=== PATIENT | male | born 1945 | race Caucasian/White ===

== ENCOUNTER 2023-08-06 12:06 | Inpatient (IN) ==
--- NOTE | 2023-08-06 13:26 | Emergency Department Note ---
Impression & Plan Pulmonary edema, Cough, CKD (chronic kidney disease) ED Provider Note Provider: Reinaldo Brandt MD DATE OF SERVICE: 08/06/2023 CHIEF COMPLAINT: Cough, shortness of breath HISTORY OF PRESENT ILLNESS: Patient is a 78-year-old gentleman history of Present for the past 4 weeks. Has been following a primary care and trying multiple antibiotic courses and trilogy without real improvement. Nonproductive but deep cough. No fevers. No leg swelling. No trauma. Some chest tightness believe related to cough. Has not really used [id number] cough or cold medicine. Does not improving and referred from primary care office today due to ongoing symptoms. No recent travel or sick contact reported. PAST MEDICAL HISTORY: As noted above MEDICATIONS: Reviewed home medications SOCIAL HISTORY: Distant former smoker PHYSICAL EXAM: GENERAL: alert and oriented in no acute distress on stretcher Head: normocephalic and atraumatic EYES: No injection, discharge or icterus. NECK: Trachea midline. ENT: Mucous membranes pink and moist. LUNGS: Airway patent. No retractions. Breath sounds diffuse coarse crackles appreciated. HEART: Regular rate and rhythm. No chest wall tenderness ABDOMEN: Soft and non-tender, without guarding or rebound. SKIN: Acyanotic, warm, dry, without rashes EXTREMITIES: Without swelling, tenderness or deformity NEUROLOGICAL: No focal deficits. No aphasia. No facial droop or slurred speech. Ambulatory. EK bpm normal sinus rhythm with sinus arrhythmia. No PVC. No acute ST segment elevation or depression with a QTc of 408. CONTINUOUS CARDIAC MONITORING: was ordered and showed a heart rate of 80s to 90s bpm in normal sinus rhythm with sinus arrhythmia Patient's laboratory studies and imaging reviewed. Differential includes Reactive airway disease, pneumonia, pneumothorax, COPD, CHF, infections, cardiac ischemia, pulmonary embolism, musculoskeletal, gastrointestinal, as well as other pathologies. IMPRESSION/MEDICAL DECISION MAKING: Patient not hypoxic but does have some coughing spells with very transient episodes. Not productive according to him. No evidence of leg swelling. EKG and troponin completed but seems less likely be true ACS. Very distant former smoker. Has used some Trelegy as well azithromycin in the outpatient setting without improvement. Has tried some antihistamines by records as well. Blood work without anemia or leukocytosis. Seems less likely be truly infectious. No severe electrolyte abnormality with some mild creatinine elevation 1.4. COVID flu RSV testing completed and negative. No transaminitis or troponin elevation. Chest x-ray questions pulmonary vascular congestion. Seems likely that this fluid is causing his extra cough. Discussed with patient and son at bedside. No significant history of heart failure or valvular abnormality previously reported and as such will bring in for further evaluation of this. Will start with some diuresis with Lasix. Will need to be monitored in regards to his chronic kidney disease and the diuresis. Again does transiently have hypoxic episodes during coughing fits but rebounds back onto room air in the low 90s. DIAGNOSIS: Cough, shortness of breath, pulmonary edema DISPOSITION: Hospitalist will evaluate Patient was agreeable with this plan. Past Med/Surg History Medical History (Updated 08/06/23 @ 15:50 by Reinaldo Brandt M.D.) Depression Schizophrenia Surgical History (Updated 01/11/19 @ 09:24 by Agatha Adam RN) History of prostate surgery Social History Smoking Status: Former smoker Hx Alcohol Use: No Hx Substance Use: No Preferred Language: Pashto Communication Ability: Effective Beliefs That Will Affect Care: None Current Living Situation: Family Feels Safe at Home: Yes Allergies Allergies Allergy/AdvReac Type Severity Reaction Status Date / Time No Known Allergies Allergy Verified 01/11/19 09:24 Home Meds Home Medications Medication Instructions Recorded Confirmed duloxetine 30 mg capsule,delayed 30 mg PO BID 11/27/18 01/11/19 release lamotrigine 100 mg tablet 150 mg PO HS 11/27/18 01/11/19 memantine ER 28 mg-donepezil 10 mg 1 cap PO HS 11/27/18 01/11/19 capsule sprinkle,ext.release 24 hr (Namzaric) quetiapine 300 mg tablet 300 mg PO HS 11/27/18 01/11/19 propranolol 60 mg tablet 60 mg PO DAILY 01/11/19 01/11/19 Results & Data (ED) Vital Signs Vital Signs - 24 hr 08/06/23 12:07 08/06/23 12:07 08/06/23 12:08 Temperature 36.8 C Temperature Source Temporal Artery Scan Pulse Rate 105 H Pulse Rate from SpO2 Sensor Respiratory Rate 24 Respiratory Effort / Characteristics Non-Labored Spontaneous Respiratory Depth Normal Blood Pressure 125/70 Blood Pressure Mean 88 Blood Pressure Position Sitting Pulse Oximetry 95 94 Oxygen Delivery Method Room Air Room Air Sepsis Recent Fever Within 48 Hours No Sepsis New/Unexplained Change in Mental Status No Sepsis Action Taken by Nursing No Action Required 08/06/23 12:20 08/06/23 12:22 08/06/23 12:40 Temperature Temperature Source Pulse Rate 103 H 98 H Pulse Rate from SpO2 Sensor 100 H Respiratory Rate 26 H Respiratory Effort / Characteristics SOB on Exertion Respiratory Depth Shallow Blood Pressure Blood Pressure Mean Blood Pressure Position Pulse Oximetry 97 Oxygen Delivery Method Sepsis Recent Fever Within 48 Hours Sepsis New/Unexplained Change in Mental Status Sepsis Action Taken by Nursing 08/06/23 13:01 08/06/23 13:01 08/06/23 13:47 Temperature Temperature Source Pulse Rate 81 Pulse Rate from SpO2 Sensor 84 Respiratory Rate 16 Respiratory Effort / Characteristics Respiratory Depth Blood Pressure 135/88 Blood Pressure Mean 103 Blood Pressure Position Pulse Oximetry 95 95 90 Oxygen Delivery Method Room Air Room Air Sepsis Recent Fever Within 48 Hours Sepsis New/Unexplained Change in Mental Status Sepsis Action Taken by Nursing 08/06/23 14:00 08/06/23 14:30 08/06/23 15:30 Temperature Temperature Source Pulse Rate 91 H 86 91 H Pulse Rate from SpO2 Sensor 91 H 87 92 H Respiratory Rate 19 21 20 Respiratory Effort / Characteristics Respiratory Depth Blood Pressure 145/85 H 142/78 H Blood Pressure Mean 105 99 Blood Pressure Position Pulse Oximetry 92 91 93 Oxygen Delivery Method Sepsis Recent Fever Within 48 Hours Sepsis New/Unexplained Change in Mental Status Sepsis Action Taken by Nursing 08/06/23 15:30 Temperature Temperature Source Pulse Rate Pulse Rate from SpO2 Sensor Respiratory Rate Respiratory Effort / Characteristics Respiratory Depth Blood Pressure 159/94 H Blood Pressure Mean 124 Blood Pressure Position Pulse Oximetry Oxygen Delivery Method Sepsis Recent Fever Within 48 Hours Sepsis New/Unexplained Change in Mental Status Sepsis Action Taken by Nursing Laboratory Data 08/06/23 12:17 08/06/23 12:17 Lab Results 08/06/23 08/06/23 Range/Units 12:17 13:13 WBC 9.43 (4.8-10.8) K/ul RBC 4.63 L (4.70-6.10) M/uL Hgb 15.0 (14.0-18.0) g/dl Hct 43.6 (42.0-52.0) % MCV 94.2 (80.0-100.0) fL MCH 32.4 (25.0-34.0) pg MCHC 34.4 (32.0-36.0) g/dL RDW Std Deviation 50.4 H (36.4-46.3) fL RDW Coeff of Claritza 14.9 H (11.5-14.5) % Plt Count 146 (130-400) K/uL MPV 9.5 (9.4-12.4) fL Immature Gran % (Auto) 0.7 % Neut % (Auto) 54.1 % Lymph % (Auto) 27.6 % [place] % (Auto) 13.4 % Eos % (Auto) 3.4 % Baso % (Auto) 0.8 % Neut # (Auto) 5.10 (1.40-6.50) K/uL Lymph # (Auto) 2.60 (1.20-3.40) K/uL [place] # (Auto) 1.26 H (0.11-0.59) K/uL Eos # (Auto) 0.32 (0.00-0.50) K/uL Baso # (Auto) 0.08 (0.00-0.20) K/uL Immature Gran # (Auto) 0.07 (0.01-0.20) K/uL Hyposegmented Neuts 1+ Tear Drop Cells 1+ PT 10.9 (9.0-12.0) Seconds INR 1.0 (0.9-1.1) APTT 29 (21-31) Seconds PTT Ratio 1.0 Sodium 141 (136-145) mmol/L Potassium 4.1 (3.5-5.1) mmol/L Chloride 105 (98-107) mmol/L Carbon Dioxide 29 (21-32) mmol/L Anion Gap 7 (3-11) BUN 21 (6-23) mg/dl Creatinine 1.42 H (0.6-1.4) mg/dl Est Cr Clr Drug Dosing 47.9 ml/min Est GFR ( Amer) 55.2 ml/min Est GFR (Non-Af Amer) 47.6 ml/min BUN/Creatinine Ratio 14.8 (10-20) Glucose 115 H (70-99(Fasting)) mg/dl Calcium 9.6 (8.6-10.3) mg/dl Total Bilirubin 0.8 (0.2-1.0) mg/dl AST 16 (13-39) U/L ALT 23 (7-52) U/L Alkaline Phosphatase 83 (34-104) U/L Troponin I High Sens 4.1 (0-20) pg/ml Total Protein 7.4 (6.0-8.3) gm/dl Albumin 4.3 (3.4-5.0) gm/dl Globulin 3.1 (2.5-4.0) gm/dl Albumin/Globulin Ratio 1.4 (0.9-2) SARS-CoV-2 (PCR) NEGATIVE (Negative) Influenza Type A (PCR) Negative (Neg) Influenza Type B (PCR) Negative (Neg) RSV (RT-PCR) Negative (Neg) Administered Medications Discontinued Medications Furosemide (Furosemide 40 Mg/4 Ml Vial) 40 mg IV ONE ONE Stop: 08/06/23 14:56 Last Admin: 08/06/23 15:09 Dose: 40 mg Documented By: SUELLEN Guaifenesin (Guaifenesin 600 Mg Tabcr) 1,200 mg PO Q12 STA Stop: 08/06/23 13:37 Last Admin: 08/06/23 13:46 Dose: 1,200 mg Documented By: MICHAEL Hydrocodone Bit/Homatropine Methylb (Hydrocodone/Homatropine Syrup 5mg/1.5mg 5ml Udp) 5 ml PO NOW STA Stop: 08/06/23 13:37 Last Admin: 08/06/23 13:46 Dose: 5 ml Documented By: MICHAEL Imaging Data Radiologist's Impression: Chest X-Ray 08/06/23 13:01 XR chest 1V portable HISTORY: 78 years-old Male Chest pain, nonspecific COMPARISON: 11/27/2018 TECHNIQUE: AP view of the chest FINDINGS: Cardiac silhouette is enlarged. Pulmonary vascular congestion with mild interstitial coarsening. No pneumothorax or large pleural effusion. Mild subsegmental bibasilar densities. Left chest wall battery pack with stimulator leads projected over the left neck. Bones appear intact IMPRESSION: 1. Cardiomegaly with pulmonary vascular congestion. 2. Mild bibasilar atelectasis. ACT 112: Negative or not required by law. The above report was generated using voice recognition software. It may contain grammatical, syntax or spelling errors. Electronically signed by: Julian Ramirez M.D. 08/06/2023 1:45 PM Discharge Plan Visit Data Chief Complaint: Chest Pain Stated Complaint: COUGH, CHEST PAIN, SOB ED Provider: Reinaldo Brandt Discharge Problem: Pulmonary edema, Cough, CKD (chronic kidney disease) Patient Disposition: Being Evaluated by Hospitalist Forms Stand Alone Forms: [facility] Prescriptions Prescriptions: No Action propranolol 60 mg Tablet 60 mg PO DAILY quetiapine 300 mg tablet 300 mg PO HS lamotrigine 100 mg tablet 150 mg PO HS duloxetine 30 mg capsule,delayed release(DR/EC) 30 mg PO BID Namzaric 28-10 mg capsule,sprinkle,ER 24hr 1 cap PO HS Referrals Referrals: Swapna Pope PA-C [Outside Practitioners] -
[2023-08-06 13:29] LABS: Hematocrit (blood only) 43.6 % (42.0-52.0); Mean Corpuscular Hemoglobin 32.4 pg (25.0-34.0); Mean Corpuscular Hgb Conc 34.4 g/dL (32.0-36.0); Mean Corpuscular Volume 94.2 fL (80.0-100.0); Mean Platelet Volume 9.5 fL (9.4-12.4); Platelet Count 146 K/uL (130-400); RDW Coefficient of Variation 14.9 % (11.5-14.5); RDW Standard Deviation 50.4 fL (36.4-46.3); Red Blood Count 4.63 M/uL (4.70-6.10); White Blood Count 9.43 K/ul (4.8-10.8)
[2023-08-06] MEDS: guaiFENesin 600 MG TABCR PO STA (13:46)
[2023-08-06] MEDS: HYDROcodone/HOMATROPINE SYRUP 5MG/1.5MG 5ML UDP PO STA (13:46)
--- NOTE | 2023-08-06 13:47 | XRay Report ---
XR chest 1V portable HISTORY: 78 years-old Male Chest pain, nonspecific COMPARISON: 11/27/2018 TECHNIQUE: AP view of the chest FINDINGS: Cardiac silhouette is enlarged. Pulmonary vascular congestion with mild interstitial coarsening. No p neumothorax or large pleural effusion. Mild subsegmental bibasilar densities. Left chest wall battery pack with stimulator leads projected over the left neck. Bones appear intact IMPRESSION: 1. Cardiomegaly with pulmonary vascular congestion. 2. Mild bibasilar atelectasis. ACT 112: Negative or not required by law. The above report was generated using voice recognition software. It may contain grammatical, syntax o r spelling errors. Electronically signed by: Julian Ramirez M.D. 08/06/2023 1:45 PM
[2023-08-06 13:56] LABS: Albumin Globulin Ratio 1.4 (0.9-2); Albumin Level 4.3 gm/dl (3.4-5.0); BUN Creatinine Ratio 14.8 (10-20); Bilirubin,Total 0.8 mg/dl (0.2-1.0); Calcium 9.6 mg/dl (8.6-10.3); Creatinine Clr Calc Pharmacy 47.9 ml/min; Est GFR (African American) 55.2 ml/min; Est GFR (Non-African American) 47.6 ml/min; Globulin 3.1 gm/dl (2.5-4.0); Potassium 4.1 mmol/L (3.5-5.1); Total Protein 7.4 gm/dl (6.0-8.3)
[2023-08-06 13:57] LABS: Partial Thromboplastin Time 29 Seconds (21-31); Prothrombin Time 10.9 Seconds (9.0-12.0)
[2023-08-06 13:59] LABS: Influenza A virus by PCR Negative (Neg); Influenza B virus by PCR Negative (Neg); RSV by PCR Negative (Neg); SARS CoV2 RNA(COVID-19) Ceph NEGATIVE (Negative)
[2023-08-06 14:01] LABS: Troponin I High Sensitivity 4.1 pg/ml (0-20)
[2023-08-06 14:14] LABS: Basophils # (auto) 0.08 K/uL (0.00-0.20); Basophils % (auto) 0.8 %; Eosinophils # (auto) 0.32 K/uL (0.00-0.50); Eosinophils % (auto) 3.4 %; Immature Granulocytes # (auto) 0.07 K/uL (0.01-0.20); Immature Granulocytes % (auto) 0.7 %; Lymphocytes % (auto) 27.6 %; Monocytes # (auto) 1.26 K/uL (0.11-0.59); Monocytes % (auto) 13.4 %; Neutrophils % (auto) 54.1 %; Tear Drop Cells 1+
[2023-08-06] MEDS: FUROSEMIDE 40 MG/4 ML VIAL IV ONE (15:09)
--- NOTE | 2023-08-06 16:25 | History & Physical Report ---
Date of Service August 06, 2023 Assessment & Plan (1) Cough: (2) COPD (chronic obstructive pulmonary disease): (3) Pulmonary congestion: Plan: Patient is 78 year old male with PMH DM II, dyslipidemia, CKD III, COPD, former smoker quit in 1999, psoriatic arthritis, depression, bipolar disorder, atypical dementia, essential tremor presented to ER with c/o SOB and cough x 1 month. Outpatient treated with Augmentin, Flonase, Singulair, albuterol for bronchitis, sinusitis without relief and then 07/30/23 started on Trelegy, Zpak and levocetirizine. In ER Patient afebrile, pulse 90s to low 100s, BP 125/70, 94% on room air DDX: COPD Exacerbation, bronchitis pulmonary edema No leukocytosis, troponin negative, procalcitonin: 0.08 Negative RSV, influenza and COVID-19 PCR CXR:Cardiomegaly with pulmonary vascular congestion. Mild bibasilar atelectasis. In ER given Lasix 40 mg IV, guaifenesin, Hycodan CT chest pending BNP pending Respiratory panel pending to further assess for other respiratory viruses Will hold on further diuretics and Monitor I's and O's, daily weight Obtain resting echo DuoNebs Guaifenesin with codeine as needed cough Will continue Trelegy that was recently started on 07/30/2023 CBC, CMP in a.m. (4) Diabetes mellitus, type II: Plan: A1c: 6.5 on 06/04/2023 Diet controlled Monitor a.m. BSG's (5) CKD (chronic kidney disease), stage III: Plan: Cr: 1.4. Baseline 1.2-1.4 Monitor renal functions, avoid nephrotoxic agents when possible (6) Dyslipidemia: Plan: Continue atorvastatin (7) Psoriatic arthritis: Plan: On Remicade, methotrexate Follows with rheumatology (8) Bipolar disorder: (9) Essential tremor: (10) Dementia: Plan: Follows with psychiatry, neurology Continue home Lamictal, Seroquel, Cymbalta, Namzaric DVT Prophylaxis Heparin SQ Full code as per discussion with pt Follows with Dr Benjamin Connor for routine care Pt was seen and care coordinated with Dr Jiang. See addendum I spent a total of 76 minutes reviewing notes, outpatient records, labs, medication, coordinating, documenting and providing care for this patient excluding time spent in the performance of separately billed services. History of Present Illness Chief Complaint: Cough, shortness of breath Primary Care Provider: Elpidio Farrell Jr, DO Patient is 78 year old male with PMH DM II, dyslipidemia, CKD III, COPD, fomer smoker quit in 1999, psoriatic arthritis, depression, bipolar disorder, atypical dementia, essential tremor presented to ER with c/o SOB and cough x 1 month. History obtained from patient and outpatient chart review. Patient reports cough and very little mucous production. Feels short of breath after coughing. Denies fever/chills, chest pain. Patient seen PCP office 07/16/23 and started on Augmentin, Flonase, Singulair, albuterol for bronchitis, sinusitis. Seen again on 07/30/23 for continued symptoms and started on Trelegy, Zpak and levocetirizine. Still with continued cough symptoms and presented today to ER. States feels SOB with coughing episodes but otherwise denies SOB. Denies any noted extremity edema. Denies fever/chills, diaphoresis, N/V/D/C, ENG, dizziness, syncope, vision changes, neck pain, CP, palpitations, hemoptysis, sore throat, choking, otalgia, rhinorrhea, abdominal pain, paresthesias, weakness, extremity edema, rashes, urinary symptoms. Allergies Allergy/AdvReac Type Severity Reaction Status Date / Time No Known Allergies Allergy Verified 08/06/23 16:12 Home Medications Medication Instructions Recorded Confirmed Type memantine ER 28 mg-donepezil 10 mg 1 cap PO HS 11/27/18 08/06/23 History capsule sprinkle,ext.release 24 hr (Namzaric) quetiapine 300 mg tablet 300 mg PO HS 11/27/18 08/06/23 History albuterol sulfate 90 mcg/actuation 2 puff inhalation DIRECTED PRN 08/06/23 08/06/23 History aerosol inhaler Shortness Of Breath Or Wheezing allopurinol 100 mg tablet 100 mg PO DAILY 08/06/23 08/06/23 History atorvastatin 20 mg tablet 20 mg PO DAILY 08/06/23 08/06/23 History duloxetine 60 mg capsule,delayed 60 mg PO BID 08/06/23 08/06/23 History release fluticasone fur. 100 mcg-umeclid 1 ea inhalation DAILY 08/06/23 08/06/23 History 62.5 mcg-vilant 25 mcg inhalat.powder (Trelegy Ellipta) fluticasone propionate 50 2 spray intranasal DAILY 08/06/23 08/06/23 History mcg/actuation nasal spray,suspension folic acid 1 mg tablet 1 mg PO QAM 08/06/23 08/06/23 History lamotrigine 200 mg tablet 200 mg PO DAILY 08/06/23 08/06/23 History levocetirizine 5 mg tablet 5 mg PO PM 08/06/23 08/06/23 History methotrexate sodium 2.5 mg tablet 20 mg PO .QWEEK 08/06/23 08/06/23 History montelukast 10 mg tablet 10 mg PO DAILY 08/06/23 08/06/23 History Past Med/Surg History Medical History Essential tremor Bipolar disorder Psoriatic arthritis COPD (chronic obstructive pulmonary disease) Diabetes mellitus, type II Dyslipidemia CKD (chronic kidney disease), stage III Depression Schizophrenia Surgical History History of colonoscopy History of prostate surgery Family History Other Cancer Social History Smoking Status: Former smoker Hx Alcohol Use: No Hx Substance Use: No Preferred Language: Azeri Communication Ability: Effective 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 Beliefs That Will Affect Care: None Current Living Situation: Family Feels Safe at Home: Yes Safety Concerns: Feels Safe At This Time Assistive Devices: Denture - Upper and Denture - Lower Review of Systems Review of Systems: All systems reviewed & are unremarkable except as noted in HPI & below Physical Exam Physical Exam: General: +intermittent coughing, otherwise no distress, WDWN Head: normocephalic, atraumatic Eyes: conjunctiva non-injected, anicteric ENT: normal inspection external ears, nose, mucous membranes moist Neck: supple, trachea midline Lungs: +coughing, sats 94% on room air, no respiratory distress, +rales bases CV: RRR, no murmur, no pretibial edema Abd: normal BS, soft, non-tender Ext: no cyanosis, no calf tenderness Neuro: A&O x 3, no focal deficits noted, normal affect Skin: warm, dry Results & Data Results & Data Vital Signs (Past 12 Hours) Vital Signs Temp Pulse Resp BP Pulse Ox O2 Del Method 08/06/23 15:30 159/94 H 08/06/23 15:30 91 H 20 93 08/06/23 14:30 86 21 142/78 H 91 08/06/23 14:00 91 H 19 145/85 H 92 08/06/23 13:47 81 16 135/88 90 08/06/23 13:01 95 Room Air 08/06/23 13:01 95 Room Air 08/06/23 12:22 98 H 08/06/23 12:20 103 H 26 H 97 08/06/23 12:08 36.8 C 105 H 24 125/70 94 Room Air 08/06/23 12:07 95 Room Air Laboratory Results Short CBC 08/06/23 Range/Units 12:17 WBC 9.43 (4.8-10.8) K/ul Hgb 15.0 (14.0-18.0) g/dl Hct 43.6 (42.0-52.0) % Plt Count 146 (130-400) K/uL BMP 08/06/23 12:17 Sodium 141 Potassium 4.1 Chloride 105 Carbon Dioxide 29 BUN 21 Creatinine 1.42 H Glucose 115 H Calcium 9.6 Liver Function 08/06/23 Range/Units 12:17 Total Bilirubin 0.8 (0.2-1.0) mg/dl AST 16 (13-39) U/L ALT 23 (7-52) U/L Alkaline Phosphatase 83 (34-104) U/L Albumin 4.3 (3.4-5.0) gm/dl Diagnostic Findings Chest X-Ray 08/06/23 13:01 XR chest 1V portable HISTORY: 78 years-old Male Chest pain, nonspecific COMPARISON: 11/27/2018 TECHNIQUE: AP view of the chest FINDINGS: Cardiac silhouette is enlarged. Pulmonary vascular congestion with mild interstitial coarsening. No pneumothorax or large pleural effusion. Mild subsegmental bibasilar densities. Left chest wall battery pack with stimulator leads projected over the left neck. Bones appear intact IMPRESSION: 1. Cardiomegaly with pulmonary vascular congestion. 2. Mild bibasilar atelectasis. ACT 112: Negative or not required by law. The above report was generated using voice recognition software. It may contain grammatical, syntax or spelling errors. Electronically signed by: Julian Ramirez M.D. 08/06/2023 1:45 PM ECG Additional Comments: sinus rhythm, rate 99 Supervising Physician Co-Signing Physician Notes Pt seen and examined by me, care coordinated w/ Edwige Tejeda PA-C, pls refer to her note above for further detail. Pt is 78 yo M male with DM II, dyslipidemia, CKD III, COPD, fomer smoker quit in 1999, psoriatic arthritis, depression, bipolar disorder, atypical dementia, essential tremor presented to ER with c/o shortness of breath and cough x 1 month. Patient seen PCP office 07/16/23 and started on Augmentin, Flonase, Singulair, albuterol for bronchitis, sinusitis. Seen again on 07/30/23 for continued symptoms and started on Trelegy, Zpak and levocetirizine. Still with continued cough symptoms and presented today to ER. CXR obtained in ED c/w some poss. pulm. vasc. congestion and pt was given IV la six. Currently sitting up in bed in NAD, awake alert answers appropriately. + cough when speaking or taking deep breath, + rales on auscultation. Heart sounds regular, no LE edema. Skin warm and dry and pt is moving extremities. Will obtain, echo, CT chest w/o contrast, procalcitonin,and full respiratory biofire. Will cont. current home regimen , duonebs prn and will add guaifensin w/ codein to help w/ persistent cough. If w/o improvement of symptoms, recommend to consult w/ pulmonary medicine. MD Deidre (10) Dementia Dementia behavioral disturbance: with behavioral disturbance Dementia type: unspecified type Qualified Code(s): F03.91 - Unspecified dementia with behavioral disturbance
[2023-08-06 18:42] LABS: Adenovirus PCR Not Detected (NotDetected); Bordetella parapertussis PCR Not Detected (NotDetected); Bordetella pertussis PCR Not Detected (NotDetected); Chlamydia pneumoniae PCR Not Detected (NotDetected); Coronavirus 229E PCR Not Detected (NotDetected); Coronavirus CoV-2 (COVID19)PCR Not Detected (NotDetected); Coronavirus HKU1 PCR Not Detected (NotDetected); Coronavirus NL63 PCR Not Detected (NotDetected); Coronavirus OC43PCR Not Detected (NotDetected); Human Metapneumovirus PCR Not Detected (NotDetected); Influenza A PCR Not Detected (NotDetected); Influenza B PCR Not Detected (NotDetected); Mycoplasma pneumoniae PCR Not Detected (NotDetected); Parainfluenza Virus 1 PCR Not Detected (NotDetected); Parainfluenza Virus 2 PCR Not Detected (NotDetected); Parainfluenza Virus 3 PCR Not Detected (NotDetected); Parainfluenza Virus 4 PCR Not Detected (NotDetected); Respiratory Syncytial VirusPCR Not Detected (NotDetected); Rhinovirus/Enterovirus PCR DETECTED (NotDetected)
[2023-08-06] MEDS ORDERED: ACETAMINOPHEN 325 MG TAB PO PRN (19:00)
[2023-08-06] MEDS ORDERED: ONDANSETRON INJ 2 MG/ML 2 ML VIAL IV PRN (19:00)
[2023-08-06] MEDS ORDERED: POLYETHYLENE (MIRALAX) 17 GM PACK PO PRN (19:00)
[2023-08-06] MEDS: ALBUT/IPRATROP 3MG/0.5MG NEB 3 ML VIAL NEB SCH (20:16)
--- NOTE | 2023-08-06 20:59 | CT Scan Report ---
Exam(s): CT CHEST Without Contrast EXAM: CT Chest Without Intravenous Contrast CLINICAL HISTORY: Reason for exam: r/o pna. TECHNIQUE: Axial computed tomography images of the chest without intravenous contrast. CTDI is 20.45 mGy and DLP is 732.03 mGy-cm. Automated exposure control was utilized for the study. A dose lowering technique was utilized adhering to the principles of ALARA. COMPARISON: No relevant prior studies available. FINDINGS: Lungs: Unremarkable. No mass. No consolidation. Pleural space: Unremarkable. No pneumothorax. No significant effusion. Heart: Coronary artery atherosclerosis. No cardiomegaly. Trace pericardial effusion. Bones/joints: Unremarkable. No acute fracture. No dislocation. Soft tissues: Unremarkable. Vasculature: Thoracic aortic atherosclerosis without aneurysm. 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 Main pulmonary artery is normal in caliber. Lymph nodes: Unremarkable. No adenopathy. Tubes, lines and devices: Left chest wall generator pack with leads extending cephalad in the left neck. IMPRESSION: No acute findings in the chest. Electronically signed by: Martha Ledezma M.D. 08/06/23 20:58 PM
[2023-08-06] MEDS: HEPARIN SOD 5,000 UNIT/0.5 ML VIAL SQ SCH (21:12)
[2023-08-06] MEDS: CETIRIZINE HCL 10 MG TABLET PO SCH (21:13)
[2023-08-06] MEDS: DULoxetine HCL 60 MG CAP PO SCH (21:13)
[2023-08-06] MEDS: QUEtiapine FUMARATE 300 MG TABLET PO SCH (21:13)
[2023-08-06] MEDS: PNEUMOCOCCAL VACCINE (PCV20) 20-VAL CONJ-DIP CRM/PF 0.5 ML SYR IM ONE (21:13)
[2023-08-07 06:38] LABS: Hematocrit (blood only) 40.4 % (42.0-52.0); Mean Corpuscular Hemoglobin 32.8 pg (25.0-34.0); Mean Corpuscular Hgb Conc 34.7 g/dL (32.0-36.0); Mean Corpuscular Volume 94.6 fL (80.0-100.0); Mean Platelet Volume 9.8 fL (9.4-12.4); Platelet Count 154 K/uL (130-400); RDW Coefficient of Variation 14.7 % (11.5-14.5); RDW Standard Deviation 49.8 fL (36.4-46.3); Red Blood Count 4.27 M/uL (4.70-6.10); White Blood Count 6.41 K/ul (4.8-10.8)
[2023-08-07 06:56] LABS: BUN Creatinine Ratio 16.6 (10-20); Calcium 9.2 mg/dl (8.6-10.3); Creatinine Clr Calc Pharmacy 46.5 ml/min; Est GFR (African American) 53.8 ml/min; Est GFR (Non-African American) 46.4 ml/min; Magnesium 1.7 mg/dl (1.7-2.4); Potassium 3.8 mmol/L (3.5-5.1)
[2023-08-07] MEDS: lamoTRIgine 100 MG TAB PO SCH (08:56)
[2023-08-07] MEDS: FOLIC ACID 1 MG TAB PO SCH (08:56)
[2023-08-07] MEDS: allopurinoL 100 MG TAB PO SCH (08:57)
[2023-08-07] MEDS: ATORVASTATIN 20 MG TAB PO SCH (08:57)
--- OUTSIDE RECORDS SUMMARY | 2023-08-07 08:57 | External Medical Summary ---
Author Name Unknown Address Unknown Organization [id number]:LAB[facility]ATORY [facility] [place] - [address] [facility] [address] Laboratory Report Ordering Provider Test Date Status YAMILETH CORBINLucita 06/04/2023 11:51:24 Final Observation Date Value Abnormality Reference (Units ) Status SYNC LEUKOCYTES IN BLOOD BY AUTOMATED COUNT 06/04/2023 11:51:24 6.47 4.00-10.80 (K/uL) Final Segs 06/04/2023 11:51:24 47.8 40.0-75.0 (%) Final Lymphs % 06/04/2023 11:51:24 36.0 18.0-42.0 (%) Final Monos 06/04/2023 11:51:24 11.3 Above high normal 1.0-11.0 (%) Final Eosinophils 06/04/2023 11:51:24 2.5 0.0-6.0 (%) Final Basos 06/04/2023 11:51:24 1.2 0.0-2.0 (%) Final Immature Granulocyte, Percent 06/04/2023 11:51:24 1.2 0.0-2.0 (%) Final Absolute Segs 06/04/2023 11:51:24 3.09 1.80-7.70 (K/uL) Final Lymphs, absolute 06/04/2023 11:51:24 2.33 1.00-4.80 (K/ul) Final Monos, Abs 06/04/2023 11:51:24 0.73 0.00-1.10 (K/uL) Final Eos, Abs 06/04/2023 11:51:24 0.16 0.00-0.70 (K/uL) Final Basos, Abs 06/04/2023 11:51:24 0.08 0.00-0.20 (K/uL) Final Immature Granulocytes, Number 06/04/2023 11:51:24 0.08 0.00-0.20 (K/uL) Final Performing Location [facility]ORY [facility] [place] - [address] [facility] [id number]
--- OUTSIDE RECORDS SUMMARY | 2023-08-07 08:57 | External Medical Summary ---
Author Name Unknown Address Unknown Organization [id number]:[facility]ORY [facility] [place] [facility] - [address] [id number] Laboratory Report Ordering Provider Test Date Status EBONY BYRNE 04/09/2023 07:31:41 Final Observation Date Value Abnormality Reference (Units ) Status ABO 04/09/2023 07:31:41 A Final RH 04/09/2023 07:31:41 Positive Final RED BLOOD CELL ANTIBODY SCREEN 04/09/2023 07:31:41 Negative Final SPECIMEN EXPIRATION DATE 04/09/2023 07:31:41 04/12/2023 23:59 Final Performing Location [facility] - [address] [id number]
--- OUTSIDE RECORDS SUMMARY | 2023-08-07 08:57 | External Medical Summary ---
Author Name Unknown Address Unknown Organization : Laboratory Report Ordering Provider Test Date Status SHANTE PAYTON 04/05/2023 17:11:47 Final Observation Date Value Abnormality Reference (Units ) Status Glucose Point of Care 04/05/2023 17:11:47 134 Above high normal 70-120 (mg/dL) Final Performing Location
--- OUTSIDE RECORDS SUMMARY | 2023-08-07 08:57 | External Medical Summary ---
Author Name Unknown Address Unknown Organization [id number]:[facility] [place] - [facility] [address] [place] [place] [address] Laboratory Report Ordering Provider Test Date Status 06/04/2023 11:51:24 Final Observation Date Value Abnormality Reference (Units ) Status HbA1C 06/04/2023 11:51:24 6.5 Above high normal 4. 0-5.6 (%) Final The use of HbA1c to monitor glycemic status is based on normal hemoglobin and HbA composition. This test should not be used in patients with abnormal hemoglobin that affects the half life of the red blood cell or the in vivo glycation rates. Glucose, estimated average 06/04/2023 11:51:24 140 Above high normal <126 (mg/dL) Alok durán Performing Location [facility] [place] - [address] [place] [address]
--- OUTSIDE RECORDS SUMMARY | 2023-08-07 08:57 | External Medical Summary | Summary of Care ---
Author Name Unknown Organization [facility] Address [address] [place] [address] Phone [phone] Care Team Providers [employer] Name Role Phone Benjamin Connor MD Primary Care Provider [phone] Reason for Visit * Reason Comments Follow Up Pt here today for a follow up visit Encounter Details Date Type Department Care Team (Late st Contact Info) Description 08/06/2023 9:40 AM EDT Office Visit [facility] [address] [place] [address] Sakshi Stubbs MD [address] [place] [address] COPD exacerbation (HCC)*; SOB (shortness of breath); Bronchitis, complicated; Chronic rhinitis; Type 2 diabetes mellitus with hemoglobin A1c goal of less than 7.0% (HCC); Chronic obstructive pulmonary disease, unspecified COPD type (HCC) Allergies No known active allergiesdocumented as of this encounter (statuses as of 08/06/2023) Medications Medication Sig Dispensed Refills Start Date End Date Status inFLIXimab (REMICADE) 100 MG injection Administer 5 mg/kg intravenously. 0 Active Zoster Vac Recomb Adjuvanted 50 MCG/0.5ML Intramuscular Suspension Reconstituted (Shingrix)Indications :Need for shingles vaccine Inject 0.5 mL into a large muscle now and repeat dose in 60 to 180 days 1 Each 1 05/15/2022 Active Allopurinol 100 MG Oral Tablet (Zyloprim)Indications :Gouty arthritis of left great toe Take 1 Tablet by mouth in the morning. 30 Tablet 11 01/09/2023 Active Folic Acid 1 MG Oral TabletIndications:Pso riatic arthropathy (HCC) Take 1 Tablet by mouth in the morning. 90 Tablet 3 02/25/2023 Active Docusate Sodium 100 MG Oral Capsule (Colace) Take 1 Capsule by mouth in the morning and 1 Capsule before bedtime. 60 Capsule 0 04/06/2023 Active Acetaminophen 325 MG Oral Tablet (Tylenol) Take 1 Tablet by mouth every 6 hours as needed for Pain, Moderate or Pain, Mild. 30 Tablet 0 04/06/2023 Active Methotrexate 2.5 MG Oral TabletIndications:Pso riatic arthropathy (HCC) Take 8 Tablets by mouth once a week. 96 Tablet 0 06/03/2023 Active Atorvastatin Calcium 20 MG Oral Tablet (Lipitor)Indications: Dyslipidemia TAKE 1 TABLET BY MOUTH IN THE MORNING 90 Tablet 2 06/07/2023 Active Fluticasone Propionate 50 MCG/ACT Nasal Suspension (Flonase) Administer 2 Sprays into each nostril in the morning. 16 g 1 07/16/2023 Active Montelukast Sodium 10 MG Oral Tablet (Singulair) Take 1 Tablet by mouth in the morning. 90 Tablet 3 07/16/2023 Active Albuterol Sulfate HFA 108 (90 Base) MCG/ACT Inhalation Aerosol Solution Inhale 2 Puffs by mouth every 6 hours as needed (cough, SOB). 18 g 5 07/16/2023 Active lamoTRIgine 200 MG Oral Tablet (LaMICtal) Take 1 Tablet by mouth in the morning. 90 Tablet 1 07/30/2023 Active Namzaric 28-10 MG Oral Capsule Extended Release 24 Hour (Memantine HCl-Donepezil HCl) 1 TAB DAILY TAKE WITH LARGEST MEAL OF THE DAY. 90 Capsule 1 07/30/2023 Active QUEtiapine Fumarate 300 MG Oral Tablet (SEROquel) Take 1 Tablet by mouth every night at bedtime. 90 Tablet 1 07/30/2023 Active DULoxetine HCl 60 MG Oral Capsule Delayed Release Particles (Cymbalta) Take 1 Capsule by mouth 2 times a day in the morning and at noon. 180 Capsule 1 07/30/2023 Active Levocetirizine Dihydrochloride 5 MG Oral Tablet Take 1 Tablet by mouth every evening. 90 Tablet 3 07/30/2023 Active Trelegy Ellipta 100-62.5-25 MCG/ACT Aerosol Powder Breath Activated (Fluticasone-Umeclidi nium-Vilanterol) Inhale 1 Puff by mouth in the morning. 60 Blister Dosing Unit 11 07/30/2023 Active Azithromycin 250 MG Oral Tablet (Zithromax Z-Sukumar) Take two tablets by mouth on first day, then 1 tablet daily until gone 6 Tablet 0 07/30/2023 Active documented as of this encounter (statuses as of 08/06/2023) Active Problems Problem Noted Date Diagnosed Date Chronic obstructive pulmonary disease 08/06/2023 Chronic rhinitis 07/30/2023 Type 2 diabetes mellitus wit h hemoglobin A1c goal of less than 7.0% 11/27/2022 Major depressive disorder, recurrent episode, mo derate 05/15/2022 Depressive disorder 08/16/2021 Overview: Last Assessment & Plan: Stable chronic condition. Following at psychiatry. Essential tremor 08/16/2021 Transient arterial occlusion of retina 2 Immunosuppression due to drug therapy 08/16/2021 Chronic schizophrenia 12/25/2020 Stage 3a chronic kidney disease 04/08/2020 Overview: Per CKD protocol - Per CKD protocol Mixed dyslipidemia 11/04/2018 Psoriatic arthropathy 10/26/2018 Overview: Last Assessment & Plan: Follows with Rheumatology who prescribes his Remicade and methotrexate. Neurocognitive disorder 01/06/2016 Psoriasis 01/06/2016 Major depressive disorder, s zulma episode, severe, with psychotic behavior 12/10/2009 Overview: Last Assessment & Plan: Stable chronic condition. No intent to harm self or others reported today. Taking medication from psychiatry as prescribed without adverse effect noted. Had to recently decrease his dose of Seroquel due to side effects and also caused a bump in his blood sugars. Continue with psychiatry. Dr. Villalta at [facility] Psych. documented as of this encounter (statuses as of 08/06/2023) Resolved Problems Problem Noted Date Diagnosed Date Resolved Date Dementia without behavioral disturbance 05/15/2022 07/16/2023 Dementia without behavioral disturbance 05/15/2022 06/04/2023 Dementia without behavioral disturbance 05/15/2022 11/27/2022 Diabetes mellitus without complication 02/06/2022 11/27/2022 Prediabetes 01/30/2022 11/27/2022 Chronic kidney disease, stage 3a 03/04/2020 04/11/2020 Overview: Per CKD protocol Elevated hemoglobin 11/04/2018 12/26/19 21 Parkinson's disease 01/06/2016 04/06/20 23 Obesity, Class I, BMI 30.0-3 4.9 (see actual BMI) 01/06/2016 11/03/2018 documented as of this encounter (statuses as of 08/06/2023) Immunizations Name Administration Dates Next Due COVID-19 mRNA, LNP-s, No Pre serve, 2-Dose Series (Pfizer) 08/03/2020,07/13/2020 Pneumococcal Conjugate Vacc, 13 Valent (Prevnar) 01/06/2019 Pneumococcal Conjugate Vacci ne, 7 Valent 12/19/2015 Pneumococcal Polysaccharide PPV23 (Pneumovax) 01/01/2017,03/02/2013 Seasonal Influenza, PF, 6 M & above, IM , (FluLaval or Fluzone) 01/24/2021,01/06/2019 Seasonal Influenza, Quadriva lent Hd (Fluzone Hd) 01/08/2023,02/06/2022 TDAP (age 10 and older)(Boostrix) 12/04/2022 Zoster Vaccine Recombinant (Shingrix) ,05/15/2022,05/15/2022(Defer red: Done Elsewhere) documented as of this encounter Social History Tobacco Use Types Packs/Day Years Used Date Smoking Tobacco: Former Cigarettes Passive Smoke Exposure: Never Smokeless Tobacco: Never Comments:quit in 1999 Alcohol Use Standard Drinks/Week Comments No 0 (1 standard drink = 0.6 oz pur e alcohol) PHQ-2 Answer Date Recorded PHQ Adult Total Score 0 04/12/2023 Hunger Vital Sign Answer Date Recorded Within the past 12 months, y ou worried that your food would run out before you got the money to buy more. Never true 04/12/20 23 Within the past 12 months, t he food you bought just didn't last and you didn't have money to get more. Never true 04/12/2023 Sex and Gender Information Value Date Recorded Sex Assigned at Male 10/26/2018 12:40 PM EDT Gender Identity Male 10/26/2018 12:40 PM EDT Sexual Orientation Straight 10/26/2018 12 :40 PM EDT Job Start Date Occupation Industry Not on file Not on file Not on file documented as of this encounter Last Filed Vital Signs Vital Sign Reading Time Taken Comments Blood Pressure 116/72 08/06/2023 9:34 AM EDT Pulse 105 08/06/2023 9:34 AM EDT Temperature 36.3 C (97.3 F) 08/06/2023 9:34 AM ED T Respiratory Rate 18 08/06/2023 9:34 AM EDT Oxygen Saturation 95% 08/06/2023 9:34 AM EDT Inhaled Oxygen Concentration - - Weight 91.2 kg (201 lb) 08/06/2023 9:34 AM EDT Height - - Body Mass Index 28.84 06/04/2023 10:41 AM EST documented in this encounter Functional Status Functional Status Response Date of Assess ment Are you deaf or do you have serious difficulty h earing? No 04/05/2023 Are you blind or do you have serious difficulty seeing, even when wearing glasses? No 04/05/2023 Do you have serious difficul ty walking or climbing stairs? (5 years old or older) No 04/05/2023 Do you have difficulty dress ing or bathing? (5 years old or older) No 04/05/2023 Because of a physical, menta l, or emotional condition, do you have difficulty doing errands alone such as visiting a doctor s office or shopping? (15 years old or older) No 04/05/20 Cognitive Status Response Date of Assessm ent Because of a physical, menta l, or emotional condition, do you have serious difficulty concentrating, remembering, or making decisions? (5 years old or older) Yes 04/05/2023 documented as of this encounter Patient Instructions * Patient Instructions* Sakshi Stubbs MD - 08/06/2023 9:46 AM EDT Came for shortness of breath which has been worse over a month Failed on two courses oral antibiotic and steroid, trelegy inhaler and singulair + antihistamine , nasal sprays Asthma/COPD exacerbation Breathing is getting worse Will need hospital evaluation documented in this encounter Progress Notes * Sakshi Stubbs MD - 08/06/2023 9:41 AM EDT Subjective Shiva Lea is a 78 year old male. Chief Complaint Patient presents with Follow Up Pt here today for a follow up visit HPI: here for one week f/u on complicated bronchitis severe chronic rhinitis , hx of smoking Started singulair, finished augmentin, steroid in mar Taking flonase daily and albuterol prn Added trelegy , levocertizine on f/u visit one week ago due to severe rhinitis, cough, SOB Today his lung sounds still shows diffuse bronchi, wheezing O2 Sat down to 95 % Type 2 DM, controlled, Discussed management , failed as out pt management Will need to go to ER PMH: Patient Active Problem List Diagnosis Code Neurocognitive disorder R41.9 Psoriasis L40.9 Psoriatic arthropathy ([facility]) L40.50 Mixed dyslipidemia E78.2 Stage 3a chronic kidney disease N18.31 Chronic schizophrenia ([facility]) F20.9 Depressive disorder F32.A Essential tremor G25.0 Major depressive disorder, single episode, severe, with psychotic behavior ([facility]) F32.3 Transient arterial occlusion of retina H34.00 Immunosuppression due to drug therapy ([facility]) D84.821, Z79.899 Major depressive disorder, recurrent episode, moderate ([facility]) F33.1 Type 2 diabetes mellitus with hemoglobin A1c goal of less than 7.0% ([facility]) E11.9 Chronic rhinitis J31.0 Chronic obstructive pulmonary disease ([facility]) J44.9 Current Outpatient Medications Medication Sig Dispense Refill inFLIXimab (REMICADE) 100 MG injection Administer 5 mg/kg intravenously. Allopurinol 100 MG Oral Tablet (Zyloprim) Take 1 Tablet by mouth in the morning. 30 Tablet 11 Folic Acid 1 MG Oral Tablet Take 1 Tablet by mouth in the morning. 90 Tablet 3 Docusate Sodium 100 MG Oral Capsule (Colace) Take 1 Capsule by mouth in the morning and 1 Capsule before bedtime. 60 Capsule 0 Acetaminophen 325 MG Oral Tablet (Tylenol) Take 1 Tablet by mouth every 6 hours as needed for Pain,Moderate or Pain, Mild. 30 Tablet 0 Methotrexate 2.5 MG Oral Tablet Take 8 Tablets by mouth once a week. 96 Tablet 0 Atorvastatin Calcium 20 MG Oral Tablet (Lipitor) TAKE 1 TABLET BY MOUTH IN THE MORNING 90 Tablet 2 Fluticasone Propionate 50 MCG/ACT Nasal Suspension (Flonase) Administer 2 Sprays into each nostril in the morning. 16 g 1 Montelukast Sodium 10 MG Oral Tablet (Singulair) Take 1 Tablet by mouth in the morning. 90 Tablet 3 Albuterol Sulfate HFA 108 (90 Base) MCG/ACT Inhalation Aerosol Solution Inhale 2 Puffs by mouth every 6 hours as needed (cough, SOB). 18 g 5 lamoTRIgine 200 MG Oral Tablet (LaMICtal) Take 1 Tablet by mouth in the morning. 90 Tablet 1 Namzaric 28-10 MG Oral Capsule Extended Release 24 Hour (Memantine HCl-Donepezil HCl) 1 TAB DAILY TAKE WITH LARGEST MEAL OF THE DAY. 90 Capsule 1 QUEtiapine Fumarate 300 MG Oral Tablet (SEROquel) Take 1 Tablet by mouth every night at bedtime. 90Tablet 1 DULoxetine HCl 60 MG Oral Capsule Delayed Release Particles (Cymbalta) Take 1 Capsule by mouth 2 times a day in the morning and at noon. 180 Capsule 1 Levocetirizine Dihydrochloride 5 MG Oral Tablet Take 1 Tablet by mouth every evening. 90 Tablet 3 Trelegy Ellipta 100-62.5-25 MCG/ACT Aerosol Powder Breath Activated (Dmbszirmvov-Yyvvubslngtu-Rkogmhfvxp) Inhale 1 Puff by mouth in the morning. 60 Blister Dosing Unit 11 Azithromycin 250 MG Oral Tablet (Zithromax Z-Sukumar) Take two tablets by mouth on first day, then 1 tablet daily until gone 6 Tablet 0 Zoster Vac Recomb Adjuvanted 50 MCG/0.5ML Intramuscular Suspension Reconstituted (Shingrix) Inject 0.5 mL into a large muscle now and repeat dose in 60 to 180 days 1 Each 1 No current facility-administered medications for this visit. Past Medical History: Diagnosis Date Encounter for long-term (current) use of high-risk medication Memory impairment Psoriasis Rheumatoid arthritis (HCC) Rotator cuff syndrome, right Past Surgical History: Procedure Laterality Date ANESTHESIA FOR CAT OR MRI SCAN N/A 03/24/2023 ANESTHESIA FOR NON-INVASIVE IMAGING (MRI OR CT) performed by [facility] [place] [place] [facility] [place] [facility] [place]OSCOPY, DIAGNOSTIC (RECTUM) 06/27/2021 adenomatous polyp, repeat 5 yrs / COLONOSCOPY FLEXIBLE PROXIMAL DIAGNOSTIC performed by Jonatan Carrillo MD at ENDOSCOPY [facility] CRANIECT-WITH USE;1ST ARRAY N/A 04/05/2023 CRANIOTOMY STEREOTACTIC IMPLANT ELECTRODE DBS STAGE 2 performed by Neal Yoon MD at [facility] INSERT/REPLACE CRANIAL NEUROSTIM, SINGLE ELECTRODE Left 04/09/2023 INSERT OR REPLACE OF CRANIAL NEUROSTIMULATOR PULSE GENERATOR OR PIPE LINE WALKER SINGLE ARRAY (STAGE 3) performed by Neal Yoon MD at [facility] TWST DRILL,DEXTER HOLE;1ST ARRAY N/A 04/05/2023 CRANIOTOMY DBS ELECTRODE STAGE 2 performed by Neal Yoon MD at [place] [facility] Review of patient's allergies indicates: No Known Allergies Family History Problem Relation Age of Onset Cancer Other Prostate Other (accident (hit by a car)) Mother Cancer Father Family Status Relation Status Other (Not Specified) Mo Fa Social History Socioeconomic History Marital status: Spouse name: Not on file Number of children: 1 Years of education: 13 Highest education level: Not on file Occupational History 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64 Tobacco Use Smoking status: Former Types: Cigarettes Passive exposure: Never Smokeless tobacco: Never Tobacco comments: quit in 1999 Vaping Use Vaping Use: Never used Substance and Sexual Activity Alcohol use: No Drug use: No Sexual activity: Not on file Other Topics Concern Not on file Social History Narrative Not on file Social Determinants of Health Financial Resource Strain: Not on file Food Insecurity: Patient Declined (08/06/2023) Hunger Vital Sign Worried About Running Out of Food in the Last Year: Patient declined Ran Out of Food in the Last Year: Patient declined Transportation Needs: Not on file Physical Activity: Not on file Stress: Not on file Social Connections: Not on file Intimate Partner Violence: Not on file Housing Stability: Not on file Review of Systems Constitutional: Positive for activity change and fatigue. Negative for appetite change, chills, diaphoresis, fever and unexpected weight change. HENT: Positive for congestion, postnasal drip and rhinorrhea. Negative for sinus pressure and sinuspain. Respiratory: Positive for cough, chest tightness, shortness of breath and wheezing. Cardiovascular: Positive for chest pain. Negative for palpitations and leg swelling. Gastrointestinal: Negative for abdominal distention and abdominal pain. Endocrine: Negative. Allergic/Immunologic: Positive for environmental allergies. Neurological: Positive for dizziness and light-headedness. Psychiatric/Behavioral: Positive for sleep disturbance. Negative for agitation and behavioral problems. Objective BP 116/72 | Pulse 105 | Temp 36.3 C (97.3 F) (Infrared ) | Resp 18 | Wt 91.2 kg (201 lb) | SpO2 95% | BMI 28.84 kg/m | BSA 2.12 m Physical Exam Constitutional: General: He is in acute distress. Appearance: Normal appearance. He is ill-appearing. He is not toxic-appearing or diaphoretic. HENT: Head: Normocephalic and atraumatic. Nose: Congestion and rhinorrhea present. Eyes: Extraocular Movements: Extraocular movements intact. Cardiovascular: Rate and Rhythm: Regular rhythm. Tachycardia present. Pulses: Normal pulses. Heart sounds: Normal heart sounds. Pulmonary: Effort: Respiratory distress present. Breath sounds: No stridor. Wheezing and rhonchi present. No rales. Chest: Chest wall: No tenderness. Musculoskeletal: Right lower leg: No edema. Left lower leg: No edema. Neurological: General: No focal deficit present. Mental Status: He is alert and oriented to person, place, and time. Psychiatric: Behavior: Behavior normal. ASSESSMENT/PLAN: COPD exacerbation (HCC) (Primary) SOB (shortness of breath) Bronchitis, complicated Chronic rhinitis Type 2 diabetes mellitus with hemoglobin A1c goal of less than 7.0% (HCC) Chronic obstructive pulmonary disease, unspecified COPD type (HCC) Patient Instructions Came for shortness of breath which has been worse over a month Failed on two courses oral antibiotic and steroid, trelegy inhaler and singulair + antihistamine , nasal sprays Asthma/COPD exacerbation Breathing is getting worse Will need hospital evaluation Sakshi Stubbs MD documented in this encounter Nursing Notes * Angely Macdonald LPN - 08/06/2023 9:33 AM EDT Chief Complaint Patient presents with Follow Up Pt here today for a follow up visit documented in this encounter Plan of Treatment Upcoming Encounters Date Type Department Care Team (Late st Contact Info) Description 08/06/2023 10:30 AM EDT Hem/Onc Treatment Hematology/Oncology Treatment, [place] [address] [place] [address] Christina, Chair 9 Hem Onc Scenery [address] [place] [address] 09/02/2023 12:00 PM EDT [facility] [address] [place] [address] Adwoa Baker [address] [place] [address] 12/03/2023 10:00 AM EDT [facility] [address] [place] [address] Ej Nieves CRNP [address] [place] [address] 12/10/2023 11:00 AM EDT Office Visit [facility] [address] [place] [address] AugustBenjamin MD [address] [place] [address] Scheduled Procedures Name Priority Associated Diagnoses Date/Ti me COLONOSCOPY FLEXIBLE PROXIMAL DIAGNOSTIC Recall History of colon polyps Health Maintenance Due Date Last Done Comments Alpha-1 Antitrypsin 1963 COVID-19 Vaccine (3 - Pfizer risk series) 08/31/2020 08/03/2020, 07/13/2020 CKD PHOS USE SMARTSET 89758 10/17/202309/25, 08/01/2021, 11/25/2018 GFR 12/03/2023 06/04/2023, 02/24, 02/26/2023, Additional history exists HbA1c 12/03/2023 06/04/2023, 12/25, 10/16/2022, Additional history exists O2 ASSESSMENT COMPLETED IN PAST YEAR FOR COPD 04/09/2024 04/09/2023 CKD HGB USE SMARTSET [id number] 06/04/202406/04, 06/04/2023, 03/10/2023, Additional history exists Diabetic Foot Exam 06/04/2024 06/04/2023, 05/15/2022 Diabetic Eye Exam 07/15/2024 07/16/2023 Albumin/Creatinine Ratio 07/29/2024 024, 10/16/2022, 08/01/2021 COLONOSCOPY-EVERY 5 YRS AGES 18-100 06/27/2026 06/27/2021, 06/27/2021 DTaP,Tdap,and Td Vaccines (2 - Td or Tdap) 12/04/2032 12/04/2022 Pneumococcal Vaccine: 65+ Years Completed 01/06/2019, 01/01/2017, 03/02/2013 Colonoscopy Discontinued 06/27/2021, 06/27/2021 Colorectal Cancer Screening Discontinued Zoster Vaccines Completed 10/09/2022, 05/15/2022 Influenza Vaccine (FLU shot) Completed 01/08/2023, 02/06/2022, 01/24/2021, Additional history exists Cologuard Discontinued Fecal Occult Blood Test Discontinued GARDASIL-HPV IMMUNIZATION SERIES Aged Out No longer eligible based on patient's age to complete this topic Hepatitis B Aged Out No longer eligi ble based on patient's age to complete this topic Hepatitis C Screening Discontinued MENINGOCOCCAL (MENACTRA/MENVEO) Aged Out No longer eligible based on patient's age to complete this topic Sigmoidoscopy Discontinued documented as of this encounter Medical Devices Implanted Type Area General Utility Worker Device Identifier Shelf Expiration Date Model / Serial / Lot Lead Dbs 0.5mm 42cm Marker - [id number] Implanted:Qty: 1 on 04/05/2023 by Neal Yoon MD at [facility] Left: Head [employer] : NEUROLOGIC PAIN 02/11/2025 [id number] / / [id number] Lead Dbs 0.5mm 42cm - [id number] Implanted:Qty: 1 on 04/05/2023 by Neal Y[place] MD [place] [facility] Right: Head [employer] : NEUROLOGIC PAIN 02/11/2025 [id number] / / [id number] Cement Hydroset Injectable 5cc - [id number] Implanted:Qty: 1 on 04/05/2023 by Neal Yoon MD at [facility] N/A: Head CAT[employer]INA 12/11/2024 [id number] / / [id number] Plate 12mm Str 2 Hole Un3 - [id number] Implanted:Qty: 1 on 04/05/2023 by Neal Yoon MD at [place] [facility] Right: Head [employer] : CRANIOMAXILLOFACIAL [id number] / / Plate 12mm Str 2 Hole Un3 - [id number] Implanted:Qty: 1 on 04/05/2023 by Neal Yoon MD at [facility] Left: Head [employer]RINA : CRANIOMAXILLOFACIAL [id number] / / Neurostimulator Percept Pc - [id number] - [id number] Implanted:Qty: 1 on 04/09/2023 by Neal Yoon MD at [facility] Left: Chest [employer] : NEUROLOGIC PAIN 02/06/2025 [id number] / [id number] / Ext Dbs 40cm Marker - [id number] Implanted:Qty: 1 on 04/09/2023 by Neal Yoon MD at [facility] Left: Chest [employer] : NEUROLOGIC PAIN 10/21/2024 [id number] / / Ext Dbs 40cm - [id number] - [id number] Implanted:Qty: 1 on 04/09/2023 by Neal Yoon MD at [facility] Left: Chest [employer] : NEUROLOGIC PAIN 12/04/2024 [id number] / [id number] / Envelope Tyrx Lg Antibacterial - [id number] Implanted:Qty: 1 on 04/09/2023 by Neal Yoon MD at [facility] Left: Chest [employer] 12/17/2023 [id number] / / [id number] documented as of this encounter Visit Diagnoses Diagnosis COPD exacerbation (HCC)- Primary Obstructive chronic bronchitis with exacerbation SOB (shortness of breath) Shortness of breath Bronchitis, complicated Bronchitis, not specified as acute or chronic Chronic rhinitis Type 2 diabetes mellitus with hemoglobin A1c goal of less than 7.0% (HCC) Chronic obstructive pulmonary disease, unspecified COPD type (HCC) documented in this encounter Advance Directives Documents on File Type Date Recorded 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 Question Answer Comments Discussion of Advance Directives occurred with: Not Discussed due to patient's condition Code Status History Code Status Date Activated Date Inactivated Comments Full Code 04/05/2023 2:37 PM 04/06/2023 6:05 PM Thi s order reflects the patients wishes and were consensually agreed upon. Question Answer Comments Discussion of Advance Directives occurred with: Not Discussed due to patient's condition Full Code 04/05/2023 6:15 AM 04/05/2023 2:37 PM Thi s order reflects the patients wishes and were consensually agreed upon. Question Answer Comments Discussion of Advance Directives occurred with: Not Discussed due to patient's condition Care Teams [employer] Truck Driver Relationship Specialty Start Date End Date August, Benjamin De Jesus MD [address] [place] [address] PCP - General Family Medicine 02/04/22 documented as of this encounter"
--- OUTSIDE RECORDS SUMMARY | 2023-08-07 08:57 | External Medical Summary ---
Author Name Unknown Address Unknown Organization : Laboratory Report Ordering Provider Test Date Status SHANTE PAYTON 04/05/2023 06:25:49 Final Observation Date Value Abnormality Reference (Units ) Status Glucose Point of Care 04/05/2023 06:25:49 135 Above high normal 70-120 (mg/dL) Final Performing Location
--- OUTSIDE RECORDS SUMMARY | 2023-08-07 08:57 | External Medical Summary ---
Author Name Unknown Address Unknown Organization K01:[place] [facility] [place] [address] [facility] [place] [address] Laboratory Report Ordering Provider Test Date Status ZEYNEP CORBIN 06/04/2023 11:51:24 Final Observation Date Value Abnormality Reference (Units ) Status BUN 06/04/2023 11:51:24 22 Above high normal 6-20 (mg/dL) Final Creatinine 06/04/2023 11:51:24 1.2 0.6-1.2 (mg/dL) Final Glomerular filtration rate/1.73 sq M.predicted [Volume Rate/Area] in Serum, Plasma or Blood by Creatinine-based formula (CKD-EPI) 06/04/2023 11:51:24 62 >=60 (mL/min) Final eGFR is calculated based on the CKD-EPI 2020 equation SODIUM 06/04/2023 11:51:24 140 135-146 (m mol/L) Final Potassium 06/04/2023 11:51:24 4.4 3.5-5.1 (m mol/L) Final Cl 06/04/2023 11:51:24 101 98-107 (mm ol/L) Final CO2 06/04/2023 11:51:24 27 22-32 (mmo l/L) Final Anion gap 06/04/2023 11:51:24 12 7-15 (mmol /L) Final Glucose 06/04/2023 11:51:24 131 Above high normal 70 -120 (mg/dL) Final Albumin 06/04/2023 11:51:24 4.6 3.8-5.0 (g /dL) Final AST (Aspartate aminotransferase) 06/04/2023 11:51:24 25 10-50 (U/L) Fin al Alk Phos 06/04/2023 11:51:24 98 35-130 (U/ L) Final Bilirubin, Total 06/04/2023 11:51:24 0.6 <=1 .2 (mg/dL) Final Calcium 06/04/2023 11:51:24 9.2 8.4-10.2 ( mg/dL) Final Protein 06/04/2023 11:51:24 7.1 6.0-8.3 (g /dL) Final ALT (Alanine aminotransferase) 06/04/2023 11:51:24 34 10-50 (U/L) Alok duárn Performing Location [facility] [place] [facility] [address] [facility] [place] [address]
--- OUTSIDE RECORDS SUMMARY | 2023-08-07 08:57 | External Medical Summary | Summary of Care ---
Author Name Unknown Organization [facility] Address [address] [place] [address] Phone [phone] Care Team Providers Care Regional Sales Manager Name Role Phone Benjamin Connor MD Primary Care Provider Encounter Details Date Type Department Care Team (Late st Contact Info) Description 08/03/2023 Orders Only Rheumatology [facility] Yvette Bourne [address] [place] [address] [place] [address] Adwoa Baker, DO [address], [place] [id number] Allergies No known active allergiesdocumented as of this encounter (statuses as of 08/03/2023) Medications Medication Sig Dispensed Refills Start Date [...] as of this encounter (statuses as of 08/03/2023) Active Problems Problem Noted Date Diagnosed Date Chronic rhinitis 07/30/2023 Type 2 diabetes mellitus wit h hemoglobin A1c goal of less than 7.0% 11/27/2022 Major depressive disorder, recurrent episode, mo derate 05/15/2022 Depressive disorder 08/16/2021 Overview: Last Assessment & Plan: Stable chronic condition. Following at psychiatry. 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 Continue with psychiatry. Dr. Villalta at [facility] Psych. documented as of this encounter (statuses as of 08/03/2023) Resolved Problems Problem Noted Date Diagnosed Date [...] as of this encounter (statuses as of 08/03/2023) Immunizations Name Administration Dates Next Due COVID-19 [...] on file documented as of this encounter Functional Status Functional Status Response [...] Yes 04/05/2023 documented as of this encounter Plan of Treatment Upcoming Encounters Date Type Department Care Team (Late st Contact Info) Description 08/06/2023 9:40 AM EDT Office Visit [facility] [id number] [place] [address] Sakshi Stubbs MD [address] [place] [address] 08/06/2023 10:30 AM EDT Hem/Onc Treatment Hematology/Oncology Treatment, [place] [address] [place] [phone] Christina, Chair 9 Hem Onc Scenery [address] [place] [address] 09/02/2023 12:00 PM EDT Telemedicine Rheumatology, Ray [address] [place], [place] [id number] Adwoa Baker DO [address] [place] [facility] [place] [address] 12/03/2023 10:00 AM EDT Telemedicine Psychiatry, Tony Saul [address] [place] [address] Ej Nieves CRNP [address] [place] [address] 12/10/2023 11:00 AM EDT Office Visit [facility] [address] [place] [phone] August, Benjamin De Jesus MD [address], [place] [phone] Scheduled Procedures Name Priority Associated Diagnoses Date/Ti me COLONOSCOPY FLEXIBLE PROXIMAL DIAGNOSTIC Recall History of colon polyps Health Maintenance Due Date Last Done Comments COVID-19 Vaccine (3 - Pfizer risk series) 08/31/2020 08/03/2020, 07/13/2020 CKD PHOS USE SMARTSET 14674 10/17/202309/25, 08/01/2021, 11/25/2018 GFR 12/03/2023 06/04/2023, 02/24, 02/26/2023, Additional history exists HbA1c 12/03/2023 06/04/2023, 12/25, 10/16/2022, Additional history exists CKD HGB USE SMARTSET 43691 06/04/202406/04, 06/04/2023, 03/10/2023, Additional history exists Diabetic [...] this encounter Medical Devices Implanted Type Area Painter Chassis Device Identifier Shelf Expiration Date Model / Serial / Lot Lead Dbs 0.5mm 42cm Marker - [id number] Implanted:Qty: 1 on 04/05/2023 by Neal Yoon MD at [place] [facility] [place] Left: Head [employer] : NEUROLOGIC PAIN 02/11/2025 [id number] / / [id number] Lead Dbs 0.5mm 42cm - [id number] Implanted:Qty: 1 on 04/05/2023 by Neal Yoon MD at [place] [facility] [place] Right: Head [employer] : NEUROLOGIC PAIN 02/11/2025 [id number] / / [id number] Cement Hydroset Injectable 5cc - [id number] Implanted:Qty: 1 on 04/05/2023 by Neal Yoon MD at [place] [facility] [place] N/A: Head CATRINA 12/11/2024 [id number] / / [id number] Plate 12mm Str 2 Hole Un3 - [id number] Implanted:Qty: 1 on 04/05/2023 by Neal Yoon MD at [place] [facility] [place] Right: Head CATRINA : CRANIOMAXILLOFACIAL [id number] / / Plate 12mm Str 2 Hole Un3 - [id number] Implanted:Qty: 1 on 04/05/2023 by Neal Yoon MD at [place] [facility] [place] Left: Head CATRINA : CRANIOMAXILLOFACIAL [id number] / / Neurostimulator Percept Pc - [id number] - [id number] Implanted:Qty: 1 on 04/09/2023 by Neal Yoon MD at [place] [facility] [place] Left: Chest [employer] : NEUROLOGIC PAIN 02/06/2025 [id number] / [id number] / Ext Dbs 40cm Marker - [id number] Implanted:Qty: 1 on 04/09/2023 by Neal Yoon MD at [place] [facility] [place] Left: Chest [employer] : NEUROLOGIC PAIN 10/21/2024 [id number] / / Ext Dbs 40cm - [id number] - [id number] Implanted:Qty: 1 on 04/09/2023 by Neal Yoon MD at [place] [facility] [place] Left: Chest [employer] : NEUROLOGIC PAIN 12/04/2024 [id number] / [id number] / Envelope Tyrx Lg Antibacterial - [id number] Implanted:Qty: 1 on 04/09/2023 by Neal Yoon MD at [place] [facility] [place] Left: Chest [employer] 12/17/2023 [id number] / / [id number] documented as of this encounter Advance Directives Documents on File Type Date Recorded Patient Opthalmic Tech Expl anation Power of Mobile Sales Expert 10/30/2014 POWER OF A TTORNEY Latest Code [...] Discussed due to patient's condition Care Teams Regional Sales Manager Relationship Specialty Start Date End Date Benjamin Connor MD [address] [place] [address] PCP - General Family Medicine 02/04/22 documented as of this encounter
--- OUTSIDE RECORDS SUMMARY | 2023-08-07 08:57 | External Medical Summary ---
Author Name Unknown Address Unknown Organization : Laboratory Report Ordering Provider Test Date Status SHANTE PAYTON 04/09/2023 09:49:41 Final Observation Date Value Abnormality Reference (Units ) Status Glucose Point of Care 04/09/2023 09:49:41 158 Above high normal 70-120 (mg/dL) Final Performing Location
--- OUTSIDE RECORDS SUMMARY | 2023-08-07 08:57 | External Medical Summary ---
Author Name Unknown Address Unknown Organization K01:[facility] [facility] [place] [facility] [place] [address] Laboratory Report Ordering Provider Test Date Status ZEYNEP CORBIN 06/04/2023 11:51:24 Final Observation Date Value Abnormality Reference (Units ) Status WBC, Total 06/04/2023 11:51:24 6.47 4.00-10.80 (K/uL) Final RBC 06/04/2023 11:51:24 4.89 4.50-5.25 (M/uL) Final Hemoglobin 06/04/2023 11:51:24 16.0 14.0-16.8 (g/dL) Final HCT 06/04/2023 11:51:24 48.0 40.0-48.4 (%) Final MCV 06/04/2023 11:51:24 98.2 82.0-99.5 (fL) Final MCH 06/04/2023 11:51:24 32.7 27.0-34.0 (pg) Final MCHC 06/04/2023 11:51:24 33.3 32.0-36.0 (g/dL) Final RDW 06/04/2023 11:51:24 12.9 11.5-15.5 (%) Final Platelets 06/04/2023 11:51:24 156 140-400 (K/uL) Final MPV 06/04/2023 11:51:24 10.1 6.6-11.1 (fL) Final Nucleated erythrocytes/100 leukocytes [Ratio] in Blood by Automated count 06/04/2023 11:51:24 0 <=0 (/100 WBCs) Final Performing Location [facility] [place] [address] [place] [address]
--- OUTSIDE RECORDS SUMMARY | 2023-08-07 08:57 | External Medical Summary ---
Author Name Unknown Address Unknown Organization K01:LABORATORY [facility] [place] [facility] - [address] [place] [address] Laboratory Report Ordering Provider Test Date Status ADELAIDA JOE 04/05/2023 06:31:42 Final Observation Date Value Abnormality Reference (Units ) Status ABO 04/05/2023 06:31:42 A Final RH 04/05/2023 06:31:42 Positive Final RED BLOOD CELL ANTIBODY SCREEN 04/05/2023 06:31:42 Negative Final SPECIMEN EXPIRATION DATE 04/05/2023 06:31:42 04/08/2023 23:59 Final Performing Location LABORATORY [facility] [place] B[facility] - [address] [place] [address]
--- OUTSIDE RECORDS SUMMARY | 2023-08-07 08:57 | External Medical Summary ---
Author Name Unknown Address Unknown Organization K01:LAB[facility]ATORY [facility] [place] - [facility] [place] [address] [place] [address] Laboratory Report Ordering Provider Test Date Status BALTAZAR HENDRICKS 07/30/2023 11:09:25 Final Normal: <30 mg/g creatinine< br/>High: 30-300 mg/g creatinine
Very High: >300 mg/g creatinine
Nephrotic: >2200 mg/g creatinine Observation Date Value Abnormality Reference (Units ) Status Albumin, Urine 07/30/2023 11:09:25 3.44 (mg/dL) Final Creatinine, Urine 07/30/2023 11:09:25 331 (mg/dL) Final Albumin/Creatinine [Mass Ratio] in Urine 07/30/2023 11:09:25 10 <30 (mg/g Creat) Final Performing Location LABORATORY [facility] [place] - [address] [place] [address]
--- OUTSIDE RECORDS SUMMARY | 2023-08-07 08:57 | External Medical Summary ---
Author Name Unknown Address Unknown Organization K01:LABORATORY [facility] [place] - [facility] [address] [facility] [address] [place] [address] Laboratory Report Ordering Provider Test Date Status ADELAIDA JOE 04/05/2023 06:31:48 Final Observation Date Value Abnormality Reference (Units ) Status Staphylococcus aureus methicillin resistance SCCmec [Presence] in Nose by ANGIE with probe detection 04/05/2023 06:31:48 Negative Negative Final No Methicillin resistant Sta phylococcus aureus detected by PCR (amplified probe). Methicillin susceptible Stap hylococcus aureus DNA [Presence] in Specimen by ANGIE with probe detection 04/05/2023 06:31:48 Negative Negative Final No methicillin sensitive Sta phylococcus aureus detected by PCR (amplified probe). Performing Location LABORATORY [facility] [place] - [facility] [place] [address]
--- OUTSIDE RECORDS SUMMARY | 2023-08-07 08:57 | External Medical Summary ---
Author Name Unknown Address Unknown Organization : Laboratory Report Ordering Provider Test Date Status SHANTE PAYTON 04/09/2023 07:31:07 Final Observation Date Value Abnormality Reference (Units ) Status Glucose Point of Care 04/09/2023 07:31:07 160 Above high normal 70-120 (mg/dL) Final Performing Location
[2023-08-07] MEDS: FLUTICASONE FUROATE 100MCG 14 PUFFS/INHALER INH SCH (08:58)
[2023-08-07] MEDS: UMECLIDINIUM/VILANTEROL 62.5/25MCG 7 PUFFS/INHALER INH SCH (08:58)
--- OUTSIDE RECORDS SUMMARY | 2023-08-07 08:58 | External Medical Summary ---
Author Name Unknown Address Unknown Organization K01:LABORATORY [facility] [place] [facility] - [address] [place] [address] Laboratory Report Ordering Provider Test Date Status NELLY NG 03/10/2023 11:00:00 Final Observation Date Value Abnormality Reference (Units ) Status ABO 03/10/2023 11:00:00 A Final RH 03/10/2023 11:00:00 Positive Final RED BLOOD CELL ANTIBODY SCREEN 03/10/2023 11:00:00 Negative Final SPECIMEN EXPIRATION DATE 03/10/2023 11:00:00 03/27/2023 23:59 Final Performing Location LABORATORY [facility] [place] B[facility] - [address] [place] [address]
--- OUTSIDE RECORDS SUMMARY | 2023-08-07 08:58 | External Medical Summary ---
Author Name Unknown Address Unknown Organization K01:[place] [place] [address] [place] [address] Laboratory Report Ordering Provider Test Date Status BELLA THOMAS 02/26/2023 09:44:54 Final Observation Date Value Abnormality Reference (Units ) Status MYCODE SPECIMEN-SST 02/26/2023 09:44:54 Freezing of extracted DNA, whole blood and/or serum. Final Performing Location [facility] [place] [address] [place] [address]
--- OUTSIDE RECORDS SUMMARY | 2023-08-07 08:58 | External Medical Summary ---
Author Name Unknown Address Unknown Organization K01:LABORATORY [facility] [place] - [address] [place] [address] Laboratory Report Ordering Provider Test Date Status NELLY NG 03/10/2023 11:00:00 Final Warfarin Therapy
INR: 2 .0-3.0 conventional anticoagulation
INR: 2.5- 3.5 high intensity anticoagulation Observation Date Value Abnormality Reference (Units ) Status PT 03/10/2023 11:00:00 12.8 11.6-15.2 (seconds) Final INR 03/10/2023 11:00:00 0.9 0.8-1.2 Final Performing Location LABORATORY [facility] [place] - [address] [place] [address]
--- OUTSIDE RECORDS SUMMARY | 2023-08-07 08:58 | External Medical Summary ---
Author Name Unknown Address Unknown Organization K01:LAB[facility]ORY [facility] [place] [address] [place] [address] Laboratory Report Ordering Provider Test Date Status MARIA ELENAMACHORAIZA 03/10/2023 11:00:00 Final Observation Date Value Abnormality Reference (Units ) Status Folic Acid 03/10/2023 11:00:00 >20.0 >4.5 (ng/ mL) Final Performing Location LABORATORY C - [address] [place] [address]
--- OUTSIDE RECORDS SUMMARY | 2023-08-07 08:58 | External Medical Summary ---
Author Name Unknown Address Unknown Organization K01:LAB[facility]ATORY [facility] [place] - [address] [place] [address] Laboratory Report Ordering Provider Test Date Status NELLY NG 03/10/2023 11:00:00 Final Observation Date Value Abnormality Reference (Units ) Status BUN 03/10/2023 11:00:00 21 Above high normal 6-20 (mg/dL) Final Creatinine 03/10/2023 11:00:00 1.4 Above high normal 0.6-1.2 (mg/dL) Final Glomerular filtration rate/1.73 sq M.predicted [Volume Rate/Area] in Serum, Plasma or Blood by Creatinine-based formula (CKD-EPI) 03/10/2023 11:00:00 53 Below low normal >=60 (mL/min) Final eGFR is calculated based on the CKD-EPI 2020 equation SODIUM 03/10/2023 11:00:00 140 135-146 (m mol/L) Final Potassium 03/10/2023 11:00:00 4.4 3.5-5.1 (m mol/L) Final Cl 03/10/2023 11:00:00 102 98-107 (mm ol/L) Final CO2 03/10/2023 11:00:00 28 22-32 (mmo l/L) Final Anion gap 03/10/2023 11:00:00 10 7-15 (mmol /L) Final Glucose 03/10/2023 11:00:00 166 Above high normal 70 -120 (mg/dL) Final Calcium 03/10/2023 11:00:00 9.5 8.4-10.2 ( mg/dL) Final Performing Location LABORATORY [facility] [place] - [address] [place] [address]
--- OUTSIDE RECORDS SUMMARY | 2023-08-07 08:58 | External Medical Summary ---
Author Name Unknown Address Unknown Organization K01:[place]ORY [facility] [place] [address] [facility] [place] [address] Laboratory Report Ordering Provider Test Date Status ZEYNEP CORBIN 02/26/2023 09:44:54 Final Observation Date Value Abnormality Reference (Units ) Status BUN 02/26/2023 09:44:54 19 6-20 (mg/dL) Final Creatinine 02/26/2023 09:44:54 1.4 Above high normal 0.6-1.2 (mg/dL) Final Glomerular filtration rate/1.73 sq M.predicted [Volume Rate/Area] in Serum, Plasma or Blood by Creatinine-based formula (CKD-EPI) 02/26/2023 09:44:54 51 Below low normal >=60 (mL/min) Final eGFR is calculated based on the CKD-EPI 2020 equation SODIUM 02/26/2023 09:44:54 143 135-146 (m mol/L) Final Potassium 02/26/2023 09:44:54 3.9 3.5-5.1 (m mol/L) Final Cl 02/26/2023 09:44:54 106 98-107 (mm ol/L) Final CO2 02/26/2023 09:44:54 25 22-32 (mmo l/L) Final Anion gap 02/26/2023 09:44:54 12 7-15 (mmol /L) Final Glucose 02/26/2023 09:44:54 161 Above high normal 70 -120 (mg/dL) Final Albumin 02/26/2023 09:44:54 4.5 3.8-5.0 (g /dL) Final AST (Aspartate aminotransferase) 02/26/2023 09:44:54 20 10-50 (U/L) Fin al Alk Phos 02/26/2023 09:44:54 90 35-130 (U/ L) Final Bilirubin, Total 02/26/2023 09:44:54 0.5 <=1 .2 (mg/dL) Final Calcium 02/26/2023 09:44:54 9.3 8.4-10.2 ( mg/dL) Final Protein 02/26/2023 09:44:54 7.3 6.0-8.3 (g /dL) Final ALT (Alanine aminotransferase) 02/26/2023 09:44:54 23 10-50 (U/L) Alok durán Performing Location [facility] [place] [facility] [address] [facility] [address]
--- OUTSIDE RECORDS SUMMARY | 2023-08-07 08:58 | External Medical Summary ---
Author Name Unknown Address Unknown Organization K01:LABORATORY [facility] [place] - [facility] [place] [address] Laboratory Report Ordering Provider Test Date Status NELLY NG 03/10/2023 11:00:00 Final Observation Date Value Abnormality Reference (Units ) Status WBC, Total 03/10/2023 11:00:00 8.87 4.00-10.80 (K/uL) Final RBC 03/10/2023 11:00:00 5.20 4.50-5.25 (M/uL) Final Hemoglobin 03/10/2023 11:00:00 16.6 14.0-16.8 (g/dL) Final HCT 03/10/2023 11:00:00 49.0 Above high normal 40.0-48.4 (%) Final MCV 03/10/2023 11:00:00 94.2 82.0-99.5 (fL) Final MCH 03/10/2023 11:00:00 31.9 27.0-34.0 (pg) Final MCHC 03/10/2023 11:00:00 33.9 32.0-36.0 (g/dL) Final RDW 03/10/2023 11:00:00 13.6 11.5-15.5 (%) Final Platelets 03/10/2023 11:00:00 214 140-400 (K/uL) Final MPV 03/10/2023 11:00:00 9.9 6.6-11.1 (fL) Final Nucleated erythrocytes/100 leukocytes [Ratio] in Blood by Automated count 03/10/2023 11:00:00 0 <=0 (/100 WBCs) Final Performing Location LABORATORY [facility] [place] - [address] [place] [address]
--- OUTSIDE RECORDS SUMMARY | 2023-08-07 08:58 | External Medical Summary ---
Author Name Unknown Address Unknown Organization K01:LABORATORY [facility] [place] - [address] [place] [address] Laboratory Report Ordering Provider Test Date Status NELLY NG 03/10/2023 11:00:00 Final Anticoagulation may affect t esting. Refer to [employer] Test Catalog for a list of effects. Observation Date Value Abnormality Reference (Units ) Status aPTT panel - Platelet poor plasma 03/10/2023 11:00:00 27 21-38 (seconds) Final Performing Location LABORATORY [facility] [place] - [address] [place] [address]
--- OUTSIDE RECORDS SUMMARY | 2023-08-07 08:58 | External Medical Summary ---
Author Name Unknown Address Unknown Organization K01:LABORATORY [facility] [place] - [address] [place] [address] Laboratory Report Ordering Provider Test Date Status BELLA THOMAS 02/26/2023 09:44:54 Final Observation Date Value Abnormality Reference (Units ) Status MYCODE SPECIMEN-SST 02/26/2023 09:44:54 Freezing of extracted DNA, whole blood and/or serum. Final Performing Location LABORATORY [facility] [place] - [address] [place] [address]
--- OUTSIDE RECORDS SUMMARY | 2023-08-07 08:58 | External Medical Summary ---
Author Name Unknown Address Unknown Organization K01:LABORATORY [facility] [place] [facility] - [address] [place] [address] Laboratory Report Ordering Provider Test Date Status NELLY NG 03/10/2023 11:10:00 Final Observation Date Value Abnormality Reference (Units ) Status ABO 03/10/2023 11:10:00 A Final RH 03/10/2023 11:10:00 Positive Final Performing Location LABORATORY [facility] [place] B[facility] - [address] [place] [address]
--- OUTSIDE RECORDS SUMMARY | 2023-08-07 08:58 | External Medical Summary ---
Author Name Unknown Address Unknown Organization K01:LABORATORY [facility] - [address] [place] [address] Laboratory Report Ordering Provider Test Date Status ROSANNA ARREDONDO 02/26/2023 09:44:54 Final Observation Date Value Abnormality Reference (Units ) Status Folic Acid 02/26/2023 09:44:54 12.5 >4.5 (ng/ mL) Final Performing Location LABORATORY [facility] - [address] [place] [address]
--- OUTSIDE RECORDS SUMMARY | 2023-08-07 08:58 | External Medical Summary ---
Author Name Unknown Address Unknown Organization K01:LABORATORY [facility] [place] - [address] [place] [address] Laboratory Report Ordering Provider Test Date Status ROSANAN ARREDONDO 02/26/2023 09:44:54 Final Observation Date Value Abnormality Reference (Units ) Status Vitamin B12 02/26/2023 09:44:54 [phone] (pg/mL) Final Performing Location LABORATORY [facility] - [address] [place] [address]
--- OUTSIDE RECORDS SUMMARY | 2023-08-07 08:58 | External Medical Summary ---
Author Name Unknown Address Unknown Organization : Laboratory Report Ordering Provider Test Date Status [facility] 03/24/2023 06:59:21 Final Observation Date Value Abnormality Reference (Units ) Status Glucose Point of Care 03/24/2023 06:59:21 157 Above high normal 70-120 (mg/dL) Final Performing Location
--- OUTSIDE RECORDS SUMMARY | 2023-08-07 08:58 | External Medical Summary ---
Author Name Unknown Address Unknown Organization K01:LABORATORY [facility] [place] - [address] [place] [address] Laboratory Report Ordering Provider Test Date Status ZEYNEP CORBIN 02/26/2023 09:44:54 Final Observation Date Value Abnormality Reference (Units ) Status WBC, Total 02/26/2023 09:44:54 7.68 4.00-10.80 (K/uL) Final RBC 02/26/2023 09:44:54 5.22 4.50-5.25 (M/uL) Final Hemoglobin 02/26/2023 09:44:54 16.4 14.0-16.8 (g/dL) Final HCT 02/26/2023 09:44:54 51.0 Above high normal 40.0-48.4 (%) Final MCV 02/26/2023 09:44:54 97.7 82.0-99.5 (fL) Final MCH 02/26/2023 09:44:54 31.4 27.0-34.0 (pg) Final MCHC 02/26/2023 09:44:54 32.2 32.0-36.0 (g/dL) Final RDW 02/26/2023 09:44:54 14.6 11.5-15.5 (%) Final Platelets 02/26/2023 09:44:54 184 140-400 (K/uL) Final MPV 02/26/2023 09:44:54 10.2 6.6-11.1 (fL) Final Nucleated erythrocytes/100 leukocytes [Ratio] in Blood by Automated count 02/26/2023 09:44:54 0 <=0 (/100 WBCs) Final Performing Location LABORATORY [facility] [place] - [address] [place] [address]
--- OUTSIDE RECORDS SUMMARY | 2023-08-07 08:58 | External Medical Summary ---
Author Name Unknown Address Unknown Organization K01:[place] [facility] [place] [address] [place] [address] Laboratory Report Ordering Provider Test Date Status 02/26/2023 09:44:54 Final Observation Date Value Abnormality Reference (Units ) Status Uric Acid 02/26/2023 09:44:54 6.7 3.4-7.0 (m g/dL) Final Performing Location [place] [facility] [place] [address] [place] [address]
--- OUTSIDE RECORDS SUMMARY | 2023-08-07 08:58 | External Medical Summary ---
Author Name Unknown Address Unknown Organization K01:LABORATORY [facility] [place] - [address] [place] [address] Laboratory Report Ordering Provider Test Date Status MARIA ELENAMACHORAIZA 03/10/2023 11:00:00 Final Observation Date Value Abnormality Reference (Units ) Status Vitamin B12 03/10/2023 11:00:00 735 644-0290 (pg/mL) Final Performing Location LABORATORY [facility] - [address] [place] [address]
[2023-08-07] MEDS: FLUTICASONE PROPIONATE NA SPR 16 GM BTL NAE SCH (08:59)
[2023-08-07] MEDS ORDERED: NON-FORMULARY MEDICATION (Fluticasone-Umeclidin-Vilanter [Trelegy Ellipta] 100-62.5-25 mcg INH SCH (09:00)
[2023-08-07] MEDS: MONTELUKAST SODIUM 10 MG TABLET PO SCH (09:00)
[2023-08-07] MEDS ORDERED: ALBUT/IPRATROP 3MG/0.5MG NEB 3 ML VIAL NEB PRN (10:47)
--- NOTE | 2023-08-07 12:07 | Electrocardiogram Report ---
Test Reason : Blood Pressure : / mmHG Vent. Rate : 099 BPM Atrial Rate : 099 BPM P-R Int : 146 ms QRS Dur : 068 ms QT Int : 318 ms P-R-T Axes : 049 -09 067 degrees QTc Int : 408 ms Normal sinus rhythm with sinus arrhythmia Normal ECG When compared with ECG of 27-NOV-2018 18:53, No significant change was found Confirmed by Christoph Hurtado ([id number]) on 08/07/2023 12:07:02 PM Referred By: Confirmed By:Christoph Hurtado
--- NOTE | 2023-08-07 14:33 | Hospitalist Progress Note ---
Date of Service August 07, 2023 Assessment & Plan (1) Cough: (2) COPD (chronic obstructive pulmonary disease): (3) Pulmonary congestion: Plan: Patient is 78 year old male with PMH DM II, dyslipidemia, CKD III, COPD, former smoker quit in 1999, psoriatic arthritis, depression, bipolar disorder, atypical dementia, essential tremor presented to ER with c/o SOB and cough x 1 month. Outpatient treated with Augmentin, Flonase, Singulair, albuterol for bronchitis, sinusitis without relief and then 07/30/23 started on Trelegy, Zpak and levocetirizine. In ER Patient afebrile, pulse 90s to low 100s, BP 125/70, 94% on room air COPD Exacerbation, bronchitis pulmonary edema Complicated by enterorhinovirus infection No leukocytosis, troponin negative, procalcitonin: 0.08 Negative RSV, influenza and COVID-19 PCR Has been getting cough medicine as needed No steroid needed, continue with bronchodilators Has been saturating normally on room air Acute diastolic dysfunction Pulmonary congestion without any overt pulmonary edema Echo showed hyperdynamic EF of more than 70 and grade 1 diastolic dysfunction CXR:Cardiomegaly with pulmonary vascular congestion. Mild bibasilar atelectasis. In ER given Lasix 40 mg IV, CT chest has been unremarkable BNP -normal Clinically better (4) Diabetes mellitus, type II: Plan: A1c: 6.5 on 06/04/2023 Diet controlled Monitor a.m. BSG's (5) CKD (chronic kidney disease), stage III: Plan: Cr: 1.4. Baseline 1.2-1.4 Monitor renal functions, avoid nephrotoxic agents when possible (6) Dyslipidemia: Plan: Continue atorvastatin (7) Psoriatic arthritis: Plan: On Remicade, methotrexate Follows with rheumatology (8) Bipolar disorder: (9) Essential tremor: (10) Dementia: Plan: Follows with psychiatry, neurology Continue home Lamictal, Seroquel, Cymbalta, Namzaric DVT Prophylaxis Heparin SQ Full code as per discussion with pt Follows with Dr Benjamin Connor for routine care Admission and Anticipated Discharge Date Admission Date: August 06, 2023 Subjective 08/07/2023 The patient was seen and examined in medical telemetry unit He has cough with minimal shortness of breath No fever and no chills Has been saturating normally on room air Review of Systems Review of Systems: All systems reviewed and are unremarkable except as noted below Physical Exam Physical Exam: Lying in bed with acute distress due to cough Constitutional: well developed, well nourished, + ill appearing and + obese Eyes: PERRL, conjunctivae normal, anicteric sclerae ENMT: external ear and nose normal, oropharynx normal Neck: trachea midline, no thyromegaly Respiratory: + respiratory distress (Secondary to cou gh and minimal wheezing) Auscultation: + diminished lung sounds and + crackles (At the bases) Cardiovascular: Rate/Rhythm: regular rate and + tachycardic Heart Sounds: normal S1 and normal S2; no murmur Extremities: no edema Gastrointestinal (Abdomen): Inspection/Auscultation: normal bowel sounds; abdomen not distended Percussion/Palpation: abdomen soft; abdomen nontender Musculoskeletal: No acute arthritis involving any of the joint Neurologic: normal touch/pain/proprioception and moves all extremities; no focal motor deficits Psychiatric: A+Ox3, euthymic affect Lymphatic: no cervical or axillary lymphadenopathy Results & Data Results & Data Vital Signs (Past 12 Hours) Vital Signs Temp Pulse Pulse Resp BP Pulse Ox O2 Del Method 08/07/23 11:31 36.8 C 103 H 20 112/72 91 Room Air 08/07/23 10:43 91 H 18 94 Room Air 08/07/23 08:00 Room Air 08/07/23 07:42 90 08/07/23 07:39 36.7 C 98 H 19 130/72 92 Room Air 08/07/23 07:01 90 18 94 Room Air 08/07/23 04:05 37.1 C 84 18 122/77 92 Room Air Laboratory Results Short CBC 08/07/23 Range/Units 05:58 WBC 6.41 (4.8-10.8) K/ul Hgb 14.0 (14.0-18.0) g/dl Hct 40.4 L (42.0-52.0) % Plt Count 154 (130-400) K/uL BMP 08/07/23 05:58 Sodium 140 Potassium 3.8 Chloride 103 Carbon Dioxide 29 BUN 24 H Creatinine 1.45 H Glucose 124 H Calcium 9.2 Medications Administered Current Inpatient Medications Acetaminophen (Acetaminophen 325 Mg Tab) 650 mg PO Q4H PRN PRN Reason: Pain or Fever Stop: 09/05/23 18:59 Albuterol (Albut/Ipratrop 3mg/0.5mg Neb 3 Ml Vial) 3 ml NEB QIDR PRN; Protocol PRN Reason: Shortness Of Breath Or Wheezing Stop: 09/05/23 18:59 Allopurinol (Allopurinol 100 Mg Tab) 100 mg PO DAILY [facility] Stop: 09/06/23 08:59 Last Admin: 08/07/23 08:57 Dose: 100 mg Atorvastatin Calcium (Atorvastatin 20 Mg Tab) 20 mg PO DAILY [facility] Stop: 09/06/23 08:59 Last Admin: 08/07/23 08:57 Dose: 20 mg Cetirizine HCl (Cetirizine Hcl 10 Mg Tablet) 5 mg PO PM [facility] Stop: 09/05/23 20:59 Last Admin: 08/06/23 21:13 Dose: 5 mg Duloxetine HCl (Duloxetine Hcl 60 Mg Cap) 60 mg PO BID [facility] Stop: 09/05/23 20:59 Last Admin: 08/07/23 08:57 Dose: 60 mg Fluticasone Furoate (Fluticasone Furoate 100mcg 14 Puffs/Inhaler) 1 puffs INH DAILY [facility] Stop: 09/06/23 08:59 Last Admin: 08/07/23 08:58 Dose: 1 puffs Fluticasone Propionate (Fluticasone Propionate Na Spr 16 Gm Btl) 2 sprays TAYA DAILY [facility] Stop: 09/06/23 08:59 Last Admin: 08/07/23 08:59 Dose: 2 sprays Folic Acid (Folic Acid 1 Mg Tab) 1 mg PO QAM [facility] Stop: 09/06/23 08:59 Last Admin: 08/07/23 08:56 Dose: 1 mg Guaifenesin/Codeine Phosphate (Guaifenesin/Codeine 100mg/10mg 5ml Udc) 5 ml PO Q6H PRN PRN Reason: Cough Stop: 09/05/23 18:59 Heparin Sodium (Porcine) (Heparin Sod 5,000 Unit/0.5 Ml Vial) 5,000 units SQ Q12 [facility] Stop: 09/05/23 20:59 Last Admin: 08/07/23 09:00 Dose: 5,000 units Lamotrigine (Lamotrigine 100 Mg Tab) 200 mg PO DAILY [facility]; Protocol Stop: 09/06/23 08:59 Last Admin: 08/07/23 08:56 Dose: 200 mg Miscellaneous (Namzaric 28/10 Mg (Memantine/Donepezil)-Order Awaiting Action) 1 each N/A QS [facility] Stop: 09/05/23 19:59 Last Admin: 08/07/23 08:59 Dose: Not Given Montelukast Sodium (Montelukast Sodium 10 Mg Tablet) 10 mg PO DAILY [facility] Stop: 09/06/23 08:59 Last Admin: 08/07/23 09:00 Dose: 10 mg Ondansetron HCl (Ondansetron Inj 2 Mg/Ml 2 Ml Vial) 4 mg IV Q6H PRN PRN Reason: Nausea Stop: 09/05/23 18:59 Polyethylene Glycol (Polyethylene (Miralax) 17 Gm Pack) 17 gm PO DAILY PRN PRN Reason: Constipation Stop: 09/05/23 18:59 Quetiapine Fumarate (Quetiapine Fumarate 300 Mg Tablet) 300 mg PO HS [facility] Stop: 09/05/23 20:59 Last Admin: 08/06/23 21:13 Dose: 300 mg Umeclidinium/Vilanterol (Umeclidinium/Vilanterol 62.5/25mcg 7 Puffs/Inhaler) 1 puffs INH DAILY [facility] Stop: 09/06/23 08:59 Last Admin: 08/07/23 08:58 Dose: 1 puffs (10) Dementia Dementia behavioral disturbance: with behavioral disturbance Dementia type: unspecified type Qualified Code(s): F03.91 - Unspecified dementia with behavioral disturbance
--- NOTE | 2023-08-08 07:22 | Electrocardiogram Report ---
Test Reason : Blood Pressure : / mmHG Vent. Rate : 090 BPM Atrial Rate : 090 BPM P-R Int : 148 ms QRS Dur : 080 ms QT Int : 354 ms P-R-T Axes : 059 002 076 degrees QTc Int : 433 ms Normal sinus rhythm Normal ECG When compared with ECG of 06-AUG-2023 12:15, No significant change was found Confirmed by Mart Aldrich ([id number]) on 08/08/2023 7:21:26 AM Referred By: REFERRED SELF Confirmed By:Dipesh Aldrich
[2023-08-08 08:25] LABS: Basophils # (auto) 0.03 K/uL (0.00-0.20); Basophils % (auto) 0.7 %; Eosinophils # (auto) 0.18 K/uL (0.00-0.50); Eosinophils % (auto) 3.9 %; Hematocrit (blood only) 43.4 % (42.0-52.0); Hemoglobin 14.6 g/dl (14.0-18.0); Immature Granulocytes # (auto) 0.03 K/uL (0.01-0.20); Immature Granulocytes % (auto) 0.7 %; Lymphocytes # (auto) 1.68 K/uL (1.20-3.40); Lymphocytes % (auto) 36.4 %; Mean Corpuscular Hemoglobin 31.7 pg (25.0-34.0); Mean Corpuscular Hgb Conc 33.6 g/dL (32.0-36.0); Mean Corpuscular Volume 94.3 fL (80.0-100.0); Mean Platelet Volume 9.5 fL (9.4-12.4); Monocytes # (auto) 0.64 K/uL (0.11-0.59); Monocytes % (auto) 13.9 %; Neutrophils # (auto) 2.05 K/uL (1.40-6.50); Neutrophils % (auto) 44.4 %; Platelet Count 150 K/uL (130-400); RDW Coefficient of Variation 14.4 % (11.5-14.5); RDW Standard Deviation 49.2 fL (36.4-46.3); White Blood Count 4.61 K/ul (4.8-10.8)
[2023-08-08 08:52] LABS: BUN Creatinine Ratio 18.4 (10-20); Calcium 9.7 mg/dl (8.6-10.3); Creatinine Clr Calc Pharmacy 49.5 ml/min; Est GFR (African American) 58.2 ml/min; Est GFR (Non-African American) 50.2 ml/min; Magnesium 1.9 mg/dl (1.7-2.4); Potassium 4.5 mmol/L (3.5-5.1)
[2023-08-08] MEDS: guaiFENesin/CODEINE 100MG/10MG 5ML UDC PO PRN (12:52)
[2023-08-08] MEDS ORDERED: guaiFENesin/CODEINE 100MG/10MG 5ML UDC PO PRN (14:00)
--- NOTE | 2023-08-08 14:05 | Hospitalist Progress Note ---
Date of Service August 08, 2023 Assessment & Plan (1) Cough: (2) COPD (chronic obstructive pulmonary disease): (3) Pulmonary congestion: Plan: Patient is 78 year old male with PMH DM II, dyslipidemia, CKD III, COPD, former smoker quit in 1999, psoriatic arthritis, depression, bipolar disorder, atypical dementia, essential tremor presented to ER with c/o SOB and cough x 1 month. Outpatient treated with Augmentin, Flonase, Singulair, albuterol for bronchitis, sinusitis without relief and then 07/30/23 started on Trelegy, Zpak and levocetirizine. In ER Patient afebrile, pulse 90s to low 100s, BP 125/70, 94% on room air COPD Exacerbation, bronchitis pulmonary edema Complicated by enterorhinovirus infection No leukocytosis, troponin negative, procalcitonin: 0.08 Negative RSV, influenza and COVID-19 PCR Has been getting cough medicine as needed No steroid needed, continue with bronchodilators Has been saturating normally on room air Clinically not any better and will start intravenous steroid Will give Hycodan to suppress cough Acute diastolic dysfunction Pulmonary congestion without any overt pulmonary edema Echo showed hyperdynamic EF of more than 70 and grade 1 diastolic dysfunction CXR:Cardiomegaly with pulmonary vascular congestion. Mild bibasilar atelectasis. In ER given Lasix 40 mg IV, CT chest has been unremarkable BNP -normal No evidence of fluid overload (4) Diabetes mellitus, type II: Plan: A1c: 6.5 on 06/04/2023 Diet controlled Monitor a.m. BSG's (5) CKD (chronic kidney disease), stage III: Plan: Cr: 1.4. Baseline 1.2-1.4 Monitor renal functions, avoid nephrotoxic agents when possible (6) Dyslipidemia: Plan: Continue atorvastatin (7) Psoriatic arthritis: Plan: On Remicade, methotrexate Follows with rheumatology (8) Bipolar disorder: (9) Essential tremor: (10) Dementia: Plan: Follows with psychiatry, neurology Continue home Lamictal, Seroquel, Cymbalta, Namzaric DVT Prophylaxis Heparin SQ Full code as per discussion with pt Follows with Dr Benjamin Connor for routine care Admission and Anticipated Discharge Date Admission Date: August 06, 2023 Subjective 08/07/2023 The patient was seen and examined in medical telemetry unit He has cough with minimal shortness of breath No fever and no chills Has been saturating normally on room air 08/08/2023 The patient was seen and examined in medical telemetry unit He has severe cough with some wheezing Has been saturating normally on room air Denies any other significant symptoms Review of Systems Review of Systems: All systems reviewed and are unremarkable except as noted below Physical Exam Physical Exam: Lying in bed with acute distress due to cough Constitutional: well developed, well nourished, + ill appearing and + obese Eyes: PERRL, conjunctivae normal, anicteric sclerae ENMT: external ear and nose normal, oropharynx normal Neck: trachea midline, no thyromegaly Respiratory: + respiratory distress (Secondary to cou gh and minimal wheezing) Auscultation: + diminished lung sounds and + crackles (At the bases) Cardiovascular: Rate/Rhythm: regular rate and + tachycardic Heart Sounds: normal S1 and normal S2; no murmur Extremities: no edema Gastrointestinal (Abdomen): Inspection/Auscultation: normal bowel sounds; abdomen not distended Percussion/Palpation: abdomen soft; abdomen nontender Musculoskeletal: No acute arthritis involving any of the joint Neurologic: normal touch/pain/proprioception and moves all extremities; no focal motor deficits Psychiatric: A+Ox3, euthymic affect Lymphatic: no cervical or axillary lymphadenopathy Results & Data Results & Data Vital Signs (Past 12 Hours) Vital Signs Temp Pulse Pulse Resp BP BP Pulse Ox 08/08/23 11:53 36.5 C 99 H 20 131/72 90 08/08/23 07:30 37.1 C 95 H 20 123/74 92 08/08/23 07:09 08/08/23 07:02 90 08/08/23 05:49 106 H 08/08/23 03:55 37 C 92 H 18 154/90 H 93 O2 Del Method 08/08/23 11:53 Room Air 08/08/23 07:30 Room Air 08/08/23 07:09 Room Air 08/08/23 07:02 08/08/23 05:49 08/08/23 03:55 Room Air Laboratory Results Short CBC 08/08/23 Range/Units 07:59 WBC 4.61 L (4.8-10.8) K/ul Hgb 14.6 (14.0-18.0) g/dl Hct 43.4 (42.0-52.0) % Plt Count 150 (130-400) K/uL BMP 08/08/23 07:59 Sodium 139 Potassium 4.5 Chloride 105 Carbon Dioxide 26 BUN 25 H Creatinine 1.36 Glucose 147 H Calcium 9.7 Medications Administered Current Inpatient Medications Acetaminophen (Acetaminophen 325 Mg Tab) 650 mg PO Q4H PRN PRN Reason: Pain or Fever Stop: 09/05/23 18:59 Albuterol (Albut/Ipratrop 3mg/0.5mg Neb 3 Ml Vial) 3 ml NEB QIDR PRN; Protocol PRN Reason: Shortness Of Breath Or Wheezing Stop: 09/05/23 18:59 Allopurinol (Allopurinol 100 Mg Tab) 100 mg PO DAILY [facility] Stop: 09/06/23 08:59 Last Admin: 08/08/23 07:56 Dose: 100 mg Atorvastatin Calcium (Atorvastatin 20 Mg Tab) 20 mg PO DAILY [facility] Stop: 09/06/23 08:59 Last Admin: 08/08/23 07:57 Dose: 20 mg Cetirizine HCl (Cetirizine Hcl 10 Mg Tablet) 5 mg PO PM [facility] Stop: 09/05/23 20:59 Last Admin: 08/07/23 20:03 Dose: 5 mg Duloxetine HCl (Duloxetine Hcl 60 Mg Cap) 60 mg PO BID [facility] Stop: 09/05/23 20:59 Last Admin: 08/08/23 07:56 Dose: 60 mg Fluticasone Furoate (Fluticasone Furoate 100mcg 14 Puffs/Inhaler) 1 puffs INH DAILY [facility] Stop: 09/06/23 08:59 Last Admin: 08/08/23 07:57 Dose: 1 puffs Fluticasone Propionate (Fluticasone Propionate Na Spr 16 Gm Btl) 2 sprays TAYA DAILY [facility] Stop: 09/06/23 08:59 Last Admin: 08/08/23 07:57 Dose: 2 sprays Folic Acid (Folic Acid 1 Mg Tab) 1 mg PO QAM [facility] Stop: 09/06/23 08:59 Last Admin: 08/08/23 07:56 Dose: 1 mg Heparin Sodium (Porcine) (Heparin Sod 5,000 Unit/0.5 Ml Vial) 5,000 units SQ Q12 [facility] Stop: 09/05/23 20:59 Last Admin: 08/08/23 07:56 Dose: 5,000 units Hydrocodone Bit/Homatropine Methylb (Hydrocodone/Homatropine Syrup 5mg/1.5mg 5ml Udp) 5 ml PO Q6H [facility] Stop: 08/22/23 13:59 Lamotrigine (Lamotrigine 100 Mg Tab) 200 mg PO DAILY [facility]; Protocol Stop: 09/06/23 08:59 Last Admin: 08/08/23 07:56 Dose: 200 mg Miscellaneous (Namzaric 28/10 Mg (Memantine/Donepezil)-Order Awaiting Action) 1 each N/A QS [facility] Stop: 09/05/23 19:59 Last Admin: 08/08/23 07:58 Dose: Not Given Montelukast Sodium (Montelukast Sodium 10 Mg Tablet) 10 mg PO DAILY [facility] Stop: 09/06/23 08:59 Last Admin: 08/08/23 07:56 Dose: 10 mg Ondansetron HCl (Ondansetron Inj 2 Mg/Ml 2 Ml Vial) 4 mg IV Q6H PRN PRN Reason: Nausea Stop: 09/05/23 18:59 Polyethylene Glycol (Polyethylene (Miralax) 17 Gm Pack) 17 gm PO DAILY PRN PRN Reason: Constipation Stop: 09/05/23 18:59 Quetiapine Fumarate (Quetiapine Fumarate 300 Mg Tablet) 300 mg PO HS [facility] Stop: 09/05/23 20:59 Last Admin: 08/07/23 20:03 Dose: 300 mg Umeclidinium/Vilanterol (Umeclidinium/Vilanterol 62.5/25mcg 7 Puffs/Inhaler) 1 puffs INH DAILY [facility] Stop: 09/06/23 08:59 Last Admin: 08/08/23 07:57 Dose: 1 puffs (10) Dementia Dementia behavioral disturbance: with behavioral disturbance Dementia type: unspecified type Qualified Code(s): F03.91 - Unspecified dementia with behavioral disturbance
[2023-08-08] MEDS ORDERED: methylPREDNISolone 125 MG/2 ML VIAL IV SCH (14:15)
[2023-08-08] MEDS: HYDROcodone/HOMATROPINE SYRUP 5MG/1.5MG 5ML UDP PO SCH (15:09)
[2023-08-08] MEDS: methylPREDNISolone 40 MG in SYRINGE 0 ML IV SCH (15:09)
[2023-08-09 06:58] LABS: Basophils # (auto) 0.01 K/uL (0.00-0.20); Basophils % (auto) 0.1 %; Hematocrit (blood only) 40.3 % (42.0-52.0); Hemoglobin 14.4 g/dl (14.0-18.0); Immature Granulocytes # (auto) 0.02 K/uL (0.01-0.20); Immature Granulocytes % (auto) 0.3 %; Lymphocytes % (auto) 16.1 %; Mean Corpuscular Hemoglobin 32.7 pg (25.0-34.0); Mean Corpuscular Hgb Conc 35.7 g/dL (32.0-36.0); Mean Corpuscular Volume 91.6 fL (80.0-100.0); Mean Platelet Volume 9.7 fL (9.4-12.4); Monocytes # (auto) 0.13 K/uL (0.11-0.59); Monocytes % (auto) 1.7 %; Neutrophils # (auto) 6.08 K/uL (1.40-6.50); Neutrophils % (auto) 81.8 %; Platelet Count 177 K/uL (130-400); RDW Coefficient of Variation 13.7 % (11.5-14.5); RDW Standard Deviation 45.7 fL (36.4-46.3); White Blood Count 7.44 K/ul (4.8-10.8)
[2023-08-09 07:23] LABS: BUN Creatinine Ratio 21.9 (10-20); Calcium 9.5 mg/dl (8.6-10.3); Creatinine Clr Calc Pharmacy 49.2 ml/min; Est GFR (African American) 57.7 ml/min; Est GFR (Non-African American) 49.7 ml/min; Potassium 4.7 mmol/L (3.5-5.1)
--- NOTE | 2023-08-09 16:26 | Hospitalist Progress Note ---
Date of Service August 09, 2023 Assessment & Plan (1) Cough: (2) COPD (chronic obstructive pulmonary disease): (3) Pulmonary congestion: Plan: Patient is 78 year old male with PMH DM II, dyslipidemia, CKD III, COPD, former smoker quit in 1999, psoriatic arthritis, depression, bipolar disorder, atypical dementia, essential tremor presented to ER with c/o SOB and cough x 1 month. Outpatient treated with Augmentin, Flonase, Singulair, albuterol for bronchitis, sinusitis without relief and then 07/30/23 started on Trelegy, Zpak and levocetirizine. In ER Patient afebrile, pulse 90s to low 100s, BP 125/70, 94% on room air COPD Exacerbation, bronchitis pulmonary edema Complicated by enterorhinovirus infection No leukocytosis, troponin negative, procalcitonin: 0.08 Negative RSV, influenza and COVID-19 PCR Has been getting cough medicine as needed No steroid needed, continue with bronchodilators Has been saturating normally on room air Clinically not any better and will start intravenous steroid Will give Hycodan to suppress cough Much improved following administration of steroid and denies any significant symptoms Will have PT and OT evaluation prior to discharge May be this afternoon Acute diastolic dysfunction Pulmonary congestion without any overt pulmonary edema Echo showed hyperdynamic EF of more than 70 and grade 1 diastolic dysfunction CXR:Cardiomegaly with pulmonary vascular congestion. Mild bibasilar atelectasis. In ER given Lasix 40 mg IV, CT chest has been unremarkable BNP -normal No evidence of fluid overload Has been lying flat without any shortness of breath and saturating normally on room air (4) Diabetes mellitus, type II: Plan: A1c: 6.5 on 06/04/2023 Diet controlled Monitor a.m. BSG's Blood sugar remains stable (5) CKD (chronic kidney disease), stage III: Plan: Cr: 1.4. Baseline 1.2-1.4 Monitor renal functions, avoid nephrotoxic agents when possible Creatinine has been normalized BUN remains slightly high and he was advised to drink more fluid (6) Dyslipidemia: Plan: Continue atorvastatin (7) Psoriatic arthritis: Plan: On Remicade, methotrexate Follows with rheumatology (8) Bipolar disorder: (9) Essential tremor: (10) Dementia: Plan: Follows with psychiatry, neurology Continue home Lamictal, Seroquel, Cymbalta, Namzaric DVT Prophylaxis Heparin SQ Full code as per discussion with pt Follows with Dr Benjamin Connor for routine care Admission and Anticipated Discharge Date Admission Date: August 06, 2023 Subjective 08/07/2023 The patient was seen and examined in medical telemetry unit He has cough with minimal shortness of breath No fever and no chills Has been saturating normally on room air 08/08/2023 The patient was seen and examined in medical telemetry unit He has severe cough with some wheezing Has been saturating normally on room air Denies any other significant symptoms 08/09/2023 The patient was seen and examined in medical telemetry He has been feeling much better following administration of steroids Cough is better and there is no shortness of breath He will have PT OT evaluation prior to discharge this afternoon Review of Systems Review of Systems: All systems reviewed and are unremarkable except as noted below Physical Exam Physical Exam: Lying in bed with acute distress due to cough Constitutional: well developed, well nourished, + ill appearing and + obese Eyes: PERRL, conjunctivae normal, anicteric sclerae ENMT: external ear and nose normal, oropharynx normal Neck: trachea midline, no thyromegaly Respiratory: + respiratory distress (Secondary to cou gh and minimal wheezing) Auscultation: + diminished lung sounds and + crackles (At the bases) Cardiovascular: Rate/Rhythm: regular rate and + tachycardic Heart Sounds: normal S1 and normal S2; no murmur Extremities: no edema Gastrointestinal (Abdomen): Inspection/Auscultation: normal bowel sounds; abdomen not distended Percussion/Palpation: abdomen soft; abdomen nontender Neurologic: normal touch/pain/proprioception and moves all extremities; no focal motor deficits Psychiatric: A+Ox3, euthymic affect Lymphatic: no cervical or axillary lymphadenopathy Results & Data Results & Data Vital Signs (Past 12 Hours) Vital Signs Temp Pulse Pulse Resp BP Pulse Ox O2 Del Method 08/09/23 15:30 36.7 C 73 20 120/70 91 Room Air 08/09/23 14:00 96 H 08/09/23 11:21 36.6 C 89 18 124/68 92 Room Air 08/09/23 09:00 Room Air 08/09/23 07:36 36.5 C 99 H 20 128/72 93 Room Air 08/09/23 07:00 101 H Laboratory Results Short CBC 08/09/23 Range/Units 06:33 WBC 7.44 (4.8-10.8) K/ul Hgb 14.4 (14.0-18.0) g/dl Hct 40.3 L (42.0-52.0) % Plt Count 177 (130-400) K/uL BMP 08/09/23 06:33 Sodium 134 L Potassium 4.7 Chloride 104 Carbon Dioxide 22 BUN 30 H Creatinine 1.37 Glucose 224 H Calcium 9.5 Medications Administered Current Inpatient Medications Acetaminophen (Acetaminophen 325 Mg Tab) 650 mg PO Q4H PRN PRN Reason: Pain or Fever Stop: 09/05/23 18:59 Albuterol (Albut/Ipratrop 3mg/0.5mg Neb 3 Ml Vial) 3 ml NEB QIDR PRN; Protocol PRN Reason: Shortness Of Breath Or Wheezing Stop: 09/05/23 18:59 Allopurinol (Allopurinol 100 Mg Tab) 100 mg PO DAILY [facility] Stop: 09/06/23 08:59 Last Admin: 08/09/23 07:29 Dose: 100 mg Atorvastatin Calcium (Atorvastatin 20 Mg Tab) 20 mg PO DAILY [facility] Stop: 09/06/23 08:59 Last Admin: 08/09/23 07:29 Dose: 20 mg Cetirizine HCl (Cetirizine Hcl 10 Mg Tablet) 5 mg PO PM [facility] Stop: 09/05/23 20:59 Last Admin: 08/08/23 20:45 Dose: 5 mg Duloxetine HCl (Duloxetine Hcl 60 Mg Cap) 60 mg PO BID [facility] Stop: 09/05/23 20:59 Last Admin: 08/09/23 07:29 Dose: 60 mg Fluticasone Furoate (Fluticasone Furoate 100mcg 14 Puffs/Inhaler) 1 puffs INH DAILY [facility] Stop: 09/06/23 08:59 Last Admin: 08/09/23 07:29 Dose: 1 puffs Fluticasone Propionate (Fluticasone Propionate Na Spr 16 Gm Btl) 2 sprays TAYA DAILY [facility] Stop: 09/06/23 08:59 Last Admin: 08/09/23 07:28 Dose: 2 sprays Folic Acid (Folic Acid 1 Mg Tab) 1 mg PO QAM [facility] Stop: 09/06/23 08:59 Last Admin: 08/09/23 07:29 Dose: 1 mg Heparin Sodium (Porcine) (Heparin Sod 5,000 Unit/0.5 Ml Vial) 5,000 units SQ Q12 [facility] Stop: 09/05/23 20:59 Last Admin: 08/09/23 07:29 Dose: 5,000 units Hydrocodone Bit/Homatropine Methylb (Hydrocodone/Homatropine Syrup 5mg/1.5mg 5ml Udp) 5 ml PO Q6H [facility] Stop: 08/22/23 13:59 Last Admin: 08/09/23 15:28 Dose: 5 ml Methylprednisolone 40 mg/ (Syringe) 0.64 mls @ 1.5 mls/min IV Q8H [facility] Stop: 09/07/23 14:29 Last Admin: 08/09/23 15: Dose: 1.5 mls/min Lamotrigine (Lamotrigine 100 Mg Tab) 200 mg PO DAILY [facility]; Protocol Stop: 09/06/23 08:59 Last Admin: 08/09/23 07:29 Dose: 200 mg Miscellaneous (Namzaric 28/10 Mg (Memantine/Donepezil)-Order Awaiting Action) 1 each N/A QS [facility] Stop: 09/05/23 19:59 Last Admin: 08/09/23 15:29 Dose: Not Given Montelukast Sodium (Montelukast Sodium 10 Mg Tablet) 10 mg PO DAILY [facility] Stop: 09/06/23 08:59 Last Admin: 08/09/23 07:29 Dose: 10 mg Ondansetron HCl (Ondansetron Inj 2 Mg/Ml 2 Ml Vial) 4 mg IV Q6H PRN PRN Reason: Nausea Stop: 09/05/23 18:59 Polyethylene Glycol (Polyethylene (Miralax) 17 Gm Pack) 17 gm PO DAILY PRN PRN Reason: Constipation Stop: 09/05/23 18:59 Quetiapine Fumarate (Quetiapine Fumarate 300 Mg Tablet) 300 mg PO HS [facility] Stop: 09/05/23 20:59 Last Admin: 08/08/23 20:45 Dose: 300 mg Umeclidinium/Vilanterol (Umeclidinium/Vilanterol 62.5/25mcg 7 Puffs/Inhaler) 1 puffs INH DAILY [facility] Stop: 09/06/23 08:59 Last Admin: 08/09/23 07:28 Dose: 1 puffs (10) Dementia Dementia behavioral disturbance: with behavioral disturbance Dementia type: unspecified type Qualified Code(s): F03.91 - Unspecified dementia with behavioral disturbance
[2023-08-10 07:58] LABS: Basophils # (auto) 0.01 K/uL (0.00-0.20); Basophils % (auto) 0.1 %; Hematocrit (blood only) 36.7 % (42.0-52.0); Hemoglobin 13.1 g/dl (14.0-18.0); Immature Granulocytes # (auto) 0.09 K/uL (0.01-0.20); Immature Granulocytes % (auto) 0.6 %; Lymphocytes % (auto) 12.5 %; Mean Corpuscular Hemoglobin 32.8 pg (25.0-34.0); Mean Corpuscular Hgb Conc 35.7 g/dL (32.0-36.0); Mean Corpuscular Volume 91.8 fL (80.0-100.0); Mean Platelet Volume 9.9 fL (9.4-12.4); Monocytes # (auto) 0.61 K/uL (0.11-0.59); Monocytes % (auto) 4.2 %; Neutrophils # (auto) 11.94 K/uL (1.40-6.50); Neutrophils % (auto) 82.6 %; Platelet Count 197 K/uL (130-400); RDW Coefficient of Variation 13.8 % (11.5-14.5); RDW Standard Deviation 46.2 fL (36.4-46.3); White Blood Count 14.45 K/ul (4.8-10.8)
[2023-08-10 08:17] LABS: BUN Creatinine Ratio 23.8 (10-20); Calcium 9.3 mg/dl (8.6-10.3); Creatinine Clr Calc Pharmacy 45.8 ml/min; Est GFR (African American) 52.9 ml/min; Est GFR (Non-African American) 45.7 ml/min; Magnesium 2.1 mg/dl (1.7-2.4); Potassium 4.5 mmol/L (3.5-5.1)
[2023-08-10] MEDS: PNEUMOCOCCAL VACCINE (PCV20) 20-VAL CONJ-DIP CRM/PF 0.5 ML SYR IM ONE (10:46)
--- NOTE | 2023-08-10 11:09 | Hospitalist Progress Note ---
Date of Service August 10, 2023 Assessment & Plan (1) Cough: (2) COPD (chronic obstructive pulmonary disease): (3) Pulmonary congestion: Plan: Patient is 78 year old male with PMH DM II, dyslipidemia, CKD III, COPD, former smoker quit in 1999, psoriatic arthritis, depression, bipolar disorder, atypical dementia, essential tremor presented to ER with c/o SOB and cough x 1 month. Outpatient treated with Augmentin, Flonase, Singulair, albuterol for bronchitis, sinusitis without relief and then 07/30/23 started on Trelegy, Zpak and levocetirizine. In ER Patient afebrile, pulse 90s to low 100s, BP 125/70, 94% on room air COPD Exacerbation, bronchitis pulmonary edema Complicated by enterorhinovirus infection No leukocytosis, troponin negative, procalcitonin: 0.08 Negative RSV, influenza and COVID-19 PCR Has been getting cough medicine as needed No steroid needed, continue with bronchodilators Has been saturating normally on room air Clinically not any better and will start intravenous steroid Will give Hycodan to suppress cough Much improved following administration of steroid and denies any significant symptoms Did very well with physical therapy and symptomatically much improved Will be discharged home this afternoon Acute diastolic dysfunction Pulmonary congestion without any overt pulmonary edema Echo showed hyperdynamic EF of more than 70 and grade 1 diastolic dysfunction CXR:Cardiomegaly with pulmonary vascular congestion. Mild bibasilar atelectasis. In ER given Lasix 40 mg IV, CT chest has been unremarkable BNP -normal No evidence of fluid overload Has been lying flat without any shortness of breath and saturating normally on room air Will continue his usual dose of diuretics at home (4) Diabetes mellitus, type II: Plan: A1c: 6.5 on 06/04/2023 Diet controlled Monitor a.m. BSG's Blood sugar remains stable No change with his diabetes medicine (5) CKD (chronic kidney disease), stage III: Plan: Cr: 1.4. Baseline 1.2-1.4 Monitor renal functions, avoid nephrotoxic agents when possible Creatinine has been normalized BUN remains slightly high and he was advised to drink more fluid (6) Dyslipidemia: Plan: Continue atorvastatin (7) Psoriatic arthritis: Plan: On Remicade, methotrexate Follows with rheumatology (8) Bipolar disorder: (9) Essential tremor: (10) Dementia: Plan: Follows with psychiatry, neurology Continue home Lamictal, Seroquel, Cymbalta, Namzaric DVT Prophylaxis Heparin SQ Full code as per discussion with pt Follows with Dr Benjamin Connor for routine care Admission and Anticipated Discharge Date Admission Date: August 06, 2023 Subjective 08/07/2023 The patient was seen and examined in medical telemetry unit He has cough with minimal shortness of breath No fever and no chills Has been saturating normally on room air 08/08/2023 The patient was seen and examined in medical telemetry unit He has severe cough with some wheezing Has been saturating normally on room air Denies any other significant symptoms 08/09/2023 The patient was seen and examined in medical telemetry He has been feeling much better following administration of steroids Cough is better and there is no shortness of breath He will have PT OT evaluation prior to discharge this afternoon 08/10/2023 The patient was seen and examined in medical telemetry unit He has been feeling much better Has minimal cough without any wheezing and or shortness of breath Has had physical therapy and did very well He will be discharged home this afternoon Review of Systems Review of Systems: All systems reviewed and are unremarkable except as noted below Physical Exam Physical Exam: Lying in bed with acute distress due to cough Constitutional: well developed, well nourished, + ill appearing and + obese Eyes: PERRL, conjunctivae normal, anicteric sclerae ENMT: external ear and nose normal, oropharynx normal Neck: trachea midline, no thyromegaly Respiratory: + respiratory distress (Secondary to cou gh and minimal wheezing) Auscultation: + diminished lung sounds and + crackles (At the bases) Cardiovascular: Rate/Rhythm: regular rate and + tachycardic Heart Sounds: normal S1 and normal S2; no murmur Extremities: no edema Gastrointestinal (Abdomen): Inspection/Auscultation: normal bowel sounds; abdomen not distended Percussion/Palpation: abdomen soft; abdomen nontender Musculoskeletal: No acute arthritis involving any of the joint Neurologic: normal touch/pain/proprioception and moves all extremities; no focal motor deficits Psychiatric: A+Ox3, euthymic affect Lymphatic: no cervical or axillary lymphadenopathy Results & Data Results & Data Vital Signs (Past 12 Hours) Vital Signs Temp Pulse Pulse Resp BP BP Pulse Ox 08/10/23 10:06 36.5 C 89 20 145/86 H 142/82 H 93 08/10/23 07:52 36.5 C 89 20 165/84 H 93 08/10/23 07:00 75 08/10/23 03:57 36.4 C L 90 18 163/75 H 93 O2 Del Method 08/10/23 10:06 08/10/23 07:52 Room Air 08/10/23 07:00 08/10/23 03:57 Room Air Laboratory Results Short CBC 08/10/23 Range/Units 06:37 WBC 14.45 H (4.8-10.8) K/ul Hgb 13.1 L (14.0-18.0) g/dl Hct 36.7 L (42.0-52.0) % Plt Count 197 (130-400) K/uL BMP 08/10/23 06:37 Sodium 134 L Potassium 4.5 Chloride 103 Carbon Dioxide 24 BUN 35 H Creatinine 1.47 H Glucose 245 H Calcium 9.3 Medications Administered Current Inpatient Medications Acetaminophen (Acetaminophen 325 Mg Tab) 650 mg PO Q4H PRN PRN Reason: Pain or Fever Stop: 09/05/23 18:59 Albuterol (Albut/Ipratrop 3mg/0.5mg Neb 3 Ml Vial) 3 ml NEB QIDR PRN; Protocol PRN Reason: Shortness Of Breath Or Wheezing Stop: 09/05/23 18:59 Allopurinol (Allopurinol 100 Mg Tab) 100 mg PO DAILY [facility] Stop: 09/06/23 08:59 Last Admin: 08/10/23 07:36 Dose: 100 mg Atorvastatin Calcium (Atorvastatin 20 Mg Tab) 20 mg PO DAILY [facility] Stop: 09/06/23 08:59 Last Admin: 08/10/23 07:36 Dose: 20 mg Cetirizine HCl (Cetirizine Hcl 10 Mg Tablet) 5 mg PO PM [facility] Stop: 09/05/23 20:59 Last Admin: 08/09/23 19:59 Dose: 5 mg Duloxetine HCl (Duloxetine Hcl 60 Mg Cap) 60 mg PO BID [facility] Stop: 09/05/23 20:59 Last Admin: 08/10/23 07:36 Dose: 60 mg Fluticasone Furoate (Fluticasone Furoate 100mcg 14 Puffs/Inhaler) 1 puffs INH DAILY [facility] Stop: 09/06/23 08:59 Last Admin: 08/10/23 07:36 Dose: 1 puffs Fluticasone Propionate (Fluticasone Propionate Na Spr 16 Gm Btl) 2 sprays TAYA DAILY [facility] Stop: 09/06/23 08:59 Last Admin: 08/10/23 07:36 Dose: 2 sprays Folic Acid (Folic Acid 1 Mg Tab) 1 mg PO QAM [facility] Stop: 09/06/23 08:59 Last Admin: 08/10/23 07:36 Dose: 1 mg Heparin Sodium (Porcine) (Heparin Sod 5,000 Unit/0.5 Ml Vial) 5,000 units SQ Q12 [facility] Stop: 09/05/23 20:59 Last Admin: 08/10/23 07:38 Dose: Not Given Hydrocodone Bit/Homatropine Methylb (Hydrocodone/Homatropine Syrup 5mg/1.5mg 5ml Udp) 5 ml PO Q6H [facility] Stop: 08/22/23 13:59 Last Admin: 08/10/23 07:36 Dose: 5 ml Methylprednisolone 40 mg/ (Syringe) 0.64 mls @ 1.5 mls/min IV Q8H [facility] Stop: 09/07/23 14:29 Last Admin: 08/10/23 05:37 Dose: 1.5 mls/min Lamotrigine (Lamotrigine 100 Mg Tab) 200 mg PO DAILY [facility]; Protocol Stop: 09/06/23 08:59 Last Admin: 08/10/23 07:36 Dose: 200 mg Miscellaneous (Namzaric 28/10 Mg (Memantine/Donepezil)-Order Awaiting Action) 1 each N/A QS [facility] Stop: 09/05/23 19:59 Last Admin: 08/10/23 08:17 Dose: Not Given Montelukast Sodium (Montelukast Sodium 10 Mg Tablet) 10 mg PO DAILY [facility] Stop: 09/06/23 08:59 Last Admin: 08/10/23 07:36 Dose: 10 mg Ondansetron HCl (Ondansetron Inj 2 Mg/Ml 2 Ml Vial) 4 mg IV Q6H PRN PRN Reason: Nausea Stop: 09/05/23 18:59 Polyethylene Glycol (Polyethylene (Miralax) 17 Gm Pack) 17 gm PO DAILY PRN PRN Reason: Constipation Stop: 05/12/24 18:59 Quetiapine Fumarate (Quetiapine Fumarate 300 Mg Tablet) 300 mg PO HS [facility] Stop: 09/05/23 20:59 Last Admin: 08/09/23 19:59 Dose: 300 mg Umeclidinium/Vilanterol (Umeclidinium/Vilanterol 62.5/25mcg 7 Puffs/Inhaler) 1 puffs INH DAILY [facility] Stop: 09/06/23 08:59 Last Admin: 08/10/23 07:36 Dose: 1 puffs (10) Dementia Dementia behavioral disturbance: with behavioral disturbance Dementia type: unspecified type Qualified Code(s): F03.91 - Unspecified dementia with behavioral disturbance
--- NOTE | 2023-08-10 19:44 | Discharge Summary ---
Date of Service August 10, 2023 Admission HPI Per Admitting Provider Patient is 78 year old male with PMH DM II, dyslipidemia, CKD III, COPD, fomer smoker quit in 1999, psoriatic arthritis, depression, bipolar disorder, atypical dementia, essential tremor presented to ER with c/o SOB and cough x 1 month. History obtained from patient and outpatient chart review. Patient reports cough and very little mucous production. Feels short of breath after coughing. Denies fever/chills, chest pain. Patient seen PCP office 07/16/23 and started on Augmentin, Flonase, Singulair, albuterol for bronchitis, sinusitis. Seen again on 07/30/23 for continued symptoms and started on Trelegy, Zpak and lev ocetirizine. Still with continued cough symptoms and presented today to ER. States feels SOB with coughing episodes but otherwise denies SOB. Denies any noted extremity edema. Denies fever/chills, diaphoresis, N/V/D/C, ENG, dizziness, syncope, vision changes, neck pain, CP, palpitations, hemoptysis, sore throat, choking, otalgia, rhinorrhea, abdominal pain, paresthesias, weakness, extremity edema, rashes, urinary symptoms. Admission Exam Per Admitting Provider Physical Exam: General: +intermittent coughing, otherwise no distress, WDWN Head: normocephalic, atraumatic Eyes: conjunctiva non-injected, anicteric ENT: normal inspection external ears, nose, mucous membranes moist Neck: supple, trachea midline Lungs: +coughing, sats 94% on room air, no respiratory distress, +rales bases CV: RRR, no murmur, no pretibial edema Abd: normal BS, soft, non-tender Ext: no cyanosis, no calf tenderness Neuro: A&O x 3, no focal deficits noted, normal affect Skin: warm, dry Principal Diagnosis COPD exacerbation, Enterra rhinovirus infection, type 2 diabetes, acute diastolic dysfunction. CKD Discharge Exam Lying in bed with acute distress due to cough Constitutional well developed, well nourished, + ill appearing and + obese Eyes PERRL, conjunctivae normal, anicteric sclerae ENMT external ear and nose normal, oropharynx normal Neck trachea midline, no thyromegaly Respiratory + respiratory distress (Secondary to cough and minimal wheezing) Auscultation: + diminished lung sounds and + crackles (At the bases) Cardiovascular Rate/Rhythm: regular rate and + tachycardic Heart Sounds: normal S1 and normal S2; no murmur Extremities: no edema Gastrointestinal (Abdomen) Inspection/Auscultation: normal bowel sounds; abdomen not distended Percussion/Palpation: abdomen soft; abdomen nontender Neurologic normal touch/pain/proprioception and moves all extremities; no focal motor deficits Psychiatric A+Ox3, euthymic affect Lymphatic no cervical or axillary lymphadenopathy Discharge Data Allergies Allergy/AdvReac Type Severity Reaction Status Date / Time No Known Allergies Allergy Verified 08/06/23 16:12 Consultations 08/06/23 15:06 ED Decision to Admit Stat Ordered Studies 08/06/23 16:34 CT chest without contrast [CT chest diagnostic wo con] Routine Hospital Course (1) Cough: (2) COPD (chronic obstructive pulmonary disease): (3) Pulmonary congestion: Patient is 78 year old male with PMH DM II, dyslipidemia, CKD III, COPD, former smoker quit in 1999, psoriatic arthritis, depression, bipolar disorder, atypical dementia, essential tremor presented to ER with c/o SOB and cough x 1 month. Outpatient treated with Augmentin, Flonase, Singulair, albuterol for bronchitis, sinusitis without relief and then 07/30/23 started on Trelegy, Zpak and levocetirizine. In ER Patient afebrile, pulse 90s to low 100s, BP 125/70, 94% on room air COPD Exacerbation, bronchitis pulmonary edema Complicated by enterorhinovirus infection No leukocytosis, troponin negative, procalcitonin: 0.08 Negative RSV, influenza and COVID-19 PCR Has been getting cough medicine as needed No steroid needed, continue with bronchodilators Has been saturating normally on room air Clinically not any better and will start intravenous steroid Will give Hycodan to suppress cough Much improved following administration of steroid and denies any significant symptoms Did very well with physical therapy and symptomatically much improved Will be discharged home this afternoon Acute diastolic dysfunction Pulmonary congestion without any overt pulmonary edema Echo showed hyperdynamic EF of more than 70 and grade 1 diastolic dysfunction CXR:Cardiomegaly with pulmonary vascular congestion. Mild bibasilar atelectasis. In ER given Lasix 40 mg IV, CT chest has been unremarkable BNP -normal No evidence of fluid overload Has been lying flat without any shortness of breath and saturating normally on room air Will continue his usual dose of diuretics at home (4) Diabetes mellitus, type II: A1c: 6.5 on 06/04/2023 Diet controlled Monitor a.m. BSG's Blood sugar remains stable No change with his diabetes medicine (5) CKD (chronic kidney disease), stage III: Cr: 1.4. Baseline 1.2-1.4 Monitor renal functions, avoid nephrotoxic agents when possible Creatinine has been normalized BUN remains slightly high and he was advised to drink more fluid (6) Dyslipidemia: Continue atorvastatin (7) Psoriatic arthritis: On Remicade, methotrexate Follows with rheumatology (8) Bipolar disorder: (9) Essential tremor: (10) Dementia: Follows with psychiatry, neurology Continue home Lamictal, Seroquel, Cymbalta, Namzaric DVT Prophylaxis Heparin SQ Full code as per discussion with pt Follows with Dr Benjamin Connor for routine care Total Time Total Time Spent Total Time Spent (In Minutes): 40 minutes Discharge Plan Discharge Items Patient Disposition: Home - Self-Care Reason For Visit: SOB Discharge Diagnosis: COPD exacerbation, Enterra rhinovirus infection, type 2 diabetes, acute diastolic dysfunction. CKD Condition on Discharge: Fair Activity: Resume your previous activity Non-emergency contact: Primary Care Provider Call non-emergency contact if: you have any medication questions and your symptoms worsen Follow-up/Referrals: Benjamin Connor MD [Outside Practitioners] - (Date & Time 08/16/2023 2:00 PM Provider Benjamin Connor MD [facility] ) Diet: Carb Consistent or DM2 Addtl Attending Provider Instructions: Please take precaution to avoid falls Take your medications as advised Please keep follow-up appointments with your PCP and healthcare providers Pending Studies at Discharge: No Stand-Alone Forms: My [employer], Smoking Cessation Medications and DC Order Prescriptions: New prednisone 10 mg tablet 10 mg PO DIRECTED Qty: 20 0RF Rx Instructions: 4 po daily x2days,3 po daily x2days,2 po daily x2 days and 1 day x2 days. furosemide 20 mg tablet 20 mg PO UD Qty: 30 0RF Rx Instructions: 1 po for a day or two if you gain more than3 pounds in 1 week Continued quetiapine 300 mg tablet 300 mg PO HS Namzaric 28-10 mg capsule,sprinkle,ER 24hr 1 cap PO HS atorvastatin 20 mg tablet 20 mg PO DAILY lamotrigine 200 mg tablet 200 mg PO DAILY allopurinol 100 mg tablet 100 mg PO DAILY methotrexate sodium 2.5 mg tablet 20 mg PO .QWEEK Rx Instructions: Tues folic acid 1 mg tablet 1 mg PO QAM montelukast 10 mg tablet 10 mg PO DAILY albuterol sulfate 90 mcg/actuation HFA aerosol inhaler 2 puff INHALATION DIRECTED PRN (Reason: Shortness Of Breath Or Wheezing) fluticasone propionate 50 mcg/actuation spray,suspension 2 spray INTRANASAL DAILY duloxetine 60 mg capsule,delayed release(DR/EC) 60 mg PO BID levocetirizine 5 mg tablet 5 mg PO PM Trelegy Ellipta 100-62.5-25 mcg blister with device 1 ea INHALATION DAILY Discharge Orders: Discharge Order (Routine); Ordered 08/10/23 Ordered By: Celso Mireles/Other Patient Handouts: Managing Type 2 Diabetes, Understanding the Cold Virus Admission Data Admit Date/Time: 08/06/23 16:33 Attending Provider: Celso Wolff Admit Provider: Александр Jiang Primary Care Provider: Elpidio Farrell Jr Other Providers: Александр Jiang Other Interventions: Discharge Summary Assessment (RN) Last Done: 08/10/23 12:00
== END 2023-08-10 13:15 | disposition home or self-care (01) | DRG 191 ==
LOC: ED 12:06 → SUATTDRO 16:33 → 2N 16:33

== ENCOUNTER 2024-05-26 09:35 | Inpatient (IN) ==
[2024-05-26 10:54] LABS: Albumin Globulin Ratio 1.1 (0.9-2); Albumin Level 4.1 gm/dl (3.4-5.0); BUN Creatinine Ratio 19.1 (10-20); Bilirubin,Total 1.7 mg/dl (0.2-1.0); Calcium 9.2 mg/dl (8.6-10.3); Creatinine Clr Calc Pharmacy 35.6 ml/min; Globulin 3.7 gm/dl (2.5-4.0); Magnesium 1.5 mg/dl (1.7-2.4); Potassium 4.2 mmol/L (3.5-5.1); Total Protein 7.8 gm/dl (6.0-8.3)
[2024-05-26] MEDS: SODIUM CHLORIDE 0.9% 1,000 ML IV SCH (10:54)
[2024-05-26] MEDS: SODIUM CHLORIDE 0.9% 500 ML IV ONE (10:54)
[2024-05-26 11:00] LABS: Troponin I High Sensitivity 15.4 pg/ml (0-20)
--- NOTE | 2024-05-26 11:01 | XRay Report ---
XR chest 1V portable CLINICAL HISTORY: weakness COMPARISON STUDY: 08/06/2023 FINDINGS: Single view portable chest demonstrates no acute cardiopulmonary process. No airspace opacity or pleural effusion. Heart size and pulmonary vascularity are unremarkable. There is no pneumothorax. Left axillary battery pack with leads extending into the left neck is redemonstr ated. IMPRESSION: No acute process ACT 112: Negative or not required by law. Electronically signed by: Maria Antonia Hernandez M.D. 05/26/2024 11:00 AM
[2024-05-26 11:09] LABS: Thyroid Stimulating Hormone 1.045 uIu/ml (0.300-4.500)
[2024-05-26 11:17] LABS: Hematocrit (blood only) 41.5 % (42.0-52.0); Hemoglobin 14.4 g/dl (14.0-18.0); Mean Corpuscular Hemoglobin 32.4 pg (25.0-34.0); Mean Corpuscular Hgb Conc 34.7 g/dL (32.0-36.0); Mean Corpuscular Volume 93.3 fL (80.0-100.0); Platelet Count 67 K/uL (130-400); RDW Coefficient of Variation 12.7 % (11.5-14.5); RDW Standard Deviation 43.1 fL (36.4-46.3); Red Blood Count 4.45 M/uL (4.70-6.10); White Blood Count 4.71 K/ul (4.8-10.8)
[2024-05-26 11:18] LABS: Immature Granulocytes # (auto) 0.04 K/uL (0.01-0.20); Immature Granulocytes % (auto) 0.8 %; Lymphocytes # (auto) 0.84 K/uL (1.20-3.40); Lymphocytes % (auto) 17.8 %; Monocytes # (auto) 0.69 K/uL (0.11-0.59); Monocytes % (auto) 14.6 %; Neutrophils # (auto) 3.14 K/uL (1.40-6.50); Neutrophils % (auto) 66.8 %; Platelet Estimate Decreased (Normal)
--- NOTE | 2024-05-26 11:19 | CT Scan Report ---
CT head/brain wo con CLINICAL HISTORY: 79 years-old Male with AMS, weakness. Acute weakness TECHNIQUE: Multiple axial CT images of the head were obtained without contrast. A dose lowering tech nique was utilized adhering to the principles of ALARA. CT DOSE: 1406.31 mGy.cm COMPARISON: 11/27/2018 FINDINGS: No acute intracranial hemorrhage, midline shift, intracranial mass, hydrocephalus, territorial ischem ia or abnormal extra-axial collection. Involutional changes with white matter hypodensities suggestiv e of chronic microvascular ischemic disease. Bilateral neurostimulator leads are present with distal tips overlying the thalami. The visualized components of the leads appear intact. The calvarium is intact. Mild mucosal thickening of the ethmoid air cells. 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 Mastoid air cells are clear. IMPRESSION: No acute intracranial abnormality. ACT 112: Negative or not required by law. The above report was generated using voice recognition software. It may contain grammatical, syntax o r spelling errors. Electronically signed by: Julian Ramirez M.D. 05/26/2024 11:17 AM
[2024-05-26] MEDS: MAGNESIUM SULFATE / D5W 1 GM/100 ML BAG IV SCH (11:22)
[2024-05-26 13:00] LABS: Appearance Urine Clear (Clear); Bacteria Urine Automated None Seen (None Seen); Bilirubin Urine 1+ (Negative); Blood Urine Trace (Negative); Color Urine Dark Yellow; Glucose Urine UA Negative (Negative); Granular Casts Urine Present /lpf (None Prsent); Ketones Urine 1+ (Negative); Leukocyte Esterase Urine Negative (Negative); Mucus Urine Present (None Prsent); Nitrite Urine Negative (Negative); Protein Urine 1+ (Negative); RBC Urine Automated 0-2 /hpf (0-2); Urobilinogen Urine Negative (Negative); WBC Urine Automated 0-5 /hpf (0-5)
[2024-05-26] MEDS ORDERED: ALUMINUM/MAGNESIUM SUSP 30 ML UDC PO PRN (13:29)
[2024-05-26] MEDS ORDERED: POLYETHYLENE (MIRALAX) 17 GM PACK PO PRN (13:29)
--- OUTSIDE RECORDS SUMMARY | 2024-05-26 13:44 | External Medical Summary ---
Author Name Unknown Address Unknown Organization : Laboratory Report Ordering Provider Test Date Status MARCY,05/19/2024 14:59:40 Final Observation Date Value Abnormality Reference (Units ) Status Alpha-1 antitrypsin 05/19/2024 14:59:40 199 83-199 (mg/dL) Final Test Performed at:
[facility]
[address]
[place] [address]
Sacha Dumont M.D., Ph.D.,Director of Laboratories Performing Location
--- OUTSIDE RECORDS SUMMARY | 2024-05-26 13:44 | External Medical Summary ---
Author Name Unknown Address Unknown Organization [id number]:[facility] [place] - [address] [place] [address] Laboratory Report Ordering Provider Test Date Status 05/19/2024 14:59:40 Final Observation Date Value Abnormality Reference (Units ) Status Triglyceride 05/19/2024 14:59:40 154 <=174 ( mg/dL) Final Triglyceride Reference Range s (mg/dL):
<150 Acceptable
150-174 Borderline high
175-499 High
>=500 Very high Cholesterol 05/19/2024 14:59:40 112 <200 (mg /dL) Final Total Cholesterol Reference Ranges (mg/dL):
<200 Desirable
200-239 Borderline high
>=240 High HDL 05/19/2024 14:59:40 28 Below low normal >39 (mg/dL) Final HDL Cholesterol Reference Ra nges (mg/dL):
>=60 High (Desirable)
<50 Low (Undesirable) For Females
<40 Low (Undesirable) For Males NON-HDL CHOLESTEROL 05/19/2024 14:59:40 84 <=159 (mg/dL) Final Non-HDL Cholesterol Referenc e Range (mg/dL):
<100 Target level for high risk ASCVD patient
<130 Optimal for general population
130-159 Near optimal for general population
160-189 Borderline High
190-219 High
>=220 Very High Performing Location LAB[facility]ATORY [facility] - [address] [place] [id number]
--- OUTSIDE RECORDS SUMMARY | 2024-05-26 13:44 | External Medical Summary | Summary of Care ---
Author Name Unknown Organization [facility] Address [address] [place] [address] Phone [phone] Care Team Providers Care Hr Assistant Name Role Phone Benjamin Connor MD Primary Care Provider [phone] Reason for Visit * Reason Onset Date Comments Referral 05/22/2024 EPIC 178 Referra l Encounter Details Date Type Department Care Team (Late st Contact Info) Description 05/22/2024 Telephone Care Coordination and Integration [address] [place] [address] Lydia Chatterjee BSW [address] [place] [address] Referral (EPIC 178 Referral ) Allergies No known active allergiesdocumented as of this encounter (statuses as of 05/22/2024) Medications inFLIXimab (REMICADE) 100 MG injection Administer 5 mg/kg intravenously. Active Zoster Vac Recomb Adjuvanted 50 MCG/0.5ML Intramuscular Suspension Reconstituted (Shingrix)Indicatio ns:Need for shingles vaccine Inject 0.5 mL into a large muscle now and repeat dose in 60 to 180 days 1 Each 1 05/15/19 Active Additional Information Patient not taking.Informant: Patient, Reported on 12/10/2023 Docusate Sodium 100 MG Oral Capsule (Colace) Take 1 Capsule by mouth in the morning and 1 Capsule before bedtime. 60 Capsule 04/06/20 23 Active Levocetirizine Dihydrochloride 5 MG Oral Tablet Take 1 Tablet by mouth every evening. 90 Tablet 3 07/30/19 24 Active Furosemide 20 MG Oral Tablet (Lasix) Take 1 Tablet by mouth daily as needed (weight gain more than 3 pound in one week). 08/10/19 24 Active Atorvastatin Calcium 20 MG Oral Tablet (Lipitor)Indication s:Dyslipidemia TAKE 1 TABLET BY MOUTH IN THE MORNING 90 Tablet 1 01/25/20 24 Active DULoxetine HCl 60 MG Oral Capsule Delayed Release Particles (Cymbalta) Take 1 Capsule by mouth 2 times a day in the morning and at noon. 180 Capsule 1 01/27/20 24 Active lamoTRIgine 200 MG Oral Tablet (LaMICtal) Take 1 Tablet by mouth in the morning. 90 Tablet 1 01/27/20 24 Active QUEtiapine Fumarate 300 MG Oral Tablet (SEROquel) Take 1 Tablet by mouth every night at bedtime. 90 Tablet 1 01/27/20 24 Active Namzaric 28-10 MG Oral Capsule Extended Release 24 Hour (Memantine HCl-Donepezil HCl) 1 TAB DAILY TAKE WITH LARGEST MEAL OF THE DAY. 90 Capsule 1 02/10/20 24 Active Methotrexate 2.5 MG Oral Tablet Take 8 Tablets by mouth once a week. 96 Tablet 03/09/20 24 025 Active Trelegy Ellipta 100-62.5-25 MCG/ACT Aerosol Powder Breath Activated (Fluticasone-Umecli dinium-Vilanterol)I ndications:Gouty arthritis of left great toe,Chronic rhinitis,Psoriatic arthropathy (HCC) Inhale 1 Puff by mouth in the morning. 60 Blister Dosing Unit 11 04/06/20 24 Active Albuterol Sulfate HFA 108 (90 Base) MCG/ACT Inhalation Aerosol SolutionIndications :Gouty arthritis of left great toe,Chronic rhinitis,Psoriatic arthropathy (HCC) Inhale 2 Puffs by mouth every 6 hours as needed (cough, SOB). 18 g 5 04/06/20 24 Active Montelukast Sodium 10 MG Oral Tablet (Singulair)Indicati ons:Gouty arthritis of left great toe,Chronic rhinitis,Psoriatic arthropathy (HCC) Take 1 Tablet by mouth in the morning. 90 Tablet 3 04/06/20 24 Active Acetaminophen 325 MG Oral Tablet (Tylenol)Indication s:Gouty arthritis of left great toe,Chronic rhinitis,Psoriatic arthropathy (HCC) Take 1 Tablet by mouth every 6 hours as needed for Pain, Moderate or Pain, Mild. 30 Tablet 04/06/20 24 Active Allopurinol 100 MG Oral Tablet (Zyloprim)Indicatio ns:Gouty arthritis of left great toe,Chronic rhinitis,Psoriatic arthropathy (HCC) Take 1 Tablet by mouth in the morning. 30 Tablet 11 04/06/20 24 Active Fluticasone Propionate 50 MCG/ACT Nasal Suspension (Flonase)Indication s:Gouty arthritis of left great toe,Chronic rhinitis,Psoriatic arthropathy (HCC) Administer 2 Sprays into each nostril in the morning. 16 g 3 04/06/20 24 Active Folic Acid 1 MG Oral TabletIndications:G outy arthritis of left great toe,Chronic rhinitis,Psoriatic arthropathy (HCC) Take 1 Tablet by mouth in the morning. 360 Tablet 04/06/20 24 Active Benzonatate 100 MG Oral Capsule (Tessalon Perles) Take 1 Capsule by mouth 3 times a day as needed for Cough for up to 90 doses. 30 Capsule 2 04/06/20 24 Active Famotidine 20 MG Oral Tablet (Pepcid) Take 1 Tablet by mouth in the morning and 1 Tablet before bedtime. 180 Tablet 04/20/20 24 Active Hospital, Clinic, or Other Facility Administered Medication Ordered Dose Route Frequency Start Date End Date Status Albuterol Sulfate (Proventil) (5 MG/ML) 0.5% *conc* inhalation solution 2.5 mgIndications:Chronic cough 2.5 mg NEBULIZER PRN 09/02/2023 09/01/2024 Active Albuterol Sulfate (Proventil) (2.5 MG/3ML) 0.083% inhalation solution 2.5 mgIndications:Chronic cough 2.5 mg NEBULIZER PRN 09/02/2023 09/01/2024 Active documented as of this encounter (statuses as of 05/22/2024) Active Problems Problem Noted Date Diagnosed Date COPD, group B, by GOLD 2017 classification 09/05 Overview: Per COPD GOLD Classification Rheumatoid arthritis 09/02/2023 Chronic rhinitis 07/30/2023 Type 2 diabetes mellitus wit h hemoglobin A1c goal of less than 7.0% 11/27/2022 Major depressive disorder, recurrent episode, mo derate 05/15/2022 Depressive disorder 08/16/2021 Overview (08/16/2021): Last Assessment & Plan: Stable chronic condition. Following at psychiatry. 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 Neurocognitive disorder 01/06/2016 Psoriasis 01/06/2016 Major depressive disorder, s zulma episode, severe, with psychotic behavior 12/10/2009 Overview (08/16/2021): Last Assessment & Plan: Stable chronic condition. No intent to harm self or others reported today. Taking medication from psychiatry as prescribed without adverse effect noted. Had to recently decrease his dose of Seroquel due to side effects and also caused a bump in his blood sugars. Continue with psychiatry. Dr. Villalta at [facility] Psych. documented as of this encounter (statuses as of 05/22/2024) Resolved Problems Problem Noted Date Diagnosed Date Resolved Date Chronic obstructive pulmonary disease 08/06/2023 09/08/2023 Overview: Per COPD GOLD Classification Dementia without behavioral disturbance 05/15/2022 07/16/2023 Dementia [...] as of this encounter (statuses as of 05/22/2024) Immunizations Name Administration Dates Next Due COVID-19 [...] Years Used Date Smoking Tobacco: Former Cigarettes 2 32 S tarted: 1966 Passive Smoke Exposure: Never Smokeless Tobacco: Never [...] you got the money to buy more. Patient declined Within the past 12 months, t he food you bought just didn't last and you didn't have money to get more. Patient declined 03/2024 Childcare Answer Date Recorded Do you feel overwhelmed with taking care of a child, family member or friend? No 08/06/2023 Does your family need help f inding childcare? (Household - for ages 0-17 years) Not on file 08/06/2023 Clothing Answer Date Recorded Have you been unable to get clothing when it was really needed? No 08/06/2023 Is your family able to get c lothes or diapers when needed? (Household - for ages 0-17 years) Not on file 08/06/2023 Personal Safety Answer Date Recorded Do you feel unsafe or have concerns for your saf ety? No 08/06/2023 Do you have concerns for you r family's safety? (Household - for ages 0-17 years) Not on file 08/06/2023 Utilities Answer Date Recorded Do you have trouble paying y our heating, water, or electric bill? No 08/06/2023 Is your family able to pay t he heat, water, or electric bill? (Household - for ages 0-17 years) Not on file 08/06/2023 Does your family have access to good internet? (Household - for ages 0-17 years) Not on file 08/06/2023 Employment Status Answer Date Recorded Are you unemployed or without regular income? No 08/06/2023 Does the household have a [facility] source of income? (Household - for ages 0-17 years) Not on file 08/06/2023 Social Connections Answer Date Recorded How often do you feel lonely or isolated from th ose around you? Never 08/06/2023 Financial Resource Strain Answer Date R ecorded Do you have any trouble payi ng for your medications, or do you think you might in the future? No 08/06/2023 Does your family have troubl e paying for medicine? (Household - for ages 0-17 years) Not on file 08/06/2023 Transportation Needs Answer Date Record ed READ ONLY Do you have troubl e getting a ride to medical visits or work? Never True 08/06/2023 Does your family have a hard time getting a ride to doctors visits? (Household - for ages 0-17 years) Not on file 08/06/2023 Has lack of transportation k ept you from medical appointments, meetings, work, or from getting things needed for daily living? Check all that apply. (Adult - for ages 18 years and over) Not on file 08/06/2023 Do you (or your family) have trouble finding or paying for a ride (transportation)? (Household - for ages 0-17 years) Not on file 08/06/2023 Housing Stability Answer Date Recorded Do you currently live in a s helter or have no steady place to sleep at night? No 08/06/2023 READ ONLY Do you think you a re at risk of becoming homeless? No 08/06/2023 Does your family worry about paying for your home or becoming homeless? (Household - for ages 0-17 years) Not on file 0 08/06/2023 Are you homeless or worried that you might be in the future? (Adult - for ages 18 years and over) Not on file Are you (or your family) nighat eless or worried that you might be in the future? (Household - for ages 0-17 years) Not on file Food Insecurity Answer Date Recorded Do you need food for this week? No 08/06/2023 Are you able to get enough f ood for your family? (Household - for ages 0-17 years) Not on file 08/06/2023 Does your family need food t his week? (Household - for ages 0-17 years) Not on file 08/06/2023 Do you always have enough fo od for your family? 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 Answer Date of Assessment Author No 04/05/2023 3:42 PM Martina Srinivasan RN * Are you blind or do you have serious difficulty seeing, even when wearing glasses? Answer Date of Assessment Author No 04/05/2023 3:42 PM Martina Srinivasan RN * Do you have serious difficulty walking or climbing stairs? (5 years old or older) Answer Date of Assessment Author No 04/05/2023 3:42 PM Martina Srinivasan RN * Do you have difficulty dressing or bathing? (5 years old or older) Answer Date of Assessment Author No 04/05/2023 3:42 PM Martina Srinivasan RN * Because of a physical, mental, or emotional condition, do you have difficulty doing errands alone such as visiting a doctors office or shopping? (15 years old or older) Answer Date of Assessment Author No 04/05/2023 3:42 PM Martina Srinivasan RN documented as of this encounter Mental Status * Because of a physical, mental, or emotional condition, do you have serious difficulty concentrating, remembering, or making decisions? (5 years old or older) Answer Entry Date Author Yes 04/05/2023 3:42 PM Martina Srinivasan RN documented in this encounter Miscellaneous Notes * Telephone Encounter - Linette Holcomb OSA - 05/22/2024 10:07 AM EST Members Ronnie Valle called back in returning a call to Lydia i was able to assist with the referral needs and provided him with the Aging office number and will make the referral for the [facility]. Matthew phone number is [phone] * Telephone Encounter - Lydia Chatterjee BSW - 05/22/2024 9:44 AM EST Referring provider: Benjamin TEAGUE Reason for referral: DX Schizophrenia, notes member is sleeping excessively and family is unable tocare for him. Has been on a waiting list for [facility] since 2021 per family. Looking for assistance in getting member into a nursing facility. Notes to reach out to hipolito Trujillo at [phone]. Looking for support and assistance in getting this member placed in a [facility] facility. [facility] referral can be placed, also refer to area of aging agency phone: [phone] for supports as well. Outcome of referral: Contacted hipolito Trujillo at [phone], left VM with our callback information. We will attempt again 02/22/25 Member can be directed to [facility] M- F 8a to 5p at [phone] documented in this encounter Plan of Treatment Upcoming Encounters Date Type Department Care Team (Late st Contact Info) Description 06/09/2024 8:30 AM EST [facility] [address] [place] [address] Ej Nieves CRNP [address] [place] [address] 06/16/2024 10:40 AM EST [facility] [place] [facility] [address] [facility] [place] [phone] Benjamin Connor MD [address] [facility] [address] 06/22/2024 11:00 AM EST Telemedicine Rheumatology, [place] [address], [place] [id number] Adwoa Baker, [address], [place] [id number] 06/30/2024 11:00 AM EST Hem/Onc Treatment Hematology/Oncology Treatment, [address] [place] [address] Christina, Chair 6 Hem Onc [facility] [address] [facility] [place] [address] 10/17/2024 12:40 PM EDT Office Visit Pulmonary Medicine, [facility] [address] [place] [address] Jose Angel Wheatley MD [address] [place] [place] [address] Scheduled Procedures Name Priority Associated Diagnoses Date/Ti me COLONOSCOPY FLEXIBLE PROXIMAL DIAGNOSTIC Recall History of colon polyps Health Maintenance Due Date Last Done Comments Alpha-1 Antitrypsin 1963 Adult Wellness Visit 2013 COVID-19 Vaccine (3 - Pfizer risk series) 08/31/2020 08/03/2020, 07/13/2020 Influenza Vaccine (FLU shot) (#1) 2023 01/08/2023, 02/06/2022, 01/24/2021, Additional history exists Depression Monitoring 04/12/2024 04/12/2023 Diabetic Foot Exam 06/04/2024 06/04/2023, 05/15/2022 Diabetic Eye Exam 07/15/2024 07/16/2023 Albumin/Creatinine Ratio 07/29/2024 024, 10/16/2022, 08/01/2021 GFR 11/16/2024 05/19/2024, 02/25, 09/30/2023, Additional history exists HbA1c 11/16/2024 05/19/2024, 02/0 12/2023, 01/08/2023, Additional history exists CKD HGB USE SMARTSET 54376 05/19/202505/19, 03/21/2024, 03/21/2024, Additional history exists CKD PHOS USE SMARTSET 53582 05/19/202504/27, 10/16/2022, 08/01/2021, Additional history exists O2 ASSESSMENT COMPLETED IN PAST YEAR FOR COPD 05/19/2025 05/19/2024 Colonoscopy 06/27/2026 06/27/2021, 06/27/2021 DTap/Tdap Vaccines (2 - Td or Tdap) 12/04/2032 12/04/2022 RETIRED - COLONOSCOPY-EVERY 5 YRS AGES 18-100 Discontinued 06/27/2021, 06/27/2021 Zoster Vaccines Completed 10/09/2022, 05/15/2022 Pneumococcal Vaccine: 50+ Years Completed 08/10/2023, 01/06/2019, 01/01/2017, Additional history exists HPV (Gardasil) Vaccine Aged Out No lo nger eligible based on patient's age to complete this topic Hepatitis B Vaccine Aged Out No longe r eligible based on patient's age to complete this topic Hepatitis C Screening Discontinued MENINGOCOCCAL (MENACTRA/MENVEO) Aged Out No longer eligible based on patient's age to complete this topic documented as of this encounter Medical Devices Implanted Type Area Telecommunications Engineer Device Identifier Shelf Expiration Date Model / Serial / Lot Lead Dbs 0.5mm 42cm Marker - [id number] Implanted:Qty: 1 on 04/05/2023 by Neal Yoon MD at [place] [facility] [place] Left: Head [employer] : NEUROLOGIC PAIN 02/11/2025 [id number] / / [id number] Lead Dbs 0.5mm 42cm - [id number] Implanted:Qty: 1 on 04/05/2023 by Neal Yoon MD at [place] [facility] [place] Right: Head [employer] : NEUROLOGIC PAIN 02/11/2025 [id number] / / [id number] Cement Hydroset Injectable 5cc - [id number] Implanted:Qty: 1 on 04/05/2023 by Neal Yoon MD at [place] [facility] [place] N/A: Head [employer] 12/11/2024 [id number] / / [id number] Plate 12mm Str 2 Hole Un3 - [id number] Implanted:Qty: 1 on 04/05/2023 by Neal Yoon MD at [place] [facility] [place] Right: Head [employer] : CRANIOMAXILLOFACIAL [id number] / / Plate 12mm Str 2 Hole Un3 - [id number] Implanted:Qty: 1 on 04/05/2023 by Neal Yoon MD at OR [facility] [place] Left: Head [employer]RINA : CRANIOMAXILLOFACIAL [id number] / / Neurostimulator Percept Pc - [id number] - [id number] Implanted:Qty: 1 on 04/09/2023 by Neal Yoon MD at OR [facility] [place] Left: Chest [employer] : NEUROLOGIC PAIN 02/06/2025 [id number] / [id number] / Ext Dbs 40cm Marker - [id number] Implanted:Qty: 1 on 04/09/2023 by Neal Yoon MD at OR [facility] [place] Left: Chest [employer] : NEUROLOGIC PAIN 10/21/2024 [id number] / / Ext Dbs 40cm - [id number] - [id number] Implanted:Qty: 1 on 04/09/2023 by Neal Yoon MD at OR [facility] [place] Left: Chest [employer] : NEUROLOGIC PAIN 12/04/2024 [id number] / [id number] / Envelope Tyrx Lg Antibacterial - [id number] Implanted:Qty: 1 on 04/09/2023 by Neal Yoon MD at OR [facility] [place] Left: Chest [employer] 12/17/2023 [id number] / / [id number] documented as of this encounter Advance Directives Documents on File Type Date Recorded Patient Refinish Technician Expl anation Power of Automobile Mechanic Helper 10/30/2014 POWER OF A TTORNEY * Full Code (Latest Code Status on File) Date Activated Date Inactivated Comments 04/09/2023 6:59 AM 04/09/2023 4:25 PM This orde r reflects the patients wishes and were consensually agreed upon. Question Answer Comments Discussion of Advance Direct juan manuel occurred with: Not Discussed due to patient's condition * Full Code Date Activated Date Inactivated Comments 04/05/2023 2:37 PM 04/06/2023 6:05 PM This order reflects the patients wishes and were consensually agreed upon. Question Answer Comments Discussion of Advance Direct juan manuel occurred with: Not Discussed due to patient's condition * Full Code Date Activated Date Inactivated Comments 04/05/2023 6:15 AM 04/05/2023 2:37 PM This order reflects the patients wishes and were consensually agreed upon. Question Answer Comments Discussion of Advance Direct juan manuel occurred with: Not Discussed due to patient's condition Care Teams Hr Assistant Relationship Specialty Start Date End Date August, Benjamin De Jesus MD PCP - General Family Medicine 02/04/22 documented as of this encounter
--- OUTSIDE RECORDS SUMMARY | 2024-05-26 13:44 | External Medical Summary | Summary of Care ---
Author Name Unknown Organization [facility] Address [address] [facility] [place] [address] Phone [phone] Care Team Providers Care Rpg Programmer Name Role Phone Benjamin Connor MD Primary Care Provider [phone] Reason for Visit * Reason Comments IV Therapy Avsola * Episode Based Medications (Routine) - Authorized Specialty Diagnoses / Procedures Referred By Krupa t Referred To Contact Diagnoses Psoriatic arthropathy (HCC) Procedures [place] [address] [place] [address] Phone: tel: fax: Hematology/Oncology Treatment, [place] DEPT CLOSED - 03/09/23 [address] [place] [address] Phone: tel: fax: Referral ID Status Reason Start Date Expiration Date V isits Requested Visits Authorized [id number] Authorized 01/19/2024 01/18/2025 99 99 Encounter Details Date Type Department Care Team (Latest Contact Info) Description 05/19/2024 11:00 AM EST Hem/Onc Treatment Hematology/Oncology Treatment, [place] [address] [place] [address] Christina, Chair 10 Hem Onc Scenery [address] [place] [address] Psoriatic arthropathy (HCC)* Allergies No known active allergiesdocumented as of this encounter (statuses as of 05/19/2024) Medications inFLIXimab (REMICADE) 100 MG injection Administer 5 mg/kg intravenously. Active Zoster Vac Recomb Adjuvanted 50 MCG/0.5ML Intramuscular Suspension Reconstituted (Shingrix)Indicatio ns:Need for shingles vaccine Inject 0.5 mL into a large muscle now and repeat dose in 60 to 180 days 1 Each 1 05/15/19 23 Active Additional Information Patient not taking.Informant: Patient, [...] as of this encounter (statuses as of 05/19/2024) Active Problems Problem Noted Date Diagnosed Date [...] sugars. Continue with psychiatry. Dr. Villalta at [facility] Psych. documented as of this encounter (statuses as of 05/19/2024) Resolved Problems Problem Noted Date Diagnosed Date [...] as of this encounter (statuses as of 05/19/2024) Immunizations Name Administration Dates Next Due COVID-19 mRNA, LNP-s, No Pre serve, 2-Dose Series (U-NOTE) 08/03/2020,07/13/2020 Pneumococcal Conjugate Vacc, 13 Valent (Prevnar) [...] Tobacco: Former Cigarettes 2 32 S tarted: 1967 Passive Smoke Exposure: Never Smokeless Tobacco: Never [...] No 08/06/2023 Does the household have a re gular source of income? (Household - for ages [...] Sign Reading Time Taken Comments Blood Pressure 140/81 05/19/2024 10:47 AM EST Pulse 102 05/19/2024 10:47 AM EST Temperature 36.2 C (97.2 F) 05/19/2024 10:[address] Respiratory Rate 16 05/19/2024 10:47 AM EST Oxygen Saturation 92% 05/19/2024 10:47 AM EST Inhaled Oxygen Concentration - - Weight 91.2 kg (201 lb) 05/19/2024 10:47 AM EST Height - - Body Mass Index 29.68 04/06/2024 11:33 AM EST documented in this encounter Functional Status * Are you [...] Martina Srinivasan RN documented in this encounter Nursing Notes * Polly Arechiga RN - 05/19/2024 3:01 PM EST Goals: Patient will remain free from injury. Possible barriers to meeting goals: ambulating with IV pole Stability of the patient: Moderately stable - low risk of patient condition declining or worsening Summary regarding today's goals: Met: pt remained free of harm today Patient tolerated treatment well without any acute issues or problems.Pt refused 30 mins observation. Patient left facility in stable condition and denied any further needs. * Polly Arechiga RN - 05/19/2024 11:07 AM EST Chair 8. IV inserted, no issues. Patient here for Avsola infusion, overall feeling like infusion is not working as effectively at this point but has a f/u with Dr. Orona on 06/22 and will discuss. Overall he is comfortable and denies further needs at this time. Patient instructed on use of heat and massage functions where applicable. Patient shown how to operate the heat function of the chair and to alert nursing staff if the chair feels too warm. Patient instructed on the risk of potential joy while using the heat function. Safety and Risk for Injury Patient will remain free from injury. Ensure appropriate safety devices are available. Provide and maintain safe environment. documented in this encounter Plan of Treatment Upcoming Encounters Date Type Department Care Team (Latest Contact Info) Description 05/19/2024 4:00 PM EST Laboratory Laboratory, [place] [address] [address] [phone] [place] [facility] [address] [place] [address] Type 2 diabetes mellitus with hemoglobin A1c goal of less than 7.0% ([facility]); COPD, group B, by GOLD 2017 classification ([facility]); Stage 3a chronic kidney disease; Mixed dyslipidemia 06/09/2024 8:30 AM EST Telemedicine Psychiatry, Tony Saul [address] [place] [address], [place] [address] Ej Nieves CRNP [address] [place] [address] 06/16/2024 10:40 AM EST [facility] [address] [facility] [phone] Benjamin Connor MD [address] [place] [address] 06/22/2024 11:00 AM EST Telemedicine Rheumatology, [place] [address] [place], [place] [phone] Adwoa Baker DO [address] [place] [address] 06/30/2024 11:00 AM EST Hem/Onc Treatment Hematology/Oncolog y Treatment, [place] [address] [place] [address] Christina, Chair 6 Hem Onc Scenery [address] [place] [address] 10/17/2024 12:40 PM EDT Office Visit [facility], [facility] [place] [address] Jose Angel Wheatley MD [address] [facility] [address] Scheduled Procedures Name Priority Associated Diagnoses Date/Ti me COLONOSCOPY FLEXIBLE PROXIMAL DIAGNOSTIC Recall History of colon polyps Health Maintenance Due Date Last Done Comments Alpha-1 Antitrypsin 1963 Adult Wellness Visit 2013 COVID-19 Vaccine (3 - Pfizer risk series) 08/31/2020 08/03/2020, 07/13/2020 CKD PHOS USE SMARTSET 51421 10/17/2023/06/2022, 08/01/2021, 11/25/2018 HbA1c 12/03/2023 06/04/2023, 12/25, 10/16/2022, Additional history exists Influenza Vaccine (FLU shot) (#1) 2023 01/08/2023, 02/06/2022, 01/24/2021, Additional history exists Depression Monitoring 04/12/2024 04/12/2023 Diabetic Foot Exam 06/04/2024 06/04/2023, 05/15/2022 Diabetic Eye Exam 07/15/2024 07/16/2023 Albumin/Creatinine Ratio 07/29/2024 024, 10/16/2022, 08/01/2021 GFR 09/18/2024 03/21/2024, 06/09/2023, 06/04/2023, Additional history exists CKD HGB USE SMARTSET 82106 03/21/202503/21, 03/21/2024, 09/30/2023, Additional history exists O2 ASSESSMENT COMPLETED IN [...] this encounter Medical Devices Implanted Type Area Cracking Still Operator Device Identifier Shelf Expiration Date Model / Serial / Lot Lead Dbs 0.5mm 42cm Marker - [id number] Implanted:Qty: 1 on 04/05/2023 by Neal Yoon MD at OR [facility] Left: Head [employer] : NEUROLOGIC PAIN 02/11/2025 [id number] / / [id number] Lead Dbs 0.5mm 42cm - [id number] Implanted:Qty: 1 on 04/05/2023 by Neal Yoon MD at OR [facility] Right: Head [employer] : NEUROLOGIC PAIN 02/11/2025 [id number] / / [id number] Cement Hydroset Injectable 5cc - [id number] Implanted:Qty: 1 on 04/05/2023 by Neal Yoon MD at OR [facility] N/A: Head CATRINA 12/11/2024 [id number] / / [id number] Plate 12mm Str 2 Hole Un3 - [id number] Implanted:Qty: 1 on 04/05/2023 by Neal Yoon MD at OR [facility] Right: Head CATRINA : CRANIOMAXILLOFACIAL [id number] / / Plate 12mm Str 2 Hole Un3 - [id number] Implanted:Qty: 1 on 04/05/2023 by Neal Yoon MD at OR [facility] Left: Head CATRINA : CRANIOMAXILLOFACIAL [id number] / / Neurostimulator Percept Pc - [id number] - [id number] Implanted:Qty: 1 on 04/09/2023 by Neal Yoon MD at OR [facility] Left: Chest [employer] : NEUROLOGIC PAIN 02/06/2025 [id number] / [id number] / Ext Dbs 40cm Marker - [id number] Implanted:Qty: 1 on 04/09/2023 by Neal Yoon MD at OR [facility] Left: Chest [employer] : NEUROLOGIC PAIN 10/21/2024 [id number] / / Ext Dbs 40cm - [id number] - [id number] Implanted:Qty: 1 on 04/09/2023 by Neal Yoon MD at OR [facility] Left: Chest [employer] : NEUROLOGIC PAIN 12/04/2024 [id number] / [id number] / Envelope Tyrx Lg Antibacterial - [id number] Implanted:Qty: 1 on 04/09/2023 by Neal Yoon MD at OR [facility] Left: Chest [employer] 12/17/2023 [id number] / / [id number] documented as of this encounter Visit Diagnoses Diagnosis Psoriatic arthropathy (HCC)- Primary Psoriatic arthropathy Type 2 diabetes mellitus with hemoglobin A1c goal of less than 7.0% (HCC) COPD, group B, by GOLD 2017 classification (HCC) Stage 3a chronic kidney disease Mixed dyslipidemia Mixed hyperlipidemia documented in this encounter Administered Medications Active Administered Medications - up to 3 most recent administrations Medication Order MAR Action Action Date Dose Rate Site diphenhydrAMINE (Benadryl) inj 50 mg 50 mg, IV Push, ONCE PRN Other, Hypersensitivity Reaction, Starting on Wed05/19/24 at 1103, Until 05/20/24 at 1102, For 24 hoursIndications:Psoriatic arthropathy (HCC) EPINEPHrine 1 MG/ML inj 0.3 mg 0.3 mg, Intramuscular, ONCE PRN Other, Hypersensitivity Reaction or Anaphylaxis, Starting on Wed05/19/24 at 1103, Until 05/20/24 at 1102, For 24 hoursIndications:Psoriatic arthropathy (HCC) hEParin 100 UNIT/ML Lock Flush inj 500 Units 500 Units (5 mL), IV Lock, PRN Other, IV Flush, Starting on Wed05/19/24 at 1103, Until 05/20/24 at 1102, For 24 hours, Do not flush if lock, PICC, or central line not in place; IV infusing or unable to flush.Indications:Psoriatic arthropathy (HCC) Hydrocortisone Sod Suc (PF) (Solu-Cortef) inj 100 mg 100 mg, IV Push, ONCE PRN Other, Hypersensitivity Reaction, Starting on Wed05/19/24 at 1103, Until 05/20/24 at 1102, For 24 hoursIndications:Psoriatic arthropathy (HCC) NSS infusion 500 mL, Intravenous, at 50 mL/hr, CONTINUOUS, Starting on Wed05/19/24 at 1215, Until Wed05/19/24 at 2214Indications:Psoriatic arthropathy (HCC) Continue on Pump 05/19/2024 2:20 PM EST 300 mL/hr Start Infusion 05/19/2024 11:20 AM EST 500 mL 50 mL/hr sodium chloride 0.9 % flush central line 10 mL 10 mL, IV Push, PRN Other, IV Flush, Starting on Wed05/19/24 at 1103, Until 05/20/24 at 1102, For 24 hours, Do not flush if lock, PICC, or central line not in place; IV infusing or unable to flush.Indications:Psoriatic arthropathy (HCC) Inactive Administered Medications - up to 3 most recent administrations Medication Order MAR Action Action Date Dose Rate Site Acetaminophen (Tylenol) tab 650 mg 650 mg, Oral, ONCE, On Wed05/19/24 at 1215, For 1 dose, Maximum of 4 grams (4000 mg) per day.Indications:Psoriatic arthropathy (HCC) Given 05/19/2024 11:19 AM EST 650 mg diphenhydrAMINE (Benadryl) cap 25 mg 25 mg, Oral, ONCE, On Wed05/19/24 at 1215, For 1 doseIndications:Psoriatic arthropathy (HCC) Given 05/19/2024 11:19 AM EST 25 mg inFLIXimab-axxq (Avsola) 1,000 mg in NSS 500 mL infusion 1,000 mg, Intravenous, Administer over 120 Minutes, Dose basis 10 mg/kg MUST BE INFUSED THROUGH A 0.22 MICRON FILTER Recommended Infusion Rates: Start at 20 mL/hr x 15 minutes VTBI = 5 mL Then 40 mL/hr x 15 minutes VTBI = 10 mL Then 80 mL/hr x 15 minutes VTBI = 20 mL Then 160 mL/hr x 15 minutes VTBI = 40 mL Then 300 mL/hr for the remainder of infusion if tolerated VTBI = remaining volume, ONCE, 1 dose, On Wed05/19/24 at 1245Indications:Psoriatic arthropathy (HCC) Rate Change 05/19/2024 12:39 PM EST 300 mL/hr Rate Change 05/19/2024 12:25 PM EST 160 mL/hr Rate Change 05/19/2024 12:11 PM EST 80 mL/hr documented in this encounter Advance Directives Documents on File Type Date Recorded Patient Concrete Technician Expl anation Power of Mine Manager 10/30/2014 POWER OF A TTORNEY * Full Code (Latest Code Status on File) Date Activated Date Inactivated Comments 04/09/2023 6:59 AM 04/09/2023 4:25 PM This order reflects the patients wishes [...] Discussed due to patient's condition Care Teams Rpg Programmer Relationship Specialty Start Date End Date August, Benjamin De Jesus MD PCP - General Family Medicine 02/04/22 documented as of this encounter
--- OUTSIDE RECORDS SUMMARY | 2024-05-26 13:44 | External Medical Summary ---
Author Name Unknown Address Unknown Organization K01:[facility] [address] [place] [address] Laboratory Report Ordering Provider Test Date Status 05/19/2024 14:59:40 Final Observation Date Value Abnormality Reference (Units ) Status Phosphate 05/19/2024 14:59:40 3.1 2.5-4.8 (m g/dL) Final Performing Location [facility] - [address] [place] [address]
--- OUTSIDE RECORDS SUMMARY | 2024-05-26 13:44 | External Medical Summary ---
Author Name Unknown Address Unknown Organization [id number]:LAB[facility]ATORY [facility] - [facility] [address] [facility] [address] [facility] [address] Laboratory Report Ordering Provider Test Date Status 05/19/2024 14:59:40 Final Observation Date Value Abnormality Reference (Units ) Status HbA1C 05/19/2024 14:59:40 7.2 Above high normal 4. 0-5.6 (%) Final The use of HbA1c to monitor glycemic status is based on normal hemoglobin and HbA composition. This test should not be used in patients with abnormal hemoglobin that affects the half life of the red blood cell or the in vivo glycation rates. Glucose, estimated average 05/19/2024 14:59:40 160 Above high normal <126 (mg/dL) Alok durán Performing Location LABORATORY [facility] - [address] [facility] [address]
--- OUTSIDE RECORDS SUMMARY | 2024-05-26 13:44 | External Medical Summary ---
Author Name Unknown Address Unknown Organization [id number]:LABORATORY [facility] - [address] [facility] [place] [address] Laboratory Report Ordering Provider Test Date Status 05/19/2024 14:59:40 Final Observation Date Value Abnormality Reference (Units ) Status BUN 05/19/2024 14:59:40 20 6-20 (mg/dL) Final Creatinine 05/19/2024 14:59:40 1.6 Above high normal 0.6-1.2 (mg/dL) Final Glomerular filtration rate/1.73 sq M.predicted [Volume Rate/Area] in Serum, Plasma or Blood by Creatinine-based formula (CKD-EPI) 05/19/2024 14:59:40 44 Below low normal >=60 (mL/min) Final eGFR is calculated based on the CKD-EPI 2020 equation. Sodium 05/19/2024 14:59:40 140 135-146 (m mol/L) Final Potassium 05/19/2024 14:59:40 4.6 3.5-5.1 (m mol/L) Final Cl 05/19/2024 14:59:40 102 98-107 (mm ol/L) Final CO2 05/19/2024 14:59:40 24 22-32 (mmo l/L) Final Anion gap 05/19/2024 14:59:40 14 7-15 (mmol /L) Final Glucose 05/19/2024 14:59:40 138 Above high normal 70 -120 (mg/dL) Final Albumin 05/19/2024 14:59:40 4.4 3.8-5.0 (g /dL) Final AST (Aspartate aminotransferase) 05/19/2024 14:59:40 27 10-50 (U/L) Fin al Alk Phos 05/19/2024 14:59:40 85 35-130 (U/ L) Final Bilirubin, Total 05/19/2024 14:59:40 0.6 <=1 .2 (mg/dL) Final Calcium 05/19/2024 14:59:40 9.0 8.4-10.2 ( mg/dL) Final Protein 05/19/2024 14:59:40 7.4 6.0-8.3 (g /dL) Final ALT (Alanine aminotransferase) 05/19/2024 14:59:40 36 10-50 (U/L) Alok durán Performing Location LABORATORY [facility] - [facility] [address] [facility] [place] [address]
--- OUTSIDE RECORDS SUMMARY | 2024-05-26 13:44 | External Medical Summary ---
Author Name Unknown Address Unknown Organization [id number]:LABORATORY [facility] - [facility] [address] [address] [facility] [address] Laboratory Report Ordering Provider Test Date Status 05/19/2024 14:59:40 Final Observation Date Value Abnormality Reference (Units ) Status WBC, Total 05/19/2024 14:59:40 4.24 4.00-10.80 (K/uL) Final RBC 05/19/2024 14:59:40 4.62 4.50-5.25 (M/uL) Final Hemoglobin 05/19/2024 14:59:40 15.7 14.0-16.8 (g/dL) Final HCT 05/19/2024 14:59:40 46.2 40.0-48.4 (%) Final MCV 05/19/2024 14:59:40 100.0 82.0-99.5 (fL) Final MCH 05/19/2024 14:59:40 34.0 27.0-34.0 (pg) Final MCHC 05/19/2024 14:59:40 34.0 32.0-36.0 (g/dL) Final RDW 05/19/2024 14:59:40 12.6 11.5-15.5 (%) Final Platelets 05/19/2024 14:59:40 110 Below low normal 140-400 (K/uL) Final MPV 05/19/2024 14:59:40 10.6 6.6-11.1 (fL) Final Nucleated erythrocytes/100 leukocytes [Ratio] in Blood by Automated count 05/19/2024 14:59:40 0 <=0 (/100 WBCs) Final Performing Location LABORATORY [facility] - [address] [place] [address]
--- OUTSIDE RECORDS SUMMARY | 2024-05-26 13:44 | External Medical Summary ---
Author Name Unknown Address Unknown Organization K01:LABORATORY [facility] - [address] [address] Laboratory Report Ordering Provider Test Date Status 05/19/2024 14:59:40 Final Observation Date Value Abnormality Reference (Units ) Status LDL, (direct) 05/19/2024 14:59:40 60 <=129 (mg/dL) Final LDL Cholesterol Reference Ra nges (mg/dL):
<70 Target level for high risk ASCVD patient
<100 Optimal for general population
100-129 Near optimal for general population
130-159 Borderline high
160-189 High
>=190 Very high Performing Location [facility] - [address] [place] [address]
--- OUTSIDE RECORDS SUMMARY | 2024-05-26 13:44 | External Medical Summary | Summary of Care ---
Author Name Unknown Organization [facility] Address [address] [facility] [place] [address] Phone [phone] Care Team Providers Care Hammer Driver Name Role Phone Benjamin Connor MD Primary Care Provider [phone] Reason for Visit * Reason Comments Outpatient Testing Encounter Details Date Type Department Care Team (Late st Contact Info) Description 05/19/2024 4:00 PM EST Laboratory Laboratory, [place] [facility] [address] [place] [address] [facility] [address] [facility] [place] [id number] Type 2 diabetes mellitus with hemoglobin A1c goal of less than 7.0% ([facility]); COPD, group B, by GOLD 2017 classification ([facility]); Stage 3a chronic kidney disease; Mixed dyslipidemia Allergies No known active allergiesdocumented as of [...] No 08/06/2023 Does the household have a karmanos cancer centerr source of income? (Household - for ages [...] Martina Srinivasan RN documented in this encounter Plan of Treatment Upcoming Encounters Date Type Department Care Team (Late st Contact Info) Description 06/09/2024 8:30 AM EST [facility] [address] [place] [place] [address] Ej Nieves CRNP [address] [place] [address] 06/16/2024 10:40 AM EST Office [facility] [address] [facility] [place] [phone] AugustBenjamin MD [address] [facility] [place] [address] 06/22/2024 11:00 AM EST Telemedicine Rheumatology, [place] [address] [place] [address] Adwoa Baker DO [address] [place] [address] 06/30/2024 11:00 AM EST Hem/Onc Treatment Hematology/Oncology Treatment, [place] [address] [place] [address] Christina, Chair 6 Hem Onc Scenery [address] [place] [address] 10/17/2024 12:40 PM EDT Office Visit Pulmonary Medicine, [facility] [address] [place] [address] Jose Angel Wheatley MD [address] [place] [address] Pending Results Name Type Priority Associated Diagnoses Date /Time HEMOGLOBIN A1C Lab Routine Type 2 diabetes mellitus with hemoglobin A1c goal of less than 7.0% ([facility]) 05/19/2024 2:59 PM EST [id number], QN Lab Routine COPD, group B, by GOLD 2017 classification ([facility]) 05/19/2024 2:59 PM EST PHOSPHORUS Lab Routine Stage 3a chronic kidney disease 05/19/2024 2:59 PM EST COMPREHENSIVE METABOLIC PANEL Lab Routine Stage 3a chronic kidney disease 05/19/2024 2:59 PM EST CBC Lab Routine Stage 3a chronic kidney disease 05/19/2024 2:59 PM EST LIPID PANEL WITH DIRECT LDL IF TG IS HIGH Lab Routine Mixed dyslipidemia 05/19/2024 2:59 PM EST Scheduled Procedures Name Priority Associated Diagnoses Date/Ti me COLONOSCOPY FLEXIBLE PROXIMAL DIAGNOSTIC Recall History of colon polyps Health Maintenance Due Date Last Done Comments Alpha-1 Antitrypsin 1963 Adult Wellness Visit 2013 COVID-19 Vaccine (3 - Pfizer risk series) 08/31/2020 08/03/2020, 07/13/2020 CKD PHOS USE SMARTSET 03015 10/17/202309/25, 08/01/2021, 11/25/2018 HbA1c 12/03/2023 06/04/2023, 12/25, 10/16/2022, Additional history exists Influenza Vaccine (FLU shot) (#1) 2023 01/08/2023, 02/06/2022, 01/24/2021, Additional history exists Depression Monitoring 04/12/2024 04/12/2023 Diabetic Foot Exam 06/04/2024 06/04/2023, 05/15/2022 Diabetic Eye Exam 07/15/2024 07/16/2023 Albumin/Creatinine Ratio 07/29/2024 04/2 024, 10/16/2022, 08/01/2021 GFR 09/18/2024 03/21/2024, 06/0 09/2023, 06/04/2023, Additional history exists CKD HGB USE SMARTSET 84602 03/21/202503/21, 03/21/2024, 09/30/2023, Additional history exists O2 [...] this encounter Medical Devices Implanted Type Area Director Of Community Education Device Identifier Shelf Expiration Date Model / Serial / Lot Lead Dbs 0.5mm 42cm Marker - [id number] Implanted:Qty: 1 on 04/05/2023 by Neal Yoon MD at OR [facility] Left: Head [employer] : NEUROLOGIC PAIN 02/11/2025 [id number] / / [id number] Lead Dbs 0.5mm 42cm - [id number] Implanted:Qty: 1 on 04/05/2023 by Neal Yoon MD at OR [facility] Right: Head [employer] : NEUROLOGIC PAIN 02/11/2025 [id number] / / [id number] Cement Hydroset Injectable 5cc - [id number] Implanted:Qty: 1 on 04/05/2023 by Neal Yoon MD at OR [facility] N/A: Head CATRINA 12/11/2024 [id number] / / [id number] Plate 12mm Str 2 Hole Un3 - [id number] Implanted:Qty: 1 on 04/05/2023 by Neal Yoon MD at OR [facility] Right: Head CATRINA : CRANIOMAXILLOFACIAL [id number] / / Plate 12mm Str 2 Hole Un3 - [id number] Implanted:Qty: 1 on 04/05/2023 by Neal Yoon MD at OR [facility] Left: Head CATRINA : CRANIOMAXILLOFACIAL [id number] / / Neurostimulator Percept Pc - [id number] - [id number] Implanted:Qty: 1 on 04/09/2023 by Neal Yoon MD at OR [facility] Left: Chest [employer] : NEUROLOGIC PAIN 02/06/2025 [id number] / [id number] / Ext Dbs 40cm Marker - [id number] Implanted:Qty: 1 on 04/09/2023 by Neal Yoon MD at OR [facility] Left: Chest [employer] : NEUROLOGIC PAIN 10/21/2024 [id number] / / Ext Dbs 40cm - [id number] - [id number] Implanted:Qty: 1 on 04/09/2023 by Neal Yoon MD at OR [facility] Left: Chest [employer] : NEUROLOGIC PAIN 12/04/2024 [id number] / [id number] / Envelope Tyrx Lg Antibacterial - [id number] Implanted:Qty: 1 on 04/09/2023 by Neal Yoon MD at OR [facility] Left: Chest [employer] 12/17/2023 [id number] / / [id number] documented as of this encounter Visit Diagnoses Diagnosis Type 2 diabetes mellitus with hemoglobin A1c goal of less than 7.0% (HCC) COPD, group B, by GOLD 2017 classification (HCC) Stage 3a chronic kidney disease Mixed dyslipidemia Mixed hyperlipidemia documented in this encounter Advance Directives Documents on File Type Date Recorded Patient Activities Aide Expl anation Power of Manager Zone 10/30/2014 POWER OF A TTORNEY * Full [...] Discussed due to patient's condition Care Teams Hammer Driver Relationship Specialty Start Date End Date August, Benjamin De Jesus MD PCP - General Family Medicine 02/04/22 documented as of this encounter
--- OUTSIDE RECORDS SUMMARY | 2024-05-26 13:44 | External Medical Summary | Summary of Care ---
Author Name Unknown Organization [facility] Address [address] [place] [address] Phone [phone] Care Team Providers Care Aerospace Engineer Officer Armament Name Role Phone Benjamin Connor MD Primary Care Provider Reason for Visit * Reason Onset Date Comments Referral 05/22/2024 EPIC 178 Referra l Encounter Details Date Type Department Care Team (Late st Contact Info) Description 05/22/2024 Telephone Care Coordination and Integration [address] [place] [address] Lydia Chatterjee BSW [address] [place] [address] Referral (EPIC 178 Referral ) [...] sugars. Continue with psychiatry. Dr. Villalta at [facility] Psych. documented as of this encounter [...] No 08/06/2023 Does the household have a [facility] source of income? (Household - for ages [...] encounter Miscellaneous Notes * Telephone Encounter - Lydia Chatterjee BSW - 05/22/2024 9:44 AM EST Referring provider: Benjamin TEAGUE Reason for referral: DX Schizophrenia, notes member is sleeping excessively and family is unable tocare for him. Has been on a waiting list for [facility] since 2021 per family. Looking for assistance in getting member into a nursing facility. Notes to reach out to hipolito Trujillo at [phone]. Looking for support and assistance in getting this member placed in a jail facility. [facility] referral can be placed, also refer to area of aging agency phone: [phone] for supports as well. Outcome of referral: Contacted hipolito Trujillo at [phone], left VM with our callback information. We will attempt again 02/22/25 Member can be directed to [facility] care [facility] M- F 8a to 5p at [phone] documented in this encounter Plan of Treatment Upcoming Encounters Date Type Department Care Team (Late st Contact Info) Description 06/09/2024 8:30 AM EST Telemedicine Psychiatry, [facility] [address] [place] [address] Ej Nieves CRNP [address] [place] [address] 06/16/2024 10:40 AM EST Office Visit [facility] [address] [facility] [place] [phone] Benjamin Connor MD [address] [place] [address] 06/22/2024 11:00 AM EST Telemedicine Rheumatology, [place] [address] [place] [address] Adwoa Baker [address] [place], [place] [id number] 06/30/2024 11:00 AM EST Hem/Onc Treatment Hematology/Oncology Treatment, [place] [address] [place] [address] Christina, Chair 6 Hem Onc Scenery [address] [place] [address] 10/17/2024 12:40 PM EDT Office Visit Pulmonary Medicine, [facility] [address] [place] [address] Jose Angel Wheatley [facility] [address] [facility] [address] Scheduled Procedures Name Priority [...] Additional history exists CKD HGB USE SMARTSET 39716 05/19/202505/19, 03/21/2024, 03/21/2024, Additional history exists CKD PHOS USE SMARTSET 53684 05/19/202504/27, 10/16/2022, 08/01/2021, Additional history exists O2 [...] this encounter Medical Devices Implanted Type Area Sheet Metal Welder Device Identifier Shelf Expiration Date Model / Serial / Lot Lead Dbs 0.5mm 42cm Marker - [id number] Implanted:Qty: 1 on 04/05/2023 by Neal Yoon MD at OR [facility] Left: Head [employer] : NEUROLOGIC PAIN 02/11/2025 [id number] / / [id number] Lead Dbs 0.5mm 42cm - [id number] Implanted:Qty: 1 on 04/05/2023 by Neal Yoon MD at OR [facility] Right: Head [employer] : NEUROLOGIC PAIN 02/11/2025 [id number] / / [id number] Cement Hydroset Injectable 5cc - [id number] Implanted:Qty: 1 on 04/05/2023 by Neal Yoon MD at OR [facility] N/A: Head CATRINA 12/11/2024 [id number] / / [id number] Plate 12mm Str 2 Hole Un3 - [id number] Implanted:Qty: 1 on 04/05/2023 by Neal Yoon MD at OR [facility] Right: Head CATRINA : CRANIOMAXILLOFACIAL [id number] / / Plate 12mm Str 2 Hole Un3 - [id number] Implanted:Qty: 1 on 04/05/2023 by Neal Yoon MD at OR [facility] Left: Head CATRINA : CRANIOMAXILLOFACIAL [id number] / / Neurostimulator Percept Pc - [id number] - [id number] Implanted:Qty: 1 on 04/09/2023 by Neal Yoon MD at OR [facility] Left: Chest [employer] : NEUROLOGIC PAIN 02/06/2025 [id number] / [id number] / Ext Dbs 40cm Marker - [id number] Implanted:Qty: 1 on 04/09/2023 by Neal Yoon MD at OR [facility] Left: Chest [employer] : NEUROLOGIC PAIN 10/21/2024 [id number] / / Ext Dbs 40cm - [id number] - [id number] Implanted:Qty: 1 on 04/09/2023 by Neal Yoon MD at OR [facility] Left: Chest [employer] : NEUROLOGIC PAIN 12/04/2024 [id number] / [id number] / Envelope Tyrx Lg Antibacterial - [id number] Implanted:Qty: 1 on 04/09/2023 by Neal Yoon MD at OR [facility] Left: Chest [employer] 12/17/2023 [id number] / / [id number] documented as of this encounter Advance Directives Documents on File Type Date Recorded Patient Animal Behaviorist Expl anation Power of Wire Wheeler 10/30/2014 POWER OF A TTORNEY * Full [...] Discussed due to patient's condition Care Teams Aerospace Engineer Officer Armament Relationship Specialty Start Date End Date August, Benjamin De Jesus MD PCP - General Family Medicine 02/04/22 documented as of this encounter
--- OUTSIDE RECORDS SUMMARY | 2024-05-26 13:45 | External Medical Summary | Summary of Care ---
Author Name Unknown Organization [facility] Address [address] [place] [facility] [place] [address] Phone [phone] Care Team Providers Care Cheese Cook Name Role Phone Benjamin Connor MD Primary Care Provider [phone] Reason for Visit * Reason Comments IV Therapy Avsola * Episode Based Medications (Routine) - Authorized Specialty Diagnoses / Procedures Referred By Krupa t Referred To Contact Diagnoses Psoriatic arthropathy (HCC) Procedures [place] [address] [place] [address] Phone: tel: fax: Hematology/Oncology Treatment, [place] DEPT CLOSED - 03/09/23 [address] [place] [address] Phone: tel: fax: Referral ID Status Reason Start Date Expiration Date V isits Requested Visits Authorized [id number] Authorized 01/19/2024 01/18/2025 99 99 Encounter Details Date Type Department Care Team (Latest Contact Info) Description 04/07/2024 8:45 AM EST Hem/Onc Treatment Hematology/Oncology Treatment, [place] [address] [place] [address] Christina, Chair 2 Hem Onc Scenery [address] [place] [address] Psoriatic arthropathy (HCC)* Allergies No known active allergiesdocumented as of this encounter (statuses as of 05/05/2024) Medications inFLIXimab (REMICADE) 100 MG injection Administer 5 mg/kg intravenously. Active Zoster Vac Recomb Adjuvanted 50 MCG/0.5ML Intramuscular Suspension Reconstituted (Shingrix)Indicati ons:Need for shingles vaccine Inject 0.5 mL into [...] Active Atorvastatin Calcium 20 MG Oral Tablet (Lipitor)Indicatio ns:Dyslipidemia TAKE 1 TABLET BY MOUTH IN THE [...] Ellipta 100-62.5-25 MCG/ACT Aerosol Powder Breath Activated (Fluticasone-Umecl idinium-Vilanterol )Indications:Gouty arthritis of left great toe,Chronic rhinitis,Psoriatic arthropathy (HCC) Inhale 1 Puff by mouth in the morning. 60 Blister Dosing Unit 11 04/06/20 24 Active Albuterol Sulfate HFA 108 (90 Base) MCG/ACT Inhalation Aerosol SolutionIndication s:Gouty arthritis of left great toe,Chronic rhinitis,Psoriatic arthropathy (HCC) Inhale 2 Puffs by mouth every 6 hours as needed (cough, SOB). 18 g 5 04/06/20 24 Active Montelukast Sodium 10 MG Oral Tablet (Singulair)Indicat ions:Gouty arthritis of left great toe,Chronic rhinitis,Psoriatic arthropathy (HCC) Take 1 Tablet by mouth in the morning. 90 Tablet 3 04/06/20 24 Active Acetaminophen 325 MG Oral Tablet (Tylenol)Indicatio ns:Gouty arthritis of left great toe,Chronic rhinitis,Psoriatic arthropathy (HCC) Take 1 Tablet by mouth every 6 hours as needed for Pain, Moderate or Pain, Mild. 30 Tablet 04/06/20 24 Active Allopurinol 100 MG Oral Tablet (Zyloprim)Indicati ons:Gouty arthritis of left great toe,Chronic rhinitis,Psoriatic arthropathy (HCC) Take 1 Tablet by mouth in the morning. 30 Tablet 11 04/06/20 24 Active Fluticasone Propionate 50 MCG/ACT Nasal Suspension (Flonase)Indicatio ns:Gouty arthritis of left great toe,Chronic rhinitis,Psoriatic arthropathy (HCC) Administer 2 Sprays into each nostril in the morning. 16 g 3 04/06/20 24 Active Folic Acid 1 MG Oral TabletIndications: Gouty arthritis of left great toe,Chronic rhinitis,Psoriatic arthropathy [...] and 1 Tablet before bedtime. 180 Tablet 12/30/19 24 024 Discontinu ed(Refill) Clobetasol Propionate 0.05 % External Cream (Temovate)Indicati ons:Psoriasis Apply topically to affected area 2 times a day. Apply to bilateral knee 30 g 6 03/09/20 24 024 Hospital, Clinic, or Other Facility Administered Medication Ordered Dose Route Frequency Start Date End Date Status Albuterol Sulfate (Proventil) (5 MG/ML) 0.5% *conc* inhalation solution 2.5 mgIndications:Chronic cough 2.5 mg NEBULIZER PRN 09/02/2023 09/01/2024 Active Albuterol Sulfate (Proventil) (2.5 MG/3ML) 0.083% inhalation solution 2.5 mgIndications:Chronic cough 2.5 mg NEBULIZER PRN 09/02/2023 09/01/2024 Active documented as of this encounter (statuses as of 05/05/2024) Active Problems Problem Noted Date Diagnosed Date [...] sugars. Continue with psychiatry. Dr. Villalta at [facility] Psych. documented as of this encounter (statuses as of 05/05/2024) Resolved Problems Problem Noted Date Diagnosed Date [...] as of this encounter (statuses as of 05/05/2024) Immunizations Name Administration Dates Next Due COVID-19 [...] Sign Reading Time Taken Comments Blood Pressure 131/81 04/07/2024 8:31 AM EST Pulse 100 04/07/2024 8:31 AM EST Temperature 36.3 C (97.3 F) 04/07/2024 8:31 AM ES T Respiratory Rate 18 04/07/2024 8:31 AM EST Oxygen Saturation 95% 04/07/2024 8:31 AM EST Inhaled Oxygen Concentration - - Weight 92.4 kg (203 lb 12.8 oz) 04/07/2024 8:31 AM EST Height - - Body Mass Index 30.1 04/06/2024 11:33 AM EST documented in this [...] Assessment Author No 04/05/2023 3:42 PM Martina Sriinvasan RN * Because of a physical, mental, or emotional condition, do you have difficulty doing errands alone such as visiting a doctors office or shopping? (15 years old or older) Answer Date of Assessment Author No 04/05/2023 3:42 PM Martina Srinivasan, RACHEL documented as of this encounter Mental Status * Because of a physical, mental, or emotional condition, do you have serious difficulty concentrating, remembering, or making decisions? (5 years old or older) Answer Entry Date Author Yes 04/05/2023 3:42 PM EST Martina Colón RN documented in this encounter Nursing Notes * Veronica Randall RN - 04/07/2024 1:57 PM EST Pt completed treatment without issues. IV removed. Goals: Pt will remain free from injury. Possible barriers to meeting goals: pt is a high fall risk Stability of the patient: Moderately stable - low risk of patient condition declining or worsening Summary regarding today's goals: Met: . Pt remained free from injury during treatment today. Discharged in stable condition. * Veronica Randall RN - 04/07/2024 8:59 AM EST Chair 8, Avsola. Pt ambulated to treatment room unassisted; gait is slightly unsteady. Pt denies pain, falls, and has no acute concerns to report since previous treatment. PIV established; NSS infusing. Safety and Risk for Injury Patient will remain free from injury. Ensure appropriate safety devices are available. Provide and maintain safe environment. Patient instructed on use of heat and massage functions where applicable. Patient shown how to operate the heat function of the chair and to alert nursing staff if the chair feels too warm. Patient instructed on the risk of potential joy while using the heat function. documented in this encounter Plan of Treatment Upcoming Encounters Date Type Department Care Team (Late st Contact Info) Description 05/19/2024 11:00 AM EST Hem/Onc Treatment Hematology/Oncology Treatment, [place] [address] [place] [phone] Christina Chair 2 Hem Onc Scenery [address] [place] [address] 06/09/2024 8:30 AM EST Telemedicine Psychiatry, [facility] [address] [facility] [place] [address] Ej Nieves CRNP [address] [place] [address] 06/16/2024 10:40 AM EST Office Visit [facility] [address] [facility] [phone] AugustBenjamin MD [address] [place] [address] 06/22/2024 11:00 AM EST [facility] [address], [place] [id number] Adwoa Baker DO [address] [place] [address] 10/17/2024 12:40 PM EDT Office Visit Pulmonary Medicine, [facility] [address] [facility] [place] [address] Jose Angel Wheatley MD [address] [facility] [address] Scheduled Procedures Name Priority Associated Diagnoses Date/Ti me COLONOSCOPY FLEXIBLE PROXIMAL DIAGNOSTIC Recall History of colon polyps Health Maintenance Due Date Last Done Comments Alpha-1 Antitrypsin 1963 Adult Wellness Visit 2013 COVID-19 Vaccine (3 - Pfizer risk series) 08/31/2020 08/03/2020, 07/13/2020 CKD PHOS USE SMARTSET 40461 10/17/202309/25, 08/01/2021, 11/25/2018 HbA1c 12/03/2023 06/04/2023, 12/25, 10/16/2022, Additional history exists Influenza Vaccine (FLU shot) (#1) 2023 01/08/2023, 02/06/2022, 01/24/2021, Additional history exists Depression Monitoring 04/12/2024 04/12/2023 Diabetic Foot Exam 06/04/2024 06/04/2023, 05/15/2022 Diabetic Eye Exam 07/15/2024 07/16/2023 Albumin/Creatinine Ratio 07/29/2024 04/2 024, 10/16/2022, 08/01/2021 GFR 09/18/2024 03/21/2024, 06/0 09/2023, 06/04/2023, Additional history exists CKD HGB USE SMARTSET 07186 03/21/202503/21, 03/21/2024, 09/30/2023, Additional history exists O2 ASSESSMENT COMPLETED IN PAST YEAR FOR COPD 04/07/2025 04/07/2024 Colonoscopy 06/27/2026 06/27/2021, 06/27/2021 DTap/Tdap Vaccines (2 [...] this encounter Medical Devices Implanted Type Area Comber Setter Device Identifier Shelf Expiration Date Model / Serial / Lot Lead Dbs 0.5mm 42cm Marker - [id number] Implanted:Qty: 1 on 04/05/2023 by Neal Yoon MD at OR [facility] Left: Head [employer] : NEUROLOGIC PAIN 02/11/2025 [id number] / / [id number] Lead Dbs 0.5mm 42cm - [id number] Implanted:Qty: 1 on 04/05/2023 by Neal Yoon MD at OR [facility] Right: Head [employer] : NEUROLOGIC PAIN 02/11/2025 [id number] / / [id number] Cement Hydroset Injectable 5cc - [id number] Implanted:Qty: 1 on 04/05/2023 by Neal Yoon MD at OR [facility] N/A: Head CATRINA 12/11/2024 [id number] / / [id number] Plate 12mm Str 2 Hole Un3 - [id number] Implanted:Qty: 1 on 04/05/2023 by Neal Yoon MD at OR [facility] Right: Head CATRINA : CRANIOMAXILLOFACIAL [id number] / / Plate 12mm Str 2 Hole Un3 - [id number] Implanted:Qty: 1 on 04/05/2023 by Neal Yoon MD at OR [facility] Left: Head CATRINA : CRANIOMAXILLOFACIAL [id number] / / Neurostimulator Percept Pc - [id number] - [id number] Implanted:Qty: 1 on 04/09/2023 by Neal Yoon MD at OR [facility] Left: Chest [employer] : NEUROLOGIC PAIN 02/06/2025 [id number] / [id number] / Ext Dbs 40cm Marker - [id number] Implanted:Qty: 1 on 04/09/2023 by Neal Yoon MD at OR [facility] Left: Chest [employer] : NEUROLOGIC PAIN 10/21/2024 [id number] / / Ext Dbs 40cm - [id number] - [id number] Implanted:Qty: 1 on 04/09/2023 by Neal Yoon MD at OR [facility] Left: Chest [employer] : NEUROLOGIC PAIN 12/04/2024 [id number] / [id number] / Envelope Tyrx Lg Antibacterial - [id number] Implanted:Qty: 1 on 04/09/2023 by Neal Yoon MD at OR [facility] Left: Chest [employer] 12/17/2023 [id number] / / [id number] documented as of this encounter Visit Diagnoses Diagnosis Psoriatic arthropathy (HCC)- Primary Psoriatic arthropathy documented in this encounter Administered Medications Inactive Administered Medications - up to 3 most recent administrations Medication Order MAR Action Action Date Dose Rate Site Acetaminophen (Tylenol) tab 650 mg 650 mg, Oral, ONCE, On Wed04/07/24 at 0945, For 1 dose, Maximum of 4 grams (4000 mg) per day.Indications:Psoriatic arthropathy (HCC) Given 04/07/2024 8:53 AM EST 650 mg diphenhydrAMINE (Benadryl) cap 25 mg 25 mg, Oral, ONCE, On Wed04/07/24 at 0945, For 1 doseIndications:Psoriatic arthropathy (HCC) Given 04/07/2024 8:53 AM EST 25 mg inFLIXimab-axxq (Avsola) 1,000 [...] = remaining volume, ONCE, 1 dose, On Wed04/07/24 at 1015Indications:Psoriatic arthropathy (HCC) Rate Change 04/07/2024 10:16 AM EST 300 mL/hr Rate Change 04/07/2024 10:00 AM EST 160 mL/hr Rate Change 04/07/2024 9:42 AM EST 80 mL/hr NSS infusion 500 mL, Intravenous, at 50 mL/hr, CONTINUOUS, Starting on Wed04/07/24 at 0945, Until Wed04/07/24 at 1850Indications:Psoriatic arthropathy (HCC) Start Infusion 04/07/2024 8:52 AM EST 500 mL 50 mL/hr documented in this encounter Advance Directives Documents on File Type Date Recorded Patient Guest Relations Coordinator Expl anation Power of Test And Research Reactor Operator 10/30/2014 POWER OF A TTORNEY * Full [...] Discussed due to patient's condition Care Teams Cheese Cook Relationship Specialty Start Date End Date August, Benjamin De Jesus MD PCP - General Family Medicine 02/04/22 documented as of this encounter
--- OUTSIDE RECORDS SUMMARY | 2024-05-26 13:45 | External Medical Summary | Summary of Care ---
Author Name Unknown Organization [facility] Address [address] [place] [address] Phone [phone] Care Team Providers Care Central Services Tech Name Role Phone Benjamin Connor MD Primary Care Provider [phone] Encounter Details Date Type Department Care Team (Late st Contact Info) Description 01/17/2024 Telephone Hematology/Oncology Treatment, [place] [address] [place] [address] Adwoa Baker, DO [address] [place] [address] Allergies No known active allergiesdocumented as of this encounter (statuses as of 04/17/2024) Medications inFLIXimab (REMICADE) 100 MG injection Administer 5 mg/kg intravenously. Active Zoster Vac Recomb Adjuvanted 50 MCG/0.5ML Intramuscular Suspension Reconstituted (Shingrix)Indicati ons:Need for shingles vaccine Inject 0.5 mL into a large muscle now and repeat dose in 60 to 180 days 1 Each 1 023 Active Additional Information Patient not taking.Informant: Patient, Reported on 12/10/2023 Docusate Sodium 100 MG Oral Capsule (Colace) Take 1 Capsule by mouth in the morning and 1 Capsule before bedtime. 60 Capsule 023 Active Levocetirizine Dihydrochloride 5 MG Oral Tablet Take 1 Tablet by mouth every evening. 90 Tablet 3 Active Furosemide 20 MG Oral Tablet (Lasix) Take 1 Tablet by mouth daily as needed (weight gain more than 3 pound in one week). Active Famotidine 20 MG Oral Tablet (Pepcid) Take 1 Tablet by mouth in the morning and 1 Tablet before bedtime. 180 Tablet Active Allopurinol 100 MG Oral Tablet (Zyloprim)Indicati ons:Gouty arthritis of left great toe Take 1 Tablet by mouth in the morning. 30 Tablet 11 023 2023 Discontinued(R efill) Acetaminophen 325 MG Oral Tablet (Tylenol) Take 1 Tablet by mouth every 6 hours as needed for Pain, Moderate or Pain, Mild. 30 Tablet 023 2023 Discontinued(R efill) Atorvastatin Calcium 20 MG Oral Tablet (Lipitor)Indicatio ns:Dyslipidemia TAKE 1 TABLET BY MOUTH IN THE MORNING 90 Tablet 2 024 2023 Discontinued Montelukast Sodium 10 MG Oral Tablet (Singulair) Take 1 Tablet by mouth in the morning. 90 Tablet 3 024 2023 Discontinued(R efill) Albuterol Sulfate HFA 108 (90 Base) MCG/ACT Inhalation Aerosol Solution Inhale 2 Puffs by mouth every 6 hours as needed (cough, SOB). 18 g 5 024 2023 Discontinued(R efill) lamoTRIgine 200 MG Oral Tablet (LaMICtal) Take 1 Tablet by mouth in the morning. 90 Tablet 1 024 2023 Discontinued(R efill) Namzaric 28-10 MG Oral Capsule Extended Release 24 Hour (Memantine HCl-Donepezil HCl) 1 TAB DAILY TAKE WITH LARGEST MEAL OF THE DAY. 90 Capsule 1 024 2023 Discontinued(R efill) QUEtiapine Fumarate 300 MG Oral Tablet (SEROquel) Take 1 Tablet by mouth every night at bedtime. 90 Tablet 1 024 2023 Discontinued(R efill) DULoxetine HCl 60 MG Oral Capsule Delayed Release Particles (Cymbalta) Take 1 Capsule by mouth 2 times a day in the morning and at noon. 180 Capsule 1 024 2023 Discontinued(R efill) Trelegy Ellipta 100-62.5-25 MCG/ACT Aerosol Powder Breath Activated (Fluticasone-Umecl idinium-Vilanterol ) Inhale 1 Puff by mouth in the morning. 60 Blister Dosing Unit 11 024 2023 Discontinued(R efill) Fluticasone Propionate 50 MCG/ACT Nasal Suspension (Flonase)Indicatio ns:Chronic rhinitis Administer 2 Sprays into each nostril in the morning. 16 g 3 024 2023 Discontinued(R efill) Methotrexate 2.5 MG Oral TabletIndications: Psoriatic arthropathy (HCC) Take 8 Tablets by mouth once a week. 96 Tablet 024 2023 Folic Acid 1 MG Oral TabletIndications: Psoriatic arthropathy (HCC) Take 1 Tablet by mouth in the morning. 360 Tablet 2023 Discontinued(R efill) Hospital, Clinic, or Other Facility Administered Medication Ordered Dose Route Frequency Start Date End Date Status Albuterol Sulfate (Proventil) (5 MG/ML) 0.5% *conc* inhalation solution 2.5 mgIndications:Chronic cough 2.5 mg NEBULIZER PRN 09/02/2023 09/01/2024 Active Albuterol Sulfate (Proventil) (2.5 MG/3ML) 0.083% inhalation solution 2.5 mgIndications:Chronic cough 2.5 mg NEBULIZER PRN 09/02/2023 09/01/2024 Active documented as of this encounter (statuses as of 04/17/2024) Active Problems Problem Noted Date Diagnosed Date [...] sugars. Continue with psychiatry. Dr. Villalta at [facility] Psych. documented as of this encounter (statuses as of 04/17/2024) Resolved Problems Problem Noted Date Diagnosed Date [...] as of this encounter (statuses as of 04/17/2024) Immunizations Name Administration Dates Next Due COVID-19 [...] 08/06/2023 Does the household have a re lar source of income? (Household - for ages [...] encounter Miscellaneous Notes * Telephone Encounter - Diana Alex RN - 01/17/2024 12:47 PM EDT On 01/14/24 During infusion of Infliximab noted that the patient's left forearm was swollen. RemovedPIV from this site and moved to the right to complete infusion. Left arm was elevated and protectedice pack was applied. documented in this encounter Plan of Treatment Upcoming Encounters Date Type Department Care Team (Late st Contact Info) Description 05/19/2024 11:00 AM EST Hem/Onc Treatment Hematology/Oncology Treatment, [place] [address] [place] [phone] Park, Chair 2 Hem Onc [facility] [address] [place] [address] 06/09/2024 8:30 AM EST Telemedicine Psychiatry, [facility] [address] [place] [address] Ej Nieves CRNP [address] [place] [address] 06/16/2024 10:40 AM EST [facility] [address] [place] [phone] Benjamin Connor MD [address] [facility] [place] [address] 06/22/2024 11:00 AM EST Telemedicine Rheumatology, [place] [address] [place] [address] Adwoa Baker DO [address] [facility], [place] [address] 10/17/2024 12:40 PM EDT Office Visit Pulmonary Medicine, [facility] [address] [facility] [place] [address] Jose Angel Wheatley MD [address] [place] [address] Scheduled Procedures Name Priority Associated Diagnoses Date/Ti me COLONOSCOPY FLEXIBLE PROXIMAL DIAGNOSTIC Recall History of colon polyps Health Maintenance Due Date Last Done Comments Alpha-1 Antitrypsin 1963 Adult Wellness Visit 2013 COVID-19 Vaccine (3 - Pfizer risk series) 08/31/2020 08/03/2020, 07/13/2020 CKD PHOS USE SMARTSET 58231 10/17/202309/25, 08/01/2021, 11/25/2018 HbA1c 12/03/2023 06/04/2023, 12/25, 10/16/2022, Additional history exists Influenza Vaccine (FLU shot) (#1) 2023 01/08/2023, 02/06/2022, 01/24/2021, Additional history exists Depression Monitoring 04/12/2024 04/12/2023 Diabetic Foot Exam 06/04/2024 06/04/2023, 05/15/2022 Diabetic Eye Exam 07/15/2024 07/16/2023 Albumin/Creatinine Ratio 07/29/2024 024, 10/16/2022, 08/01/2021 GFR 09/18/2024 03/21/2024, 06/0 09/2023, 06/04/2023, Additional history exists CKD HGB USE SMARTSET 88648 03/21/202503/21, 03/21/2024, 09/30/2023, Additional history exists O2 ASSESSMENT COMPLETED IN PAST YEAR FOR COPD 04/07/2025 04/07/2024 Colonoscopy 06/27/2026 06/27/2021, 06/27/2021 DTap/Tdap Vaccines (2 - Td or Tdap) 12/04/2032 12/04/2022 RETIRED - COLONOSCOPY-EVERY 5 YRS AGES 18-100 Discontinued 06/27/2021, 06/27/2021 Zoster Vaccines Completed 10/09/2022, 05/15/2022 Pneumococcal Vaccine: 65+ Years Completed 08/10/2023, 01/06/2019, 01/01/2017, Additional history [...] this encounter Medical Devices Implanted Type Area Dye Colorist Formulator Device Identifier Shelf Expiration Date Model / Serial / Lot Lead Dbs 0.5mm 42cm Marker - [id number] Implanted:Qty: 1 on 04/05/2023 by Neal Yoon MD at OR [facility] Left: Head [employer] : NEUROLOGIC PAIN 02/11/2025 [id number] / / [id number] Lead Dbs 0.5mm 42cm - [id number] Implanted:Qty: 1 on 04/05/2023 by Neal Yoon MD at OR [facility] Right: Head [employer] : NEUROLOGIC PAIN 02/11/2025 [id number] / / [id number] Cement Hydroset Injectable 5cc - [id number] Implanted:Qty: 1 on 04/05/2023 by Neal Yoon MD at OR [facility] N/A: Head CATRINA 12/11/2024 [id number] / / [id number] Plate 12mm Str 2 Hole Un3 - [id number] Implanted:Qty: 1 on 04/05/2023 by Neal Yoon MD at OR [facility] Right: Head CATRINA : CRANIOMAXILLOFACIAL [id number] / / Plate 12mm Str 2 Hole Un3 - [id number] Implanted:Qty: 1 on 04/05/2023 by Neal Yoon MD at OR [facility] Left: Head CATRINA : CRANIOMAXILLOFACIAL [id number] / / Neurostimulator Percept Pc - [id number] - [id number] Implanted:Qty: 1 on 04/09/2023 by Neal Yoon MD at OR [facility] Left: Chest [employer] : NEUROLOGIC PAIN 02/06/2025 [id number] / [id number] / Ext Dbs 40cm Marker - [id number] Implanted:Qty: 1 on 04/09/2023 by Neal Yoon MD at OR [facility] Left: Chest [employer] : NEUROLOGIC PAIN 10/21/2024 [id number] / / Ext Dbs 40cm - [id number] - [id number] Implanted:Qty: 1 on 04/09/2023 by Neal Yoon MD at OR [facility] Left: Chest [employer] : NEUROLOGIC PAIN 12/04/2024 [id number] / [id number] / Envelope Tyrx Lg Antibacterial - [id number] Implanted:Qty: 1 on 04/09/2023 by Neal Yoon MD at OR [facility] Left: Chest [employer] 12/17/2023 [id number] / / [id number] documented as of this encounter Advance Directives Documents on File Type Date Recorded Patient Assembler Corncob Pipes Expl anation Power of Director Of Recruiting 10/30/2014 POWER OF A TTORNEY * Full [...] Discussed due to patient's condition Care Teams Central Services Tech Relationship Specialty Start Date End Date August, Benjamin De Jesus MD PCP - General Family Medicine 02/04/22 documented as of this encounter
--- OUTSIDE RECORDS SUMMARY | 2024-05-26 13:45 | External Medical Summary | Summary of Care ---
Author Name Unknown Organization [facility] Address [address] [facility] [address] Phone [phone] Care Team Providers Care Inspector Conveyor Line Name Role Phone Benjamin Connor MD Primary Care Provider [phone] Encounter Details Date Type Department Care Team (Late st Contact Info) Description 05/15/2024 Population Health External Data Unspecified Department Allergies No known active allergiesdocumented as of this encounter (statuses as of 05/15/2024) Medications inFLIXimab (REMICADE) 100 MG injection Administer [...] as of this encounter (statuses as of 05/15/2024) Active Problems Problem Noted Date Diagnosed Date [...] sugars. Continue with psychiatry. Dr. Villalta at [facility] Psych. documented as of this encounter (statuses as of 05/15/2024) Resolved Problems Problem Noted Date Diagnosed Date [...] as of this encounter (statuses as of 05/15/2024) Immunizations Name Administration Dates Next Due COVID-19 [...] No 08/06/2023 Does the household have a [facility]? (Household - for ages [...] 11:00 AM EST Hem/Onc Treatment Hematology/Oncology Treatment, [place] [address] [place] [phone] Christina, Chair 10 Hem Onc [place] [address] [place] [address] 06/09/2024 8:30 AM EST Telemedicine [facility]iatry, [facility] [place] [address] Ej Nieves CRNP [address] [place] [address] 06/16/2024 10:40 AM EST Office Visit Family [facility] [address] [place] [address] Benjamin Connor MD [address] [place] [address] 06/22/2024 11:00 AM EST Telemedicine Rheumatology, [place] [address] [place] [address] Adwoa Baker DO [address] [place] [facility] [place] [address] 10/17/2024 12:40 PM EDT Office Visit Pulmonary Medicine, [facility] [place] [address] Jose Angel Wheatley MD [address] [facility] [address] Scheduled Procedures Name Priority Associated Diagnoses Date/Ti me COLONOSCOPY FLEXIBLE PROXIMAL DIAGNOSTIC Recall History of colon polyps Health Maintenance Due Date Last Done Comments Alpha-1 Antitrypsin 1963 Adult Wellness Visit 2013 COVID-19 Vaccine (3 - Pfizer risk series) 08/31/2020 08/03/2020, 07/13/2020 CKD PHOS USE SMARTSET 12840 10/17/2023 06/06/2022, 08/01/2021, 11/25/2018 HbA1c 12/03/2023 06/04/2023, 12/25, 10/16/2022, Additional history exists Influenza Vaccine (FLU shot) (#1) 2023 01/08/2023, 02/06/2022, 01/24/2021, Additional history exists Depression Monitoring 04/12/2024 04/12/2023 Diabetic Foot Exam 06/04/2024 06/04/2023, 05/15/2022 Diabetic Eye Exam 07/15/2024 07/16/2023 Albumin/Creatinine Ratio 07/29/2024 024, 10/16/2022, 08/01/2021 GFR 09/18/2024 03/21/2024, 06/09/2023, 06/04/2023, Additional history exists CKD HGB USE SMARTSET 42625 03/21/202503/21, 03/21/2024, 09/30/2023, Additional history exists O2 [...] this encounter Medical Devices Implanted Type Area Sustainability Engineer Device Identifier Shelf Expiration Date Model / Serial / Lot Lead Dbs 0.5mm 42cm Marker - [id number] Implanted:Qty: 1 on 04/05/2023 by Neal Yoon MD at [place] [facility] Left: Head [employer] : NEUROLOGIC PAIN 02/11/2025 [id number] / / [id number] Lead Dbs 0.5mm 42cm - [id number] Implanted:Qty: 1 on 04/05/2023 by Neal Yoon MD at [place] [facility] Right: Head [employer] : NEUROLOGIC PAIN 02/11/2025 [id number] / / [id number] Cement Hydroset Injectable 5cc - [id number] Implanted:Qty: 1 on 04/05/2023 by Neal Yoon MD at [place] [facility] N/A: Head CATRINA 12/11/2024 [id number] / / [id number] Plate 12mm Str 2 Hole Un3 - [id number] Implanted:Qty: 1 on 04/05/2023 by Neal Yoon MD at [place] [facility] Right: Head CATRINA : CRANIOMAXILLOFACIAL [id number] / / Plate 12mm Str 2 Hole Un3 - [id number] Implanted:Qty: 1 on 04/05/2023 by Neal Yoon MD at [place] [facility] Left: Head CATRINA : CRANIOMAXILLOFACIAL [id number] / / Neurostimulator Percept Pc - [id number] - [id number] Implanted:Qty: 1 on 04/09/2023 by Neal Yoon MD at [place] [facility] Left: Chest [employer] : NEUROLOGIC PAIN 02/06/2025 [id number] / [id number] / Ext Dbs 40cm Marker - [id number] Implanted:Qty: 1 on 04/09/2023 by Neal Yoon MD at [place] [facility] Left: Chest [employer] : NEUROLOGIC PAIN 10/21/2024 [id number] / / Ext Dbs 40cm - [id number] - [id number] Implanted:Qty: 1 on 04/09/2023 by Neal Yoon MD at [place] [facility] Left: Chest [employer] : NEUROLOGIC PAIN 12/04/2024 [id number] / [id number] / Envelope Tyrx Lg Antibacterial - [id number] Implanted:Qty: 1 on 04/09/2023 by Neal Yoon MD at OR [facility] Left: Chest [employer] 12/17/2023 [id number] / / [id number] documented as of this encounter Advance Directives Documents on File Type Date Recorded Patient Design Assistant Expl anation Power of Polisher Sand 10/30/2014 POWER OF A TTORNEY * Full [...] Discussed due to patient's condition Care Teams Inspector Conveyor Line Relationship Specialty Start Date End Date August, Benjamin De Jesus MD PCP - General Family Medicine 02/04/22 documented as of this encounter
--- OUTSIDE RECORDS SUMMARY | 2024-05-26 13:45 | External Medical Summary | Summary of Care ---
Author Name Unknown Organization [facility] Address [address] [place] [facility] [facility] [place] [address] Phone [phone] Care Team Providers Care Purchasing Expeditor Name Role Phone Benjamin Connor MD Primary Care Provider [phone] Reason for Visit * Reason Comments IV Therapy Avsola * Episode Based Medications (Routine) - Authorized Specialty Diagnoses / Procedures Referred By Krupa t Referred To Contact Diagnoses Psoriatic arthropathy (HCC) Procedures [place] [address] [facility] [address] [place] [address] Phone: tel: fax: Hematology/Oncology Treatment, [place] DEPT CLOSED - 03/09/23 [address] [place] [address] Phone: tel: fax: Referral ID Status Reason Start Date Expiration Date V isits Requested Visits Authorized [id number] Authorized 01/19/2024 01/18/2025 99 99 Encounter Details Date Type Department Care Team (Latest Contact Info) Description 04/07/2024 8:45 AM EST Hem/Onc Treatment Hematology/Oncology Treatment, [place] [address] [place] [address] Christina, [...] Continue with psychiatry. Dr. Villalta at [facility] Psych. documented as of this encounter (statuses [...] 11:00 AM EST Hem/Onc Treatment Hematology/Oncology Treatment, [place] [address] [place] [phone] Christina Chair 2 Hem Onc [address] [address] [place] [address] 06/09/2024 8:30 AM EST Telemedicine Psychiatry, [facility] [address] [facility] [place] [address] Ej Nieves CRNP [address] [place] [address] 06/16/2024 10:40 AM EST Office Visit Family [facility] [address] [facility] [phone] AugustBenjamin MD [address] [facility] [place] [address] 06/22/2024 11:00 AM EST [facility] [address] [place], [place] [phone] Adwoa Baker DO [address] [place] [address] 10/17/2024 12:40 PM EDT Office Visit Pulmonary Medicine, [facility] [address] [facility] [place] [address] Jose Angel Wheatley MD [address] [facility] [address] Scheduled Procedures Name Priority Associated Diagnoses Date/Ti me COLONOSCOPY FLEXIBLE PROXIMAL DIAGNOSTIC Recall History of colon polyps Health Maintenance Due Date Last Done Comments Alpha-1 Antitrypsin 1963 Adult Wellness Visit 2013 COVID-19 Vaccine (3 - Pfizer risk series) 08/31/2020 08/03/2020, 07/13/2020 CKD PHOS USE SMARTSET 16136 10/17/202309/25, 08/01/2021, 11/25/2018 HbA1c 12/03/2023 06/04/2023, 12/25, 10/16/2022, Additional history exists Influenza Vaccine (FLU shot) (#1) 2023 01/08/2023, 02/06/2022, 01/24/2021, Additional history exists Depression Monitoring 04/12/2024 04/12/2023 Diabetic Foot Exam 06/04/2024 06/04/2023, 05/15/2022 Diabetic Eye Exam 07/15/2024 07/16/2023 Albumin/Creatinine Ratio 07/29/2024 04/2 024, 10/16/2022, 08/01/2021 GFR 09/18/2024 03/21/2024, 06/0 09/2023, 06/04/2023, Additional history exists CKD HGB USE SMARTSET 39691 03/21/202503/21, 03/21/2024, 09/30/2023, Additional history exists O2 [...] this encounter Medical Devices Implanted Type Area [employer] Guidance Counselor Device Identifier Shelf Expiration Date Model / Serial / Lot Lead Dbs 0.5mm 42cm Marker - [id number] Implanted:Qty: 1 on 04/05/2023 by Neal Yoon MD at OR [facility] Left: Head [employer] : NEUROLOGIC PAIN 02/11/2025 [id number] / / [id number] Lead Dbs 0.5mm 42cm - [id number] Implanted:Qty: 1 on 04/05/2023 by Neal Yoon MD at OR [facility] Right: Head [employer] : NEUROLOGIC PAIN 02/11/2025 [id number] / / [id number] Cement Hydroset Injectable 5cc - [id number] Implanted:Qty: 1 on 04/05/2023 by Neal Yoon MD at OR [facility] N/A: Head CATRINA 12/11/2024 [id number] / / [id number] Plate 12mm Str 2 Hole Un3 - [id number] Implanted:Qty: 1 on 04/05/2023 by Neal Yoon MD at OR [facility] Right: Head CATRINA : CRANIOMAXILLOFACIAL [id number] / / Plate 12mm Str 2 Hole Un3 - [id number] Implanted:Qty: 1 on 04/05/2023 by Neal Yoon MD at OR [facility] Left: Head CATRINA : CRANIOMAXILLOFACIAL [id number] / / Neurostimulator Percept Pc - [id number] - [id number] Implanted:Qty: 1 on 04/09/2023 by Neal Yoon MD at OR [facility] Left: Chest [employer] : NEUROLOGIC PAIN 02/06/2025 [id number] / [id number] / Ext Dbs 40cm Marker - [id number] Implanted:Qty: 1 on 04/09/2023 by Neal Yoon MD at OR [facility] Left: Chest [employer] : NEUROLOGIC PAIN 10/21/2024 [id number] / / Ext Dbs 40cm - [id number] - [id number] Implanted:Qty: 1 on 04/09/2023 by Neal Yoon MD at OR [facility] Left: Chest [employer] : NEUROLOGIC PAIN 12/04/2024 [id number] / [id number] / Envelope Tyrx Lg Antibacterial - [id number] Implanted:Qty: 1 on 04/09/2023 by Neal Yoon MD at OR [facility] Left: Chest [employer] 12/17/2023 [id number] / / [id number] documented as of this encounter Visit Diagnoses [...] Documents on File Type Date Recorded Patient Manager Orange Expl anation Power of Dobie Man 10/30/2014 POWER OF A TTORNEY * Full [...] Discussed due to patient's condition Care Teams Purchasing Expeditor Relationship Specialty Start Date End Date August, Benjamin De Jesus MD PCP - General Family Medicine 02/04/22 documented as of this encounter
--- OUTSIDE RECORDS SUMMARY | 2024-05-26 13:45 | External Medical Summary | Summary of Care ---
Author Name Unknown Organization [facility] [address] [facility] [address] Phone [phone] Care Team Providers Care Title Checker Name Role Phone Benjamin Connor MD Primary Care Provider [phone] Reason for Visit * Reason Onset Date Comments Medication Refill 04/20/2024 Famotidine Encounter Details Date Type Department Care Team (Late st Contact Info) Description 04/20/2024 Refill Pulmonary Medicine Elva Cartagena [address] [phone] Jose Angel Cooper MD [address] [phone] Allergies No known active allergiesdocumented as of this encounter (statuses as of 04/20/2024) Medications inFLIXimab (REMICADE) 100 MG injection Administer [...] 24 Active Benzonatate 100 MG Oral Capsule (Tesfantasma Medley) Take 1 Capsule by mouth 3 times a day as needed for Cough for up to 90 doses. 30 Capsule 2 04/06/20 24 Active Famotidine 20 MG Oral Tablet (Pepcid) Take 1 Tablet by mouth in the morning and 1 Tablet before bedtime. 180 Tablet 04/20/20 24 Active Famotidine 20 MG Oral Tablet (Pepcid) Take 1 Tablet by mouth in the morning and 1 Tablet before bedtime. 180 Tablet 12/30/19 24 024 Discontin ued(Refil l) Hospital, Clinic, or Other Facility Administered Medication Ordered Dose Route Frequency Start Date End Date Status Albuterol Sulfate (Proventil) (5 MG/ML) 0.5% *conc* inhalation solution 2.5 mgIndications:Chronic cough 2.5 mg NEBULIZER PRN 09/02/2023 09/01/2024 Active Albuterol Sulfate (Proventil) (2.5 MG/3ML) 0.083% inhalation solution 2.5 mgIndications:Chronic cough 2.5 mg NEBULIZER PRN 09/02/2023 09/01/2024 Active documented as of this encounter (statuses as of 04/20/2024) Active Problems Problem Noted Date Diagnosed Date [...] sugars. Continue with psychiatry. Dr. [facility]alta at [facility] Psych. documented as of this encounter (statuses as of 04/20/2024) Resolved Problems Problem Noted Date Diagnosed Date [...] as of this encounter (statuses as of 04/20/2024) Immunizations Name Administration Dates Next Due COVID-19 [...] of Assessment Author No 04/05/2023 3:42 PM EST Martina Colón RN * Are you blind or do [...] encounter Miscellaneous Notes * Telephone Encounter - Jose Angel Cooper MD - 04/20/2024 5:23 PM EST Signed Prescriptions: Disp Refills Famotidine 20 MG Oral Tablet (Pepcid) 180 Ta*0 Sig: Take 1 Tablet by mouth in the morning and 1 Tablet before bedtime. Authorizing Provider: JOSE ANGEL COOPER * Telephone Encounter - Ibeth Moore LPN - 04/20/2024 10:21 AM ESTPending Prescriptions: Disp Refills Famotidine 20 MG Oral Tablet (Pepcid) 180 Ta*0 Sig: Take 1 Tablet by mouth in the morning and 1 Tablet before bedtime. * Telephone Encounter - Blaze Guzmán, [employer] - 04/20/2024 9:50 AM ESTPending Prescriptions: Disp Refills Famotidine 20 MG Oral Tablet (Pepcid) 180 Ta*0 Sig: Take 1 Tablet by mouth in the morning and 1 Tablet before bedtime. * Telephone Encounter - Delisa Robbins CPhT - 04/20/2024 9:39 AM EST Did you pend patient's preferred pharmacy and medication before forwarding?yes [id number] [address] [facility] Pending Prescriptions: Disp Refills Famotidine 20 MG Oral Tablet (Pepcid) 180 Ta*0 Sig: Take 1 Tablet by mouth in the morning and 1 Tablet before bedtime. Last Visit: Visit date not found (in office), Visit date not found (telemedicine) Next Visit: Visit date not found If no future appointments scheduled, and last appointment is greater than a year ago, please schedule patient for a follow-up appointment Last date the medication was ordered: [id number] Is this request for a controlled substance?No Urine Drug Screen:No results found for this or any previous visit. Patient Phone Numbers Labs: Lab Results Component Value Date/Time CREAT 1.3 (H) 03/21/2024 09:43 AM CREAT 1.3 (H) 11/03/2019 09:05 AM POTASSIUM 4.1 03/21/2024 09:43 AM POTASSIUM 4.5 11/25/2018 10:58 AM TSH 2.13 06/14/2020 12:33 PM TSH 1.66 11/25/2018 10:58 AM LDL 90 01/08/2023 12:22 PM LDL 113 11/25/2018 10:58 AM LDLCALC 48.6 09/08/2017 02:48 PM ALT 75 (H) 03/21/2024 09:43 AM ALT 12 11/03/2019 09:05 AM HGBA1C 6.5 (H) 06/04/2023 11:51 AM HGBA1C 5.5 11/25/2018 10:58 AM documented in this encounter Plan of Treatment Upcoming Encounters Date Type Department Care Team (Late st Contact Info) Description 05/19/2024 11:00 AM EST Hem/Onc Treatment Hematology/Oncology Treatment, [place] [address] [place] [address] Christina, Chair 2 Hem Onc Scenery [address] [place] [address] 06/09/2024 8:30 AM EST Telemedicine Psychiatry, [facility] [address] [facility] [place] [address] Ej Nieves CRNP 132 [facility] [address] 06/16/2024 10:40 AM EST Office Visit Family [facility] [address] [facility] [phone] AugustBenjamin MD 226 [place] [address] 06/22/2024 11:00 AM EST Telemedicine Rheumatology, [place] [address] [place] [address] Adwoa Baker DO [address] [place] [address] 10/17/2024 12:40 PM EDT Office Visit Pulmonary Medicine, [facility] [address] [place] [address] Jose Angel Cooper MD [address] [phone] Scheduled Procedures Name Priority Associated Diagnoses Date/Ti me COLONOSCOPY FLEXIBLE PROXIMAL DIAGNOSTIC Recall History of colon polyps Health Maintenance Due Date Last Done Comments Alpha-1 Antitrypsin 1963 Adult Wellness Visit 2013 COVID-19 Vaccine (3 - Pfizer risk series) 08/31/2020 08/03/2020, 07/13/2020 CKD PHOS USE SMARTSET 96092 10/17/202309/25, 08/01/2021, 11/25/2018 HbA1c 12/03/2023 06/04/2023, 12/25, 10/16/2022, Additional history exists Influenza Vaccine (FLU shot) (#1) 2023 01/08/2023, 02/06/2022, 01/24/2021, Additional history exists Depression Monitoring 04/12/2024 04/12/2023 Diabetic Foot Exam 06/04/2024 06/04/2023, 05/15/2022 Diabetic Eye Exam 07/15/2024 07/16/2023 Albumin/Creatinine Ratio 07/29/2024 024, 10/16/2022, 08/01/2021 GFR 09/18/2024 03/21/2024, 06/0 09/2023, 06/04/2023, Additional history exists CKD HGB USE SMARTSET 05690 03/21/202503/21, 03/21/2024, 09/30/2023, Additional history exists O2 [...] this encounter Medical Devices Implanted Type Area Night Supervisor Device Identifier Shelf Expiration Date Model / Serial / Lot Lead Dbs 0.5mm 42cm Marker - [id number] Implanted:Qty: 1 on 04/05/2023 by Neal Yoon MD at OR [facility] Left: Head [employer] : NEUROLOGIC PAIN 02/11/2025 [id number] / / [id number] Lead Dbs 0.5mm 42cm - [id number] Implanted:Qty: 1 on 04/05/2023 by Neal Yoon MD at OR [facility] Right: Head [employer] : NEUROLOGIC PAIN 02/11/2025 [id number] / / [id number] Cement Hydroset Injectable 5cc - [id number] Implanted:Qty: 1 on 04/05/2023 by Neal Yoon MD at OR [facility] N/A: Head CATRINA 12/11/2024 [id number] / / [id number] Plate 12mm Str 2 Hole Un3 - [id number] Implanted:Qty: 1 on 04/05/2023 by Neal Yoon MD at OR [facility] Right: Head CATRINA : CRANIOMAXILLOFACIAL [id number] / / Plate 12mm Str 2 Hole Un3 - [id number] Implanted:Qty: 1 on 04/05/2023 by Neal Yoon MD at OR [facility] Left: Head CATRINA : CRANIOMAXILLOFACIAL [id number] / / Neurostimulator Percept Pc - [id number] - [id number] Implanted:Qty: 1 on 04/09/2023 by Neal Yoon MD at OR [facility] Left: Chest [employer] : NEUROLOGIC PAIN 02/06/2025 [id number] / [id number] / Ext Dbs 40cm Marker - [id number] Implanted:Qty: 1 on 04/09/2023 by Neal Yoon MD at OR [facility] Left: Chest [employer] : NEUROLOGIC PAIN 10/21/2024 [id number] / / Ext Dbs 40cm - [id number] - [id number] Implanted:Qty: 1 on 04/09/2023 by Neal Yoon MD at OR [facility] Left: Chest [employer] : NEUROLOGIC PAIN 12/04/2024 [id number] / [id number] / Envelope Tyrx Lg Antibacterial - [id number] Implanted:Qty: 1 on 04/09/2023 by Neal Yoon MD at OR [facility] Left: Chest [employer] 12/17/2023 [id number] / / [id number] documented as of this encounter Advance Directives Documents on File Type Date Recorded 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
--- OUTSIDE RECORDS SUMMARY | 2024-05-26 13:45 | External Medical Summary | Summary of Care ---
Author Name Unknown Organization [facility] Address [address] [place] [facility] [place] [address] Phone [phone] Care Team Providers Care Real Estate Closer Name Role Phone Benjamin Connor MD Primary Care Provider [phone] Reason for Visit * Reason Comments IV Therapy Avsola * Episode Based Medications (Routine) - Authorized Specialty Diagnoses / Procedures Referred By Krupa t Referred To Contact Diagnoses Psoriatic arthropathy (HCC) Procedures [place] [address] [facility] [address] [place] [address] Phone: tel: fax: Hematology/Oncology Treatment, [place] DEPT CLOSED - 03/09/23 [address] [place] [address] Phone: tel: fax: Referral ID Status Reason Start Date Expiration Date V isits Requested Visits Authorized [id number] Authorized 01/19/2024 01/18/2025 99 99 Encounter Details Date Type Department Care Team (Latest Contact Info) Description 04/07/2024 8:45 AM EST Hem/Onc Treatment Hematology/Oncology Treatment, [place] [address] [place] [address] Christina, [...] sugars. Continue with psychiatry. Dr. Villalta at [facility] Psych. documented as of this encounter (statuses [...] 11:00 AM EST Hem/Onc Treatment Hematology/Oncology Treatment, [place] [address] [place] [phone] Christina Chair 2 Hem Onc Scenery [address] [place] [address] 06/09/2024 8:30 AM EST Telemedicine Psychiatry, [facility] [address] [facility] [place] [address] Ej Nieves CRNP [address] [place] [address] 06/16/2024 10:40 AM EST Office Visit [facility] [address] [facility] [phone] AugustBenjamin MD 226 [place] [address] 06/22/2024 11:00 AM EST [facility] [address] [place], [place] [phone] Adwoa Baker DO [address] [place] [address] 10/17/2024 12:40 PM EDT Office Visit Pulmonary Medicine, [facility] 132 [facility] [place] [address] Jose Angel Wheatley MD [address] [facility] [address] Scheduled Procedures Name Priority Associated Diagnoses Date/Ti me COLONOSCOPY FLEXIBLE PROXIMAL DIAGNOSTIC Recall History of colon polyps Health Maintenance Due Date Last Done Comments Alpha-1 Antitrypsin 1963 Adult Wellness Visit 2013 COVID-19 Vaccine (3 - Pfizer risk series) 08/31/2020 08/03/2020, 07/13/2020 CKD PHOS USE SMARTSET 40244 10/17/202309/25, 08/01/2021, 11/25/2018 HbA1c 12/03/2023 06/04/2023, 12/25, 10/16/2022, Additional history exists Influenza Vaccine (FLU shot) (#1) 2023 01/08/2023, 02/06/2022, 01/24/2021, Additional history exists Depression Monitoring 04/12/2024 04/12/2023 Diabetic Foot Exam 06/04/2024 06/04/2023, 05/15/2022 Diabetic Eye Exam 07/15/2024 07/16/2023 Albumin/Creatinine Ratio 07/29/2024 04/2 024, 10/16/2022, 08/01/2021 GFR 09/18/2024 03/21/2024, 06/0 09/2023, 06/04/2023, Additional history exists CKD HGB USE SMARTSET 97674 03/21/202503/21, 03/21/2024, 09/30/2023, Additional history exists O2 [...] this encounter Medical Devices Implanted Type Area Wine Merchant Device Identifier Shelf Expiration Date Model / Serial / Lot Lead Dbs 0.5mm 42cm Marker - [id number] Implanted:Qty: 1 on 04/05/2023 by Neal Yoon MD at OR [facility] Left: Head [employer] : NEUROLOGIC PAIN 02/11/2025 [id number] / / [id number] Lead Dbs 0.5mm 42cm - [id number] Implanted:Qty: 1 on 04/05/2023 by Neal Yoon MD at OR [facility] Right: Head [employer] : NEUROLOGIC PAIN 02/11/2025 [id number] / / [id number] 1 Cement Hydroset Injectable 5cc - [id number] Implanted:Qty: 1 on 04/05/2023 by Neal Yoon MD at OR [facility] N/A: Head CATRINA 12/11/2024 [id number] / / [id number] Plate 12mm Str 2 Hole Un3 - [id number] Implanted:Qty: 1 on 04/05/2023 by Neal Yoon MD at OR [facility] Right: Head CATRINA : CRANIOMAXILLOFACIAL [id number] / / Plate 12mm Str 2 Hole Un3 - [id number] Implanted:Qty: 1 on 04/05/2023 by Neal Yoon MD at OR [facility] Left: Head CATRINA : CRANIOMAXILLOFACIAL [id number] / / Neurostimulator Percept Pc - [id number] - [id number] Implanted:Qty: 1 on 04/09/2023 by Neal Yoon MD at OR [facility] Left: Chest [employer] : NEUROLOGIC PAIN 02/06/2025 [id number] / [id number] / Ext Dbs 40cm Marker - [id number] Implanted:Qty: 1 on 04/09/2023 by Neal Yoon MD at OR [facility] Left: Chest [employer] : NEUROLOGIC PAIN 10/21/2024 [id number] / / Ext Dbs 40cm - [id number] - [id number] Implanted:Qty: 1 on 04/09/2023 by Neal Yoon MD at OR [facility] Left: Chest [employer] : NEUROLOGIC PAIN 12/04/2024 [id number] / [id number] / Envelope Tyrx Lg Antibacterial - [id number] Implanted:Qty: 1 on 04/09/2023 by Neal Yoon MD at OR [facility] Left: Chest [employer] 12/17/2023 [id number] / / [id number] documented as of this encounter Visit Diagnoses [...] Documents on File Type Date Recorded Patient Ui Designer Expl anation Power of Engineer Sergeant 10/30/2014 POWER OF A TTORNEY * Full [...] Discussed due to patient's condition Care Teams Real Estate Closer Relationship Specialty Start Date End Date August, Benjamin De Jesus MD PCP - General Family Medicine 02/04/22 documented as of this encounter
--- OUTSIDE RECORDS SUMMARY | 2024-05-26 13:46 | External Medical Summary | Summary of Care ---
Author Name Unknown Organization [facility] Address [address] [place] [address] Phone [phone] Care Team Providers Care Cleaning Associate Name Role Phone Benjamin Connor MD Primary Care Provider [phone] Reason for Referral * Precert (Within 10 days (routine)) - Authorized Specialty Diagnoses / Procedures Referred By Contcary t Referred To Contact Radiology Diagnoses Lung nodule Rheumatoid arthritis, involving unspecified site, unspecified whether rheumatoid factor present (HCC) Procedures CT CHEST WO CONTRAST Jose Angel Wheatley MD [address] [phone] Phone: tel: fax: Referral ID Status Reason Start Date Expiration Date V isits Requested Visits Authorized [id number] Authorized 10/04/2024 999 999 Encounter Details Date Type Department Care Team (Late st Contact Info) Description 04/05/2024 Orders Only Radiology [facility] 1st [facility], [place] [address] [facility] [place] [address] Jose Angel Wheatley MD [address] [phone] Lung nodule*; Rheumatoid arthritis, involving unspecified site, unspecified whether rheumatoid factor present (HCC) Allergies No known active allergiesdocumented as of this encounter (statuses as of 04/05/2024) Medications inFLIXimab (REMICADE) 100 MG injection Administer 5 mg/kg intravenously. Active Zoster Vac Recomb Adjuvanted 50 MCG/0.5ML Intramuscular Suspension Reconstituted (Shingrix)Indicatio ns:Need for shingles vaccine Inject 0.5 mL into a large muscle now and repeat dose in 60 to 180 days 1 Each 05/15/19 23 Active Additional Information Patient not taking.Informant: Patient, Reported on 12/10/2023 Allopurinol 100 MG Oral Tablet (Zyloprim)Indicatio ns:Gouty arthritis of left great toe Take 1 Tablet by mouth in the morning. 30 Tablet 11 01/10/20 23 Active Docusate Sodium 100 MG Oral Capsule (Colace) Take 1 Capsule by mouth in the morning and 1 Capsule before bedtime. 60 Capsule 04/06/20 23 Active Acetaminophen 325 MG Oral Tablet (Tylenol) Take 1 Tablet by mouth every 6 hours as needed for Pain, Moderate or Pain, Mild. 30 Tablet 04/06/20 23 Active Montelukast Sodium 10 MG Oral Tablet (Singulair) Take 1 Tablet by mouth in the morning. 90 Tablet 3 07/16/19 24 Active Albuterol Sulfate HFA 108 (90 Base) MCG/ACT Inhalation Aerosol Solution Inhale 2 Puffs by mouth every 6 hours as needed (cough, SOB). 18 g 5 07/16/19 24 Active Levocetirizine Dihydrochloride 5 MG Oral Tablet Take 1 Tablet by mouth every evening. 90 Tablet 3 07/30/19 24 Active Trelegy Ellipta 100-62.5-25 MCG/ACT Aerosol Powder Breath Activated (Fluticasone-Umecli dinium-Vilanterol) Inhale 1 Puff by mouth in the morning. 60 Blister Dosing Unit 11 07/30/19 24 Active Furosemide 20 MG Oral Tablet (Lasix) Take 1 Tablet by mouth daily as needed (weight gain more than 3 pound in one week). 08/10/19 24 Active Fluticasone Propionate 50 MCG/ACT Nasal Suspension (Flonase)Indication s:Chronic rhinitis Administer 2 Sprays into each nostril in the morning. 16 g 3 10/18/19 24 Active Famotidine 20 MG Oral Tablet (Pepcid) Take 1 Tablet by mouth in the morning and 1 Tablet before bedtime. 180 Tablet 12/30/19 24 Active Atorvastatin Calcium 20 MG Oral [...] DAY. 90 Capsule 1 02/10/20 24 Active Clobetasol Propionate 0.05 % External Cream (Temovate)Indicatio ns:Psoriasis Apply topically to affected area 2 times a day. Apply to bilateral knee 30 g 6 03/09/20 24 024 Active Methotrexate 2.5 MG Oral Tablet Take 8 Tablets by mouth once a week. 96 Tablet 03/09/20 24 025 Active Folic Acid 1 MG Oral TabletIndications:P soriatic arthropathy (HCC) Take 1 Tablet by mouth in the morning. 360 Tablet 03/09/20 24 Active Hospital, Clinic, or Other Facility Administered Medication Ordered Dose Route Frequency Start Date End Date Status Albuterol Sulfate (Proventil) (5 MG/ML) 0.5% *conc* inhalation solution 2.5 mgIndications:Chronic cough 2.5 mg NEBULIZER PRN 09/02/2023 09/01/2024 Active Albuterol Sulfate (Proventil) (2.5 MG/3ML) 0.083% inhalation solution 2.5 mgIndications:Chronic cough 2.5 mg NEBULIZER PRN 09/02/2023 09/01/2024 Active documented as of this encounter (statuses as of 04/05/2024) Active Problems Problem Noted Date Diagnosed Date [...] sugars. Continue with psychiatry. Dr[facility]alta at [facility] Psych. documented as of this encounter (statuses as of 04/05/2024) Resolved Problems Problem Noted Date Diagnosed Date [...] as of this encounter (statuses as of 04/05/2024) Immunizations Name Administration Dates Next Due COVID-19 mRNA, LNP-s, No Pre serve, 2-Dose Series (Digital Union) 08/03/2020,07/13/2020 Pneumococcal Conjugate Vacc, 13 Valent (Prevnar) [...] Care Team (Late st Contact Info) Description 04/06/2024 12:00 PM EST Office Visit Pulmonary Medicine, [facility] 132 [facility] [place] [address] Jose Angel Wheatley MD [address] [place] [address] 04/07/2024 8:45 AM EST Hem/Onc Treatment Hematology/Oncology Treatment, [place] [address] [place] [phone] Christina, Chair 2 Hem Onc Scenery [address] [place] [address] 06/09/2024 8:30 AM EST Telemedicine Psychiatry, [facility] [address] [place] [address] Ej Nieves CRNP [address] [place] [address] 06/16/2024 10:40 AM EST [facility] [place] [facility] [address] [place] [address] AugustBenjamin MD [address] [place] [address] 06/22/2024 11:00 AM EST Telemedicine Rheumatology, [place] [address] [place] [address] Adwoa Baker DO [address] [place] [address] Scheduled Orders Name Type Priority Associated Diagnoses Orde r Schedule CT CHEST WO CONTRAST Medical Imaging Routine Lung nodule Rheumatoid arthritis, involving unspecified site, unspecified whether rheumatoid factor present (HCC) Expected: 10/04/2024, Expires: 05/06/2025 Scheduled Procedures Name Priority Associated Diagnoses Date/Ti me COLONOSCOPY FLEXIBLE PROXIMAL DIAGNOSTIC Recall History of colon polyps Health Maintenance Due Date Last Done Comments Alpha-1 Antitrypsin 1963 Adult Wellness Visit 2013 COVID-19 Vaccine (3 - Pfizer risk series) 08/31/2020 08/03/2020, 07/13/2020 CKD PHOS USE SMARTSET 55759 10/17/202309/25, 08/01/2021, 11/25/2018 HbA1c 12/03/2023 06/04/2023, 12/25, 10/16/2022, Additional history exists Influenza Vaccine (FLU shot) (#1) 2023 01/08/2023, 02/06/2022, 01/24/2021, Additional history exists O2 ASSESSMENT COMPLETED IN PAST YEAR FOR COPD 04/09/2024 04/09/2023 Depression Monitoring 04/12/2024 04/12/2023 Diabetic Foot Exam 06/04/2024 06/04/2023, 05/15/2022 Diabetic Eye Exam 07/15/2024 07/16/2023 Albumin/Creatinine Ratio 07/29/2024 024, 10/16/2022, 08/01/2021 GFR 09/18/2024 03/21/2024, 06/0 09/2023, 06/04/2023, Additional history exists CKD HGB USE SMARTSET 79153 03/21/202503/21, 03/21/2024, 09/30/2023, Additional history exists Colonoscopy 06/27/2026 06/27/2021, 06/27/2021 DTap/Tdap Vaccines (2 [...] this encounter Medical Devices Implanted Type Area Solid Waste Landfill Technician Device Identifier Shelf Expiration Date Model / Serial / Lot Lead Dbs 0.5mm 42cm Marker - [id number] Implanted:Qty: 1 on 04/05/2023 by Neal Yoon MD at OR [facility] Left: Head [employer] : NEUROLOGIC PAIN 02/11/2025 [id number] / / [id number] Lead Dbs 0.5mm 42cm - [id number] Implanted:Qty: 1 on 04/05/2023 by Neal Yoon MD at OR [facility] Right: Head [employer] : NEUROLOGIC PAIN 02/11/2025 [id number] / / [id number] Cement Hydroset Injectable 5cc - [id number] Implanted:Qty: 1 on 04/05/2023 by Neal Yoon MD at OR [facility] N/A: Head CATRINA 12/11/2024 [id number] / / [id number] Plate 12mm Str 2 Hole Un3 - [id number] Implanted:Qty: 1 on 04/05/2023 by Neal Yoon MD at OR [facility] Right: Head CATRINA : CRANIOMAXILLOFACIAL [id number] / / Plate 12mm Str 2 Hole Un3 - [id number] Implanted:Qty: 1 on 04/05/2023 by Neal Yoon MD at OR [facility] Left: Head CATRINA : CRANIOMAXILLOFACIAL 53-67155 / / Neurostimulator Percept Pc - [id number] - [id number] Implanted:Qty: 1 on 04/09/2023 by Neal Yoon MD at OR [facility] Left: Chest [employer] : NEUROLOGIC PAIN 02/06/2025 [id number] / [id number] / Ext Dbs 40cm Marker - [id number] Implanted:Qty: 1 on 04/09/2023 by Neal Yoon MD at OR [facility] Left: Chest [employer] : NEUROLOGIC PAIN 10/21/2024 [id number] / / Ext Dbs 40cm - [id number] - [id number] Implanted:Qty: 1 on 04/09/2023 by Neal Yoon MD at OR [facility] Left: Chest [employer] : NEUROLOGIC PAIN 12/04/2024 [id number] / [id number] / Envelope Tyrx Lg Antibacterial - [id number] Implanted:Qty: 1 on 04/09/2023 by Neal Yoon MD at OR [facility] Left: Chest [employer] 12/17/2023 [id number] / / [id number] documented as of this encounter Visit Diagnoses Diagnosis Lung nodule- Primary Solitary pulmonary nodule Rheumatoid arthritis, involving unspecified site, unspecified whether rheumatoid factor present (HCC) documented in this encounter Advance Directives Documents on File Type Date Recorded Patient Passport Support Manager Expl anation Power of Document Processing Specialist 10/30/2014 POWER OF A TTORNEY * Full [...] Discussed due to patient's condition Care Teams Cleaning Associate Relationship Specialty Start Date End Date August, Benjamin De Jesus MD [address] [place] [address] PCP - General Family Medicine 02/04/22 documented as of this encounter
--- OUTSIDE RECORDS SUMMARY | 2024-05-26 13:46 | External Medical Summary | Summary of Care ---
Author Name Unknown Organization [facility] Address [address] [place] [facility] [place] [address] Phone [phone] Care Team Providers Care Cranberry Grower Name Role Phone Benjamin Connor MD Primary Care Provider [phone] Reason for Visit * Reason Onset Date Comments Test Results 04/06/2024 CT Chest Encounter Details Date Type Department Care Team (Late st Contact Info) Description 04/06/2024 Telephone Pulmonary Medicine, [facility] [address] [facility] [place] [id number] Jose Angel Wheatley MD [address] [facility] [place] [address] Test Results (CT Chest) Allergies No known active allergiesdocumented as of this encounter (statuses as of 04/06/2024) Medications inFLIXimab (REMICADE) 100 MG injection Administer [...] night at bedtime. 90 Tablet 1 01/27/20 Active Namzaric 28-10 MG Oral Capsule Extended [...] mouth in the morning. 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 Continue with psychiatry. Dr. Villalta at [facility] Psych. documented as of this encounter (statuses as of 04/06/2024) Resolved Problems Problem Noted Date Diagnosed Date [...] as of this encounter (statuses as of 04/06/2024) Immunizations Name Administration Dates Next Due COVID-19 [...] 3:42 PM EST Martina Colón RN documented as of this encounter Mental Status * Because of a physical, mental, or emotional condition, do you have serious difficulty concentrating, remembering, or making decisions? (5 years old or older) Answer Entry Date Author Yes 04/05/2023 3:42 PM EST Martina Colón RN documented in this encounter Miscellaneous Notes * Telephone Encounter - Anna Weems LPN - 04/06/2024 11:53 AM EST ----- Message from Jose Angel Wheatley MD sent at 04/05/2024 5:03 PM EST ----- CT chest data reviewed, follow-up CT from 03/31/[address] chest 09/10/2023. Right upper lobe nodule marginally changed without significant solid component. Consistent with rheumatoid lung disease related changes. Low likelihood for malignancy. Current size is below threshold for PET scan. Enrollment in stair lung nodule monitoring program will be discussed with patient Continued radiologic surveillance and Repeat CT chest recommended in 6 months. Chart note documented in this encounter Plan of Treatment Upcoming Encounters Date Type Department Care Team (Late st Contact Info) Description 04/07/2024 8:45 AM EST Hem/Onc Treatment Hematology/Oncology Treatment, [place] [address] [place] [address] Park, Chair 2 Hem Onc Sc[address] [place] [address] 06/09/2024 8:30 AM EST Telemedicine Psychiatry, [place] [address] [address] Ej Nieves CRNP [address] [place] [address] 06/16/2024 10:40 AM EST [facility] [address] [place] [address] Benjamin Connor MD [address] [place] [address] 06/22/2024 11:00 AM EST Telemedicine Rheumatology, [place] [address] [place] [address] Samuel Adwoa, [address] [place] [address] Scheduled Procedures Name Priority Associated Diagnoses Date/Ti me COLONOSCOPY FLEXIBLE PROXIMAL DIAGNOSTIC Recall History of colon polyps Health Maintenance Due Date Last Done Comments Alpha-1 Antitrypsin 1963 Adult Wellness Visit 2013 COVID-19 Vaccine (3 - Pfizer risk series) 08/31/2020 08/03/2020, 07/13/2020 CKD PHOS USE SMARTSET 07119 10/17/202309/25, 08/01/2021, 11/25/2018 HbA1c 12/03/2023 06/04/2023, 12/25, [...] Additional history exists CKD HGB USE SMARTSET 37177 03/21/202503/21, 03/21/2024, 09/30/2023, Additional history exists Colonoscopy [...] this encounter Medical Devices Implanted Type Area Liberal Arts Teacher Device Identifier Shelf Expiration Date Model / Serial / Lot Lead Dbs 0.5mm 42cm Marker - [id number] Implanted:Qty: 1 on 04/05/2023 by Neal Yoon MD at [place] [facility] Left: Head [employer] : NEUROLOGIC PAIN 02/11/2025 [id number] / / [id number] Lead Dbs 0.5mm 42cm - [id number] Implanted:Qty: 1 on 04/05/2023 by Neal Yoon MD at [facility] Right: Head [employer] : NEUROLOGIC PAIN 02/11/2025 [id number] / / [id number] Cement Hydroset Injectable 5cc - [id number] Implanted:Qty: 1 on 04/05/2023 by Neal Yoon MD at [facility] N/A: Head CATRINA 12/11/2024 [id number] / / [id number] Plate 12mm Str 2 Hole Un3 - [id number] Implanted:Qty: 1 on 04/05/2023 by Neal Yoon MD at [facility] Right: Head CATRINA : CRANIOMAXILLOFACIAL [id number] / / Plate 12mm Str 2 Hole Un3 - [id number] Implanted:Qty: 1 on 04/05/2023 by Neal Yoon MD at [facility] Left: Head CATRINA : CRANIOMAXILLOFACIAL [id number] / / Neurostimulator Percept Pc - [id number] - [id number] Implanted:Qty: 1 on 04/09/2023 by Neal Yoon MD at [facility] Left: Chest [employer] : NEUROLOGIC PAIN 02/06/2025 [id number] / [id number] / Ext Dbs 40cm Marker - [id number] Implanted:Qty: 1 on 04/09/2023 by Neal Yoon MD at [facility] Left: Chest [employer] : NEUROLOGIC PAIN 10/21/2024 [id number] / / Ext Dbs 40cm - [id number] - [id number] Implanted:Qty: 1 on 04/09/2023 by Neal Yoon MD at [place] [facility] Left: Chest [employer] : NEUROLOGIC PAIN 12/04/2024 [id number] / [id number] / Envelope Tyrx Lg Antibacterial - [id number] Implanted:Qty: 1 on 04/09/2023 by Neal Yoon MD at [place] [facility] Left: Chest [employer] 12/17/2023 [id number] / / [id number] documented as of this encounter Advance Directives Documents on File Type Date Recorded Patient Surgical Dental Assistant Expl anation Power of Wood Casket Assembler 10/30/2014 POWER OF A TTORNEY * Full [...] Discussed due to patient's condition Care Teams Cranberry Grower Relationship Specialty Start Date End Date August, Benjamin De Jesus MD [address] [facility] [address] PCP - General Family Medicine 02/04/22 documented as of this encounter
--- OUTSIDE RECORDS SUMMARY | 2024-05-26 13:46 | External Medical Summary | Summary of Care ---
Author Name Unknown Organization [facility] Address [address] [place] [address] Phone [phone] Care Team Providers Care Property Insurance Agent Name Role Phone Benjamin Connor MD Primary Care Provider [phone] Reason for Visit * Reason Onset Date Comments STAIR Lung Nodule 04/06/2024 Encounter Details Date Type Department Care Team (Late st Contact Info) Description 04/06/2024 Telephone STAIR LUNG NODULE [address] [place] [address] Program, [place] [address] [place] [address] STAIR Lung Nodule Allergies No known active allergiesdocumented as of [...] 1 Capsule before bedtime. 60 Capsule 04/06/20 Active Levocetirizine Dihydrochloride 5 MG Oral Tablet Take 1 Tablet by mouth every evening. 90 Tablet 3 07/30/19 24 Active Furosemide 20 MG Oral Tablet (Lasix) Take 1 Tablet by mouth daily as needed (weight gain more than 3 pound in one week). 08/10/19 24 Active Famotidine 20 MG Oral Tablet [...] Active Benzonatate 100 MG Oral Capsule (Tessalon Perlkirsten) Take 1 Capsule by mouth 3 times a day as needed for Cough for up to 90 doses. 30 Capsule 2 04/06/20 24 Active Hospital, Clinic, or Other Facility [...] sugars. Continue with psychiatry. Dr. Villalta at [facility] Psych. documented as of this encounter (statuses [...] encounter Miscellaneous Notes * Telephone Encounter - Kinjal Mehta LPN - 04/06/2024 12:[address] Wheatley : The STAIR Program received a new Pulmonary Medicine Lung Nodule Referral on this patient with whom you already follow. . We will capture and track your nodule care plan after the appointment with you is completed. Pt Identified by: Specialty Referral Kinjal Mehta LPN Coordinator STAIR (System to Track Abnormalities of Importance Reliably) Patient managed in STAIR Program for Pulmonary Nodule - banner added documented in this encounter Plan of Treatment Upcoming Encounters Date Type Department Care Team (Late st Contact Info) Description 04/07/2024 8:45 AM EST Hem/Onc Treatment Hematology/Oncology Treatment, [place] [address] [facility] [address] [place] [address] Park, Chair 2 Hem Onc [facility] [address] [facility] [place] [address] 06/09/2024 8:30 AM EST Telemedicine Psychiatry, [facility] [place] [phone] Ej Nieves CRNP [address] [facility] [place] [address] 06/16/2024 10:40 AM EST [facility] [place] [facility] [address] [facility] [place] [phone] AugustBenjamin MD [address] [place] [address] 06/22/2024 11:00 AM EST Telemedicine Rheumatology, [place] [address] [place] [address] Adwoa Baker, [address] [place] [address] 10/17/2024 12:40 PM EDT Office Visit Pulmonary Medicine, [facility] [address] [facility] [place] [address] Jose Angel Wheatley MD [address] [facility] [address] [address] Scheduled Procedures Name Priority Associated Diagnoses Date/Ti me COLONOSCOPY FLEXIBLE PROXIMAL DIAGNOSTIC Recall History of colon polyps Health Maintenance Due Date Last Done Comments Alpha-1 Antitrypsin 1963 Adult Wellness Visit 2013 COVID-19 Vaccine (3 - Pfizer risk series) 08/31/2020 08/03/2020, 07/13/2020 CKD PHOS USE SMARTSET 74182 10/17/202309/25, 08/01/2021, 11/25/2018 HbA1c 12/03/2023 06/04/2023, 12/25, 10/16/2022, Additional history exists Influenza Vaccine (FLU shot) (#1) 2023 01/08/2023, 02/06/2022, 01/24/2021, Additional history exists O2 ASSESSMENT COMPLETED IN PAST YEAR FOR COPD 04/09/2024 04/09/2023 Depression Monitoring 04/12/2024 04/12/2023 Diabetic Foot Exam 06/04/2024 06/04/2023, 05/15/2022 Diabetic Eye Exam 07/15/2024 07/16/2023 Albumin/Creatinine Ratio 07/29/202407/29/2 024, 10/16/2022, 08/01/2021 GFR 09/18/2024 03/21/2024, 06/0 09/2023, 06/04/2023, Additional history exists CKD HGB USE SMARTSET 33660 03/21/202503/21, 03/21/2024, 09/30/2023, Additional history exists Colonoscopy [...] this encounter Medical Devices Implanted Type Area Sociology Adjunct Instructor Device Identifier Shelf Expiration Date Model / Serial / Lot Lead Dbs 0.5mm 42cm Marker - [id number] Implanted:Qty: 1 on 04/05/[place] [facility] [place] [employer] : NEUROLOGIC PAIN 02/11/2025 [id number] / / [id number] Lead Dbs 0.5mm 42cm - [id number] Implanted:Qty: 1 on 04/05/2023 by [place] [facility] [place]: Head [employer] : NEUROLOGIC PAIN 02/11/2025 [id number] / / [id number] 1 Cement Hydroset Injectable 5cc - [id number] Implanted:Qty: 1 on 04/05/2023 by [place] [facility] [place]A: Head CATRINA 12/11/2024 [id number] / / [id number] Plate 12mm Str 2 Hole Un3 - [id number] Implanted:Qty: 1 on 04/05/2023 by [place] [facility] [place]: Head CATRINA : CRANIOMAXILLOFACIAL [id number] / / Plate 12mm Str 2 Hole Un3 - [id number] Implanted:Qty: 1 on 04/05/2023 by Neal Yoon [place] [facility]: Head CATRINA : CRANIOMAXILLOFACIAL [id number] / / Neurostimulator Percept Pc - [id number] - [id number] Implanted:Qty: 1 on 04/09/2023 by [place] [facility] [place]: Chest [employer] : NEUROLOGIC PAIN 02/06/2025 [id number] / [id number] / Ext Dbs 40cm Marker - [id number] Implanted:Qty: 1 on 04/09/2023 by [place] [facility] [place]: Chest [employer] : NEUROLOGIC PAIN 10/21/2024 [id number] / / Ext Dbs 40cm - [id number] - [id number] Implanted:Qty: 1 on 04/09/2023 by Neal Yoon [place] [facility]: Chest [employer] : NEUROLOGIC PAIN 12/04/2024 [id number] / [id number] / Envelope Tyrx Lg Antibacterial - [id number] Implanted:Qty: 1 on 04/09/2023 by [place] [facility]: Chest [employer] 12/17/2023 [id number] / / [id number] documented as of this encounter Advance Directives Documents on File Type Date Recorded Patient Application Integration Engineer Expl anation Power of Filler Room Attendant 10/30/2014 POWER OF A TTORNEY * Full [...] Discussed due to patient's condition Care Teams Property Insurance Agent Relationship Specialty Start Date End Date August, Benjamin De Jesus MD [address] [facility] [place] [address] PCP - General Family Medicine 02/04/22 documented as of this encounter
--- OUTSIDE RECORDS SUMMARY | 2024-05-26 13:46 | External Medical Summary | Summary of Care ---
Author Name Unknown Organization [facility] Address [address] [facility] [place] [address] Phone [phone] Care Team Providers Care Industrial Eng Name Role Phone Benjamin Connor MD Primary Care Provider [phone] Reason for Visit * Reason Comments IV Therapy Avsola * Episode Based Medications (Routine) - Authorized Specialty Diagnoses / Procedures Referred By Krupa t Referred To Contact Diagnoses Psoriatic arthropathy (HCC) Procedures [place] [address] [place] [address] Phone: tel: fax: Hematology/Oncology Treatment, [place] DEPT CLOSED - 03/09/23 [address] [place] [address] Phone: tel: fax: Referral ID Status Reason Start Date Expiration Date V isits Requested Visits Authorized [id number] Authorized 01/19/2024 01/18/2025 99 99 Encounter Details Date Type Department Care Team (Latest Contact Info) Description 04/07/2024 8:45 AM EST Hem/Onc Treatment Hematology/Oncology Treatment, [place] [address] [place] [address] Christina, Chair 2 Hem Onc [address] [place] [address] Psoriatic arthropathy (HCC)* Allergies No known active allergiesdocumented as of this encounter (statuses as of 04/07/2024) Medications inFLIXimab (REMICADE) 100 MG injection Administer [...] as of this encounter (statuses as of 04/07/2024) Active Problems Problem Noted Date Diagnosed Date [...] sugars. Continue with psychiatry. Dr. Villalta at [facility] Psych. documented as of this encounter (statuses as of 04/07/2024) Resolved Problems Problem Noted Date Diagnosed Date [...] as of this encounter (statuses as of 04/07/2024) Immunizations Name Administration Dates Next Due COVID-19 mRNA, LNP-s, No Pre serve, 2-Dose Series (Richmedia) 08/03/2020,07/13/2020 Pneumococcal Conjugate Vacc, 13 Valent (Prevnar) [...] 11:00 AM EST Hem/Onc Treatment Hematology/Oncology Treatment, [place] [address] [place] [phone] Christina Chair 2 Hem Onc Sc[address] [place] [address] 06/09/2024 8:30 AM EST Telemedicine Psychiatry, [address] [place] [address] Ej Nieves CRNP [address] [place] [address] 06/16/2024 10:40 AM EST Office Visit Family [facility] Navya E[address] [place] [phone] AugustBenjamin MD [address] [place] [address] 06/22/2024 11:00 AM EST Telemedicine Rheumatology, [place] [address] [place] [address] Adwoa Baker DO [address] [place] [address] 10/17/2024 12:40 PM EDT Office Visit Pulmonary Medicine, [facility] [address] [place] [address] Jose Angel Wheatley MD [address] [facility] [place] [address] Scheduled Procedures Name Priority Associated Diagnoses Date/Ti me COLONOSCOPY FLEXIBLE PROXIMAL DIAGNOSTIC Recall History of colon polyps Health Maintenance Due Date Last Done Comments Alpha-1 Antitrypsin 1963 Adult Wellness Visit 2013 COVID-19 Vaccine (3 - Pfizer risk series) 08/31/2020 08/03/2020, 07/13/2020 CKD PHOS USE SMARTSET 52263 10/17/202309/25, 08/01/2021, 11/25/2018 HbA1c 12/03/2023 06/04/2023, 12/25, 10/16/2022, Additional history exists Influenza Vaccine (FLU shot) (#1) 2023 01/08/2023, 02/06/2022, 01/24/2021, Additional history exists O2 ASSESSMENT COMPLETED IN PAST YEAR FOR COPD 04/09/2024 04/09/2023 Depression Monitoring 04/12/2024 04/12/2023 Diabetic Foot Exam 06/04/2024 06/04/2023, 05/15/2022 Diabetic Eye Exam 07/15/2024 07/16/2023 Albumin/Creatinine Ratio 07/29/2024 04//2 024, 10/16/2022, 08/01/2021 GFR 09/18/2024 03/21/2024, 06/0 09/2023, 06/04/2023, Additional history exists CKD HGB USE SMARTSET 99037 03/21/202503/21, 03/21/2024, 09/30/2023, Additional history exists Colonoscopy [...] this encounter Medical Devices Implanted Type Area Sanitation Worker Hosing Machinery Device Identifier Shelf Expiration Date Model / Serial / Lot Lead Dbs 0.5mm 42cm Marker - [id number] Implanted:Qty: 1 on 04/05/2023 by Neal [place]oon [place] [facility] [place]: Head [employer] : NEUROLOGIC PAIN 02/11/2025 [id number] / / [id number] Lead Dbs 0.5mm 42cm - [id number] Implanted:Qty: 1 on 04/05/2023 by Neal Yoon MD [place] [facility] [place] Right: Head [employer] : NEUROLOGIC PAIN 02/11/2025 [id number] / / [id number] 1 Cement Hydroset Injectable 5cc - [id number] Implanted:Qty: 1 on 04/05/2023 by Neal Yoon MD [place] [facility] [place] N/A: Head CATRINA 12/11/2024 [id number] / / [id number] Plate 12mm Str 2 Hole Un3 - [id number] Implanted:Qty: 1 on 04/05/2023 by Neal Yoon MD [place] [facility] [place] Right: Head CATRINA : CRANIOMAXILLOFACIAL [id number] / / Plate 12mm Str 2 Hole Un3 - [id number] Implanted:Qty: 1 on 04/05/2023 by Neal Yoon MD at [place] [facility] [place] Left: Head CATRINA : CRANIOMAXILLOFACIAL 53-86443 / / Neurostimulator Percept Pc - [id number] - [id number] Implanted:Qty: 1 on 04/09/2023 by Neal Yoon MD [place] [facility] [place]: Chest [employer] : NEUROLOGIC PAIN 02/06/2025 [id number] / [id number] / Ext Dbs 40cm Marker - [id number] Implanted:Qty: 1 on 04/09/2023 by Neal Yoon MD [place] [facility] [place]: Chest [employer] : NEUROLOGIC PAIN 10/21/2024 [id number] / / Ext Dbs 40cm - [id number] - [id number] Implanted:Qty: 1 on 04/09/2023 by Neal Yoon MD at [place] [facility] [place]: Chest [employer] : NEUROLOGIC PAIN 12/04/2024 [id number] / [id number] / Envelope Tyrx Lg Antibacterial - [id number] Implanted:Qty: 1 on 04/09/2023 by Neal Yoon MD [place] [facility] [place]: Chest [employer] 12/17/2023 [id number] / / [id number] documented as of this encounter Visit Diagnoses Diagnosis Psoriatic arthropathy (HCC)- Primary Psoriatic arthropathy documented in this encounter Administered Medications Active Administered Medications - up to 3 most recent administrations Medication Order MAR Action Action Date Dose Rate Site diphenhydrAMINE (Benadryl) inj 50 mg 50 mg, IV Push, ONCE PRN Other, Hypersensitivity Reaction, Starting on Wed04/07/24 at 0831, Until 04/08/24 at 0830, For 24 hoursIndications:Psoriatic arthropathy (HCC) EPINEPHrine 1 MG/ML inj 0.3 mg 0.3 mg, Intramuscular, ONCE PRN Other, Hypersensitivity Reaction or Anaphylaxis, Starting on Wed04/07/24 at 0831, Until 04/08/24 at 0830, For 24 hoursIndications:Psoriatic arthropathy (HCC) hEParin 100 UNIT/ML Lock Flush inj 500 Units 500 Units (5 mL), IV Lock, PRN Other, IV Flush, Starting on Wed04/07/24 at 0831, Until 04/08/24 at 0830, For 24 hours, Do not flush if lock, PICC, or central line not in place; IV infusing or unable to flush.Indications:Psoriatic arthropathy (HCC) Hydrocortisone Sod Suc (PF) (Solu-Cortef) inj 100 mg 100 mg, IV Push, ONCE PRN Other, Hypersensitivity Reaction, Starting on Wed04/07/24 at 0831, Until 04/08/24 at 0830, For 24 hoursIndications:Psoriatic arthropathy (HCC) NSS infusion 500 mL, Intravenous, at 50 mL/hr, CONTINUOUS, Starting on Wed04/07/24 at 0945, Until Wed04/07/24 at 1944Indications:Psoriatic arthropathy (HCC) Start Infusion 04/07/2024 8:52 AM EST 500 mL 50 mL/hr sodium chloride 0.9 % flush central line 10 mL 10 mL, IV Push, PRN Other, IV Flush, Starting on Wed04/07/24 at 0831, Until 04/08/24 at 0830, For 24 hours, Do not flush if [...] Change 04/07/2024 9:42 AM EST 80 mL/hr documented in this encounter Advance Directives Documents on File Type Date Recorded Patient Private Investigator Surveillance Expl anation Power of Fixer Boarding Room 10/30/2014 POWER OF A TTORNEY * Full [...] Discussed due to patient's condition Care Teams Industrial Eng Relationship Specialty Start Date End Date August, Benjamin De Jesus MD [address] [place] [place] [address] PCP - General Family Medicine 02/04/22 documented as of this encounter
--- OUTSIDE RECORDS SUMMARY | 2024-05-26 13:46 | External Medical Summary | Summary of Care ---
Author Name Unknown Organization [facility] Address [address] [place] [address] Phone [phone] Care Team Providers Care Snuff Blender Name Role Phone Benjamin Connor MD Primary Care Provider [phone] Reason for Referral * Evaluate & Treat - Unlimited Visits (Within 10 days (routine)) - Authorized Specialty Diagnoses / Procedures Referred By Krupa t Referred To Contact Pulmonary Diseases / Pulmonary Diagnoses Psoriatic arthropathy (HCC) Lung nodule Jose Angel Wheatley MD [address] [place] [address] Phone: tel: fax: Referral ID Status Reason Start Date Expiration Date Visits Requested Visits Authorized [id number] Authorized Specialty Services Required 4 999 999 Question Answer Referral Priority Within 10 Days (Routine) Primary Reason for Referral? Lung Nodule/Mass Comments Rt Lung Nodule Plz enroll and monitor per STAIR Program protocol Reason for Visit * Reason Comments Follow Up COPD Encounter Details Date Type Department Care Team (Late st Contact Info) Description 04/06/2024 12:00 PM EST Office Visit Pulmonary Medicine, [address] [place] [address] Jose Angel Wehatley MD [address] [place] [phone] Lung nodule*; Gouty arthritis of left great toe; Chronic rhinitis; Psoriatic arthropathy (HCC) Allergies No known active allergiesdocumented as [...] doses. 30 Capsule 2 04/06/20 24 Active Allopurinol 100 MG Oral Tablet (Zyloprim)Indicatio ns:Gouty arthritis of left great toe Take 1 Tablet by mouth in the morning. 30 Tablet 11 01/10/20 23 Discontin ued(Refil l) Acetaminophen 325 MG Oral Tablet (Tylenol) Take 1 Tablet by mouth every 6 hours as needed for Pain, Moderate or Pain, Mild. 30 Tablet 04/06/20 23 024 Discontin ued(Refil l) Montelukast Sodium 10 MG Oral Tablet (Singulair) Take 1 Tablet by mouth in the morning. 90 Tablet 3 07/16/19 24 Discontin ued(Refil l) Albuterol Sulfate HFA 108 (90 Base) MCG/ACT Inhalation Aerosol Solution Inhale 2 Puffs by mouth every 6 hours as needed (cough, SOB). 18 g 5 07/16/19 24 024 Discontin ued(Refil l) Trelegy Ellipta 100-62.5-25 MCG/ACT Aerosol Powder Breath Activated (Fluticasone-Umecli dinium-Vilanterol) Inhale 1 Puff by mouth in the morning. 60 Blister Dosing Unit 11 07/30/19 24 Discontin ued(Refil l) Fluticasone Propionate 50 MCG/ACT Nasal Suspension (Flonase)Indication s:Chronic rhinitis Administer 2 Sprays into each nostril in the morning. 16 g 3 10/18/19 24 024 Discontin ued(Refil l) Folic Acid 1 MG Oral TabletIndications:P soriatic arthropathy (HCC) Take 1 Tablet by mouth in the morning. 360 Tablet 03/09/20 24 Discontin ued(Refil l) Hospital, Clinic, or Other [...] sugars. Continue with psychiatry. Dr. Villalta at [facility] Psych. documented as of this encounter [...] mRNA, LNP-s, No Pre serve, 2-Dose Series ([facility]) 08/03/2020,07/13/2020 Pneumococcal Conjugate Vacc, 13 Valent (Prevnar) [...] Sign Reading Time Taken Comments Blood Pressure 140/80 04/06/2024 11:33 AM EST Pulse 94 04/06/2024 11:33 AM EST Temperature 36 C (96.8 F) 04/06/2024 11:33 AM EST Respiratory Rate 18 04/06/2024 11:33 AM EST Oxygen Saturation 97% 04/06/2024 11:33 AM EST Inhaled Oxygen Concentration - - Weight 92.5 kg (204 lb) 04/06/2024 11:33 AM EST Height 175.3 cm (5' 9") 04/06/2024 11:33 AM EST Body Mass Index 30.13 04/06/2024 11:33 AM EST documented in this [...] Martina Srinivasan RN documented in this encounter Progress Notes * Jose Angel Wheatley MD - 04/06/2024 12:05 PM EST Images from the original note were not included. 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 Aspiration workup has been unremarkable. Physical examination significant for class 3 throat, adequate air entry in all lung parrish, minimalwheezing, no rales, no dullness, regular cardiac rhythm, no evidence of volume overload and nonlateralizing Neuro examination. [facility] Rheumatoid lung nodule Chronic Cough PND GERD Plan Continue with Pepcid C/w Trelegy, Albuterol,Flonase Tessalon perles Added STAIR Lung Nodule Monitoring Referral C/w [address] chest follow-up recommended in 6 months Pulmonary clinic follow-up 6 months Follow Up: Return in about 6 months (around 10/05/2024) for Clinic Visit. | For: Clinic Visit | Check-out note: [facility] Rheumatoid lung nodule Chronic Cough PND GERD Plan Continue with Pepcid C/w Trelegy, Albuterol,Flonase Tessalon perles Added STAIR Lung Nodule Monitoring Referral C/w [address] chest follow-up recommended in 6 months Pulmonary clinic follow-up 6 months I spent a total of 30-39 minutes (exact time 35 mins) on the date of service in preparation, delivery, and documentation of the care provided to Shiva Lea excluding any time spent in the performance of separately billed services or time spent by another provider/QHP. Jose Angel Wheatley MD Data review: Following reports, and data as outlined below was personally reviewed and interpreted by myself. CT chest data reviewed, follow-up CT from [...] Repeat CT chest recommended in 6 months. Negative video fluoro scopic swallow study on 10/01/2023. CT chest with subcentimeter lung nodule as noted Normal PFT Positive nocturnal oximetry study on September 24, 2023. 2 L nasal cannula oxygen for nighttime use is being ordered. Subjective CC: Chief Complaint Patient presents with Follow Up COPD HPI: Nursing Notes: Aminah Longoria LPN 04/06/24 1214 Signed Chief Complaint Patient presents with Follow Up COPD Interm History/Respiratory Symptoms Cough: productive-yellow Hemoptysis: no Sinus Symptoms: PND Hospitalizations: no ED Trips: no Triggers: no Nocturnal: cough,wheeze,SOB CPAP/BiPAP/O2: O2 @ 2 lpm Travel Screening Question 04/06/2024 11:23 AM EST - Filed by Patient Do you have any of the following new or worsening symptoms? Cough Have you recently been in contact with someone who was sick? No / Unsure Myc Visit Accident Related Question Question 04/06/2024 11:23 AM EST - Filed by Patient Is this visit related to an accident? (i.e work, motor vehicle) No Mmrc Cat Question 04/06/2024 11:36 AM EST - Filed by Aminah Longoria LPN When do you become breathless? (2) On level ground, I walk slower than people of the same age because of breathlessness or have to stop for breath when walking at my own pace How frequently do you cough? (4) Do you have phlegm in your chest? (4) Is your chest tight? (5) - My chest feels very tight How breathless do you become when walking up a hill or steps? (5) - When I walk up a hill or one flight of stairs I am very breathless How limited are you doing activities at home? (0) - I am not limited doing any activities at home How confident are you leaving home with your lung condition? (0) - I am confident leaving my home despite my condition How soundly do you sleep? (0) - I sleep soundly How much energy do you have? (5) - I have no energy at all Total MMRC Score (range: 0 - 4) 2 Total CAT Score (range: 0 - 40) 23 Objective Filed Vitals: 04/06/24 1133 BP: 140/80 Pulse: 94 Resp: 18 Temp: 36 C (96.8 F) TempSrc: Tympanic SpO2: 97% Weight: 92.5 kg (204 lb) Height: 1.753 m (5' 9") Exam: Const: No signs of acute distress present. Head/Face: Normal on inspection. Eyes: Conjunctivae clear. Pupils equal round and reactive to light. ENMT: Oropharynx: No erythema, exudate or masses. Posterior pharynx is normal. Neck: Supple and symmetric. Resp: Respiratory examination as outlined above CV: Rate is regular. Rhythm is regular. No heart murmur appreciated. Extremities: No edema of the lower limbs bilaterally. Skin: Skin is warm and dry. Neuro: Coordination normal. No involuntary movement. Psych: Patient's attitude is cooperative. Mood is normal. Affect is normal. Tests reviewed with the patient: CT CHEST WO CONTRAST Result Date: 04/05/2024 IMPRESSION: 1. Increasing soft tissue component of a right upper lobe lung nodule (image 160 series8 compared to image 129 series 8 of the prior), this measures 8 mm and is likely below the resolution of PET-CT. 2. The previously described left lower lobe nodule has resolved. THIS DOCUMENT HAS BEEN ELECTRONICALLY SIGNED BY ESTRELLITA MURRELL MD Available Radiologic data was reviewed by me in PACS. The images were shown to the patient and findings were discussed with the patient. HOME MEDICATIONS: Acetaminophen 325 MG Oral Tablet (Tylenol) Albuterol Sulfate HFA 108 (90 Base) MCG/ACT Inhalation Aerosol Solution Allopurinol 100 MG Oral Tablet (Zyloprim) Benzonatate 100 MG Oral Capsule (Tessalon Perles) Fluticasone Propionate 50 MCG/ACT Nasal Suspension (Flonase) Folic Acid 1 MG Oral Tablet Montelukast Sodium 10 MG Oral Tablet (Singulair) Trelegy Ellipta 100-62.5-25 MCG/ACT Aerosol Powder Breath Activated (Olxblwjlenn-Msrttouvkadl-Dzaygjcrzp) Clobetasol Propionate 0.05 % External Cream (Temovate) Methotrexate 2.5 MG Oral Tablet Namzaric 28-10 MG Oral Capsule Extended Release 24 Hour (Memantine HCl-Donepezil HCl) DULoxetine HCl 60 MG Oral Capsule Delayed Release Particles (Cymbalta) lamoTRIgine 200 MG Oral Tablet (LaMICtal) QUEtiapine Fumarate 300 MG Oral Tablet (SEROquel) Atorvastatin Calcium 20 MG Oral Tablet (Lipitor) Famotidine 20 MG Oral Tablet (Pepcid) Furosemide 20 MG Oral Tablet (Lasix) Levocetirizine Dihydrochloride 5 MG Oral Tablet Docusate Sodium 100 MG Oral Capsule (Colace) Zoster Vac Recomb Adjuvanted 50 MCG/0.5ML Intramuscular Suspension Reconstituted (Shingrix) inFLIXimab (REMICADE) 100 MG injection Albuterol Sulfate (Proventil) (2.5 MG/3ML) 0.083% inhalation solution 2.5 mg Albuterol Sulfate (Proventil) (5 MG/ML) 0.5% *conc* inhalation solution 2.5 mg ROS: No reported history of Hemoptysis, Hematemesis, Melena No reported history of Dysuria, Hematuria, Flank Pain No reported history of chronic headache, seizures No reported history of Fall or trauma . No reported history of recent change in weight or appetite. Past Medical History: Diagnosis Date Encounter for long-term (current) use of high-risk medication Memory impairment Psoriasis Rheumatoid arthritis (HCC) 09/02/2023 Rotator cuff syndrome, right Past Surgical History: Procedure Laterality Date ANESTHESIA FOR CAT OR MRI SCAN N/A 03/24/2023 ANESTHESIA FOR NON-INVASIVE IMAGING (MRI OR CT) performed by [facility] [place] at OR [facility] COLONOSCOPY, DIAGNOSTIC (RECTUM) 06/27/2021 adenomatous polyp, repeat 5 yrs / COLONOSCOPY FLEXIBLE PROXIMAL DIAGNOSTIC performed by Jonatan Carrillo MD at ENDOSCOPY [facility] CRANIECT-WITH USE;1ST ARRAY N/A 04/05/2023 CRANIOTOMY STEREOTACTIC IMPLANT ELECTRODE DBS STAGE 2 performed by Neal Yoon MD at OR [facility] INSERT/REPLACE CRANIAL NEUROSTIM, SINGLE ELECTRODE Left 04/09/2023 INSERT OR REPLACE OF CRANIAL NEUROSTIMULATOR PULSE GENERATOR OR SERVICE TRAINER SINGLE ARRAY (STAGE 3) performed by Neal Yoon MD at [facility] TWST DRILL,DEXTER HOLE;1ST ARRAY N/A 04/05/2023 CRANIOTOMY DBS ELECTRODE STAGE 2 performed by Neal Yoon MD at [facility] Social History Socioeconomic History Marital status: Number of children: 1 Years of education: 13 Occupational History 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 No mold. 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 Social Needs Financial Resource Strain: Low Risk (08/06/2023) Financial Resource Strain Do you have any trouble paying for your medications, or do you think you might in the future? (Adult - for ages 18 years and over): No Food Insecurity: No Food Insecurity (08/06/2023) Food Insecurity Do you need food for this week? (Adult - for ages 18 years and over): No Transportation Needs: No Transportation Needs (08/06/2023) Transportation Needs Do you have trouble getting a ride to medical visits or work? (Adult - for ages 18 years and over):Never True Social Connections: Socially Integrated (08/06/2023) Social Connections How often do you feel lonely or isolated from those around you? (Adult - for ages 18 years and over): Never Housing Stability: Low Risk (08/06/2023) Housing Stability Do you currently live in a group home or have no steady place to sleep at night? (Adult - for ages 18 years and over): No Do you think you are at risk of becoming homeless? (Adult - for ages 18 years and over): No Family History Problem Relation Name Age of Onset Other (accident (hit by a car)) Mother Pancreatic cancer Father Cancer Other Prostate Review of patient's allergies indicates: No Known Allergies documented in this encounter Nursing Notes * Aminah Longoria LPN - 04/06/2024 11:36 AM EST Chief Complaint Patient presents with Follow Up COPD Interm History/Respiratory Symptoms Cough: productive-yellow Hemoptysis: no Sinus Symptoms: PND Hospitalizations: no ED Trips: no Triggers: no Nocturnal: cough,wheeze,SOB CPAP/BiPAP/O2: O2 @ 2 lpm Travel Screening Question 04/06/2024 11:23 AM EST - Filed by Patient Do you have any of the following new or worsening symptoms? Cough Have you recently been in contact with someone who was sick? No / Unsure Myc Visit Accident Related Question Question 04/06/2024 11:23 AM EST - Filed by Patient Is this visit related to an accident? (i.e work, motor vehicle) No Mmrc Cat Question 04/06/2024 11:36 AM EST - Filed by Aminah Longoria LPN When do you become breathless? (2) On level ground, I walk slower than people of the same age because of breathlessness or have to stop for breath when walking at my own pace How frequently do you cough? (4) Do you have phlegm in your chest? (4) Is your chest tight? (5) - My chest feels very tight How breathless do you become when walking up a hill or steps? (5) - When I walk up a hill or one flight of stairs I am very breathless How limited are you doing activities at home? (0) - I am not limited doing any activities at home How confident are you leaving home with your lung condition? (0) - I am confident leaving my home despite my condition How soundly do you sleep? (0) - I sleep soundly How much energy do you have? (5) - I have no energy at all Total MMRC Score (range: 0 - 4) 2 Total CAT Score (range: 0 - 40) 23 documented in this encounter Plan of Treatment Upcoming Encounters Date Type Department Care Team (Late st Contact Info) Description 04/07/2024 8:45 AM EST Hem/Onc Treatment Hematology/Oncology Treatment, [place] [address] [place] [id number] [place], Chair 2 Hem On[facility] [address] [facility] [address] 06/09/2024 8:30 AM EST Telemedicine Psychiatry, [facility] [address] [facility] [place] [address] Ej Nieves CRNP [address] [facility] [place] [address] 06/16/2024 10:40 AM EST Office Visit Family Practice, [facility] [address] [place] [phone] Benjamin Connor MD [address] [place] [address] 06/22/2024 11:00 AM EST [facility] [address] [place] [address] Adwoa Baker DO [address], [place] [id number] 10/17/2024 12:40 PM EDT Office Visit Pulmonary Medicine, [facility] [address] [address] Jose Angel Wheatley MD [address] [facility] [place] [address] Scheduled Procedures Name Priority Associated Diagnoses Date/Ti me COLONOSCOPY FLEXIBLE PROXIMAL DIAGNOSTIC Recall History of colon polyps Scheduled Referrals Name Type Priority Associated Diagnoses Orde r Schedule STAIR LUNG NODULE REFERRAL OP (SYSTEM FOR TRACKING ABNORMALITIES OF IMPORTANCE RELIABLY) Referral Within 10 days (routine) Psoriatic arthropathy (HCC) Lung nodule Ordered: 04/06/2024 Health Maintenance Due Date Last Done Comments Alpha-1 Antitrypsin 1963 Adult Wellness Visit 2013 COVID-19 Vaccine (3 - Pfizer risk series) 08/31/2020 08/03/2020, 07/13/2020 CKD PHOS USE SMARTSET 68863 10/17/2023/06/2022, 08/01/2021, 11/25/2018 HbA1c 12/03/2023 06/04/2023, 12/25, [...] Additional history exists CKD HGB USE SMARTSET 06570 03/21/202503/21, 03/21/2024, 09/30/2023, Additional history exists Colonoscopy [...] this encounter Medical Devices Implanted Type Area Bottle Inspector Device Identifier Shelf Expiration Date Model / Serial / Lot Lead Dbs 0.5mm 42cm Marker - [id number] Implanted:Qty: 1 on 04/05/2023 by Neal Yoon MD at OR [facility] Left: Head [employer] : NEUROLOGIC PAIN 02/11/2025 [id number] / / [id number] Lead Dbs 0.5mm 42cm - [id number] Implanted:Qty: 1 on 04/05/2023 by Neal Yoon MD at OR [facility] Right: Head [employer] : NEUROLOGIC PAIN 02/11/2025 [id number] / / [id number] Cement Hydroset Injectable 5cc - [id number] Implanted:Qty: 1 on 04/05/2023 by Neal Yoon MD at OR [facility] N/A: Head CATRINA 12/11/2024 [id number] / / [id number] Plate 12mm Str 2 Hole Un3 - [id number] Implanted:Qty: 1 on 04/05/2023 by Neal Yoon MD at OR [facility] Right: Head CATRINA : CRANIOMAXILLOFACIAL [id number] / / Plate 12mm Str 2 Hole Un3 - [id number] Implanted:Qty: 1 on 04/05/2023 by Neal Yoon MD at OR [facility] Left: Head CATRINA : CRANIOMAXILLOFACIAL [id number] / / Neurostimulator Percept Pc - [id number] - [id number] Implanted:Qty: 1 on 04/09/2023 by Neal Yoon MD at OR [facility] Left: Chest [employer] : NEUROLOGIC PAIN 02/06/2025 [id number] / [id number] / Ext Dbs 40cm Marker - [id number] Implanted:Qty: 1 on 04/09/2023 by Neal Yoon MD at OR [facility] Left: Chest [employer] : NEUROLOGIC PAIN 10/21/2024 [id number] / / Ext Dbs 40cm - [id number] - [id number] Implanted:Qty: 1 on 04/09/2023 by Neal Yoon MD at OR [facility] Left: Chest [employer] : NEUROLOGIC PAIN 12/04/2024 [id number] / [id number] / Envelope Tyrx Lg Antibacterial - [id number] Implanted:Qty: 1 on 04/09/2023 by Neal Yoon MD at OR [facility] Left: Chest [employer] 12/17/2023 [id number] / / [id number] documented as of this encounter Visit Diagnoses Diagnosis Lung nodule- Primary Solitary pulmonary nodule Gouty arthritis of left great toe Chronic rhinitis Psoriatic arthropathy (HCC) Psoriatic arthropathy documented in this encounter Advance Directives Documents on File Type Date Recorded 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
--- OUTSIDE RECORDS SUMMARY | 2024-05-26 13:46 | External Medical Summary | Summary of Care ---
Author Name Unknown Organization [facility] Address [address] [facility] [address] Phone [phone] Care Team Providers Care Physical Education Department Chair Name Role Phone Benjamin Connor MD Primary Care Provider [phone] Encounter Details Date Type Department Care Team (Late st Contact Info) Description 04/05/2024 Telephone Pulmonary Medicine, [facility] [address] [facility] [place] [address] Jose Angel Wheatley MD [address] [facility] [address] Allergies No known active allergiesdocumented as of [...] by mouth in the morning. 30 Tablet 01/10/20 23 Active Docusate Sodium 100 MG [...] sugars. Continue with psychiatry. Dr. Villalta at [facility] Psych. documented as of this encounter [...] mRNA, LNP-s, No Pre serve, 2-Dose Series (Babybe) 08/03/2020,07/13/2020 Pneumococcal Conjugate Vacc, 13 Valent (Prevnar) [...] Notes * Telephone Encounter - Jose Angel Wheatley MD - 04/05/2024 5:03 PM EST Images from the original note were not included. CT chest data reviewed, follow-up CT from [...] Repeat CT chest recommended in 6 months. documented in this encounter Plan of Treatment Upcoming Encounters Date Type Department Care Team (Late st Contact Info) Description 04/06/2024 12:00 PM EST Office Visit Pulmonary Medicine, [facility] [address] [facility] [place] [address] Jose Angel Wheatley MD [address] [facility] [place] [address] 04/07/2024 8:45 AM EST Hem/Onc Treatment Hematology/Oncology Treatment, [place] [address] [place] [address] Christina, Chair 2 Hem Onc Scenery [address] [place] [address] 06/09/2024 8:30 AM EST Telemedicine Psychiatry, [facility] [address] [facility] [place] [address] Ej Nieves CRNP 132 [facility] [place] [address] 06/16/2024 10:40 AM EST Office Visit [facility] [place] Navya Easley [address] [place] [address] AugustBenjamin MD [address] [place] [address] 06/22/2024 11:00 AM EST Telemedicine Rheumatology, [place] [address] [place] [address] Adwoa Baker DO [address] [place] [address] Scheduled Procedures Name Priority Associated Diagnoses Date/Ti me COLONOSCOPY FLEXIBLE PROXIMAL DIAGNOSTIC Recall History of colon polyps Health Maintenance Due Date Last Done Comments Alpha-1 Antitrypsin 1963 Adult Wellness Visit 2013 COVID-19 Vaccine (3 - Pfizer risk series) 08/31/2020 08/03/2020, 07/13/2020 CKD PHOS USE SMARTSET 33559 10/17/202309/25, 08/01/2021, 11/25/2018 HbA1c 12/03/2023 06/04/2023, 12/25, [...] Additional history exists CKD HGB USE SMARTSET 13748 03/21/202503/21, 03/21/2024, 09/30/2023, Additional history exists Colonoscopy [...] this encounter Medical Devices Implanted Type Area Manager Bar Device Identifier Shelf Expiration Date Model / Serial / Lot Lead Dbs 0.5mm 42cm Marker - [id number] Implanted:Qty: 1 on 04/05/2023 by Neal Yoon MD [place] [facility] Head MEDTRONIC : NEUROLOGIC PAIN 02/11/2025 [id number] / / [id number] Lead Dbs 0.5mm 42cm - [id number] Implanted:Qty: 1 on 04/05/2023 by Neal Yoon MD [place] [facility] [place] Right: Head [employer] : NEUROLOGIC PAIN 02/11/2025 [id number] / / [id number] Cement Hydroset Injectable 5cc - [id number] Implanted:Qty: 1 on 04/05/2023 by Neal Yoon MD [place] [facility] [place] N/A: Head CATRINA 12/11/2024 [id number] / / [id number] Plate 12mm Str 2 Hole Un3 - [id number] Implanted:Qty: 1 on 04/05/2023 by Neal Yoon MD [place] [facility] [place]: Head CATRINA : CRANIOMAXILLOFACIAL [id number] / / Plate 12mm Str 2 Hole Un3 - [id number] Implanted:Qty: 1 on 04/05/2023 by Neal Yoon MD at [place] [facility] [place] Left: Head CATRINA : CRANIOMAXILLOFACIAL [id number] / / Neurostimulator Percept Pc - [id number] - [id number] Implanted:Qty: 1 on 04/09/2023 by Neal Yoon MD at [place] [facility] [place] Left: Chest [employer] : NEUROLOGIC PAIN 02/06/2025 [id number] / [id number] / Ext Dbs 40cm Marker - [id number] Implanted:Qty: 1 on 04/09/2023 by Neal Yoon MD at [place] [facility] [place] Left: Chest [employer] : NEUROLOGIC PAIN 10/21/2024 [id number] / / Ext Dbs 40cm - [id number] - [id number] Implanted:Qty: 1 on 04/09/2023 by Neal Yoon MD at [place] [facility] [place] Left: Chest [employer] : NEUROLOGIC PAIN 12/04/2024 [id number] / [id number] / Envelope Tyrx Lg Antibacterial - [id number] Implanted:Qty: 1 on 04/09/2023 by Neal Yoon MD at [place] [facility] [place] Left: Chest [employer] 12/17/2023 [id number] / / [id number] documented as of this encounter Advance Directives Documents on File Type Date Recorded 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
--- OUTSIDE RECORDS SUMMARY | 2024-05-26 13:47 | External Medical Summary | Summary of Care ---
Author Name Unknown Organization [facility] Address [address] [place] [address] Phone [phone] Care Team Providers Care Production Pattern Maker Name Role Phone Benjamin Connor MD Primary Care Provider [phone] Encounter Details Date Type Department Care Team (Late st Contact Info) Description 04/04/2024 Orders Only Rheumatology [facility] Yvette Bourne [address] [place] [address] [place] [address] Adwoa Baker, DO [address] [place], [place] [phone] Allergies No known active allergiesdocumented as of this encounter (statuses as of 04/04/2024) Medications inFLIXimab (REMICADE) 100 MG injection Administer [...] OF THE DAY. 90 Capsule 1 02/10/20 Active Clobetasol Propionate 0.05 % External Cream [...] as of this encounter (statuses as of 04/04/2024) Active Problems Problem Noted Date Diagnosed Date [...] as of this encounter (statuses as of 04/04/2024) Resolved Problems Problem Noted Date Diagnosed Date [...] as of this encounter (statuses as of 04/04/2024) Immunizations Name Administration Dates Next Due COVID-19 mRNA, LNP-s, No Pre serve, 2-Dose Series (WhatSalon) 08/03/2020,07/13/2020 Pneumococcal Conjugate Vacc, 13 Valent (Prevnar) [...] Martina Colón RN documented in this encounter Plan of Treatment Upcoming Encounters Date Type Department Care Team (Late st Contact Info) Description 04/06/2024 12:00 PM EST Office Visit Pulmonary Medicine, [facility] [address] [facility] [place] [address] Jose Angel Wheatley MD [address] [facility] [address] 04/07/2024 8:45 AM EST Hem/Onc Treatment Hematology/Oncology Treatment, [place] [address] [place] [phone] Christina, Chair 2 Hem Onc Scenery [address] [place] [address] 06/09/2024 8:30 AM EST [facility] [address] [facility] [place] [address] Ej Nieves CRNP 132 [facility] [place] [address] 06/16/2024 10:40 AM EST Office Visit [facility] [address] [facility] [place] [place] [address] Benjamin Connor MD [address] [place] [address] 06/22/2024 11:00 AM EST Telemedicine Rheumatology, [place] [address] [place], [place] [phone] Adwoa Baker DO [address] [place] [address] Scheduled Procedures Name Priority Associated Diagnoses Date/Ti me COLONOSCOPY FLEXIBLE PROXIMAL DIAGNOSTIC Recall History of colon polyps Health Maintenance Due Date Last Done Comments Alpha-1 Antitrypsin 1963 Adult Wellness Visit 2013 COVID-19 Vaccine (3 - Pfizer risk series) 08/31/2020 08/03/2020, 07/13/2020 CKD PHOS USE SMARTSET 63495 10/17/2023 06/2 06/2022, 08/01/2021, 11/25/2018 HbA1c 12/03/2023 06/04/2023, 12/25, 10/16/2022, [...] Additional history exists CKD HGB USE SMARTSET 56729 03/21/202503/21, 03/21/2024, 09/30/2023, Additional history exists Colonoscopy [...] this encounter Medical Devices Implanted Type Area Supervisor Laboratory Device Identifier Shelf Expiration Date Model / Serial / Lot Lead Dbs 0.5mm 42cm Marker - [id number] Implanted:Qty: 1 on 04/05/2023 by Neal Yoon MD at [place] [facility] Left: Head [employer] : NEUROLOGIC PAIN 02/11/2025 [id number] / / [id number] Lead Dbs 0.5mm 42cm - [id number] Implanted:Qty: 1 on 04/05/2023 by Neal Yoon MD at OR [facility] Right: Head [employer] : NEUROLOGIC PAIN 02/11/2025 [id number] / / [id number] Cement Hydroset Injectable 5cc - [id number] Implanted:Qty: 1 on 04/05/2023 by Neal Yoon MD at OR [facility] N/A: Head CATRINA 12/11/2024 [id number] / / [id number] Plate 12mm Str 2 Hole Un3 - [id number] Implanted:Qty: 1 on 04/05/2023 by Neal Yoon MD at OR [facility] Right: Head CATRINA : CRANIOMAXILLOFACIAL [id number] / / Plate 12mm Str 2 Hole Un3 - [id number] Implanted:Qty: 1 on 04/05/2023 by Neal Yoon MD at OR [facility] Left: Head CATRINA : CRANIOMAXILLOFACIAL 53-84051 / / Neurostimulator Percept Pc - [id number] - [id number] Implanted:Qty: 1 on 04/09/2023 by Neal Yoon MD at [place] [facility] Left: Chest [employer] : NEUROLOGIC PAIN 02/06/2025 [id number] / [id number] / Ext Dbs 40cm Marker - [id number] Implanted:Qty: 1 on 04/09/2023 by Neal Yoon MD at OR [facility] Left: Chest [employer] : NEUROLOGIC PAIN 10/21/2024 [id number] / / Ext Dbs 40cm - [id number] - [id number] Implanted:Qty: 1 on 04/09/2023 by Neal Yoon MD at [place] [facility] Left: Chest [employer] : NEUROLOGIC PAIN 12/04/2024 [id number] / [id number] / Envelope Tyrx Lg Antibacterial - [id number] Implanted:Qty: 1 on 04/09/2023 by Neal Yoon MD at [place] [facility] Left: Chest [employer] 12/17/2023 [id number] / / [id number] documented as of this encounter Advance Directives Documents on File Type Date Recorded Patient Ct Technologist Expl anation Power of Food Service Cashier 10/30/2014 POWER OF A TTORNEY * Full [...] Discussed due to patient's condition Care Teams Production Pattern Maker Relationship Specialty Start Date End Date August, Benjamin De Jesus MD [address] [place] [address] PCP - General Family Medicine 02/04/22 documented as of this encounter
--- OUTSIDE RECORDS SUMMARY | 2024-05-26 13:47 | External Medical Summary | Summary of Care ---
Author Name Unknown Organization [facility] Address [address] [place] [place] [address] Phone [phone] Care Team Providers Care Planning Coordinator Name Role Phone Benjamin Connor MD Primary Care Provider [phone] Reason for Visit * Reason Comments IV Therapy Avsola * Episode Based Medications (Routine) - Authorized Specialty Diagnoses / Procedures Referred By Krupa t Referred To Contact Diagnoses Psoriatic arthropathy (HCC) Procedures [place] [address] [place] [address] Phone: tel: fax: Hematology/Oncology Treatment, [place] DEPT CLOSED - 03/09/23 [address] [place] [address] Phone: tel: fax: Referral ID Status Reason Start Date Expiration Date V isits Requested Visits Authorized [id number] Authorized 01/19/2024 01/18/2025 99 99 Encounter Details Date Type Department Care Team (Latest Contact Info) Description 02/25/2024 11:15 AM EDT Hem/Onc Treatment Hematology/Oncology Treatment, [place] [address] [place] [address] Christina, Chair 2 Hem Onc Scene [address] [place] [address] Psoriatic arthropathy [...] on 12/10/2023 Allopurinol 100 MG Oral Tablet (Zyloprim)Indicati ons:Gouty [...] 02/10/20 24 Active Methotrexate 2.5 MG Oral TabletIndications: Psoriatic arthropathy (HCC) Take 8 Tablets by mouth once a week. 96 Tablet 12/02/19 24 024 Folic Acid 1 MG Oral TabletIndications: Psoriatic arthropathy (HCC) Take 1 Tablet by mouth in the morning. 360 Tablet 12/02/19 24 024 Discontinu ed(Refill) Hospital, Clinic, or Other Facility Administered Medication [...] sugars. Continue with psychiatry. Dr. Villalta at [facility] Psych. documented as of this encounter (statuses [...] mRNA, LNP-s, No Pre serve, 2-Dose Series (Readbug) 08/03/2020,07/13/2020 Pneumococcal Conjugate Vacc, 13 Valent (Prevnar) [...] No 08/06/2023 Does the household have a [facility] source of income? (Household - for [...] Sign Reading Time Taken Comments Blood Pressure 130/78 02/25/2024 11:25 AM EDT Pulse 99 02/25/2024 11:25 AM EDT Temperature 36.3 C (97.3 F) 02/25/2024 11:25 AM E DT Respiratory Rate 16 02/25/2024 11:25 AM EDT Oxygen Saturation 92% 02/25/2024 11:25 AM EDT Inhaled Oxygen Concentration - - Weight 93.9 kg (207 lb) 02/25/2024 11:25 AM EDT Height - - Body Mass Index 30.04 12/10/2023 11:13 AM EDT documented in this encounter Functional Status * [...] documented in this encounter Nursing Notes * Carolina Pleitez, RN - 02/25/2024 2:50 PM EDT Goals: Patient will remain free from injury. Possible barriers to meeting goals: ambulation with IV pole Stability of the patient: Moderately stable - low risk of patient condition declining or worsening Summary regarding today's goals: Met: patient without injury during treatment today. Pt tolerated infusion well. No complaints. Discharged in stable condition. * Carolina Pleitez, RN - 02/25/2024 11:45 AM EDT Chair 5 Pt here for Avsola infusion. No acute complaints. Reports recent mild cold symptoms, nasal congestion. No other changes to health. Safety and Risk for Injury Patient will remain free from injury. Ensure appropriate safety devices are available. Provide and maintain safe environment. Patient instructed on use of heat in chair. Patient shown how to operate the heat function of the chair and to alert nursing staff if the chair feels too warm. Patient instructed on the risk of potential joy while using the heat function. documented in this encounter Plan of Treatment Upcoming Encounters Date Type Department Care Team (Late st Contact Info) Description 04/06/2024 12:00 PM EST Office Visit Pulmonary Medicine, [facility] [address] [place] [address] Jose Angel Wheatley MD [address] [facility] [address] 04/07/2024 8:45 AM EST Hem/Onc Treatment Hematology/Oncology Treatment, [place] [address] [place] [address] Christina, Chair 2 Hem Onc Scenery [address] [place], [place] [address] 06/09/2024 8:30 AM EST Telemedicine Psychiatry, [facility] [address] [place] [address] Ej Nieves CRNP 132 [facility] [place] [address] 06/16/2024 10:40 AM EST Office Visit [facility] [address] [facility] [place] [address] Benjamin Connor MD [address] [facility] [place] [address] 06/22/2024 11:00 AM EST [facility] [address] [place] [address] Samuel DO Adwoa [address] [place] [address] Scheduled Procedures Name Priority Associated Diagnoses Date/Ti me COLONOSCOPY FLEXIBLE PROXIMAL DIAGNOSTIC Recall History of colon polyps Health Maintenance Due Date Last Done Comments Alpha-1 Antitrypsin 1963 Adult Wellness Visit 2013 COVID-19 Vaccine (3 - Pfizer risk series) 08/31/2020 08/03/2020, 07/13/2020 CKD PHOS USE SMARTSET 17640 10/17/202309/25, 08/01/2021, 11/25/2018 HbA1c 12/03/2023 06/04/2023, 12/25, [...] Additional history exists CKD HGB USE SMARTSET 43291 03/21/202503/21, 03/21/2024, 09/30/2023, Additional history exists Colonoscopy [...] this encounter Medical Devices Implanted Type Area Capping Machine Operator Device Identifier Shelf Expiration Date Model / Serial / Lot Lead Dbs 0.5mm 42cm Marker - [id number] Implanted:Qty: 1 on 04/05/2023 by Neal Yoon MD at [place] [facility] Left: Head [employer] : NEUROLOGIC PAIN 02/11/2025 [id number] / / [id number] Lead Dbs 0.5mm 42cm - [id number] Implanted:Qty: 1 on 04/05/2023 by Neal Yoon MD at OR [facility] Right: Head [employer] : NEUROLOGIC PAIN 02/11/2025 [id number] / / [id number] 1 Cement Hydroset Injectable 5cc - [id number] Implanted:Qty: 1 on 04/05/2023 by Neal Yoon MD at OR [facility] N/A: Head CATRINA 12/11/2024 [id number] / / [id number] Plate 12mm Str 2 Hole Un3 - [id number] Implanted:Qty: 1 on 04/05/2023 by Neal Yoon MD at OR [facility] Right: Head CATRINA : CRANIOMAXILLOFACIAL 53-18536 / / Plate 12mm Str 2 Hole Un3 - [id number] Implanted:Qty: 1 on 04/05/2023 by Neal Yoon MD at OR [facility] Left: Head CATRINA : CRANIOMAXILLOFACIAL [id number] / / Neurostimulator Percept Pc - [id number] - [id number] Implanted:Qty: 1 on 04/09/2023 by Neal Yoon MD at OR [facility] Left: Chest [employer] : NEUROLOGIC PAIN 02/06/2025 [id number] / [id number] / Ext Dbs 40cm Marker - [id number] Implanted:Qty: 1 on 04/09/2023 by Neal Yoon MD at [place] [facility] Left: Chest [employer] : NEUROLOGIC PAIN 10/21/2024 [id number] / / Ext Dbs 40cm - [id number] - [id number] Implanted:Qty: 1 on 04/09/2023 by Neal Yoon MD at OR [facility] Left: Chest [employer] : NEUROLOGIC PAIN 12/04/2024 [id number] / [id number] / Envelope Tyrx Lg Antibacterial - [id number] Implanted:Qty: 1 on 04/09/2023 by Neal Yoon MD at OR [facility] Left: Chest [employer] 12/17/2023 [id number] / / [id number] documented as of this encounter Visit Diagnoses Diagnosis Psoriatic arthropathy (HCC)- Primary Psoriatic arthropathy documented in this encounter Administered Medications Inactive Administered Medications - up to 3 most recent administrations Medication Order MAR Action Action Date Dose Rate Site Acetaminophen (Tylenol) tab 650 mg 650 mg, Oral, ONCE, On Wed02/25/24 at 1245, For 1 dose, Maximum of 4 grams (4000 mg) per day.Indications:Psoriatic arthropathy (HCC) Given 02/25/2024 11:38 AM EDT 650 mg diphenhydrAMINE (Benadryl) cap 25 mg 25 mg, Oral, ONCE, On Wed02/25/24 at 1245, For 1 doseIndications:Psoriatic arthropathy (HCC) Given 02/25/2024 11:38 AM EDT 25 mg inFLIXimab-axxq (Avsola) 1,000 mg in NSS 500 mL infusion 1,000 mg, Intravenous, Dose basis 10 mg/kg MUST BE INFUSED [...] = remaining volume, ONCE, 1 dose, On Wed02/25/24 at 1315Indications:Psoriatic arthropathy (HCC) Rate Change 02/25/2024 1:07 PM EDT 300 mL/hr Rate Change 02/25/2024 12:52 PM EDT 160 mL/hr Rate Change 02/25/2024 12:35 PM EDT 80 mL/hr NSS infusion 500 mL, Intravenous, at 50 mL/hr, CONTINUOUS, Starting on Wed02/25/24 at 1245, Until Wed02/25/24 at 1852Indications:Psoriatic arthropathy (HCC) Start Infusion 02/25/2024 11:34 AM EDT 500 mL 50 mL/hr documented in this encounter Advance Directives Documents on File Type Date Recorded Patient Procedures Tech Expl anation Power of Ambulatory Care Coordinator 10/30/2014 POWER OF A TTORNEY * Full [...] Discussed due to patient's condition Care Teams Planning Coordinator Relationship Specialty Start Date End Date August, Benjamin De Jesus MD [address] [facility] [place] [address] PCP - General Family Medicine 02/04/22 documented as of this encounter
--- OUTSIDE RECORDS SUMMARY | 2024-05-26 13:47 | External Medical Summary | Summary of Care ---
Author Name Unknown Organization [facility] Address [address] [place] [address] Phone [phone] Care Team Providers Care Salesperson Men'S Hats Name Role Phone Benjamin Connor MD Primary Care Provider [phone] Encounter Details Date Type Department Care Team (Late st Contact Info) Description 04/04/2024 Orders Only Rheumatology [facility] Yvette Bourne [address] [place] [address] [place] [address] Adwoa Baker, DO [address] [place], [place] [address] Allergies No known active allergiesdocumented as of [...] sugars. Continue with psychiatry. Dr. [facility]alta at [facility] Psych. documented as of [...] mRNA, LNP-s, No Pre serve, 2-Dose Series (AgroSavfe) 08/03/2020,07/13/2020 Pneumococcal Conjugate Vacc, 13 Valent (Prevnar) [...] 12:00 PM EST Office Visit Pulmonary Medicine, [facility] 132 [facility] [place] [address] Jose Angel Wheatley MD [address] [facility] [address] 04/07/2024 8:45 AM EST Hem/Onc Treatment Hematology/Oncology Treatment, [place] [address] [place] [phone] Christina, Chair 2 Hem Onc Scenery [address] [place] [address] 06/09/2024 8:30 AM [facility] 132 [facility] [place] [address] Ej Nieves CRNP 132 [facility] [place] [address] 06/16/2024 10:40 AM EST Office Visit [facility] [address] [facility] [place] [address] Benjamin Connor MD [address] [place] [address] 06/22/2024 11:00 AM EST Telemedicine Rheumatology, [place] [address] [place], [place] [phone] Adwoa Baker DO [address] [place] [address] Scheduled Procedures Name Priority Associated Diagnoses Date/Ti me COLONOSCOPY FLEXIBLE PROXIMAL DIAGNOSTIC Recall History of colon polyps Health Maintenance Due Date Last Done Comments Alpha-1 Antitrypsin 1963 Adult Wellness Visit 2013 COVID-19 Vaccine (3 - Pfizer risk series) 08/31/2020 08/03/2020, 07/13/2020 CKD PHOS USE SMARTSET 30704 10/17/2023 06/2 06/2022, 08/01/2021, 11/25/2018 HbA1c 12/03/2023 [...] Additional history exists CKD HGB USE SMARTSET 98589 03/21/202503/21, 03/21/2024, 09/30/2023, Additional history exists Colonoscopy [...] this encounter Medical Devices Implanted Type Area Animal Chiropractor Device Identifier Shelf Expiration Date Model / Serial / Lot Lead Dbs 0.5mm 42cm Marker - [id number] Implanted:Qty: 1 on 04/05/2023 by Neal Yoon MD at OR [facility] Left: Head [employer] : NEUROLOGIC PAIN 02/11/2025 [id number] / / [id number] Lead Dbs 0.5mm 42cm - [id number] Implanted:Qty: 1 on 04/05/2023 by Neal Yoon MD at OR [facility] Right: Head [employer] : NEUROLOGIC PAIN 02/11/2025 [id number] / / [id number] Cement Hydroset Injectable 5cc - [id number] Implanted:Qty: 1 on 04/05/2023 by Neal Yoon MD at OR [facility] N/A: Head CATRINA 12/11/2024 [id number] / / [id number] Plate 12mm Str 2 Hole Un3 - [id number] Implanted:Qty: 1 on 04/05/2023 by Neal Yoon MD at [place] [facility] Right: Head CATRINA : CRANIOMAXILLOFACIAL 53-84769 / / Plate 12mm Str 2 Hole Un3 - [id number] Implanted:Qty: 1 on 04/05/2023 by Neal Yoon MD at [place] [facility] Left: Head CATRINA : CRANIOMAXILLOFACIAL 53-82922 / / Neurostimulator Percept Pc - [id number] - [id number] Implanted:Qty: 1 on 04/09/2023 by Neal Yoon MD at [place] [facility] Left: Chest [employer] : NEUROLOGIC PAIN 02/06/2025 [id number] / [id number] / Ext Dbs 40cm Marker - [id number] Implanted:Qty: 1 on 04/09/2023 by Neal Yoon MD at OR [facility] Left: Chest [employer] : NEUROLOGIC PAIN 10/21/2024 [id number] / / Ext Dbs 40cm - [id number] - [id number] Implanted:Qty: 1 on 04/09/2023 by Neal Yoon MD at [place] [facility] Left: Chest [employer] : NEUROLOGIC PAIN 12/04/2024 [id number] / [id number] / Envelope Tyrx Lg Antibacterial - [id number] Implanted:Qty: 1 on 04/09/2023 by Neal Yono MD at [place] [facility] Left: Chest [employer] 12/17/2023 [id number] / / [id number] documented as of this encounter Advance Directives Documents on File Type Date Recorded Patient Motion Picture Camera Lens Technician Expl anation Power of Plastic Parts Fabricator Trimmer 10/30/2014 POWER OF A TTORNEY * Full [...] Discussed due to patient's condition Care Teams Salesperson Men'S Hats Relationship Specialty Start Date End Date August, Benjamin De Jesus MD [address] [place] [address] PCP - General Family Medicine 02/04/22 documented as of this encounter
--- OUTSIDE RECORDS SUMMARY | 2024-05-26 13:47 | External Medical Summary | Summary of Care ---
Author Name Unknown Organization [facility] Address [address] [place] [address] Phone [phone] Care Team Providers Care Components Engineer Name Role Phone Benjamin Connor MD Primary Care Provider [phone] Encounter Details Date Type Department Care Team (Late st Contact Info) Description 04/04/2024 Orders Only Rheumatology [facility] Yvette Bourne [address] [place] [address] [place] [address] Adwoa Baker, DO [address] [place], [place] [id number] Allergies No known active allergiesdocumented as of [...] sugars. Continue with psychiatry. Dr. Villalta at [facility] Psych. documented as of this [...] mRNA, LNP-s, No Pre serve, 2-Dose Series (Patientco) 08/03/2020,07/13/2020 Pneumococcal Conjugate Vacc, 13 Valent (Prevnar) [...] 12:00 PM EST Office Visit Pulmonary Medicine, [facility] [address] [facility] [place] [address] Jose Angel Wheatley MD [address] [facility] [address] 04/07/2024 8:45 AM EST Hem/Onc Treatment Hematology/Oncology Treatment, [place] [address] [place] [phone] Christina, Chair 2 Hem Onc Scenery [address] [place] [address] 06/09/2024 8:30 AM EST [facility] [address] [facility] [place] [address] Ej Nieves CRNP 132 [facility] [place] [address] 06/16/2024 10:40 AM EST Office Visit [facility] [address] [place] [place] [address] Benjamin Connor MD [address] [place] [address] 06/22/2024 11:00 AM EST Telemedicine Rheumatology, [place] [address] [place], [place] [phone] Adwoa Baker DO [address] [place] [address] Scheduled Procedures Name Priority Associated Diagnoses Date/Ti me COLONOSCOPY FLEXIBLE PROXIMAL DIAGNOSTIC Recall History of colon polyps Health Maintenance Due Date Last Done Comments Alpha-1 Antitrypsin 1963 Adult Wellness Visit 2013 COVID-19 Vaccine (3 - Pfizer risk series) 08/31/2020 08/03/2020, 07/13/2020 CKD PHOS USE SMARTSET 51621 10/17/2023 06/2 06/2022, 08/01/2021, 11/25/2018 HbA1c 12/03/2023 [...] Additional history exists CKD HGB USE SMARTSET 55631 03/21/202503/21, 03/21/2024, 09/30/2023, Additional history exists Colonoscopy [...] this encounter Medical Devices Implanted Type Area X Ray Equipment Tester Device Identifier Shelf Expiration Date Model / Serial / Lot Lead Dbs 0.5mm 42cm Marker - [id number] Implanted:Qty: 1 on 04/05/2023 by [place] [facility] [place] Head MEDTRONIC : NEUROLOGIC PAIN 02/11/2025 [id number] / / [id number] Lead Dbs 0.5mm 42cm - [id number] Implanted:Qty: 1 on 04/05/2023 by Neal [place] [facility] [place]: Head MEDTRON[employer] : NEUROLOGIC PAIN 02/11/2025 [id number] / / [id number] 1 Cement Hydroset Injectable 5cc - [id number] Implanted:Qty: 1 on 04/05/2023 by Neal Yoon MD [place] [facility] [place]/A: Head CATRINA 12/11/2024 [id number] / / [id number] Plate 12mm Str 2 Hole Un3 - [id number] Implanted:Qty: 1 on 04/05/2023 by Neal Yoon MD [place] [facility] [place]: Head CATRINA : CRANIOMAXILLOFACIAL [id number] / / Plate 12mm Str 2 Hole Un3 - [id number] Implanted:Qty: 1 on 04/05/2023 by Neal Y[place] MD [place] [facility] [place]: Head CATRINA : CRANIOMAXILLOFACIAL 53-74668 / / Neurostimulator Percept Pc - [id number] - [id number] Implanted:Qty: 1 on 04/09/2023 by Neal Y[place] MD [place] [facility] [place]: Chest [employer] : NEUROLOGIC PAIN 02/06/2025 [id number] / [id number] / Ext Dbs 40cm Marker - [id number] Implanted:Qty: 1 on 04/09/2023 by Neal Yoon MD [place] [facility] [place]: Chest [employer] : NEUROLOGIC PAIN 10/21/2024 [id number] / / Ext Dbs 40cm - [id number] - [id number] Implanted:Qty: 1 on 04/09/2023 by Neal Yoon MD [place] [facility] [place]: Chest [employer] : NEUROLOGIC PAIN 12/04/2024 [id number] / [id number] / Envelope Tyrx Lg Antibacterial - [id number] Implanted:Qty: 1 on 04/09/2023 by Neal Yoon MD [place] [facility] Left: Chest [employer] 12/17/2023 [id number] / / [id number] documented as of this encounter Advance Directives Documents on File Type Date Recorded Patient Director Industrial Expl anation Power of Supervisor Litharge 10/30/2014 POWER OF A TTORNEY * Full [...] Discussed due to patient's condition Care Teams Components Engineer Relationship Specialty Start Date End Date August, Benjamin De Jesus MD [address] [place] [address] PCP - General Family Medicine 02/04/22 documented as of this encounter
--- OUTSIDE RECORDS SUMMARY | 2024-05-26 13:47 | External Medical Summary | Summary of Care ---
Author Name Unknown Organization [facility] Address [address] [facility] [address] Phone [phone] Care Team Providers Care Television Maintenance Worker Name Role Phone Benjamin Connor MD Primary Care Provider [phone] Reason for Visit * Reason Comments IV Therapy Avsola * Episode Based Medications (Routine) - Authorized Specialty Diagnoses / Procedures Referred By Krupa t Referred To Contact Diagnoses Psoriatic arthropathy (HCC) Procedures [place] [address] [place] [address] Phone: tel: fax: Hematology/Oncology Treatment, [place] DEPT CLOSED - 03/09/23 [address] [place] [address] Phone: tel: fax: Referral ID Status Reason Start Date Expiration Date V isits Requested Visits Authorized [id number] Authorized 01/19/2024 01/18/2025 99 99 Encounter Details Date Type Department Care Team (Latest Contact Info) Description 02/25/2024 11:15 AM EDT Hem/Onc Treatment Hematology/Oncology Treatment, [place] [address] [place] [address] Christina, [...] mRNA, LNP-s, No Pre serve, 2-Dose Series (Paxera) 08/03/2020,07/13/2020 Pneumococcal Conjugate Vacc, 13 Valent (Prevnar) [...] No 08/06/2023 Does the household have a [facility] source of income? (Household - for ages [...] 12:00 PM EST Office Visit Pulmonary Medicine, [facility] [address] [place] [address] Jose Angel Wheatley MD [address] [facility] [address] 04/07/2024 8:45 AM EST Hem/Onc Treatment Hematology/Oncology Treatment, [place] [address] [place] [phone] Christina, Chair 2 Hem Onc Scenery [address] [place], [place] [address] 06/09/2024 8:30 AM EST Telemedicine Psychiatry, [facility] [address] [place] [address] Ej Nieves CRNP 132 [facility] [place] [address] 06/16/2024 10:40 AM EST Office Visit [facility] 226 [facility] [place] [address] Benjamin Connor MD 226 [place] [address] 06/22/2024 11:00 AM EST [facility] [address] [place] [address] Samuel DO Adwoa [address] [place] [address] Scheduled Procedures Name Priority Associated Diagnoses Date/Ti me COLONOSCOPY FLEXIBLE PROXIMAL DIAGNOSTIC Recall History of colon polyps Health Maintenance Due Date Last Done Comments Alpha-1 Antitrypsin 1963 Adult Wellness Visit 2013 COVID-19 Vaccine (3 - Pfizer risk series) 08/31/2020 08/03/2020, 07/13/2020 CKD PHOS USE SMARTSET 48353 10/17/202309/25, 08/01/2021, 11/25/2018 HbA1c 12/03/2023 06/04/2023, 12/25, [...] Additional history exists CKD HGB USE SMARTSET 42359 03/21/202503/21, 03/21/2024, 09/30/2023, Additional history exists Colonoscopy [...] encounter Medical Devices Implanted Type Area Animal Tech Device Identifier Shelf Expiration Date Model / Serial / Lot Lead Dbs 0.5mm 42cm Marker - [id number] Implanted:Qty: 1 on 04/05/2023 by Neal Yoon MD [place] [facility] Left: Head [employer] : NEUROLOGIC PAIN 02/11/2025 [id number] / / [id number] Lead Dbs 0.5mm 42cm - [id number] Implanted:Qty: 1 on 04/05/2023 by Neal Yoon MD at [place] [facility] Right: Head [employer] : NEUROLOGIC PAIN 02/11/2025 [id number] / / [id number] 1 Cement Hydroset Injectable 5cc - [id number] Implanted:Qty: 1 on 04/05/2023 by Neal Yoon MD at [place] [facility] N/A: Head CATRINA 12/11/2024 [id number] / / [id number] Plate 12mm Str 2 Hole Un3 - [id number] Implanted:Qty: 1 on 04/05/2023 by Neal Yoon MD at [place] [facility] Right: Head CATRINA : CRANIOMAXILLOFACIAL 53-94010 / / Plate 12mm Str 2 Hole Un3 - [id number] Implanted:Qty: 1 on 04/05/2023 by Neal Yoon MD at [place] [facility] Left: Head CATRINA : CRANIOMAXILLOFACIAL 53-38200 / / Neurostimulator Percept Pc - [id number] - [id number] Implanted:Qty: 1 on 04/09/2023 by Neal Yoon MD at [place] [facility] Left: Chest [employer] : NEUROLOGIC PAIN 02/06/2025 [id number] / [id number] / Ext Dbs 40cm Marker - [id number] Implanted:Qty: 1 on 04/09/2023 by Nela Yoon MD at [place] [facility] Left: Chest [employer] : NEUROLOGIC PAIN 10/21/2024 [id number] / / Ext Dbs 40cm - [id number] - [id number] Implanted:Qty: 1 on 04/09/2023 by Neal Yoon MD at [place] [facility] Left: Chest [employer] : NEUROLOGIC PAIN 12/04/2024 [id number] / [id number] / Envelope Tyrx Lg Antibacterial - [id number] Implanted:Qty: 1 on 04/09/2023 by Neal Yoon MD at [place] [facility] Left: Chest [employer] 12/17/2023 [id number] / / [id number] documented as of this encounter Visit Diagnoses [...] Documents on File Type Date Recorded Patient Sales Program Manager Expl anation Power of Code Enforcement Inspector 10/30/2014 POWER OF A TTORNEY * Full [...] Discussed due to patient's condition Care Teams Television Maintenance Worker Relationship Specialty Start Date End Date August, Benjamin De Jesus MD [address] [facility] [place] [address] PCP - General Family Medicine 02/04/22 documented as of this encounter
--- OUTSIDE RECORDS SUMMARY | 2024-05-26 13:47 | External Medical Summary | Summary of Care ---
Author Name Unknown Organization [facility] Address [address] [place] [facility] [facility] [place] [address] Phone [phone] Care Team Providers Care Marine Reporter Name Role Phone Benjamin Connor MD Primary Care Provider [phone] Reason for Visit * Reason Comments IV Therapy Avsola * Episode Based Medications (Routine) - Authorized Specialty Diagnoses / Procedures Referred By Krupa t Referred To Contact Diagnoses Psoriatic arthropathy (HCC) Procedures [place] [address] [place] [address] Phone: tel: fax: Hematology/Oncology Treatment, [place] DEPT CLOSED - 03/09/23 [address] [place] [address] Phone: tel: fax: Referral ID Status Reason Start Date Expiration Date V isits Requested Visits Authorized [id number] Authorized 01/19/2024 01/18/2025 99 99 Encounter Details Date Type Department Care Team (Latest Contact Info) Description 02/25/2024 11:15 AM EDT Hem/Onc Treatment Hematology/Oncology Treatment, [place] [address] [place] [address] Christina, [...] sugars. Continue with psychiatry. Dr. Villalta at [facility] Psych. documented as of this encounter (statuses [...] mRNA, LNP-s, No Pre serve, 2-Dose Series ([employer]ort Gems) 08/03/2020,07/13/2020 Pneumococcal Conjugate Vacc, 13 Valent (Prevnar) [...] No 08/06/2023 Does the household have a [facility] source [facility]? (Household [...] 12:00 PM EST Office Visit Pulmonary Medicine, [facility] [address] [place] [address] Jose Angel Wheatley MD [address] [facility] [address] 04/07/2024 8:45 AM EST Hem/Onc Treatment Hematology/Oncology Treatment, [place] [address] [place] [address] Christina, Chair 2 Hem Onc Scenery [address] [place], [place] [address] 06/09/2024 8:30 AM EST Telemedicine Psychiatry, [facility] [address] [place] [address] Ej Nieves CRNP [address] [facility] [place] [address] 06/16/2024 10:40 AM EST Office Visit [facility] [address] [facility] [place] [address] Benjamin Connor MD [address] [place] [address] 06/22/2024 11:00 AM EST [facility] [address] [place] [address] Samuel DO Adwoa [address] [place] [address] Scheduled Procedures Name Priority Associated Diagnoses Date/Ti me COLONOSCOPY FLEXIBLE PROXIMAL DIAGNOSTIC Recall History of colon polyps Health Maintenance Due Date Last Done Comments Alpha-1 Antitrypsin 1963 Adult Wellness Visit 2013 COVID-19 Vaccine (3 - Pfizer risk series) 08/31/2020 08/03/2020, 07/13/2020 CKD PHOS USE SMARTSET 30281 10/17/202309/25, 08/01/2021, 11/25/2018 HbA1c 12/03/2023 06/04/2023, 12/25, [...] Additional history exists CKD HGB USE SMARTSET 10127 03/21/202503/21, 03/21/2024, 09/30/2023, Additional history exists Colonoscopy [...] this encounter Medical Devices Implanted Type Area Technical Agronomist Device Identifier Shelf Expiration Date Model / Serial / Lot Lead Dbs 0.5mm 42cm Marker - [id number] Implanted:Qty: 1 on 04/05/2023 by Neal Yoon MD [place] [facility] [place]: Head [employer] : NEUROLOGIC PAIN 02/11/2025 [id number] / / [id number] Lead Dbs 0.5mm 42cm - [id number] Implanted:Qty: 1 on 04/05/2023 by Neal Yoon MD at [place] [facility] Right: Head [employer] : NEUROLOGIC PAIN 02/11/2025 [id number] / / [id number] 1 Cement Hydroset Injectable 5cc - [id number] Implanted:Qty: 1 on 04/05/2023 by Neal Yoon MD at [place] [facility] N/A: Head CATRINA 12/11/2024 [id number] / / [id number] Plate 12mm Str 2 Hole Un3 - [id number] Implanted:Qty: 1 on 04/05/2023 by Neal Yoon MD at [place] [facility] Right: Head CATRINA : CRANIOMAXILLOFACIAL 53-35418 / / Plate 12mm Str 2 Hole Un3 - [id number] Implanted:Qty: 1 on 04/05/2023 by Neal Yoon MD at [place] [facility] Left: Head CATRINA : CRANIOMAXILLOFACIAL 53-09333 / / Neurostimulator Percept Pc - [id number] - [id number] Implanted:Qty: 1 on 04/09/2023 by Neal Yoon MD at [place] [facility] Left: Chest [employer] : NEUROLOGIC PAIN 02/06/2025 [id number] / [id number] / Ext Dbs 40cm Marker - [id number] Implanted:Qty: 1 on 04/09/2023 by Neal Yoon MD at [place] [facility] Left: Chest [employer] : NEUROLOGIC PAIN 10/21/2024 [id number] / / Ext Dbs 40cm - [id number] - [id number] Implanted:Qty: 1 on 04/09/2023 by Neal Yoon MD at [place] [facility] Left: Chest [employer] : NEUROLOGIC PAIN 12/04/2024 [id number] / [id number] / Envelope Tyrx Lg Antibacterial - [id number] Implanted:Qty: 1 on 04/09/2023 by Neal Yoon MD at [place] [facility] Left: Chest [employer] 12/17/2023 [id number] / / [id number] documented as of this encounter Visit Diagnoses [...] Documents on File Type Date Recorded Patient Incident Response Coordinator Expl anation Power of Lining Cementer 10/30/2014 POWER OF A TTORNEY * Full [...] Discussed due to patient's condition Care Teams Marine Reporter Relationship Specialty Start Date End Date August, Benjamin De Jesus MD [address] [facility] [place] [address] PCP - General Family Medicine 02/04/22 documented as of this encounter
--- OUTSIDE RECORDS SUMMARY | 2024-05-26 13:47 | External Medical Summary | Summary of Care ---
Author Name Unknown Organization [facility] Address [address] [place] [address] Phone [phone] Care Team Providers Care Social Science Instructor Name Role Phone Benjamin Connor MD Primary Care Provider [phone] Reason for Visit * Reason Comments Outpatient Testing Encounter Details Date Type Department Care Team (Late st Contact Info) Description 03/21/2024 9:30 AM EST Laboratory Laboratory, [facility] [address] [place] [address] [facility] [address] [place] [address] Encounter for long-term (current) use of high-risk medication Allergies No known active allergiesdocumented as of this encounter (statuses as of 03/21/2024) Medications inFLIXimab (REMICADE) 100 MG injection Administer [...] as of this encounter (statuses as of 03/21/2024) Active Problems Problem Noted Date Diagnosed Date [...] Continue with psychiatry. Dr. [facility]alta at [facility] Psych. documented as of this encounter (statuses as of 03/21/2024) Resolved Problems Problem Noted Date Diagnosed Date [...] as of this encounter (statuses as of 03/21/2024) Immunizations Name Administration Dates Next Due COVID-19 [...] Author No 04/05/2023 3:42 PM EST Martina Colón, RN documented as of this encounter Mental Status * Because of a physical, mental, or emotional condition, do you have serious difficulty concentrating, remembering, or making decisions? (5 years old or older) Answer Entry Date Author Yes 04/05/2023 3:42 PM EST Martina Colón RN documented in this encounter Plan of Treatment Upcoming Encounters Date Type Department Care Team (Late st Contact Info) Description 03/31/2024 11:00 AM EST Imaging Rad[facility] [address] [facility] [place] [address] 04/06/2024 12:00 PM EST Office Visit Pulmonary Medicine, [facility] [address] [facility] [place] [address] Jose Angel Wheatley MD [address] [facility] [place] [address] 04/07/2024 8:45 AM EST Hem/Onc Treatment Hematology/Oncology Treatment, [place] [address] [place] [address] Park, Chair 2 Hem Onc Scenery [address] [place] [address] 06/09/2024 8:30 AM EST Telemedicine Psychiatry, [facility] [address] [facility] [place] [address] Ej Nieves CRNP 132 [facility] [place] [address] 06/16/2024 10:40 AM EST Office Visit Family Practice, [place] [address] [facility] [place] [address] Benjamin Connor MD [address] [facility] [place] [address] 06/22/2024 11:00 AM EST Telemedicine Rheumatology, [address] [place] [address] Samuel Adwoa, DO [address] [place] [address] Pending Results Name Type Priority Associated Diagnoses Date /Time CBC WITH WBC DIFFERENTIAL Lab Routine Encounter for long-term (current) use of high-risk medication 03/21/2024 9:43 AM EST COMPREHENSIVE METABOLIC PANEL Lab Routine Encounter for long-term (current) use of high-risk medication 03/21/2024 9:43 AM EST CBC Lab Routine Encounter for long-term (current) use of high-risk medication 03/21/2024 9:43 AM EST DIFFERENTIAL, AUTOMATED Lab Routine Encounter for long-term (current) use of high-risk medication 03/21/2024 9:43 AM EST Scheduled Procedures Name Priority Associated Diagnoses Date/Ti me COLONOSCOPY FLEXIBLE PROXIMAL DIAGNOSTIC Recall History of colon polyps Health Maintenance Due Date Last Done Comments Alpha-1 Antitrypsin 1963 Adult Wellness Visit 2013 COVID-19 Vaccine (3 - Pfizer risk series) 08/31/2020 08/03/2020, 07/13/2020 CKD PHOS USE SMARTSET 06374 10/17/202309/25, 08/01/2021, 11/25/2018 HbA1c 12/03/2023 06/04/2023, 12/25, 10/16/2022, Additional history exists Influenza Vaccine (FLU shot) (#1) 2023 01/08/2023, 02/06/2022, 01/24/2021, Additional history exists GFR 03/31/2024 09/30/2023, 02/0 12/2023, 03/10/2023, Additional history exists O2 ASSESSMENT COMPLETED IN PAST YEAR FOR COPD 04/09/2024 04/09/2023 Depression Monitoring 04/12/2024 04/12/2023 Diabetic Foot Exam 06/04/2024 06/04/2023, 05/15/2022 Diabetic Eye Exam 07/15/2024 07/16/2023 Albumin/Creatinine Ratio 07/29/2024 024, 10/16/2022, 08/01/2021 CKD HGB USE SMARTSET 71230 09/29/202409/29, 09/30/2023, 06/04/2023, Additional history exists Colonoscopy 06/27/2026 06/27/2021, 06/27/2021 [...] this encounter Medical Devices Implanted Type Area Jewelry Model Maker Device Identifier Shelf Expiration Date Model / Serial / Lot Lead Dbs 0.5mm 42cm Marker - [id number] Implanted:Qty: 1 on 04/05/2023 [place] [facility] [place] [employer] : NEUROLOGIC PAIN 02/11/2025 [id number] / / [id number] Lead Dbs 0.5mm 42cm - [id number] Implanted:Qty: 1 on 04/05/2023 by Neal Yoon MD [place] [facility] Right: Head [employer] : NEUROLOGIC PAIN 02/11/2025 [id number] / / [id number] 1 Cement Hydroset Injectable 5cc - [id number] Implanted:Qty: 1 on 04/05/2023 by Neal Yoon MD [place] [facility] [place]/A: Head CATRINA 12/11/2024 [id number] / / [id number] Plate 12mm Str 2 Hole Un3 - [id number] Implanted:Qty: 1 on 04/05/2023 by Neal Yoon MD [place] [facility] [place]: Head CATRINA : CRANIOMAXILLOFACIAL 53-51015 / / Plate 12mm Str 2 Hole Un3 - [id number] Implanted:Qty: 1 on 04/05/2023 by Neal Yoon MD [place] [facility] [place]: Head CATRINA : CRANIOMAXILLOFACIAL 53-21583 / / Neurostimulator Percept Pc - [id number] - [id number] Implanted:Qty: 1 on 04/09/2023 by Neal Yoon MD [place] [facility] [place]: Chest [employer] : NEUROLOGIC PAIN 02/06/2025 [id number] / [id number] / Ext Dbs 40cm Marker - [id number] Implanted:Qty: 1 on 04/09/2023 by Neal Yoon MD [place] [facility] [place]: Chest [employer] : NEUROLOGIC PAIN 10/21/2024 [id number] / / Ext Dbs 40cm - [id number] - [id number] Implanted:Qty: 1 on 04/09/2023 by Neal Yoon MD [place] [facility] [place]: Chest [employer] : NEUROLOGIC PAIN 12/04/2024 [id number] / [id number] / Envelope Tyrx Lg Antibacterial - [id number] Implanted:Qty: 1 on 04/09/2023 by Neal Yoon MD [place] [facility] [place]: Chest [employer] 12/17/2023 [id number] / / [id number] documented as of this encounter Visit Diagnoses Diagnosis Encounter for long-term (current) use of high-risk medication Encounter for long-term (current) use of other medications documented in this encounter Advance Directives Documents on File Type Date Recorded Patient High Heel Builder Expl anation Power of Senior Industrial Engineer 10/30/2014 POWER OF A TTORNEY * Full [...] Discussed due to patient's condition Care Teams Social Science Instructor Relationship Specialty Start Date End Date August, Benjamin De Jesus MD [address] [place] [address] PCP - General Family Medicine 02/04/22 documented as of this encounter
--- OUTSIDE RECORDS SUMMARY | 2024-05-26 13:48 | External Medical Summary | Summary of Care ---
Author Name Unknown Organization [facility] Address [address] [facility] [address] Phone [phone] Care Team Providers Care Information Services Consultant Name Role Phone Benjamin Connor MD Primary Care Provider [phone] Encounter Details Date Type Department Care Team (Late st Contact Info) Description 03/13/2024 Orders Only PATIENT PORTAL DO NOT DELETE THIS DEPT USED BY [place]IZ [id number] Allergies No known active allergiesdocumented as of this encounter (statuses as of 03/13/2024) Medications inFLIXimab (REMICADE) 100 MG injection Administer [...] as of this encounter (statuses as of 03/13/2024) Active Problems Problem Noted Date Diagnosed Date [...] Continue with psychiatry. Dr. Villalta at [facility] Psych. documented as of this encounter (statuses as of 03/13/2024) Resolved Problems Problem Noted Date Diagnosed Date [...] as of this encounter (statuses as of 03/13/2024) Immunizations Name Administration Dates Next Due COVID-19 [...] Description 03/31/2024 11:00 AM EST Imaging Radiology [facility] 1st [facility], [place] [address] [facility] [place] [address] 04/06/2024 12:00 PM EST Office Visit Pulmonary Medicine, [facility] [address] [facility] [place] [address] Jose Angel Wheatley MD [address] [place] [address] 04/07/2024 8:45 AM EST Hem/Onc Treatment Hematology/Oncology Treatment, [place] [address] [place] [phone] Park, Chair 2 Hem Onc Scenery [address] [place] [address] 06/09/2024 8:30 AM EST Telemedicine Psychiatry, [facility] [address] [facility] [place] [address] Ej Nieves CRNP 132 [facility] [place] [address] 06/16/2024 10:40 AM EST Office Visit [facility] [address] [place] [address] AugustBenjamin MD [address] [place] [address] Scheduled Procedures Name Priority Associated Diagnoses Date/Ti me COLONOSCOPY FLEXIBLE PROXIMAL DIAGNOSTIC Recall History of colon polyps Health Maintenance Due Date Last Done Comments Alpha-1 Antitrypsin 1963 Adult Wellness Visit 2013 COVID-19 Vaccine (3 - Pfizer risk series) 08/31/2020 08/03/2020, 07/13/2020 CKD PHOS USE SMARTSET 13186 10/17/202309/25, 08/01/2021, 11/25/2018 HbA1c 12/03/2023 06/04/2023, 12/25, [...] 024, 10/16/2022, 08/01/2021 CKD HGB USE SMARTSET 36775 09/29/202409/29, 09/30/2023, 06/04/2023, Additional history exists Colonoscopy [...] this encounter Medical Devices Implanted Type Area Traffic Or System Dispatcher Device Identifier Shelf Expiration Date Model / Serial / Lot Lead Dbs 0.5mm 42cm Marker - [id number] Implanted:Qty: 1 on 04/05/2023 by Neal Yoon MD at [place] [facility] Left: Head [employer] : NEUROLOGIC PAIN 02/11/2025 [id number] / / [id number] Lead Dbs 0.5mm 42cm - [id number] Implanted:Qty: 1 on 04/05/2023 by Neal Yoon MD at OR [facility] [place] Right: Head [employer] : NEUROLOGIC PAIN 02/11/2025 [id number] / / [id number] Cement Hydroset Injectable 5cc - [id number] Implanted:Qty: 1 on 04/05/2023 by Neal Yoon MD at OR [facility] [place] N/A: Head CATRINA 12/11/2024 [id number] / / [id number] Plate 12mm Str 2 Hole Un3 - [id number] Implanted:Qty: 1 on 04/05/2023 by Neal Yoon MD at [place] [facility] [place] Right: Head CATRINA : CRANIOMAXILLOFACIAL [id number] / / Plate 12mm Str 2 Hole Un3 - [id number] Implanted:Qty: 1 on 04/05/2023 by Neal Yoon MD at OR [facility] [place] Left: Head CATRINA : CRANIOMAXILLOFACIAL [id number] / / Neurostimulator Percept Pc - [id number] - [id number] Implanted:Qty: 1 on 04/09/2023 by Neal Yoon MD at [place] [facility] [place] Left: Chest [employer] : NEUROLOGIC PAIN 02/06/2025 [id number] / [id number] / Ext Dbs 40cm Marker - [id number] Implanted:Qty: 1 on 04/09/2023 by Neal Yoon MD at OR [facility] [place] Left: Chest [employer] : NEUROLOGIC PAIN 10/21/2024 [id number] / / Ext Dbs 40cm - [id number] - [id number] Implanted:Qty: 1 on 04/09/2023 by Neal Yoon MD at OR [facility] [place] Left: Chest [employer] : NEUROLOGIC PAIN 12/04/2024 [id number] / [id number] / Envelope Tyrx Lg Antibacterial - [id number] Implanted:Qty: 1 on 04/09/2023 by Neal Yoon MD at [place] [facility] [place] Left: Chest [employer] 12/17/2023 [id number] / / [id number] documented as of this encounter Advance Directives Documents on File Type Date Recorded Patient Damper Worker Expl anation Power of Cover Cutter 10/30/2014 POWER OF A TTORNEY * Full [...] Discussed due to patient's condition Care Teams Information Services Consultant Relationship Specialty Start Date End Date August, Benjamin De Jesus MD [address] [place] [facility] [place] [address] PCP - General Family Medicine 02/04/22 documented as of this encounter
--- OUTSIDE RECORDS SUMMARY | 2024-05-26 13:48 | External Medical Summary ---
Author Name Unknown Address Unknown Organization K01:[facility] [address] [address] [facility] [address] Laboratory Report Ordering Provider Test Date Status ZEYNEP CORBIN 03/21/2024 09:43:30 Final Observation Date Value Abnormality Reference (Units ) Status SYNC LEUKOCYTES IN BLOOD BY AUTOMATED COUNT 03/21/2024 09:43:30 7.91 4.00-10.80 (K/uL) Final Neutrophils/100 leukocytes in Blood by Manual count 03/21/2024 09:43:30 57.0 40.0-75.0 (%) Final Lymphocytes/100 leukocytes in Blood by Manual count 03/21/2024 09:43:30 37.0 18.0-42.0 (%) Final Monocytes/100 leukocytes in Blood by Manual count 03/21/2024 09:43:30 4.0 1.0-11.0 (%) Final Eosinophils/100 leukocytes in Blood by Manual count 03/21/2024 09:43:30 2.0 0.0-6.0 (%) Final Neutrophils [#/volume] in Blood by Manual count 03/21/2024 09:43:30 4.51 1.80-7.70 (K/uL) Final Lymphocytes [#/volume] in Blood by Manual count 03/21/2024 09:43:30 2.93 1.00-4.80 (K/uL) Final Monocytes [#/volume] in Blood by Manual count 03/21/2024 09:43:30 0.32 0.00-1.10 (K/uL) Final Eosinophils [#/volume] in Blood by Manual count 03/21/2024 09:43:30 0.16 0.00-0.70 (K/uL) Final Variant lymphocytes [Presence] in Blood by Light microscopy 03/21/2024 09:43:30 Present Abnormal None Seen Final Performing Location [facility] - [address] [facility] [address]
--- OUTSIDE RECORDS SUMMARY | 2024-05-26 13:48 | External Medical Summary | Summary of Care ---
Author Name Unknown Organization [facility] Address [address] [place] [address] Phone [phone] Care Team Providers Care Supervisor Wet Pour Name Role Phone Benjamin Connor MD Primary Care Provider [phone] Reason for Visit * Reason Comments Rheum Follow Up Encounter Details Date Type Department Care Team (Late st Contact Info) Description 03/09/2024 10:40 AM EST Telemedicine Rheumatology, [place] [address] [place] [address] Adwoa Baker, [address] [place] [address] Psoriatic arthropathy (HCC)*; Psoriasis; Encounter for long-term (current) use of high-risk medication Allergies No known active allergiesdocumented as of this encounter (statuses as of 03/09/2024) Medications inFLIXimab (REMICADE) 100 MG injection Administer [...] the morning. 360 Tablet 03/09/20 24 Active Folic Acid 1 MG Oral TabletIndications:P soriatic arthropathy (HCC) Take 1 Tablet by mouth in the morning. 360 Tablet 12/02/19 24 024 Discontin ued(Refil l) Hospital, Clinic, [...] as of this encounter (statuses as of 03/09/2024) Active Problems Problem Noted Date Diagnosed Date [...] as of this encounter (statuses as of 03/09/2024) Resolved Problems Problem Noted Date Diagnosed Date [...] as of this encounter (statuses as of 03/09/2024) Immunizations Name Administration Dates Next Due COVID-19 [...] documented in this encounter Progress Notes * Adwoa Baker, DO - 03/09/2024 10:39 AM EST Patient location: HOME. I was not in a hospital or clinic location. After connecting through televideo, patient was verified with two unique identifiers. Patient (or authorized legal sales and merchandising representative) was then informed that this was a Telemedicine visit and being conducted confidentially over secure lines. Methods to assure confidentiality were taken. Patient acknowledged consent and understanding of privacy and security of the Telemedicine visit. The patient agreed to participate. Patient is seen as a new consult at the request of Benjamin Connor MD HPI: This is a 78 year old male who is here for follow up. Pt states that he is having psoriasis noted on his knees. ROS: + as above with the addition of none - for: Fevers, Chills or sweats. No HAs or scalp tenderness. No jaw claudication. No acute visual or eye changes. No dry mouth. No auditory complaints. No oral lesions or ulcers. No dry mouth. No sore throat or cough. No chest pains or palpitations. No shortness of breath, dyspnea on exertion or whe ezing. No hemotpysis. No abdominal pain, GERD symptoms, diarrhea or constipation. No urinary complaints. No numbness, tingling or weakness. No rashes. 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 Zoster Vac Recomb Adjuvanted 50 MCG/0.5ML Intramuscular Suspension Reconstituted (Shingrix) Inject 0.5 mL into a large muscle now and repeat dose in 60 to 180 days (Patient not taking: Reported on 12/10/2023) 1 Each 1 Allopurinol 100 MG Oral Tablet (Zyloprim) Take 1 Tablet by mouth in the morning. 30 Tablet 11 Docusate Sodium 100 MG Oral Capsule (Colace) Take 1 Capsule by mouth in the morning and 1 Capsule before bedtime. 60 Capsule 0 Acetaminophen 325 MG Oral Tablet (Tylenol) Take 1 Tablet by mouth every 6 hours as needed for Pain,Moderate or Pain, Mild. 30 Tablet 0 Montelukast Sodium 10 MG Oral Tablet (Singulair) Take 1 Tablet by mouth in the morning. 90 Tablet 3 Albuterol Sulfate HFA 108 (90 Base) MCG/ACT Inhalation Aerosol Solution Inhale 2 Puffs by mouth every 6 hours as needed (cough, SOB). 18 g 5 Levocetirizine Dihydrochloride 5 MG Oral Tablet Take 1 Tablet by mouth every evening. 90 Tablet 3 Trelegy Ellipta 100-62.5-25 MCG/ACT Aerosol Powder Breath Activated (Lakyihlwqgi-Osclqszofksw-Fybipjirzi) Inhale 1 Puff by mouth in the morning. 60 Blister Dosing Unit 11 Furosemide 20 MG Oral Tablet (Lasix) Take 1 Tablet by mouth daily as needed (weight gain more than 3 pound in one week). Fluticasone Propionate 50 MCG/ACT Nasal Suspension (Flonase) Administer 2 Sprays into each nostril in the morning. 16 g 3 Folic Acid 1 MG Oral Tablet Take 1 Tablet by mouth in the morning. 360 Tablet 0 Famotidine 20 MG Oral Tablet (Pepcid) Take 1 Tablet by mouth in the morning and 1 Tablet before bedtime. 180 Tablet 0 Atorvastatin Calcium 20 MG Oral Tablet (Lipitor) TAKE 1 TABLET BY MOUTH IN THE MORNING 90 Tablet 1 DULoxetine HCl 60 MG Oral Capsule Delayed Release Particles (Cymbalta) Take 1 Capsule by mouth 2 times a day in the morning and at noon. 180 Capsule 1 lamoTRIgine 200 MG Oral Tablet (LaMICtal) Take 1 Tablet by mouth in the morning. 90 Tablet 1 QUEtiapine Fumarate 300 MG Oral Tablet (SEROquel) Take 1 Tablet by mouth every night at bedtime. 90Tablet 1 Namzaric 28-10 MG Oral Capsule Extended Release 24 Hour (Memantine HCl-Donepezil HCl) 1 TAB DAILY TAKE WITH LARGEST MEAL OF THE DAY. 90 Capsule 1 Current Facility-Administered Medications Medication Dose Route Frequency Provider Last Rate Last Admin Albuterol Sulfate (Proventil) (5 MG/ML) 0.5% *conc* inhalation solution 2.5 mg 2.5 mg Nebulizer Jose Angel Camacho MD Albuterol Sulfate (Proventil) (2.5 MG/3ML) 0.083% inhalation solution 2.5 mg 2.5 mg Nebulizer Jose Angel Lipscomb MD 2.5 mg at 09/30/23 1355 Social History Tobacco Use Smoking status: Former Average packs/day: 2.0 packs/day for 32.0 years (64.0 ttl pk-yrs) Types: Cigarettes Start date: 1967 Passive exposure: Never Smokeless tobacco: Never Tobacco comments: quit in 1999 Vaping Use Vaping status: Never Used Substance Use Topics Alcohol use: No Drug use: No Family History Problem Relation Name Age of Onset Other (accident (hit by a car)) Mother Pancreatic cancer Father Cancer Other Prostate There were no vitals taken for this visit. GEN: AAO, No apparent distress. Patient is well developed. HEENT: Sclera are clear. NEURO: Speech and cognition are normal. SKIN: There are no rashes or lesions MUSCULOSKELETAL: -Hands: normal -Wrists: normal Impressions and Plans: This is a 78 year old male with PsA on remicade every 6 weeks and mtx. Overall doing well but noting some psoriasis on his needs. -- Continue mtx 20 mg weekly, folic acid daily -- Continue remicade -- Add topical steroids --labs ordered F/u in 3 months Thank you for involving me in this patient's care. Adwoa Baker DO Department of Rheumatology [facility] documented in this encounter Plan of Treatment Upcoming Encounters Date Type Department Care Team (Late st Contact Info) Description 03/31/2024 11:00 AM EST [facility] [address] [facility] [place] [address] 04/06/2024 12:00 PM EST Office Visit Pulmonary Medicine, [facility] [address] [facility] [place] [address] Jose Angel Wheatley [facility] [address] [facility] [address] 04/07/2024 8:45 AM EST Hem/Onc Treatment Hematology/Oncology Treatment, [place] [address] [place] [phone] Park, Chair 2 Hem On[facility] Scenery [facility] [address] 06/09/2024 8:30 AM EST Telemedicine Psychiatry, [facility] [address] [facility] [place] [address] Ej Nieves CRNP [address] [facility] [place] [address] 06/16/2024 10:40 AM EST [facility] [address] [facility] [address] Benjamin Connor MD [address] [facility] [place] [address] Scheduled Orders Name Type Priority Associated Diagnoses Orde r Schedule CBC WITH WBC DIFFERENTIAL Lab Routine Encounter for long-term (current) use of high-risk medication Expected: 03/09/2024, Expires: 03/09/2025 COMPREHENSIVE METABOLIC PANEL Lab Routine Encounter for long-term (current) use of high-risk medication Expected: 03/09/2024, Expires: 03/09/2025 Scheduled Procedures Name Priority Associated Diagnoses Date/Ti me COLONOSCOPY FLEXIBLE PROXIMAL DIAGNOSTIC Recall History of colon polyps Health Maintenance Due Date Last Done Comments Alpha-1 Antitrypsin 1963 Adult Wellness Visit 2013 COVID-19 Vaccine (3 - Pfizer risk series) 08/31/2020 08/03/2020, 07/13/2020 CKD PHOS USE SMARTSET 63793 10/17/2023 06/2 06/2022, 08/01/2021, 11/25/2018 HbA1c 12/03/2023 06/04/2023, 12/25, 10/16/2022, Additional history exists Influenza Vaccine (FLU shot) (#1) 2023 01/08/2023, 02/06/2022, 01/24/2021, Additional history exists GFR 03/31/2024 09/30/2023, 02/0 12/2023, 03/10/2023, Additional history exists O2 ASSESSMENT COMPLETED IN PAST YEAR FOR COPD 04/09/2024 04/09/2023 Depression Monitoring 04/12/2024 04/12/2023 Diabetic Foot Exam 06/04/2024 06/04/2023, 05/15/2022 Diabetic Eye Exam 07/15/2024 07/16/2023 Albumin/Creatinine Ratio 07/29/2024 042 024, 10/16/2022, 08/01/2021 CKD HGB USE SMARTSET 62901 09/29/202409/29, 09/30/2023, 06/04/2023, Additional history exists Colonoscopy [...] this encounter Medical Devices Implanted Type Area Wastewater Treatment Plant Operator Device Identifier Shelf Expiration Date Model / Serial / Lot Lead Dbs 0.5mm 42cm Marker - [id number] Implanted:Qty: 1 on 04/05/2023 by Neal Yoon MD [place] [facility] [place] Left: Head [employer] : NEUROLOGIC PAIN 02/11/2025 [id number] / / [id number] Lead Dbs 0.5mm 42cm - [id number] Implanted:Qty: 1 on 04/05/2023 by Neal Yoon MD at [place] [facility] [place] [place] Right: Head [employer] : NEUROLOGIC PAIN 02/11/2025 [id number] / / [id number] Cement Hydroset Injectable 5cc - [id number] Implanted:Qty: 1 on 04/05/2023 by Neal Yoon MD at [place] [facility] [place] N/A: Head CATRINA 12/11/2024 [id number] / / [id number] Plate 12mm Str 2 Hole Un3 - [id number] Implanted:Qty: 1 on 04/05/2023 by Neal Yoon MD at [place] [facility] [place] [place] Right: Head CATRINA : CRANIOMAXILLOFACIAL [id number] / / Plate 12mm Str 2 Hole Un3 - [id number] Implanted:Qty: 1 on 04/05/2023 by Neal Yoon MD at [place] [facility] [place] [place] Left: Head CATRINA : CRANIOMAXILLOFACIAL [id number] / / Neurostimulator Percept Pc - [id number] - [id number] Implanted:Qty: 1 on 04/09/2023 by Neal Yoon MD at [place] [facility] [place] [place] Left: Chest [employer] : NEUROLOGIC PAIN 02/06/2025 [id number] / [id number] / Ext Dbs 40cm Marker - [id number] Implanted:Qty: 1 on 04/09/2023 by Neal Yoon MD at [place] [facility] [place] Left: Chest [employer] : NEUROLOGIC PAIN 10/21/2024 [id number] / / Ext Dbs 40cm - [id number] - [id number] Implanted:Qty: 1 on 04/09/2023 by Neal Yoon MD at [place] [facility] [place] Left: Chest [employer] : NEUROLOGIC PAIN 12/04/2024 [id number] / [id number] / Envelope Tyrx Lg Antibacterial - [id number] Implanted:Qty: 1 on 04/09/2023 by Neal Yoon MD at [place] [facility] Left: Chest [employer] 12/17/2023 [id number] / / [id number] documented as of this encounter Visit Diagnoses Diagnosis Psoriatic arthropathy (HCC)- Primary Psoriatic arthropathy Psoriasis Other psoriasis Encounter for long-term (current) use of high-risk medication Encounter for long-term (current) use of other medications documented in this encounter Advance Directives Documents on File Type Date Recorded Patient Smart Energy Specialist Expl anation Power of Crotch Piece Baster 10/30/2014 POWER OF A TTORNEY * Full [...] Discussed due to patient's condition Care Teams Supervisor Wet Pour Relationship Specialty Start Date End Date August, Benjamin De Jesus MD [address] [place] [address] PCP - General Family Medicine 02/04/22 documented as of this encounter
--- OUTSIDE RECORDS SUMMARY | 2024-05-26 13:48 | External Medical Summary | Summary of Care ---
Author Name Unknown Organization [facility] Address [address] [place] [address] Phone [phone] Care Team Providers Care Fashion Intern Name Role Phone Benjamin Connor MD Primary Care Provider [phone] Reason for Visit * Reason Comments Rheum Follow Up Encounter Details Date Type Department Care Team (Late st Contact Info) Description 03/09/2024 10:40 AM EST Telemedicine Rheumatology, [place] [address] [place] [address] Adwoa Baker, [address] [place] [address] Psoriatic arthropathy (HCC)*; Psoriasis; Encounter for long-term (current) use of high-risk medication Allergies No known active allergiesdocumented as of this encounter (statuses as of 03/10/2024) Medications inFLIXimab (REMICADE) 100 MG injection Administer [...] as of this encounter (statuses as of 03/10/2024) Active Problems Problem Noted Date Diagnosed Date [...] sugars. Continue with psychiatry. Dr. Villalta at [facility] Psych. documented as of this encounter (statuses as of 03/10/2024) Resolved Problems Problem Noted Date Diagnosed Date [...] as of this encounter (statuses as of 03/10/2024) Immunizations Name Administration Dates Next Due COVID-19 [...] documented in this encounter Progress Notes * Lisa Denise OSA - 03/10/2024 11:01 AM EST Left message to schedule 3 mo f/u. Placed on recall. * Adwoa Baker DO - 03/09/2024 10:39 AM EST Patient location: HOME. I was not in a hospital or clinic location. After connecting through [employer], patient was verified with two unique identifiers. 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 Adwoa Baker DO Department of Rheumatology [facility] documented in this encounter Plan of Treatment Upcoming Encounters Date Type Department Care Team (Late st Contact Info) Description 03/31/2024 11:00 AM EST Imaging Radiology [facility] [address] [facility] [place] [address] 04/06/2024 12:00 PM EST Office Visit Pulmonary Medicine, [facility] [address] [facility] [place] [address] Jose Angel Wheatley MD [address] [facility] [facility] [place] [address] 04/07/2024 8:45 AM EST Hem/Onc Treatment Hematology/Oncology Treatment, [place] [address] [place] [id number] Park, Chair 2 Hem Onc [facility] [address] [facility] [address] 06/09/2024 8:30 AM EST Telemedicine Psychiatry, [facility] [address] [facility] [place] [address] Ej Nieves CRNP [address] [place] [address] 06/16/2024 10:40 AM EST Office Visit Family Practice, [place] [facility] [address] [place] [address] AugustBenjamin MD [address] [facility] [place] [address] Scheduled Orders Name Type Priority Associated Diagnoses [...] 08/31/2020 08/03/2020, 07/13/2020 CKD PHOS USE SMARTSET 22892 10/17/202309/25, 08/01/2021, 11/25/2018 HbA1c 12/03/2023 06/04/2023, 12/25, [...] 024, 10/16/2022, 08/01/2021 CKD HGB USE SMARTSET 76372 09/29/202409/29, 09/30/2023, 06/04/2023, Additional history exists Colonoscopy [...] this encounter Medical Devices Implanted Type Area Prepared Foods Team Leader Device Identifier Shelf Expiration Date Model / Serial / Lot Lead Dbs 0.5mm 42cm Marker - [id number] Implanted:Qty: 1 on 04/05/2023 by Neal Yoon MD [place] [facility] [place] Left: Head [employer] : NEUROLOGIC PAIN 02/11/2025 [id number] / / [id number] Lead Dbs 0.5mm 42cm - [id number] Implanted:Qty: 1 on 04/05/2023 by Neal Yoon MD at [place] [facility] [place] Right: Head [employer] : NEUROLOGIC PAIN 02/11/2025 [id number] / / [id number] Cement Hydroset Injectable 5cc - [id number] Implanted:Qty: 1 on 04/05/2023 by Neal Yoon MD at [place] [facility] [place] N/A: Head CATRINA 12/11/2024 [id number] / / [id number] Plate 12mm Str 2 Hole Un3 - [id number] Implanted:Qty: 1 on 04/05/2023 by Neal Yoon MD at [place] [facility] [place] Right: Head CATRINA : CRANIOMAXILLOFACIAL [id number] / / Plate 12mm Str 2 Hole Un3 - [id number] Implanted:Qty: 1 on 04/05/2023 by Neal Yoon MD at [place] [facility] [place] Left: Head CATRINA : CRANIOMAXILLOFACIAL [id number] / / Neurostimulator Percept Pc - [id number] - [id number] Implanted:Qty: 1 on 04/09/2023 by Neal Yoon MD at [place] [facility] [place] Left: Chest [employer] : NEUROLOGIC PAIN 02/06/2025 [id number] / [id number] / Ext Dbs 40cm Marker - [id number] Implanted:Qty: 1 on 04/09/2023 by Neal Yoon MD at [place] [facility] [place] Left: Chest [employer] : NEUROLOGIC PAIN 10/21/2024 [id number] / / Ext Dbs 40cm - [id number] - [id number] Implanted:Qty: 1 on 04/09/2023 by Neal Yoon MD at [place] [facility] [place] Left: Chest [employer] : NEUROLOGIC PAIN 12/04/2024 [id number] / [id number] / Envelope Tyrx Lg Antibacterial - [id number] Implanted:Qty: 1 on 04/09/2023 by Neal Yoon MD at [place] [facility] [place] Left: Chest [employer] 12/17/2023 [id number] / / [id number] documented as of this encounter Visit Diagnoses Diagnosis Psoriatic arthropathy (HCC)- Primary Psoriatic arthropathy Psoriasis Other psoriasis Encounter for long-term (current) use of high-risk medication Encounter for long-term (current) use of other medications documented in this encounter Advance Directives Documents on File Type Date Recorded Patient Basting Machine Operator Expl anation Power of Accounting Software Specialist 10/30/2014 POWER OF A TTORNEY * [...] Discussed due to patient's condition Care Teams Fashion Intern Relationship Specialty Start Date End Date August, Benjamin De Jesus MD [address] [place] [address] PCP - General Family Medicine 02/04/22 documented as of this encounter
--- OUTSIDE RECORDS SUMMARY | 2024-05-26 13:48 | External Medical Summary ---
Author Name Unknown Address Unknown Organization K01[place] [place] [address] [facility] [place] [address] Laboratory Report Ordering Provider Test Date Status ZEYNEP CORBIN 03/21/2024 09:43:30 Final Observation Date Value Abnormality Reference (Units ) Status BUN 03/21/2024 09:43:30 19 6-20 (mg/dL) Final Creatinine 03/21/2024 09:43:30 1.3 Above high normal 0.6-1.2 (mg/dL) Final Glomerular filtration rate/1.73 sq M.predicted [Volume Rate/Area] in Serum, Plasma or Blood by Creatinine-based formula (CKD-EPI) 03/21/2024 09:43:30 59 Below low normal >=60 (mL/min) Final eGFR is calculated based on the CKD-EPI 2020 equation. Sodium 03/21/2024 09:43:30 140 135-146 (m mol/L) Final Potassium 03/21/2024 09:43:30 4.1 3.5-5.1 (m mol/L) Final Cl 03/21/2024 09:43:30 102 98-107 (mm ol/L) Final CO2 03/21/2024 09:43:30 25 22-32 (mmo l/L) Final Anion gap 03/21/2024 09:43:30 13 7-15 (mmol /L) Final Glucose 03/21/2024 09:43:30 167 Above high normal 70 -120 (mg/dL) Final Albumin 03/21/2024 09:43:30 4.5 3.8-5.0 (g /dL) Final AST (Aspartate aminotransferase) 03/21/2024 09:43:30 43 10-50 (U/L) Fin al Alk Phos 03/21/2024 09:43:30 79 35-130 (U/ L) Final Bilirubin, Total 03/21/2024 09:43:30 0.7 <=1 .2 (mg/dL) Final Calcium 03/21/2024 09:43:30 8.9 8.4-10.2 ( mg/dL) Final Protein 03/21/2024 09:43:30 7.3 6.0-8.3 (g /dL) Final ALT (Alanine aminotransferase) 03/21/2024 09:43:30 75 Above high normal 10-50 (U/L) Final Performing Location [facility] [place] [address] [facility] [address]
--- OUTSIDE RECORDS SUMMARY | 2024-05-26 13:48 | External Medical Summary ---
Author Name Unknown Address Unknown Organization K01:[facility] [place] [facility] [place] [address] Laboratory Report Ordering Provider Test Date Status ZEYNEP CORBIN 03/21/2024 09:43:30 Final Observation Date Value Abnormality Reference (Units ) Status WBC, Total 03/21/2024 09:43:30 7.91 4.00-10.80 (K/uL) Final RBC 03/21/2024 09:43:30 4.46 4.50-5.25 (M/uL) Final Hemoglobin 03/21/2024 09:43:30 15.1 14.0-16.8 (g/dL) Final HCT 03/21/2024 09:43:30 45.4 40.0-48.4 (%) Final MCV 03/21/2024 09:43:30 101.8 82.0-99.5 (fL) Final MCH 03/21/2024 09:43:30 33.9 27.0-34.0 (pg) Final MCHC 03/21/2024 09:43:30 33.3 32.0-36.0 (g/dL) Final RDW 03/21/2024 09:43:30 13.9 11.5-15.5 (%) Final Platelets 03/21/2024 09:43:30 161 140-400 (K/uL) Final MPV 03/21/2024 09:43:30 10.0 6.6-11.1 (fL) Final Nucleated erythrocytes/100 leukocytes [Ratio] in Blood by Automated count 03/21/2024 09:43:30 0 <=0 (/100 WBCs) Final Performing Location [facility] [place] [address] [place] [address]
--- OUTSIDE RECORDS SUMMARY | 2024-05-26 13:49 | External Medical Summary | Summary of Care ---
Author Name Unknown Organization [facility] Address [address] [place] [address] Phone [phone] Care Team Providers Care Press Operator Printing Name Role Phone Benjamin Connor MD Primary Care Provider [phone] Reason for Visit * Reason Comments IV Therapy Infliximab * Episode Based Medications (Routine) - Authorized Specialty Diagnoses / Procedures Referred By Krupa t Referred To Contact Diagnoses Psoriatic arthropathy (HCC) Procedures [place] [address] [place] [address] Anc Hem/Onc Karen Vasquez DEPT CLOSED - 03/09/23 [address] [facility] [place] [address] Referral ID Status Reason Start Date Expiration Date V isits Requested Visits Authorized [id number] Authorized 01/19/2024 01/18/2025 99 99 Encounter Details Date Type Department Care Team (Latest Contact Info) Description 01/14/2024 11:15 AM EDT Hem/Onc Treatment Hematology/Oncology Treatment, [place] [address] [place] [address] Christina, Chair 8 Hem Onc [address] [place] [address] Psoriatic arthropathy (HCC)* Allergies No known active allergiesdocumented as of this encounter (statuses as of 02/07/2024) Medications Medication Sig Dispensed Refills Start Date [...] SOB). 18 g 5 07/16/19 24 Active Namzaric 28-10 MG Oral Capsule Extended Release 24 Hour (Memantine HCl-Donepezil HCl) 1 TAB DAILY TAKE WITH LARGEST MEAL OF THE DAY. 90 Capsule 1 07/30/19 24 Active Levocetirizine Dihydrochloride 5 MG Oral [...] morning. 16 g 3 10/18/19 24 Active Methotrexate 2.5 MG Oral TabletIndications:P soriatic arthropathy (HCC) Take 8 Tablets by mouth once a week. 96 Tablet 12/02/19 24 024 Active Folic Acid 1 MG Oral TabletIndications:P soriatic arthropathy (HCC) Take 1 Tablet by mouth in the morning. 360 Tablet 12/02/19 24 025 Active Famotidine 20 MG Oral Tablet (Pepcid) Take 1 Tablet by mouth in the morning and 1 Tablet before bedtime. 180 Tablet 12/30/19 24 Active Atorvastatin Calcium 20 MG Oral Tablet (Lipitor)Indication s:Dyslipidemia TAKE 1 TABLET BY MOUTH IN THE MORNING 90 Tablet 2 06/07/19 24 024 Discontinued lamoTRIgine 200 MG Oral Tablet (LaMICtal) Take 1 Tablet by mouth in the morning. 90 Tablet 1 07/30/19 24 024 Discontinued(Re fill) QUEtiapine Fumarate 300 MG Oral Tablet (SEROquel) Take 1 Tablet by mouth every night at bedtime. 90 Tablet 1 07/30/19 24 024 Discontinued(Re fill) DULoxetine HCl 60 MG Oral Capsule Delayed Release Particles (Cymbalta) Take 1 Capsule by mouth 2 times a day in the morning and at noon. 180 Capsule 1 07/30/19 24 024 Discontinued(Re fill) Hospital, Clinic, or Other Facility Administered Medication Ordered Dose Route Frequency Start Date End Date Status Albuterol Sulfate (Proventil) (5 MG/ML) 0.5% *conc* inhalation solution 2.5 mgIndications:Chronic cough 2.5 mg NEBULIZER PRN 09/02/2023 09/01/2024 Active Albuterol Sulfate (Proventil) (2.5 MG/3ML) 0.083% inhalation solution 2.5 mgIndications:Chronic cough 2.5 mg NEBULIZER PRN 09/02/2023 09/01/2024 Active documented as of this encounter (statuses as of 02/07/2024) Active Problems Problem Noted Date Diagnosed Date [...] sugars. Continue with psychiatry. Dr. Villalta at [facility] Psych. documented as of this encounter (statuses as of 02/07/2024) Resolved Problems Problem Noted Date Diagnosed Date [...] as of this encounter (statuses as of 02/07/2024) Immunizations Name Administration Dates Next Due COVID-19 [...] Sign Reading Time Taken Comments Blood Pressure 116/66 01/14/2024 11:29 AM EDT Pulse 97 01/14/2024 11:29 AM EDT Temperature 36.4 C (97.5 F) 01/14/2024 11:29 AM E DT Respiratory Rate 18 01/14/2024 11:29 AM EDT Oxygen Saturation 91% 01/14/2024 11:29 AM EDT Inhaled Oxygen Concentration - - Weight 93.2 kg (205 lb 6.4 oz) 01/14/2024 11:29 AM EDT Height - - Body Mass Index 29.8 12/10/2023 11:13 AM EDT documented in this encounter Functional Status Functional [...] Yes 04/05/2023 documented as of this encounter Nursing Notes * Diana Alex RN - 01/14/2024 2:47 PM EDT Patient denied complaints for left arm, arm remained swollen. Patient instructed to keep arm elevated. Patient verbalized understanding. Goals: Patient will remain free from injury. Possible barriers to meeting goals: Ambulating with IV pole. Stability of the patient: Moderately stable - low risk of patient condition declining or worsening Summary regarding today's goals: Not Met: Patient experienced IV infiltrate. Treated per protocol. Patient was discharged. Pt discharged in stable condition. * Diana Alex RN - 01/14/2024 2:03 PM EDT Noticed PIV infiltrated with infliximab infusing, removed IV catheter and restarted PIV in right forearm. * Diana Alex RN - 01/14/2024 11:30 AM EDT Patient here for infusion. Patient offers no acute complaints. PIV placed with brisk blood return. Safety and Risk for Injury Patient will [...] Care Team (Late st Contact Info) Description 02/25/2024 11:15 AM EDT Hem/Onc Treatment Hematology/Oncology Treatment, [place] [address] [place] [address] [place], Chair 2 Hem Onc [place] [address] [place] [address] 03/09/2024 10:40 AM EST Telemedicine Rheumatology, [place] [address] [place] [address] Adwoa Baker, [address] [place] [address] 03/31/2024 11:00 AM EST Imaging Radiology [facility] [address] [place] [address] 04/06/2024 12:00 PM EST Office Visit Pulmonary Medicine, [facility] [address] [place] [address] Jose Angel Wheatley MD [address] [facility] [address] 06/09/2024 8:30 AM EST Telemedicine Psychiatry, [address] [place] [address] Ej Nieves CRNP [address] [facility] [place] [address] 06/16/2024 10:40 AM EST Office Visit [facility] [address] [place] [facility] [address] Benjamin Connor MD [address] [facility] [place] [id number] Scheduled Procedures Name Priority Associated Diagnoses Date/Ti me COLONOSCOPY FLEXIBLE PROXIMAL DIAGNOSTIC Recall History of colon polyps Health Maintenance Due Date Last Done Comments Alpha-1 Antitrypsin 1963 Adult Wellness Visit 2013 COVID-19 Vaccine (3 - Pfizer risk series) 08/31/2020 08/03/2020, 07/13/2020 CKD PHOS USE SMARTSET 98925 10/17/202309/25, 08/01/2021, 11/25/2018 HbA1c 12/03/2023 06/04/2023, 12/25, [...] 024, 10/16/2022, 08/01/2021 CKD HGB USE SMARTSET 63946 09/29/202409/29, 09/30/2023, 06/04/2023, Additional history exists Colonoscopy [...] this encounter Medical Devices Implanted Type Area Quilting Machine Helper Device Identifier Shelf Expiration Date Model / Serial / Lot Lead Dbs 0.5mm 42cm Marker - [id number] Implanted:Qty: 1 on 04/05/2023 by Neal Yoon MD [place] [facility] [place] Left: Head [employer] : NEUROLOGIC PAIN 02/11/2025 [id number] / / [id number] Lead Dbs 0.5mm 42cm - [id number] Implanted:Qty: 1 on 04/05/2023 by Neal Yoon MD at [place] [facility] Right: Head [employer] : NEUROLOGIC PAIN 02/11/2025 [id number] / / [id number] Cement Hydroset Injectable 5cc - [id number] Implanted:Qty: 1 on 04/05/2023 by Neal Yoon MD at [place] [facility] N/A: Head CATRINA 12/11/2024 [id number] / / [id number] Plate 12mm Str 2 Hole Un3 - [id number] Implanted:Qty: 1 on 04/05/2023 by Neal Yoon MD at [place] [facility] Right: Head CATRINA : CRANIOMAXILLOFACIAL [id number] / / Plate 12mm Str 2 Hole Un3 - [id number] Implanted:Qty: 1 on 04/05/2023 by Neal Yoon MD at OR [facility] Left: Head CATRINA : CRANIOMAXILLOFACIAL [id number] / / Neurostimulator Percept Pc - [id number] - [id number] Implanted:Qty: 1 on 04/09/2023 by Neal Yoon MD at [place] [facility] Left: Chest [employer] : NEUROLOGIC PAIN 02/06/2025 [id number] / [id number] / Ext Dbs 40cm Marker - [id number] Implanted:Qty: 1 on 04/09/2023 by Neal Yoon MD at OR [facility] Left: Chest [employer] : NEUROLOGIC PAIN 10/21/2024 [id number] / / Ext Dbs 40cm - [id number] - [id number] Implanted:Qty: 1 on 04/09/2023 by Neal Yoon MD at [place] [facility] Left: Chest [employer] : NEUROLOGIC PAIN 12/04/2024 [id number] / [id number] / Envelope Tyrx Lg Antibacterial - [id number] Implanted:Qty: 1 on 04/09/2023 by Neal Yoon MD at [place] [facility] Left: Chest [employer] 12/17/2023 [id number] / / [id number] documented as of this encounter Visit Diagnoses Diagnosis Psoriatic arthropathy (HCC)- Primary Psoriatic arthropathy documented in this encounter Administered Medications Inactive Administered Medications - up to 3 most recent administrations Medication Order MAR Action Action Date Dose Rate Site Acetaminophen (Tylenol) tab 650 mg 650 mg, Oral, ONCE, On Wed01/14/24 at 1215, For 1 dose, Maximum of 4 grams (4000 mg) per day. Given 01/14/2024 11:23 AM EDT 650 mg diphenhydrAMINE (Benadryl) cap 25 mg 25 mg, Oral, ONCE, On Wed01/14/24 at 1215, For 1 dose Given 01/14/2024 11:24 AM EDT 25 mg inFLIXimab-axxq (Avsola) 1,000 [...] = remaining volume, ONCE, 1 dose, On Wed01/14/24 at 1245 Rate Change 01/14/2024 1:20 PM EDT 300 mL/hr Rate Change 01/14/2024 12:44 PM EDT 250 mL/hr Rate Change 01/14/2024 12:29 PM EDT 160 mL/hr NSS infusion 500 mL, Intravenous, at 50 mL/hr, CONTINUOUS, Starting on Wed01/14/24 at 1215, Until Wed01/14/24 at 1904 Start Infusion 01/14/2024 11:18 AM EDT 500 mL 50 mL/hr documented in this encounter Advance Directives Documents on File Type Date Recorded Patient Amusement Equipment Operator Expl anation Power of Non Destructive Testing Scientist 10/30/2014 POWER OF A TTORNEY * Full [...] Question Answer Comments Discussion of Advance Direct jua nmanuel occurred with: Not Discussed due to patient's condition * Full Code Date Activated Date Inactivated Comments 04/05/2023 6:15 AM 04/05/2023 2:37 PM This order reflects the patients wishes and were consensually agreed upon. Question Answer Comments Discussion of Advance Direct juan manuel occurred with: Not Discussed due to patient's condition Care Teams Press Operator Printing Relationship Specialty Start Date End Date August, Benjamin De Jesus MD [address] [place] [place] [address] PCP - General Family Medicine 02/04/22 documented as of this encounter
--- OUTSIDE RECORDS SUMMARY | 2024-05-26 13:49 | External Medical Summary | Summary of Care ---
Author Name Unknown Organization [facility] Address [address] [facility] [address] Phone [phone] Care Team Providers Care Centrifugal Supervisor Name Role Phone Benjamin Connor MD Primary Care Provider [phone] Reason for Visit * Reason Onset Date Comments Medication Refill 02/09/2024 Encounter Details Date Type Department Care Team (Late st Contact Info) Description 02/09/2024 Refill Psychiatry, [facility] [address] [place] [address] Arlene Nieves CRNP [address] [place] [address] Allergies No known active allergiesdocumented as of this encounter (statuses as of 02/10/2024) Medications Medication Sig Dispensed Refills Start Date End Date Status inFLIXimab (REMICADE) 100 MG injection Administer 5 mg/kg intravenously. Active Zoster Vac Recomb Adjuvanted 50 MCG/0.5ML Intramuscular Suspension Reconstituted (Shingrix)Indication s:Need for shingles vaccine Inject 0.5 mL into a large muscle now and repeat dose in 60 to 180 days 1 Each 1 3 Active Additional Information Patient not taking.Informant: Patient, Reported on 12/10/2023 Allopurinol 100 MG Oral Tablet (Zyloprim)Indication s:Gouty arthritis of left great toe Take 1 Tablet by mouth in the morning. 30 Tablet 11 3 Active Docusate Sodium 100 MG Oral Capsule (Colace) Take 1 Capsule by mouth in the morning and 1 Capsule before bedtime. 60 Capsule 3 Active Acetaminophen 325 MG Oral Tablet (Tylenol) Take 1 Tablet by mouth every 6 hours as needed for Pain, Moderate or Pain, Mild. 30 Tablet 3 Active Montelukast Sodium 10 MG Oral Tablet (Singulair) Take 1 Tablet by mouth in the morning. 90 Tablet 3 4 Active Albuterol Sulfate HFA 108 (90 Base) MCG/ACT Inhalation Aerosol Solution Inhale 2 Puffs by mouth every 6 hours as needed (cough, SOB). 18 g 5 4 Active Levocetirizine Dihydrochloride 5 MG Oral Tablet Take 1 Tablet by mouth every evening. 90 Tablet 3 4 Active Trelegy Ellipta 100-62.5-25 MCG/ACT Aerosol Powder Breath Activated (Fluticasone-Umeclid inium-Vilanterol) Inhale 1 Puff by mouth in the morning. 60 Blister Dosing Unit 11 4 Active Furosemide 20 MG Oral Tablet (Lasix) Take 1 Tablet by mouth daily as needed (weight gain more than 3 pound in one week). 4 Active Fluticasone Propionate 50 MCG/ACT Nasal Suspension (Flonase)Indications :Chronic rhinitis Administer 2 Sprays into each nostril in the morning. 16 g 3 4 Active Methotrexate 2.5 MG Oral TabletIndications:Ps oriatic arthropathy (HCC) Take 8 Tablets by mouth once a week. 96 Tablet 4 03/01/20 24 Active Folic Acid 1 MG Oral TabletIndications:Ps oriatic arthropathy (HCC) Take 1 Tablet by mouth in the morning. 360 Tablet 4 11/27/19 25 Active Famotidine 20 MG Oral Tablet (Pepcid) Take 1 Tablet by mouth in the morning and 1 Tablet before bedtime. 180 Tablet 4 Active Atorvastatin Calcium 20 MG Oral Tablet (Lipitor)Indications :Dyslipidemia TAKE 1 TABLET BY MOUTH IN THE MORNING 90 Tablet 1 4 Active DULoxetine HCl 60 MG Oral Capsule Delayed Release Particles (Cymbalta) Take 1 Capsule by mouth 2 times a day in the morning and at noon. 180 Capsule 1 4 Active lamoTRIgine 200 MG Oral Tablet (LaMICtal) Take 1 Tablet by mouth in the morning. 90 Tablet 1 4 Active QUEtiapine Fumarate 300 MG Oral Tablet (SEROquel) Take 1 Tablet by mouth every night at bedtime. 90 Tablet 1 4 Active Namzaric 28-10 MG Oral Capsule Extended Release 24 Hour (Memantine HCl-Donepezil HCl) 1 TAB DAILY TAKE WITH LARGEST MEAL OF THE DAY. 90 Capsule 1 4 Active Namzaric 28-10 MG Oral Capsule Extended Release 24 Hour (Memantine HCl-Donepezil HCl) 1 TAB DAILY TAKE WITH LARGEST MEAL OF THE DAY. 90 Capsule 1 4 02/09/20 24 Discontinu ed(Refill) Hospital, Clinic, or Other Facility Administered Medication Ordered Dose Route Frequency Start Date End Date Status Albuterol Sulfate (Proventil) (5 MG/ML) 0.5% *conc* inhalation solution 2.5 mgIndications:Chronic cough 2.5 mg NEBULIZER PRN 09/02/2023 09/01/2024 Active Albuterol Sulfate (Proventil) (2.5 MG/3ML) 0.083% inhalation solution 2.5 mgIndications:Chronic cough 2.5 mg NEBULIZER PRN 09/02/2023 09/01/2024 Active documented as of this encounter (statuses as of 02/10/2024) Active Problems Problem Noted Date Diagnosed Date [...] with psychiatry. Dr. Villalta at [facility] Psych. documented as of this encounter (statuses as of 02/10/2024) Resolved Problems Problem Noted Date Diagnosed Date [...] as of this encounter (statuses as of 02/10/2024) Immunizations Name Administration Dates Next Due COVID-19 mRNA, LNP-s, No Pre serve, 2-Dose Series ([employer]) 08/03/2020,07/13/2020 Pneumococcal Conjugate Vacc, 13 Valent (Prevnar) [...] Yes 04/05/2023 documented as of this encounter Miscellaneous Notes * Telephone Encounter - Arlene Nieves CRNP - 02/10/2024 2:16 PM EDTSigned Prescriptions: Disp Refills Namzaric 28-10 MG Oral Capsule Extended Re*90 Cap*1 Si TAB DAILY TAKE WITH LARGEST MEAL OF THE DAY. Authorizing Provider: ARLENE NIEVES * Telephone Encounter - Rocio Alexander MED ASSIST - 02/09/2024 12:50 PM EDT Pharmacy requesting refill on Namzaric. Medication was last filled on 07/30/23 with 1 refills. Patient last seen on 01/07/24 with return appointment scheduled for 06/09/24. Patient had 0 cancelled appointments and 0 NO SHOW appointments. documented in this encounter Plan of Treatment Upcoming Encounters Date Type Department Care Team (Late st Contact Info) Description 02/25/2024 11:15 AM EDT Hem/Onc Treatment Hematology/Oncology Treatment, [address] [id number] Christina, Chair 2 Hem Onc [address] [address] 03/09/2024 10:40 AM EST Telemedicine Rheumatology, [place] [address] [place] [address] Adwoa Baker DO [address] [place] [address] 03/31/2024 11:00 AM EST Imaging Radiology [facility] [address] [facility] [place] [address] 04/06/2024 12:00 PM EST Office Visit Pulmonary Medicine, [facility] [address] [facility] [place] [address] Jose Angel Wheatley MD [address] [place] [address] 06/09/2024 8:30 AM EST Telemedicine Psychiatry, [facility] [address] [place] [address] Arlene Nieves CRNP [address] [place] [address] 06/16/2024 10:40 AM EST Office Visit [facility] [address] [place] [address] AugustBenjamin MD [address] [place] [address] Scheduled Procedures Name Priority Associated Diagnoses Date/Ti me COLONOSCOPY FLEXIBLE PROXIMAL DIAGNOSTIC Recall History of colon polyps Health Maintenance Due Date Last Done Comments Alpha-1 Antitrypsin 1963 Adult Wellness Visit 2013 COVID-19 Vaccine (3 - Pfizer risk series) 08/31/2020 08/03/2020, 07/13/2020 CKD PHOS USE SMARTSET 15042 10/17/202309/25, 08/01/2021, 11/25/2018 HbA1c 12/03/2023 06/04/2023, 12/25, [...] 024, 10/16/2022, 08/01/2021 CKD HGB USE SMARTSET 51417 09/29/202409/29, 09/30/2023, 06/04/2023, Additional history exists Colonoscopy [...] this encounter Medical Devices Implanted Type Area Retail Agent Device Identifier Shelf Expiration Date Model / Serial / Lot Lead Dbs 0.5mm 42cm Marker - [id number] Implanted:Qty: 1 on 04/05/2023 by Neal Yoon MD at [place] [facility] Left: Head [employer] : NEUROLOGIC PAIN 02/11/2025 [id number] / / [id number] Lead Dbs 0.5mm 42cm - [id number] Implanted:Qty: 1 on 04/05/2023 by Neal Yoon MD at [place] [facility] Right: Head [employer] : NEUROLOGIC PAIN 02/11/2025 [id number] / / [id number] Cement Hydroset Injectable 5cc - [id number] Implanted:Qty: 1 on 04/05/2023 by Neal Yoon MD at [place] [facility] N/A: Head CATRINA 12/11/2024 [id number] / / [id number] Plate 12mm Str 2 Hole Un3 - [id number] Implanted:Qty: 1 on 04/05/2023 by Neal Yoon MD at [place] [facility] Right: Head CATRINA : CRANIOMAXILLOFACIAL [id number] / / Plate 12mm Str 2 Hole Un3 - [id number] Implanted:Qty: 1 on 04/05/2023 by Neal Yoon MD at [place] [facility] Left: Head CATRINA : CRANIOMAXILLOFACIAL [id number] / / Neurostimulator Percept Pc - [id number] - [id number] Implanted:Qty: 1 on 04/09/2023 by Neal Yoon MD at [place] [facility] Left: Chest [employer] : NEUROLOGIC PAIN 02/06/2025 [id number] / [id number] / Ext Dbs 40cm Marker - [id number] Implanted:Qty: 1 on 04/09/2023 by Neal Yoon MD at [place] [facility] Left: Chest [employer] : NEUROLOGIC PAIN 10/21/2024 [id number] / / Ext Dbs 40cm - [id number] - [id number] Implanted:Qty: 1 on 04/09/2023 by Neal Yoon MD at [place] [facility] Left: Chest [employer] : NEUROLOGIC PAIN 12/04/2024 [id number] / [id number] / Envelope Tyrx Lg Antibacterial - [id number] Implanted:Qty: 1 on 04/09/2023 by Neal Yoon MD at [place] [facility] Left: Chest [employer] 12/17/2023 [id number] / / [id number] documented as of this encounter Advance Directives Documents on File Type Date Recorded Patient Photographers' Model Expl anation Power of Headline Writer 10/30/2014 POWER OF A TTORNEY * Full [...] Discussed due to patient's condition Care Teams Centrifugal Supervisor Relationship Specialty Start Date End Date August, Benjamin De Jesus MD [address] [place] [address] PCP - General Family Medicine 02/04/22 documented as of this encounter
--- OUTSIDE RECORDS SUMMARY | 2024-05-26 13:49 | External Medical Summary | Summary of Care ---
Author Name Unknown Organization [facility] Address [address] [place] [address] Phone [phone] Care Team Providers Care Breakfast Server Name Role Phone Benjamin Connor MD Primary Care Provider [phone] Reason for Visit * Reason Comments IV Therapy Infliximab * Episode Based Medications (Routine) - Authorized Specialty Diagnoses / Procedures Referred By Krupa t Referred To Contact Diagnoses Psoriatic arthropathy (HCC) Procedures [place] [address] [place] [address] Anc Hem/Onc Karen Vasquez DEPT CLOSED - 03/09/23 [address] [facility] [place] [address] Referral ID Status Reason Start Date Expiration Date V isits Requested Visits Authorized [id number] Authorized 01/19/2024 01/18/2025 99 99 Encounter Details Date Type Department Care Team (Latest Contact Info) Description 01/14/2024 11:15 AM EDT Hem/Onc Treatment Hematology/Oncology Treatment, [place] [address] [place] [address] Christina, Chair 8 Hem Onc [address] [place] [address] Psoriatic arthropathy (HCC)* Allergies No known active allergiesdocumented as of this encounter (statuses as of 02/06/2024) Medications Medication Sig Dispensed Refills Start Date [...] as of this encounter (statuses as of 02/06/2024) Active Problems Problem Noted Date Diagnosed Date [...] as of this encounter (statuses as of 02/06/2024) Resolved Problems Problem Noted Date Diagnosed Date [...] as of this encounter (statuses as of 02/06/2024) Immunizations Name Administration Dates Next Due COVID-19 mRNA, LNP-s, No Pre serve, 2-Dose Series ([employer]) 08/03/2020,07/13/2020 Pneumococcal Conjugate Vacc, 13 Valent (Prevnar) [...] 11:15 AM EDT Hem/Onc Treatment Hematology/Oncology Treatment, [place] [address] [place] [address] Park, Chair 2 Hem Onc [place] [address] [place] [address] 03/09/2024 10:40 AM EST Telemedicine Rheumatology, [place] [address] [place] [address] Adwoa Baker, [address] [place] [address] 03/31/2024 11:00 AM EST Imaging Radiology [facility] [address] [place] [address] 04/06/2024 12:00 PM EST Office Visit Pulmonary Medicine, [facility] [address] [place] [address] Jose Angel Wheatley MD [address] [facility] [address] 06/09/2024 8:30 AM EST Telemedicine Psychiatry, [address] [place] [address] Ej Nieves CRNP [address] [facility] [place] [address] 06/16/2024 10:40 AM EST Office Visit [facility] [address] [place] [facility] [place] [address] Benjamin Connor MD [address] [facility] [place] [id number] Scheduled Procedures Name Priority Associated Diagnoses Date/Ti me COLONOSCOPY FLEXIBLE PROXIMAL DIAGNOSTIC Recall History of colon polyps Health Maintenance Due Date Last Done Comments Alpha-1 Antitrypsin 1963 Adult Wellness Visit 2013 COVID-19 Vaccine (3 - Pfizer risk series) 08/31/2020 08/03/2020, 07/13/2020 CKD PHOS USE SMARTSET 54521 10/17/202309/25, 08/01/2021, 11/25/2018 HbA1c 12/03/2023 06/04/2023, 12/25, [...] 024, 10/16/2022, 08/01/2021 CKD HGB USE SMARTSET 88901 09/29/202409/29, 09/30/2023, 06/04/2023, Additional history exists Colonoscopy [...] this encounter Medical Devices Implanted Type Area Oil Well Services Supervisor Device Identifier Shelf Expiration Date Model / Serial / Lot Lead Dbs 0.5mm 42cm Marker - [id number] Implanted:Qty: 1 on 04/05/2023 by Neal Yoon MD at OR [facility] Left: Head [employer] : NEUROLOGIC PAIN 02/11/2025 [id number] / / [id number] Lead Dbs 0.5mm 42cm - [id number] Implanted:Qty: 1 on 04/05/2023 by Neal Yoon MD at OR [facility] Right: Head [employer] : NEUROLOGIC PAIN 02/11/2025 [id number] / / [id number] Cement Hydroset Injectable 5cc - [id number] Implanted:Qty: 1 on 04/05/2023 by Neal Yoon MD at OR [facility] N/A: Head CATRINA 12/11/2024 [id number] / / [id number] Plate 12mm Str 2 Hole Un3 - [id number] Implanted:Qty: 1 on 04/05/2023 by Neal Yoon MD at OR [facility] Right: Head CATRINA : CRANIOMAXILLOFACIAL [id number] / / Plate 12mm Str 2 Hole Un3 - [id number] Implanted:Qty: 1 on 04/05/2023 by Neal Yoon MD at OR [facility] Left: Head CATRINA : CRANIOMAXILLOFACIAL [id number] / / Neurostimulator Percept Pc - [id number] - [id number] Implanted:Qty: 1 on 04/09/2023 by Neal Yoon MD at OR [facility] Left: Chest [employer] : NEUROLOGIC PAIN 02/06/2025 [id number] / [id number] / Ext Dbs 40cm Marker - [id number] Implanted:Qty: 1 on 04/09/2023 by Neal Yoon MD at OR [facility] Left: Chest [employer] : NEUROLOGIC PAIN 10/21/2024 [id number] / / Ext Dbs 40cm - [id number] - [id number] Implanted:Qty: 1 on 04/09/2023 by Neal Yoon MD at OR [facility] Left: Chest [employer] : NEUROLOGIC PAIN 12/04/2024 [id number] / [id number] / Envelope Tyrx Lg Antibacterial - [id number] Implanted:Qty: 1 on 04/09/2023 by Neal Yoon MD at OR [facility] Left: Chest [employer] 12/17/2023 [id number] / / [id number] documented as of this encounter Visit Diagnoses [...] Documents on File Type Date Recorded Patient Maintenance Supervisor 2Nd Shift Expl anation Power of Community Organization Director 10/30/2014 POWER OF A TTORNEY * Full [...] Discussed due to patient's condition Care Teams Breakfast Server Relationship Specialty Start Date End Date August, Benjamin De Jesus MD [address] [facility] [place] [address] PCP - General Family Medicine 02/04/22 documented as of this encounter
--- OUTSIDE RECORDS SUMMARY | 2024-05-26 13:49 | External Medical Summary | Summary of Care ---
Author Name Unknown Organization [facility] Address [address] [place] [address] Phone [phone] Care Team Providers Care Cnc Machinist Name Role Phone Benjamin Connor MD Primary Care Provider [phone] Reason for Visit * Reason Comments IV Therapy Infliximab * Episode Based Medications (Routine) - Authorized Specialty Diagnoses / Procedures Referred By Krupa t Referred To Contact Diagnoses Psoriatic arthropathy (HCC) Procedures [place] [address] [place] [address] Anc Hem/Onc Karen Vasquez DEPT CLOSED - 03/09/23 [address] [facility] [place] [address] Referral ID Status Reason Start Date Expiration Date V isits Requested Visits Authorized [id number] Authorized 01/19/2024 01/18/2025 99 99 Encounter Details Date Type Department Care Team (Latest Contact Info) Description 01/14/2024 11:15 AM EDT Hem/Onc Treatment Hematology/Oncology Treatment, [place] [address] [place] [address] Christina, Chair 8 Hem Onc [address] [place] [address] Psoriatic arthropathy (HCC)* Allergies No known [...] 11:15 AM EDT Hem/Onc Treatment Hematology/Oncology Treatment, [place] [address] [place] [address] Park, Chair 2 Hem Onc [address] [address] [place] [address] 03/09/2024 10:40 AM EST Telemedicine Rheumatology, [place] [address] [place] [address] Adwoa Baker, [address] [place] [address] 03/31/2024 11:00 AM EST Imaging Radiology [facility] [address] [place] [address] 04/06/2024 12:00 PM EST Office Visit Pulmonary Medicine, [facility] [address] [place] [address] Jose Angel Wheatley MD [address] [facility] [address] 06/09/2024 8:30 AM EST Telemedicine Psychiatry, [address] [place] [address] Ej Nieves CRNP [address] [facility] [place] [address] 06/16/2024 10:40 AM EST Office Visit [facility] [address] [place] [facility] [place] [place] [address] Benjamin Connor MD [address] [facility] [place] [id number] Scheduled Procedures Name Priority Associated Diagnoses Date/Ti me COLONOSCOPY FLEXIBLE PROXIMAL DIAGNOSTIC Recall History of colon polyps Health Maintenance Due Date Last Done Comments Alpha-1 Antitrypsin 1963 Adult Wellness Visit 2013 COVID-19 Vaccine (3 - Pfizer risk series) 08/31/2020 08/03/2020, 07/13/2020 CKD PHOS USE SMARTSET 43332 10/17/202309/25, 08/01/2021, 11/25/2018 HbA1c 12/03/2023 06/04/2023, 12/25, [...] 024, 10/16/2022, 08/01/2021 CKD HGB USE SMARTSET 51431 09/29/202409/29, 09/30/2023, 06/04/2023, Additional history exists Colonoscopy [...] this encounter Medical Devices Implanted Type Area Nca Certified Concierge Device Identifier Shelf Expiration Date Model / Serial / Lot Lead Dbs 0.5mm 42cm Marker - [id number] Implanted:Qty: 1 on 04/05/2023 by Neal Yoon MD at [place] [facility] Left: Head [employer] : NEUROLOGIC PAIN 02/11/2025 [id number] / / [id number] Lead Dbs 0.5mm 42cm - [id number] Implanted:Qty: 1 on 04/05/2023 by Neal Yoon MD at OR [facility] Right: Head [employer] : NEUROLOGIC PAIN 02/11/2025 [id number] / / [id number] Cement Hydroset Injectable 5cc - [id number] Implanted:Qty: 1 on 04/05/2023 by Neal Yoon MD at OR [facility] N/A: Head CATRINA 12/11/2024 [id number] / / [id number] Plate 12mm Str 2 Hole Un3 - [id number] Implanted:Qty: 1 on 04/05/2023 by Neal Yoon MD at OR [facility] Right: Head CATRINA : CRANIOMAXILLOFACIAL [id number] / / Plate 12mm Str 2 Hole Un3 - [id number] Implanted:Qty: 1 on 04/05/2023 by Neal Yoon MD at OR [facility] Left: Head CATRINA : CRANIOMAXILLOFACIAL 53-39080 / / Neurostimulator Percept Pc - [id number] - [id number] Implanted:Qty: 1 on 04/09/2023 by Neal Yoon MD at OR [facility] Left: Chest [employer] : NEUROLOGIC PAIN 02/06/2025 [id number] / [id number] / Ext Dbs 40cm Marker - [id number] Implanted:Qty: 1 on 04/09/2023 by Neal Yoon MD at OR [facility] Left: Chest [employer] : NEUROLOGIC PAIN 10/21/2024 [id number] / / Ext Dbs 40cm - [id number] - [id number] Implanted:Qty: 1 on 04/09/2023 by Neal Yoon MD at OR [facility] Left: Chest [employer] : NEUROLOGIC PAIN 12/04/2024 [id number] / [id number] / Envelope Tyrx Lg Antibacterial - [id number] Implanted:Qty: 1 on 04/09/2023 by Neal Yoon MD at OR [facility] Left: Chest [employer] 12/17/2023 [id number] / / [id number] documented as of this encounter Visit Diagnoses [...] Documents on File Type Date Recorded 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
--- OUTSIDE RECORDS SUMMARY | 2024-05-26 13:49 | External Medical Summary | Summary of Care ---
Author Name Unknown Organization [facility] [address] [facility] [address] Phone [phone] Care Team Providers Care Roller Painter Name Role Phone Benjamin Connor MD Primary Care Provider [phone] Reason for Visit * Reason Onset Date Comments Medication Refill 01/25/2024 Encounter Details Date Type Department Care Team (Late st Contact Info) Description 01/25/2024 Refill Psychiatry, [facility] [address] [place] [address] Ej Nieves CRNP [address] [place] [address] Allergies No known active allergiesdocumented as of this encounter (statuses as of 01/27/2024) Medications Medication Sig Dispensed Refills Start Date End Date Status inFLIXimab (REMICADE) 100 MG injection Administer 5 mg/kg intravenously. Active Zoster Vac Recomb Adjuvanted 50 MCG/0.5ML Intramuscular Suspension Reconstituted (Shingrix)Indications :Need for shingles vaccine Inject 0.5 mL into a large muscle now and repeat dose in 60 to 180 days 1 Each 1 05/15/2022 Active Additional Information Patient not taking.Informant: Patient, Reported on 12/10/2023 Allopurinol 100 MG Oral Tablet (Zyloprim)Indications :Gouty arthritis of left great toe Take 1 Tablet by mouth in the morning. 30 Tablet 11 01/09/2023 Active Docusate Sodium 100 MG Oral Capsule (Colace) Take 1 Capsule by mouth in the morning and 1 Capsule before bedtime. 60 Capsule 04/06/2023 Active Acetaminophen 325 MG Oral Tablet (Tylenol) Take 1 Tablet by mouth every 6 hours as needed for Pain, Moderate or Pain, Mild. 30 Tablet 04/06/2023 Active Montelukast Sodium 10 MG Oral Tablet (Singulair) Take 1 Tablet by mouth in the morning. 90 Tablet 3 07/16/2023 Active Albuterol Sulfate HFA 108 (90 Base) MCG/ACT Inhalation Aerosol Solution Inhale 2 Puffs by mouth every 6 hours as needed (cough, SOB). 18 g 5 07/16/2023 Active Namzaric 28-10 MG Oral Capsule Extended Release 24 Hour (Memantine HCl-Donepezil HCl) 1 TAB DAILY TAKE WITH LARGEST MEAL OF THE DAY. 90 Capsule 1 07/30/2023 Active Levocetirizine Dihydrochloride 5 MG Oral Tablet Take 1 Tablet by mouth every evening. 90 Tablet 3 07/30/2023 Active Trelegy Ellipta 100-62.5-25 MCG/ACT Aerosol Powder Breath Activated (Fluticasone-Umeclidi nium-Vilanterol) Inhale 1 Puff by mouth in the morning. 60 Blister Dosing Unit 11 07/30/2023 Active Furosemide 20 MG Oral Tablet (Lasix) Take 1 Tablet by mouth daily as needed (weight gain more than 3 pound in one week). 08/10/2023 Active Fluticasone Propionate 50 MCG/ACT Nasal Suspension (Flonase)Indications: Chronic rhinitis Administer 2 Sprays into each nostril in the morning. 16 g 3 10/18/2023 Active Methotrexate 2.5 MG Oral TabletIndications:Pso riatic arthropathy (HCC) Take 8 Tablets by mouth once a week. 96 Tablet 12/02/2023 4 Active Folic Acid 1 MG Oral TabletIndications:Pso riatic arthropathy (HCC) Take 1 Tablet by mouth in the morning. 360 Tablet 12/02/2023 5 Active Famotidine 20 MG Oral Tablet (Pepcid) Take 1 Tablet by mouth in the morning and 1 Tablet before bedtime. 180 Tablet 12/30/2023 Active Atorvastatin Calcium 20 MG Oral Tablet (Lipitor)Indications: Dyslipidemia TAKE 1 TABLET BY MOUTH IN THE MORNING 90 Tablet 1 01/25/2024 Active Hospital, Clinic, or Other Facility Administered Medication Ordered Dose Route Frequency Start Date End Date Status Albuterol Sulfate (Proventil) (5 MG/ML) 0.5% *conc* inhalation solution 2.5 mgIndications:Chronic cough 2.5 mg NEBULIZER PRN 09/02/2023 09/01/2024 Active Albuterol Sulfate (Proventil) (2.5 MG/3ML) 0.083% inhalation solution 2.5 mgIndications:Chronic cough 2.5 mg NEBULIZER PRN 09/02/2023 09/01/2024 Active documented as of this encounter (statuses as of 01/27/2024) Active Problems Problem Noted Date Diagnosed Date [...] sugars. Continue with psychiatry. Dr. Villalta at [facility] Psych. documented as of this encounter (statuses as of 01/27/2024) Resolved Problems Problem Noted Date Diagnosed Date [...] as of this encounter (statuses as of 01/27/2024) Immunizations Name Administration Dates Next Due COVID-19 mRNA, LNP-s, No Pre serve, 2-Dose Series ([employer]) 08/03/2020,07/13/2020 Pneumococcal Conjugate Vacc, 13 Valent (Prevnar) [...] encounter Miscellaneous Notes * Telephone Encounter - Rocio Alexander MED ASSIST - 01/25/2024 3:39 PM EDT Pharmacy requesting refill on SEROquel. Medication was last filled on 07/30/23 with 1 refills. Patient last seen on 01/07/24 with return appointment scheduled for 06/09/24. Patient had 0 cancelled appointments and 0 NO SHOW appointments. documented in this encounter Plan of Treatment Upcoming Encounters Date Type Department Care Team (Late st Contact Info) Description 02/25/2024 11:15 AM EDT Hem/Onc Treatment Hematology/Oncology Treatment, [place] [address] [place] [phone] Christina, Chair 2 Hem Onc Scenery [address] [place] [address] 03/09/2024 10:40 AM EST Telemedicine Rheumatology, [place] [address] [place] [address] Adwoa Baker DO [address] [place] [address] 03/31/2024 11:00 AM EST Imaging Radiology [facility] [address] [facility] [address] [place] [address] 04/06/2024 12:00 PM EST Office Visit Pulmonary Medicine, [facility] [address] [place] [address] Jose Angel Wheatley MD [address] [place] [address] 06/09/2024 8:30 AM EST Telemedicine Psychiatry, [facility] [address] [place] [address] Ej Nieves CRNP [address] [place] [address] 06/16/2024 10:40 AM EST Office Visit [facility] [address] [place] [phone] AugustBenjamin MD [address], [place] [id number] Scheduled Procedures Name Priority Associated Diagnoses Date/Ti me COLONOSCOPY FLEXIBLE PROXIMAL DIAGNOSTIC Recall History of colon polyps Health Maintenance Due Date Last Done Comments Alpha-1 Antitrypsin 1963 Adult Wellness Visit 2013 COVID-19 Vaccine (3 - Pfizer risk series) 08/31/2020 08/03/2020, 07/13/2020 CKD PHOS USE SMARTSET 46337 10/17/202309/25, 08/01/2021, 11/25/2018 HbA1c 12/03/2023 06/04/2023, 12/25, [...] 024, 10/16/2022, 08/01/2021 CKD HGB USE SMARTSET 28155 09/29/202409/29, 09/30/2023, 06/04/2023, Additional history exists Colonoscopy [...] this encounter Medical Devices Implanted Type Area Topographic Computator Device Identifier Shelf Expiration Date Model / Serial / Lot Lead Dbs 0.5mm 42cm Marker - [id number] Implanted:Qty: 1 on 04/05/2023 by Neal Yoon MD [place] [facility] [place]: Head [employer] : NEUROLOGIC PAIN 02/11/2025 [id number] / / [id number] Lead Dbs 0.5mm 42cm - [id number] Implanted:Qty: 1 on 04/05/2023 by Neal Yoon MD at [place] [facility] [place] Right: Head [employer] : NEUROLOGIC PAIN 02/11/2025 [id number] / / [id number] Cement Hydroset Injectable 5cc - [id number] Implanted:Qty: 1 on 04/05/2023 by Neal Yoon MD at [place] [facility] [place] N/A: Head CATRINA 12/11/2024 [id number] / / [id number] Plate 12mm Str 2 Hole Un3 - [id number] Implanted:Qty: 1 on 04/05/2023 by Neal Yoon MD at [place] [facility] [place] Right: Head CATRINA : CRANIOMAXILLOFACIAL [id number] / / Plate 12mm Str 2 Hole Un3 - [id number] Implanted:Qty: 1 on 04/05/2023 by Neal Yoon MD at [place] [facility] [place] Left: Head CATRINA : CRANIOMAXILLOFACIAL [id number] / / Neurostimulator Percept Pc - [id number] - [id number] Implanted:Qty: 1 on 04/09/2023 by Neal Yoon MD at [place] [facility] [place] Left: Chest [employer] : NEUROLOGIC PAIN 02/06/2025 [id number] / [id number] / Ext Dbs 40cm Marker - [id number] Implanted:Qty: 1 on 04/09/2023 by Neal Yoon MD at [place] [facility] [place] Left: Chest [employer] : NEUROLOGIC PAIN 10/21/2024 [id number] / / Ext Dbs 40cm - [id number] - [id number] Implanted:Qty: 1 on 04/09/2023 by Neal Yoon MD at [place] [facility] [place] Left: Chest [employer] : NEUROLOGIC PAIN 12/04/2024 [id number] / [id number] / Envelope Tyrx Lg Antibacterial - [id number] Implanted:Qty: 1 on 04/09/2023 by Neal Yoon MD at [place] [facility] [place] Left: Chest [employer] 12/17/2023 [id number] / / [id number] documented as of this encounter Advance Directives Documents on File Type Date Recorded 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 [place] [address] PCP - General Family Medicine 02/04/22 documented as of this encounter
--- OUTSIDE RECORDS SUMMARY | 2024-05-26 13:49 | External Medical Summary | Summary of Care ---
Author Name Unknown Organization [facility] Address [address] [place] [address] Phone [phone] Care Team Providers Care Nuclear Fuels Reclamation Engineer Name Role Phone Benjamin Connor MD Primary Care Provider [phone] Reason for Visit * Reason Comments IV Therapy Avsola * Episode Based Medications (Routine) - Authorized Specialty Diagnoses / Procedures Referred By Krupa t Referred To Contact Diagnoses Psoriatic arthropathy (HCC) Procedures [place] [address] [place] [address] Anc Hem/Onc Karen Vasquez DEPT CLOSED - 03/09/[address] [facility] [place] [address] Referral ID Status Reason Start Date Expiration Date V isits Requested Visits Authorized [id number] Authorized 01/19/2024 01/18/2025 99 99 Encounter Details Date Type Department Care Team (Latest Contact Info) Description 02/25/2024 11:15 AM EDT Hem/Onc Treatment Hematology/Oncology Treatment, [place] [address] [place] [phone] Christina, Chair [address] On[address] [place] [address] Psoriatic arthropathy (HCC)* Allergies No known active allergiesdocumented as of this encounter (statuses as of 02/25/2024) Medications Medication Sig Dispensed Refills Start Date [...] (cough, SOB). 18 g 5 07/16/2023 Active Levocetirizine Dihydrochloride 5 MG Oral Tablet [...] THE MORNING 90 Tablet 1 01/25/2024 Active DULoxetine HCl 60 MG Oral Capsule Delayed Release Particles (Cymbalta) Take 1 Capsule by mouth 2 times a day in the morning and at noon. 180 Capsule 1 01/27/2024 Active lamoTRIgine 200 MG Oral Tablet (LaMICtal) Take 1 Tablet by mouth in the morning. 90 Tablet 1 01/27/2024 Active QUEtiapine Fumarate 300 MG Oral Tablet (SEROquel) Take 1 Tablet by mouth every night at bedtime. 90 Tablet 1 01/27/2024 Active Namzaric 28-10 MG Oral Capsule Extended Release 24 Hour (Memantine HCl-Donepezil HCl) 1 TAB DAILY TAKE WITH LARGEST MEAL OF THE DAY. 90 Capsule 1 02/10/2024 Active Hospital, Clinic, or Other Facility Administered Medication Ordered Dose Route Frequency Start Date End Date Status Albuterol Sulfate (Proventil) (5 MG/ML) 0.5% *conc* inhalation solution 2.5 mgIndications:Chronic cough 2.5 mg NEBULIZER PRN 09/02/2023 09/01/2024 Active Albuterol Sulfate (Proventil) (2.5 MG/3ML) 0.083% inhalation solution 2.5 mgIndications:Chronic cough 2.5 mg NEBULIZER PRN 09/02/2023 09/01/2024 Active documented as of this encounter (statuses as of 02/25/2024) Active Problems Problem Noted Date Diagnosed Date [...] as of this encounter (statuses as of 02/25/2024) Resolved Problems Problem Noted Date Diagnosed Date [...] as of this encounter (statuses as of 02/25/2024) Immunizations Name Administration Dates Next Due COVID-19 [...] No 08/06/2023 Does the household have a [facility] source of income? (Household - for ages [...] as of this encounter Nursing Notes * Carolina Pleitez RN - 02/25/2024 2:50 PM EDT Goals: Patient will remain free from injury. Possible barriers to meeting goals: ambulation with IV pole Stability of the patient: Moderately stable - low risk of patient condition declining or worsening Summary regarding today's goals: Met: patient without injury during treatment today. Pt tolerated infusion well. No complaints. Discharged in stable condition. * Carolina Pleitez RN - 02/25/2024 11:45 AM EDT Chair [...] Description 03/09/2024 10:40 AM EST Telemedicine Rheumatology, [place] [address] [place] [address] Adwoa Baker DO [address] [place] [address] 03/31/2024 11:00 AM EST Imaging Radiology [facility] 1st Floor, [place] [address] [place] [address] 04/06/2024 12:00 PM EST Office Visit Pulmonary Medicine, [facility] [address] [place] [address] Jose Angel Wheatley MD [address] [place] [address] 04/07/2024 8:45 AM EST Hem/Onc Treatment Hematology/Oncology Treatment, [place] [address] [place] [phone] Park, Chair 2 Hem Onc Scenery [address] [place] [address] 06/09/2024 8:30 AM EST Telemedicine Psychiatry, [facility] [address] [place] [address] Ej Nieves CRNP [address] [place] [address] 06/16/2024 10:40 AM EST Office Visit [facility] [address] [place] [address] AugustBenjamin MD [address] [place], [place] [address] Scheduled Procedures Name Priority Associated Diagnoses Date/Ti me COLONOSCOPY FLEXIBLE PROXIMAL DIAGNOSTIC Recall History of colon polyps Health Maintenance Due Date Last Done Comments Alpha-1 Antitrypsin 1963 Adult Wellness Visit 2013 COVID-19 Vaccine (3 - Pfizer risk series) 08/31/2020 08/03/2020, 07/13/2020 CKD PHOS USE SMARTSET 69998 10/17/2023 06/2 06/2022, 08/01/2021, 11/25/2018 HbA1c 12/03/2023 [...] 024, 10/16/2022, 08/01/2021 CKD HGB USE SMARTSET 94039 09/29/202409/29, 09/30/2023, 06/04/2023, Additional history exists Colonoscopy [...] this encounter Medical Devices Implanted Type Area Media Senior Recruiter Device Identifier Shelf Expiration Date Model / Serial / Lot Lead Dbs 0.5mm 42cm Marker - [id number] Implanted:Qty: 1 on 04/05/2023 by Neal Yoon MD at [place] [facility] [place] Left: Head [employer] : NEUROLOGIC PAIN 02/11/2025 [id number] / / [id number] Lead Dbs 0.5mm 42cm - [id number] Implanted:Qty: 1 on 04/05/2023 by Neal Yoon MD at OR [facility] [place] Right: Head [employer] : NEUROLOGIC PAIN 02/11/2025 [id number] / / [id number] Cement Hydroset Injectable 5cc - [id number] Implanted:Qty: 1 on 04/05/2023 by Neal Yoon MD at OR [facility] N/A: Head CATRINA 12/11/2024 [id number] / / [id number] Plate 12mm Str 2 Hole Un3 - [id number] Implanted:Qty: 1 on 04/05/2023 by Neal Yoon MD at OR [facility] [place] Right: Head CATRINA : CRANIOMAXILLOFACIAL [id number] / / Plate 12mm Str 2 Hole Un3 - [id number] Implanted:Qty: 1 on 04/05/2023 by Neal Yoon MD at OR [facility] [place] Left: Head CATRINA : CRANIOMAXILLOFACIAL [id number] / / Neurostimulator Percept Pc - [id number] - [id number] Implanted:Qty: 1 on 04/09/2023 by Neal Yoon MD at OR [facility] [place] Left: Chest [employer] : NEUROLOGIC PAIN 02/06/2025 [id number] / [id number] / Ext Dbs 40cm Marker - [id number] Implanted:Qty: 1 on 04/09/2023 by Neal Yoon MD at OR [facility] [place] Left: Chest [employer] : NEUROLOGIC PAIN 10/21/2024 [id number] / / Ext Dbs 40cm - [id number] - [id number] Implanted:Qty: 1 on 04/09/2023 by Neal Yoon MD at OR [facility] [place] Left: Chest [employer] : NEUROLOGIC PAIN 12/04/2024 [id number] / [id number] / Envelope Tyrx Lg Antibacterial - [id number] Implanted:Qty: 1 on 04/09/2023 by Neal Yoon MD at [place] [facility] [place] Left: Chest [employer] 12/17/2023 [id number] / / [id number] documented as of this encounter Visit Diagnoses Diagnosis Psoriatic arthropathy (HCC)- Primary Psoriatic arthropathy documented in this encounter Administered Medications Active Administered Medications - up to 3 most recent administrations Medication Order MAR Action Action Date Dose Rate Site diphenhydrAMINE (Benadryl) inj 50 mg 50 mg, IV Push, ONCE PRN Other, Hypersensitivity Reaction, Starting on Wed02/25/24 at 1131, Until 02/26/24 at 1130, For 24 hours EPINEPHrine 1 MG/ML inj 0.3 mg 0.3 mg, Intramuscular, ONCE PRN Other, Hypersensitivity Reaction or Anaphylaxis, Starting on Wed02/25/24 at 1131, Until 02/26/24 at 1130, For 24 hours hEParin 100 UNIT/ML Lock Flush inj 500 Units 500 Units (5 mL), IV Lock, PRN Other, IV Flush, Starting on Wed02/25/24 at 1131, Until 02/26/24 at 1130, For 24 hours, Do not flush if lock, PICC, or central line not in place; IV infusing or unable to flush. Hydrocortisone Sod Suc (PF) (Solu-Cortef) inj 100 mg 100 mg, IV Push, ONCE PRN Other, Hypersensitivity Reaction, Starting on Wed02/25/24 at 1131, Until 02/26/24 at 1130, For 24 hours NSS infusion 500 mL, Intravenous, at 50 mL/hr, CONTINUOUS, Starting on Wed02/25/24 at 1245, Until Wed02/25/24 at 2244 Start Infusion 02/25/2024 11:34 AM EDT 500 mL 50 mL/hr sodium chloride 0.9 % flush central line 10 mL 10 mL, IV Push, PRN Other, IV Flush, Starting on Wed02/25/24 at 1131, Until 02/26/24 at 1130, For 24 hours, Do not flush if lock, PICC, or central line not in place; IV infusing or unable to flush. Inactive Administered Medications - up to 3 most recent administrations Medication Order MAR Action Action Date Dose Rate Site Acetaminophen (Tylenol) tab 650 mg 650 mg, Oral, ONCE, On Wed02/25/24 at 1245, For 1 dose, Maximum of 4 grams (4000 mg) per day. Given 02/25/2024 11:38 AM EDT 650 mg diphenhydrAMINE (Benadryl) cap 25 mg 25 mg, Oral, ONCE, On Wed02/25/24 at 1245, For 1 dose Given 02/25/2024 11:38 AM EDT 25 mg [...] volume, ONCE, 1 dose, On Wed02/25/24 at 1315 Rate Change 02/25/2024 1:07 PM EDT 300 mL/hr Rate Change 02/25/2024 12:52 PM EDT 160 mL/hr Rate Change 02/25/2024 12:35 PM EDT 80 mL/hr documented in this encounter Advance Directives Documents on File Type Date Recorded Patient Estate Conservator Expl anation Power of Intelligence Agent 10/30/2014 POWER OF A TTORNEY * Full [...] Discussed due to patient's condition Care Teams Nuclear Fuels Reclamation Engineer Relationship Specialty Start Date End Date August, Benjamin De Jesus MD [address] [place] [address] PCP - General Family Medicine 02/04/22 documented as of this encounter
--- OUTSIDE RECORDS SUMMARY | 2024-05-26 13:50 | External Medical Summary | Summary of Care ---
Author Name Unknown Organization [facility] Address [address] [place] [address] Phone [phone] Care Team Providers Care Reconciliation Analyst Name Role Phone Benjamin Connor MD Primary Care Provider [phone] Reason for Visit * Reason Comments IV Therapy Infliximab * Episode Based Medications (Routine) - Authorized Specialty Diagnoses / Procedures Referred By Krupa t Referred To Contact Diagnoses Psoriatic arthropathy (HCC) Procedures [place] [address] [place] [address] Anc Hem/Onc Karen Vasquez DEPT CLOSED - 03/09/23 200 [facility] [place] [address] Referral ID Status Reason Start Date Expiration Date V isits Requested Visits Authorized [id number] Authorized 02/08/2023 02/09/2024 99 99 Encounter Details Date Type Department Care Team (Latest Contact Info) Description 01/14/2024 11:15 AM EDT Hem/Onc Treatment Hematology/Oncology Treatment, [place] [address] [place] [address] Christina, Chair 8 Hem On[address] [place] [address] Psoriatic arthropathy (HCC)* Allergies No known active allergiesdocumented as of this encounter (statuses as of 01/14/2024) Medications Medication Sig Dispensed Refills Start Date [...] or Pain, Mild. 30 Tablet 04/06/2023 Active Atorvastatin Calcium 20 MG Oral Tablet (Lipitor)Indications: Dyslipidemia TAKE 1 TABLET BY MOUTH IN THE MORNING 90 Tablet 2 06/07/2023 Active Montelukast Sodium 10 MG Oral Tablet [...] Tablet before bedtime. 180 Tablet 12/30/2023 Active Hospital, Clinic, or Other Facility Administered Medication Ordered Dose Route Frequency Start Date End Date Status Albuterol Sulfate (Proventil) (5 MG/ML) 0.5% *conc* inhalation solution 2.5 mgIndications:Chronic cough 2.5 mg NEBULIZER PRN 09/02/2023 09/01/2024 Active Albuterol Sulfate (Proventil) (2.5 MG/3ML) 0.083% inhalation solution 2.5 mgIndications:Chronic cough 2.5 mg NEBULIZER PRN 09/02/2023 09/01/2024 Active documented as of this encounter (statuses as of 01/14/2024) Active Problems Problem Noted Date Diagnosed Date [...] sugars. Continue with psychiatry. Dr. [facility]alta at [facility] Psych. documented as of this encounter (statuses as of 01/14/2024) Resolved Problems Problem Noted Date Diagnosed Date [...] as of this encounter (statuses as of 01/14/2024) Immunizations Name Administration Dates Next Due COVID-19 [...] No 08/06/2023 Does the household have a [facility] source of income? (Household - for [...] - 01/14/2024 2:03 PM EDT Noticed PIV infiltrated, removed IV catheter and restarted PIV in [...] 11:15 AM EDT Hem/Onc Treatment Hematology/Oncology Treatment, [place] [address] [place] [address] Park, Chair 1 Hem Onc Sc[place]ery [address] [place] [address] 03/09/2024 10:40 AM EST Telemedicine Rheumatology, [place] [address] [place] [address] Adwoa Baker DO [address] [place] [address] 03/31/2024 11:00 AM EST Imaging Radiology [facility] [address] [facility] [place] [address] 04/06/2024 12:00 PM EST Office Visit Pulmonary Medicine, [facility] [address] [facility] [place] [address] Jose Angel Wheatley MD [address] [place] [address] 06/09/2024 8:30 AM EST Telemedicine Psychiatry, [facility] [address] [facility] [place] [address] Ej Nieves CRNP 132 [facility] [place] [address] 06/16/2024 10:40 AM EST Office Visit [address] [id number] Benjamin Connor MD [address] [place] [address] Scheduled Procedures Name Priority Associated Diagnoses Date/Ti me COLONOSCOPY FLEXIBLE PROXIMAL DIAGNOSTIC Recall History of colon polyps Health Maintenance Due Date Last Done Comments Alpha-1 Antitrypsin 1963 Adult Wellness Visit 2013 COVID-19 Vaccine (3 - Pfizer risk series) 08/31/2020 08/03/2020, 07/13/2020 CKD PHOS USE SMARTSET 07595 10/17/2023 06/06/2022, 08/01/2021, 11/25/2018 HbA1c 12/03/2023 06/04/2023, 12/25, 10/16/2022, Additional history exists Influenza Vaccine (FLU shot) (#1) 2023 01/08/2023, 02/06/2022, 01/24/2021, Additional history exists GFR 03/31/2024 09/30/2023, 02/0 12/2023, 03/10/2023, Additional history exists O2 ASSESSMENT COMPLETED IN PAST YEAR FOR COPD 04/09/2024 04/09/2023 Depression Monitoring 04/12/2024 04/12/2023 Diabetic Foot Exam 06/04/2024 06/04/2023, 05/15/2022 Diabetic Eye Exam 07/15/2024 07/16/2023 Albumin/Creatinine Ratio 07/29/202407/29/ 024, 10/16/2022, 08/01/2021 CKD HGB USE SMARTSET 18396 09/29/202409/29, 09/30/2023, 06/04/2023, Additional history exists Colonoscopy [...] this encounter Medical Devices Implanted Type Area Brand Executive Device Identifier Shelf Expiration Date Model / Serial / Lot Lead Dbs 0.5mm 42cm Marker - [id number] Implanted:Qty: 1 on 04/05/2023 [place] [facility] [place] [employer] : NEUROLOGIC PAIN 02/11/2025 [id number] / / [id number] Lead Dbs 0.5mm 42cm - [id number] Implanted:Qty: 1 on 04/05/2023 by [place]oon [place] [facility] [place] Head [employer] : NEUROLOGIC PAIN 02/11/2025 [id number] / / [id number] Cement Hydroset Injectable 5cc - [id number] Implanted:Qty: 1 on 04/05/2023 by Neal [place]oon MD [place] [facility] [place]: Head CATRINA 12/11/2024 [id number] / / [id number] Plate 12mm Str 2 Hole Un3 - [id number] Implanted:Qty: 1 on 04/05/2023 by [place]oon [place] [facility] [place] Head CATRINA : CRANIOMAXILLOFACIAL [id number] / / Plate 12mm Str 2 Hole Un3 - [id number] Implanted:Qty: 1 on 04/05/2023 by Neal Yoon MD [place] [facility] [place] Head CATRINA : CRANIOMAXILLOFACIAL [id number] / / Neurostimulator Percept Pc - [id number] - [id number] Implanted:Qty: 1 on 04/09/2023 by Neal [place]oon [place] [facility] [place] Chest [employer] : NEUROLOGIC PAIN 02/06/2025 [id number] / [id number] / Ext Dbs 40cm Marker - [id number] Implanted:Qty: 1 on 04/09/2023 by Neal [place]oon MD [place] [facility] [place] Chest [employer] : NEUROLOGIC PAIN 10/21/2024 [id number] / / Ext Dbs 40cm - [id number] - [id number] Implanted:Qty: 1 on 04/09/2023 by [place]oon [place] [facility] [place] Chest [employer] : NEUROLOGIC PAIN 12/04/2024 [id number] / [id number] / Envelope Tyrx Lg Antibacterial - [id number] Implanted:Qty: 1 on 04/09/2023 by Neal Yoon MD [place] [facility] [place]: Chest [employer] 12/17/2023 [id number] / / [id number] documented as of this encounter Visit Diagnoses Diagnosis Psoriatic arthropathy (HCC)- Primary Psoriatic arthropathy documented in this encounter Administered Medications Active Administered Medications - up to 3 most recent administrations Medication Order MAR Action Action Date Dose Rate Site diphenhydrAMINE (Benadryl) inj 50 mg 50 mg, IV Push, ONCE PRN Other, Hypersensitivity Reaction, Starting on Wed01/14/24 at 1110, Until 01/15/24 at 1109, For 24 hours EPINEPHrine 1 MG/ML inj 0.3 mg 0.3 mg, Intramuscular, ONCE PRN Other, Hypersensitivity Reaction or Anaphylaxis, Starting on Wed01/14/24 at 1110, Until 01/15/24 at 1109, For 24 hours hEParin 100 UNIT/ML Lock Flush inj 500 Units 500 Units (5 mL), IV Lock, PRN Other, IV Flush, Starting on Wed01/14/24 at 1110, Until 01/15/24 at 1109, For 24 hours, Do not flush if lock, PICC, or central line not in place; IV infusing or unable to flush. Hydrocortisone Sod Suc (PF) (Solu-Cortef) inj 100 mg 100 mg, IV Push, ONCE PRN Other, Hypersensitivity Reaction, Starting on Wed01/14/24 at 1110, Until 01/15/24 at 1109, For 24 hours NSS infusion 500 mL, Intravenous, at 50 mL/hr, CONTINUOUS, Starting on Wed01/14/24 at 1215, Until Wed01/14/24 at 2214 Start Infusion 01/14/2024 11:18 AM EDT 500 mL 50 mL/hr sodium chloride 0.9 % flush central line 10 mL 10 mL, IV Push, PRN Other, IV Flush, Starting on Wed01/14/24 at 1110, Until 01/15/24 at 1109, For 24 hours, Do not flush if [...] Change 01/14/2024 12:29 PM EDT 160 mL/hr documented in this encounter Advance Directives Documents on File Type Date Recorded Patient Housing Case Manager Expl anation Power of Landscape Architecture Professor 10/30/2014 POWER OF A TTORNEY * Full [...] Discussed due to patient's condition Care Teams Reconciliation Analyst Relationship Specialty Start Date End Date August, Benjamin De Jesus MD [address] [facility] [place] [address] PCP - General Family Medicine 02/04/22 documented as of this encounter
--- OUTSIDE RECORDS SUMMARY | 2024-05-26 13:50 | External Medical Summary | Summary of Care ---
Author Name Unknown Organization [facility] Address [address] [place] [address] Phone [phone] Care Team Providers Care Sports Centre Manager Name Role Phone Benjamin Connor MD Primary Care Provider [phone] Reason for Visit * Reason Comments Infusion Infiximab * Episode Based Medications (Routine) - Authorized Specialty Diagnoses / Procedures Referred By Krupa t Referred To Contact Diagnoses Psoriatic arthropathy (HCC) Procedures [place] [address] [facility] [address] [place] [address] Anc Hem/Onc Karen Vasquez DEPT CLOSED - 03/09/23 200 [facility] [place] [address] Referral ID Status Reason Start Date Expiration Date V isits Requested Visits Authorized [id number] Authorized 02/08/2023 02/09/2024 99 99 Encounter Details Date Type Department Care Team (Latest Contact Info) Description 12/03/2023 11:30 AM EDT Hem/Onc Treatment Hematology/Oncology Treatment, [place] [address] [place] [address] Christina, Chair 8 Hem On[address] [place] [address] Psoriatic arthropathy (HCC)* Allergies No known active allergiesdocumented as of this encounter (statuses as of 01/01/2024) Medications Medication Sig Dispensed Refills Start Date End Date Status inFLIXimab (REMICADE) 100 MG injection Administer 5 mg/kg intravenously. Active Zoster Vac Recomb Adjuvanted 50 MCG/0.5ML Intramuscular Suspension Reconstituted (Shingrix)Indication s:Need for shingles vaccine Inject 0.5 mL into a large muscle now and repeat dose in 60 to 180 days 1 Each 1 05/15/2022 Active Allopurinol 100 MG Oral Tablet (Zyloprim)Indication s:Gouty [...] 3 10/18/2023 Active Methotrexate 2.5 MG Oral TabletIndications:Ps oriatic arthropathy (HCC) Take 8 Tablets by mouth once a week. 96 Tablet 12/02/2023 03/01/20 24 Active Folic Acid 1 MG Oral TabletIndications:Ps oriatic arthropathy (HCC) Take 1 Tablet by mouth in the morning. 360 Tablet 12/02/2023 11/27/19 25 Active Azithromycin 250 MG Oral Tablet (Zithromax Z-Sukumar) Please take 500 mg by mouth on day one, followed by 250 mg by mouth for four days. 6 Tablet 09/02/2023 12/10/19 24 Discontinu ed(Medicat ion List Clean Up) Famotidine 20 MG Oral Tablet (Pepcid) Take 1 Tablet by mouth in the morning and 1 Tablet before bedtime. 180 Tablet 09/30/2023 12/30/19 24 Discontinu ed(Refill) Hospital, Clinic, or Other [...] as of this encounter (statuses as of 01/01/2024) Active Problems Problem Noted Date Diagnosed Date [...] sugars. Continue with psychiatry. Dr. Villalta at [facility] Psych. documented as of this encounter (statuses as of 01/01/2024) Resolved Problems Problem Noted Date Diagnosed Date [...] as of this encounter (statuses as of 01/01/2024) Immunizations Name Administration Dates Next Due COVID-19 [...] No 08/06/2023 Does the household have a [facility] source [facility] income? (Household - for [...] Sign Reading Time Taken Comments Blood Pressure 158/84 12/03/2023 11:39 AM EDT Pulse 80 12/03/2023 11:39 AM EDT Temperature 35.9 C (96.6 F) 12/03/2023 11:39 AM E DT Respiratory Rate 18 12/03/2023 11:39 AM EDT Oxygen Saturation 92% 12/03/2023 11:39 AM EDT Inhaled Oxygen Concentration - - Weight 92 kg (202 lb 12.8 oz) 12/03/2023 11:39 A M EDT Height - - Body Mass Index 29.43 09/30/2023 2:39 PM EDT documented in this encounter Functional Status [...] as of this encounter Nursing Notes * Sangeeta Coulter RN - 12/03/2023 11:39 AM EDT Patient ambulatory to chair 3 Patient voices no complaints of nausea, vomiting, diarrhea, fever or pain Safety and Risk for Injury Patient will [...] potential joy while using the heat function. Goals: Patient will remain free of injury Possible barriers to meeting goals: ambulation with IV pole, increase risk of fall Stability of the patient: Moderately stable - low risk of patient condition declining or worsening Summary regarding today's goals: Met: patient remained free of injury Patient discharged in good condition, tolerated procedure well documented in this encounter Plan of Treatment Upcoming Encounters Date Type Department Care Team (Late st Contact Info) Description 01/07/2024 8:30 AM EDT Telemedicine Psychiatry, [facility] [address] [facility] [place] [address] Ej Nieves CRNP 132 [facility] [place] [address] 01/14/2024 11:15 AM EDT Hem/Onc Treatment Hematology/Oncology Treatment, [place] [address] [place] [address] Christina, Chair 8 Hem Onc Scen[place] [address] [place] [address] 03/09/2024 10:40 AM EST Telemedicine Rheumatology, [place] [address] [place] [address] Adwoa Baker DO [address] [place] [address] 03/31/2024 11:00 AM EST Imaging Radiology [facility]st [facility] 132 [place] [address] 04/06/2024 12:00 PM EST Office Visit Pulmonary Medicine, [address] [place] [address] Jose Angel Wheatley MD [address] [facility] [address] 06/16/2024 10:40 AM EST Office Visit Family [facility] [address] [place] [address] AugustBenjamin MD [address] [place], [place] [id number] Scheduled Procedures Name Priority Associated Diagnoses Date/Ti me COLONOSCOPY FLEXIBLE PROXIMAL DIAGNOSTIC Recall History of colon polyps Health Maintenance Due Date Last Done Comments Alpha-1 Antitrypsin 1963 Adult Wellness Visit 2013 COVID-19 Vaccine (3 - Pfizer risk series) 08/31/2020 08/03/2020, 07/13/2020 CKD PHOS USE SMARTSET 16217 10/17/2023 0606/2022, 08/01/2021, 11/25/2018 HbA1c 12/03/2023 06/04/2023, 12/25, 10/16/2022, [...] 024, 10/16/2022, 08/01/2021 CKD HGB USE SMARTSET 58123 09/29/202409/29, 09/30/2023, 06/04/2023, Additional history exists Colonoscopy [...] this encounter Medical Devices Implanted Type Area Line Crew Supervisor Device Identifier Shelf Expiration Date Model / Serial / Lot Lead Dbs 0.5mm 42cm Marker - [id number] Implanted:Qty: 1 on 04/05/2023 by Neal Yoon [place] [facility] [place] Head [employer] : NEUROLOGIC PAIN 02/11/2025 [id number] / / [id number] Lead Dbs 0.5mm 42cm - [id number] Implanted:Qty: 1 on 04/05/2023 by Neal Yoon MD at [place] [facility] [place] Right: Head [employer] : NEUROLOGIC PAIN 02/11/2025 [id number] / / [id number] Cement Hydroset Injectable 5cc - [id number] Implanted:Qty: 1 on 04/05/2023 by Neal Yoon MD at [place] [facility] N/A: Head CATRINA 12/11/2024 [id number] / / [id number] Plate 12mm Str 2 Hole Un3 - [id number] Implanted:Qty: 1 on 04/05/2023 by Neal Yoon MD at [place] [facility] [place] Right: Head CATRINA : CRANIOMAXILLOFACIAL [id number] / / Plate 12mm Str 2 Hole Un3 - [id number] Implanted:Qty: 1 on 04/05/2023 by Neal Yoon MD at [place] [facility] [place] Left: Head CATRINA : CRANIOMAXILLOFACIAL [id number] / / Neurostimulator Percept Pc - [id number] - [id number] Implanted:Qty: 1 on 04/09/2023 by Neal Yoon MD at [place] [facility] [place] Left: Chest [employer] : NEUROLOGIC PAIN 02/06/2025 [id number] / [id number] / Ext Dbs 40cm Marker - [id number] Implanted:Qty: 1 on 04/09/2023 by Neal Yoon MD at [place] [facility] Left: Chest [employer] : NEUROLOGIC PAIN 10/21/2024 [id number] / / Ext Dbs 40cm - [id number] - [id number] Implanted:Qty: 1 on 04/09/2023 by Neal Yoon MD at [place] [facility] [place] Left: Chest [employer] : NEUROLOGIC PAIN 12/04/2024 [id number] / [id number] / Envelope Tyrx Lg Antibacterial - [id number] Implanted:Qty: 1 on 04/09/2023 by Neal Yoon MD at [place] [facility] [place] Left: Chest [employer] 12/17/2023 [id number] / / [id number] documented as of this encounter Visit Diagnoses Diagnosis Psoriatic arthropathy (HCC)- Primary Psoriatic arthropathy documented in this encounter Administered Medications Inactive Administered Medications - up to 3 most recent administrations Medication Order MAR Action Action Date Dose Rate Site Acetaminophen (Tylenol) tab 650 mg 650 mg, Oral, ONCE, On Wed12/03/23 at 1145, For 1 dose, Maximum of 4 grams (4000 mg) per day. Given 12/03/2023 11:45 AM EDT 650 mg diphenhydrAMINE (Benadryl) cap 25 mg 25 mg, Oral, ONCE, On Wed12/03/23 at 1145, For 1 dose Given 12/03/2023 11:45 AM EDT 25 mg inFLIXimab-axxq (Avsola) 1,000 [...] = remaining volume, ONCE, 1 dose, On Wed12/03/23 at 1300 Rate Change 12/03/2023 1:00 PM EDT 300 mL/hr Rate Change 12/03/2023 12:43 PM EDT 160 mL/hr Rate Change 12/03/2023 12:28 PM EDT 80 mL/hr NSS infusion 500 mL, Intravenous, at 50 mL/hr, CONTINUOUS, Starting on Wed12/03/23 at 1230, Until Wed12/03/23 at 1847 Start Infusion 12/03/2023 11:35 AM EDT 500 mL 50 mL/hr documented in this encounter Advance Directives Documents on File Type Date Recorded Patient Legal Recovery Specialist Expl anation Power of Utility Bill Collector 10/30/2014 POWER OF A TTORNEY * Full [...] Discussed due to patient's condition Care Teams Sports Centre Manager Relationship Specialty Start Date End Date August, Benjamin De Jesus MD [address] [facility] [place] [address] PCP - General Family Medicine 02/04/22 documented as of this encounter
--- OUTSIDE RECORDS SUMMARY | 2024-05-26 13:50 | External Medical Summary | Summary of Care ---
Author Name Unknown Organization [facility] Address [address] [facility] [address] Phone [phone] Care Team Providers Care Lead Person Name Role Phone Benjamin Connor MD Primary Care Provider [phone] Reason for Visit * Reason Comments Medication Management Encounter Details Date Type Department Care Team (Late st Contact Info) Description 01/07/2024 8:30 AM EDT [facility] [address] [place] [address] Ej Nieves CRNP [address] [place] [address] Bipolar 1 disorder (HCC)*; Alcohol dependence in remission (HCC) Allergies No known active allergiesdocumented as of this encounter (statuses as of 01/07/2024) Medications Medication Sig Dispensed Refills Start Date [...] as of this encounter (statuses as of 01/07/2024) Active Problems Problem Noted Date Diagnosed Date [...] as of this encounter (statuses as of 01/07/2024) Resolved Problems Problem Noted Date Diagnosed Date [...] as of this encounter (statuses as of 01/07/2024) Immunizations Name Administration Dates Next Due COVID-19 mRNA, LNP-s, No Pre serve, 2-Dose Series (MightyHive) 08/03/2020,07/13/2020 Pneumococcal Conjugate Vacc, 13 Valent (Prevnar) [...] Yes 04/05/2023 documented as of this encounter Progress Notes * Ej Nieves CRNP - 01/07/2024 8:31 AM EDT OUTPATIENT BEHAVIORAL HEALTH RETURN VISIT NOTE Tony Pollard [address] [place] [address] 01/07/2024 Shiva Lea Patient location: HOME. I was not in a hospital or clinic location. After connecting through televideo, patient was verified with two unique identifiers. Patient (or authorized legal outside sales representative) was then informed that this was a Telemedicine visit and being conducted confidentially over secure lines. Methods to assure confidentiality were taken. Patient acknowledged consent and understanding of privacy and security of the Telemedicine visit. The patient agreed to participate. Clinical Tools - LONG-7 | PHQ-9 | AIMS | Tristen Arechiga Safety Plan :[id number]} Risk Assessment: Completed and No acute safety concerns, chronic passive SI, denies plan/intent Interval History: Shiva is a 78 year old male presenting today for a follow-up appointment. Pt reports "the same, doing pretty good, I have some health issues but otherwise, doing pretty good.. I had a severe cough for about 6 months, and had a hard time getting rid of it. Finally started some medication that seems to be working.. it's an inhaler." Trelegy inhaler. Says CT scan recently saw a spot on his lung, "said they were going to keep an eye on it." Is to have repeat CT scan in another few months. He is now taking supplemental O2 at nighttime. This transition has been "good." Deep brain stimulator is "definitely helping," though this requires adjustments at times to address shakiness "in my hands." Endorses "75-100% improvement.. it's definitely helping 95% of the time." Despite improvement in baseline tremor, he does continue to demonstrate some involuntary tighteningof his lips at the corners of his mouth. He doesn't seem consciously aware of this until pointed out to him. He is not bothered by it. This has also remained largely consistent for much of this screenplay writer's time seeing pt in outpatient psychiatry. Pt does wear dentures, and has current issues with his bottom dentures as they are difficult to wear and remove for the past 6 months, so this could be playing somewhat of a role. Past trial of Valbenazine was unsuccessful at improving involuntary movements, however this was prior to activation of deep brain stimulator. Medication Side-Effects: denies, experiences baseline essential tremor improved with deep brain stimulator Last date AIMS was completed- No Previous Data , Patient's last PHQ-9 score (Adult) - 0 , and Patient's last LONG-7 score - Total:0 Substance Abuse History: denies Recent labs/imaging: Relevant labs reviewed ROS Exam: Negative except as described above Relevant Changes in Psychiatric, Medical, Family, or Social History: As described above Mental Status Evaluation: Appearance: age-appropriate and casually dressed Muscle strength/tone and motor behavior: involuntary muscle movements and tardive dyskinesia Gait and Station: no abnormalities noted and not tested Personal Presentation: open and friendly, candid and cooperative. Speech: normal, rate, tone and volume Mood: neutral, 'ok' Affect: type - euthymic; range - full range; lability - no Associations: intact Thought Process: goal directed and logical Abstract Reasoning: intact Thought Content: suicidal ideation passive, denies plan/intent Orientation: alert and oriented to person, place, time and situation Recent and remote memory as evidenced by recall of recent circumstances and remote life events: intact Language as evidenced by ability to repeat phrase and name object: intact Fund of knowledge as evidenced by vocabulary and current/historical events: intact Attention span/concentration as evidenced by: ability to sustain attention to examiner - intact andfollowing conversation - intact Insight: fair Judgment: fair Assessment/Formulation: Shiva is a 78 year old male who presents with symptoms of memory impairmentand cognitive decline since July 2019. PMH includes CKD3a, DM2. Inpatient psychiatric hospitalization in [place] for significant behavioral disturbances, which improved with the addition of psychotropic medications. Has been taking Namzaric with improvement in addition to Seroquel for hallucination s. Had experienced some stability following this, but was victim of online scammers and lost $27,000. Lives in home with son and [id number] are also considering skilled nursing which is distressingfor pt. Pt following with Neurology as well. 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 Diagnoses: ICD-10-CM 1. Bipolar 1 disorder (HCC) F31.9 2. Alcohol dependence in remission (HCC) F10.21 Differential includes Schizoaffective Disorder Plan: Education provided regarding diagnoses and potential treatment options, both pharmacologic and non-pharmacologic. Regarding medications, continue current regimen including Namzaric 28-10mg daily Medications by Pharm Class (Includes Only ADHD/Anti-Narcolepsy/Anti-Obesity/Anorexiants, Antidepressants, Antianxiety Agents, Antipsychotics/Antimanic Agents, Anticonvulsant, Hypnotics/Sedatives/Sleep Disorder Agents, Beta Blockers, Antihypertensive) Medication Sig DULoxetine HCl 60 MG Oral Capsule Delayed Release Particles (Cymbalta) Take 1 Capsule by mouth 2 times a day in the morning and at noon. lamoTRIgine 200 MG Oral Tablet (LaMICtal) Take 1 Tablet by mouth in the morning. QUEtiapine Fumarate 300 MG Oral Tablet (SEROquel) Take 1 Tablet by mouth every night at bedtime. Encourage restarting outpatient therapy, he is ambivalent regarding this. Appears lost to followup 12/2022 Encourage collection of labs to monitor Seroquel. Pt counseled on long-term risks/benefits of continued antipsychotic therapy, including increased risk for dysregulation of cholesterol, blood sugar, and overall metabolic profile. Denies experiencing involuntary movements consistent with TD. Demonstrates no obvious s/s today. Pt education provided regarding s/s of TD, and that this potential side effect is sometimes treatable though can be permanent. Current suicide risk is felt to be low based on risk/protective factors Return in 5 months Information about current meds reviewed/provided /offered. Provider reviewed risks/benefits/side effects and potential complications. Recommended to not change meds/dosage without medical advise. Treatment options and recommendations/interventions reviewed. Patient and/or caregiver verbalize understanding and agrees to plan with explanation of risks/benefits, aware of how to contact clinic with questions. Time Spent on Visit total: 22 minutes - including preparing to see the patient, reviewing history, performing evaluation, counseling/educating patient, ordering medications/tests, documenting clinical information. 16 minutes was spent on counseling including active listening, supportive therapy, self-care, and reflection Ej Nieves, MSN, HAND BOOKED FOLDER AND STITCHER, PMHNP- Nurse Practitioner - Outpatient Psychiatry [facility] [address] [place] 01/07/2024 Crisis Planning: Shiva Lea has been provided with Psychiatry emergency telephone numbers, including crisis number, text suicide hotline and suicide hotline. The crisis plan was reviewed and updated if necessary based on the information above. Side effects of the medication were explained, and the patient understands the risks and benefits of using the medication.Patient cautioned not to drive, operate heavy machinery, or participate in other tasks requiring full cognitive alertness until they know how new medications will affect them. Pt encouraged to keep all medications out of the reach of children. Psychoeducation was provided. Discussed risks, expected benefits, and potential adverse effects from these medications. The benefits outweigh the risks.The patient participated in the development of the treatment plan, verbalized understanding, voices no concerns and is agreeable to the treatment plan. Risk Assessment: Risk assessment was performed for Shiva Lea. This is a patient being treated for chronic mental health conditions as characterized above; at the time of this visit, there was noindication that this patient was either a risk to self, others, or gravely disabled by symptoms of a mental illness. At the time of this evaluation, there were enough protective factors in place and it was deemed safe to continue with treatment on a outpatient basis with return to clinic in the timeframe described above. Health Maintenance: Shiva Lea was encouraged to keep up to date on regular health maintenance per her primary care provider. Encouraged to keep active in productive hobbies and exercise. This helps manage emotions, improve sleep, wellbeing and overall health. Pt was cautioned to not drink alcohol or use illicit drugs as these can make mood symptoms worse by blocking the effects of prescribedmedications. Avoid tobacco, which contains nicotine. Limit caffeine use. Caffeine and Nicotine are stimulants that can cause difficulty with sleep. Lack of sleep can then worsen anxiety and depression. documented in this encounter Plan of Treatment Upcoming Encounters Date Type Department Care Team (Late st Contact Info) Description 01/14/2024 11:15 AM EDT Hem/Onc Treatment Hematology/Oncology Treatment, [place] [address] [place] [address] Christina, Chair 8 Hem Onc Scenery [address] [place] [address] 03/09/2024 10:40 AM EST Telemedicine Rheumatology, [place] [address] [place] [address] Adwoa Baker DO [address] [place] [address] 03/31/2024 11:00 AM EST Imaging Radiology [address], [place] [address] [facility] [place] [address] 04/06/2024 12:00 PM EST Office Visit Pulmonary Medicine, [facility] [address] [facility] [place] [address] Jose Angel Wheatley MD [address] [place] [address] 06/09/2024 8:30 AM EST Telemedicine Psychiatry, [facility] [place] [address] Ej Nieves CRNP [facility] [place] [address] 06/16/2024 10:40 AM EST Office Visit [facility] [address] [place] [address] AugustBenjamin MD [address] [place] [address] Scheduled Procedures Name Priority Associated Diagnoses Date/Ti me COLONOSCOPY FLEXIBLE PROXIMAL DIAGNOSTIC Recall History of colon polyps Health Maintenance Due Date Last Done Comments Alpha-1 Antitrypsin 1963 Adult Wellness Visit 2013 COVID-19 Vaccine (3 - Pfizer risk series) 08/31/2020 08/03/2020, 07/13/2020 CKD PHOS USE SMARTSET 70488 10/17/202309/25, 08/01/2021, 11/25/2018 HbA1c 12/03/2023 06/04/2023, 12/25, 10/16/2022, Additional history exists Influenza Vaccine (FLU shot) (#1) 2023 01/08/2023, 02/06/2022, 01/24/2021, Additional history exists GFR 03/31/2024 09/30/2023, 12/2023, 03/10/2023, Additional history exists O2 ASSESSMENT COMPLETED IN PAST YEAR FOR COPD 04/09/2024 04/09/2023 Depression Monitoring 04/12/2024 04/12/2023 Diabetic Foot Exam 06/04/2024 06/04/2023, 05/15/2022 Diabetic Eye Exam 07/15/2024 07/16/2023 Albumin/Creatinine Ratio 07/29/2024 024, 10/16/2022, 08/01/2021 CKD HGB USE SMARTSET 19711 09/29/202409/29, 09/30/2023, 06/04/2023, Additional history exists Colonoscopy [...] this encounter Medical Devices Implanted Type Area Puzzle Assembler Device Identifier Shelf Expiration Date Model / Serial / Lot Lead Dbs 0.5mm 42cm Marker - [id number] Implanted:Qty: 1 on 04/05/2023 by [place] [facility] [place] [employer] : NEUROLOGIC PAIN 02/11/2025 [id number] / / [id number] Lead Dbs 0.5mm 42cm - [id number] Implanted:Qty: 1 on 04/05/2023 by Neal Y[place] [facility] [place]: Head [employer] : NEUROLOGIC PAIN 02/11/2025 [id number] / / [id number] Cement Hydroset Injectable 5cc - [id number] Implanted:Qty: 1 on 04/05/2023 by Neal Yoon MD [place] [facility] [place]/A: Head CATRINA 12/11/2024 [id number] / / [id number] Plate 12mm Str 2 Hole Un3 - [id number] Implanted:Qty: 1 on 04/05/2023 by Neal Yoon MD [place] [facility] [place]: Head CATRINA : CRANIOMAXILLOFACIAL [id number] / / Plate 12mm Str 2 Hole Un3 - [id number] Implanted:Qty: 1 on 04/05/2023 by Neal Yoon MD [place] [facility] [place]: Head CATRINA : CRANIOMAXILLOFACIAL [id number] / / Neurostimulator Percept Pc - [id number] - [id number] Implanted:Qty: 1 on 04/09/2023 by Neal Yoon MD [place] [facility] [place]: Chest [employer] : NEUROLOGIC PAIN 02/06/2025 [id number] / [id number] / Ext Dbs 40cm Marker - [id number] Implanted:Qty: 1 on 04/09/2023 by Neal Yoon MD [place] [facility] [place]: Chest [employer] : NEUROLOGIC PAIN 10/21/2024 [id number] / / Ext Dbs 40cm - [id number] - [id number] Implanted:Qty: 1 on 04/09/2023 by Neal Yoon MD [place] [facility] [place]: Chest [employer] : NEUROLOGIC PAIN 12/04/2024 [id number] / [id number] / Envelope Tyrx Lg Antibacterial - [id number] Implanted:Qty: 1 on 04/09/2023 by Neal Yoon MD [place] [facility] [place]: Chest [employer] 12/17/2023 [id number] / / [id number] documented as of this encounter Visit Diagnoses Diagnosis Bipolar 1 disorder (HCC)- Primary Bipolar I disorder, most recent episode (or current) unspecified Alcohol dependence in remission (HCC) Other and unspecified alcohol dependence, in remission documented in this encounter Advance Directives Documents on File Type Date Recorded 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
--- OUTSIDE RECORDS SUMMARY | 2024-05-26 13:50 | External Medical Summary | Summary of Care ---
Author Name Unknown Organization [facility] Address [address] [place] [address] Phone [phone] Care Team Providers Care Customer Sales Consultant Name Role Phone AugustMarcy MD Primary Care Provider [phone] Reason for Visit * Reason Comments eRx-Medication Refill Encounter Details Date Type Department Care Team (Late st Contact Info) Description 01/23/2024 Refill [facility] [address] [place] [address] August, Marcy De Jesus MD [address] [place] [address] Dyslipidemia Allergies No known active allergiesdocumented as of this encounter (statuses as of 01/25/2024) Medications Medication Sig Dispensed Refills Start Date [...] (cough, SOB). 18 g 5 4 Active lamoTRIgine 200 MG Oral Tablet (LaMICtal) Take 1 Tablet by mouth in the morning. 90 Tablet 1 4 Active Namzaric 28-10 MG Oral Capsule Extended Release 24 Hour (Memantine HCl-Donepezil HCl) 1 TAB DAILY TAKE WITH LARGEST MEAL OF THE DAY. 90 Capsule 1 4 Active QUEtiapine Fumarate 300 MG Oral Tablet (SEROquel) Take 1 Tablet by mouth every night at bedtime. 90 Tablet 1 4 Active DULoxetine HCl 60 MG Oral Capsule Delayed Release Particles (Cymbalta) Take 1 Capsule by mouth 2 times a day in the morning and at noon. 180 Capsule 1 4 Active Levocetirizine Dihydrochloride 5 MG Oral [...] 3 4 Active Methotrexate 2.5 MG Oral TabletIndications:P soriatic [...] THE MORNING 90 Tablet 1 4 Active Atorvastatin Calcium 20 MG Oral Tablet (Lipitor)Indication s:Dyslipidemia TAKE 1 TABLET BY MOUTH IN THE MORNING 90 Tablet 2 4 01/25/20 24 Discontinued Hospital, Clinic, or Other Facility Administered Medication Ordered Dose Route Frequency Start Date End Date Status Albuterol Sulfate (Proventil) (5 MG/ML) 0.5% *conc* inhalation solution 2.5 mgIndications:Chronic cough 2.5 mg NEBULIZER PRN 09/02/2023 09/01/2024 Active Albuterol Sulfate (Proventil) (2.5 MG/3ML) 0.083% inhalation solution 2.5 mgIndications:Chronic cough 2.5 mg NEBULIZER PRN 09/02/2023 09/01/2024 Active documented as of this encounter (statuses as of 01/25/2024) Active Problems Problem Noted Date Diagnosed Date [...] sugars. Continue with psychiatry. [facility] Villalta at [facility] Psych. documented as of this encounter (statuses as of 01/25/2024) Resolved Problems Problem Noted Date Diagnosed Date [...] as of this encounter (statuses as of 01/25/2024) Immunizations Name Administration Dates Next Due COVID-19 mRNA, LNP-s, No Pre serve, 2-Dose Series (Lonely Sock) 08/03/2020,07/13/2020 Pneumococcal Conjugate Vacc, 13 Valent (Prevnar) [...] encounter Miscellaneous Notes * Telephone Encounter - Mendel Ohara, [facility] - 01/25/2024 11:33 AM EDTSigned Prescriptions: Disp Refills Atorvastatin Calcium 20 MG Oral Tablet (Li*90 Tab*1 Sig: TAKE 1TABLET BY MOUTH IN THE MORNINGAuthorizing Provider: MARYC LOJA User: MENDEL OHARA documented in this encounter Plan of Treatment Upcoming Encounters Date Type Department Care Team (Late st Contact Info) Description 02/25/2024 11:15 AM EDT Hem/Onc Treatment Hematology/Oncology Treatment, [place] [address] [place] [id number] Christina, Chair 2 Hem Onc Scenery [address] [place] [address] 03/09/2024 10:40 AM EST Telemedicine Rheumatology, [place] [address] [place] [address] Adwoa Baker, [address] [place] [address] 03/31/2024 11:00 AM EST Imaging Radiology [facility] [address] [facility] [address] [place] [address] 04/06/2024 12:00 PM EST Office Visit Pulmonary Medicine, [facility] [address] [place] [address] Jose Angel Wheatley MD [address] [place] [address] 06/09/2024 8:30 AM EST Telemedicine Psychiatry, [facility] [address] [place] [address] Ej Nieves CRNP [address] [facility] [address] 06/16/2024 10:40 AM EST Office Visit [facility] [address] [place] [address] AugustMarcy MD [address] [place] [facility] [place] [address] Scheduled Procedures Name Priority Associated Diagnoses Date/Ti me COLONOSCOPY FLEXIBLE PROXIMAL DIAGNOSTIC Recall History of colon polyps Health Maintenance Due Date Last Done Comments Alpha-1 Antitrypsin 1963 Adult Wellness Visit 2013 COVID-19 Vaccine (3 - Pfizer risk series) 08/31/2020 08/03/2020, 07/13/2020 CKD PHOS USE SMARTSET 07063 10/17/202309/25, 08/01/2021, 11/25/2018 HbA1c 12/03/2023 06/04/2023, 12/25, 10/16/2022, Additional history exists Influenza Vaccine (FLU shot) (#1) 2023 01/08/2023, 02/06/2022, 01/24/2021, Additional history exists GFR 03/31/2024 09/30/2023, 02/0 12/2023, 03/10/2023, Additional history exists O2 ASSESSMENT COMPLETED IN PAST YEAR FOR COPD 04/09/2024 04/09/2023 Depression Monitoring 04/12/2024 04/12/2023 Diabetic Foot Exam 06/04/2024 06/04/2023, 05/15/2022 Diabetic Eye Exam 07/15/2024 07/16/2023 Albumin/Creatinine Ratio 07/29/2024 04 024, 10/16/2022, 08/01/2021 CKD HGB USE SMARTSET 51975 09/29/202409/29, 09/30/2023, 06/04/2023, Additional history exists Colonoscopy [...] this encounter Medical Devices Implanted Type Area Communications Project Lead Device Identifier Shelf Expiration Date Model / Serial / Lot Lead Dbs 0.5mm 42cm Marker - [id number] Implanted:Qty: 1 on 04/05/2023 by Neal Yoon MD at [place] [facility] Left: Head [employer] : NEUROLOGIC PAIN 02/11/2025 [id number] / / [id number] Lead Dbs 0.5mm 42cm - [id number] Implanted:Qty: 1 on 04/05/2023 by Neal Yoon MD at OR [facility] Right: Head [employer] : NEUROLOGIC PAIN 02/11/2025 [id number] / / [id number] Cement Hydroset Injectable 5cc - [id number] Implanted:Qty: 1 on 04/05/2023 by Neal Yoon MD at OR [facility] N/A: Head CATRINA 12/11/2024 [id number] / / [id number] Plate 12mm Str 2 Hole Un3 - [id number] Implanted:Qty: 1 on 04/05/2023 by Neal Yoon MD at OR [facility] Right: Head CATRINA : CRANIOMAXILLOFACIAL [id number] / / Plate 12mm Str 2 Hole Un3 - [id number] Implanted:Qty: 1 on 04/05/2023 by Neal Yoon MD at OR [facility] Left: Head CATRINA : CRANIOMAXILLOFACIAL [id number] / / Neurostimulator Percept Pc - [id number] - [id number] Implanted:Qty: 1 on 04/09/2023 by Neal Yoon MD at OR [facility] Left: Chest [employer] : NEUROLOGIC PAIN 02/06/2025 [id number] / [id number] / Ext Dbs 40cm Marker - [id number] Implanted:Qty: 1 on 04/09/2023 by Neal Yoon MD at OR [facility] Left: Chest [employer] : NEUROLOGIC PAIN 10/21/2024 [id number] / / Ext Dbs 40cm - [id number] - [id number] Implanted:Qty: 1 on 04/09/2023 by Neal Yoon MD at OR [facility] Left: Chest [employer] : NEUROLOGIC PAIN 12/04/2024 [id number] / [id number] / Envelope Tyrx Lg Antibacterial - [id number] Implanted:Qty: 1 on 04/09/2023 by Neal Yoon MD at OR [facility] Left: Chest [employer] 12/17/2023 [id number] / / [id number] documented as of this encounter Visit Diagnoses Diagnosis Dyslipidemia Other and unspecified hyperlipidemia documented in this encounter Advance Directives Documents on File Type Date Recorded Patient Income Tax Preparer Expl anation Power of District Operations Manager 10/30/2014 POWER OF A TTORNEY * [...] Discussed due to patient's condition Care Teams Customer Sales Consultant Relationship Specialty Start Date End Date August, Marcy De Jesus MD [address] [place] [address] PCP - General Family Medicine 02/04/22 documented as of this encounter
--- OUTSIDE RECORDS SUMMARY | 2024-05-26 13:50 | External Medical Summary | Summary of Care ---
Author Name Unknown Organization [facility] Address [address] [place] [address] Phone [phone] Care Team Providers Care Beet End Supervisor Name Role Phone Benjamin Connor MD Primary Care Provider [phone] Reason for Visit * Reason Comments IV Therapy Infliximab * Episode Based Medications (Routine) - Authorized Specialty Diagnoses / Procedures Referred By Krupa t Referred To Contact Diagnoses Psoriatic arthropathy (HCC) Procedures [place] [address] [facility] [address] [place] [address] Anc Hem/Onc Karen Vasquez DEPT CLOSED - 03/09/23 [facility] [place] [address] Referral ID Status Reason Start Date Expiration Date V isits Requested Visits Authorized [id number] Authorized 02/08/2023 02/09/2024 99 99 Encounter Details Date Type Department Care Team (Latest Contact Info) Description 01/14/2024 11:15 AM EDT Hem/Onc Treatment Hematology/Oncology Treatment, [place] [address] [place] [address] Christina, Chair 8 Hem On[address] [place] [address] Psoriatic arthropathy (HCC)* Allergies No known active [...] sugars. Continue with psychiatry. Dr. Villalta at [facility] Psych. documented as of this encounter [...] No 08/06/2023 Does the household have a [facility] source of income? (Household - for ages [...] 11:15 AM EDT Hem/Onc Treatment Hematology/Oncology Treatment, [place] [address] [place] [address] Park, Chair 1 Hem Onc Scenery [address] [place] [address] 03/09/2024 10:40 AM EST Telemedicine Rheumatology, [place] [address] [place] [address] Adwoa Baker DO [address] [place] [address] 03/31/2024 11:00 AM EST Imaging Radiology [facility] 1st [facility] [address] [facility] [place] [address] 04/06/2024 12:00 PM EST Office Visit Pulmonary Medicine, [facility] [address] [facility] [place] [address] Jose Angel Wheatley MD [address] [place] [address] 06/09/2024 8:30 AM EST Telemedicine Psychiatry, [facility] [address] [facility] [place] [address] Ej Nieves CRNP 132 [facility] [place] [address] 06/16/2024 10:40 AM EST Office Visit [address] [phone] Benjamin Connor MD [address] [place] [address] Scheduled Procedures Name Priority Associated Diagnoses Date/Ti me COLONOSCOPY FLEXIBLE PROXIMAL DIAGNOSTIC Recall History of colon polyps Health Maintenance Due Date Last Done Comments Alpha-1 Antitrypsin 1963 Adult Wellness Visit 2013 COVID-19 Vaccine (3 - Pfizer risk series) 08/31/2020 08/03/2020, 07/13/2020 CKD PHOS USE SMARTSET 56566 10/17/2023 06/06/2022, 08/01/2021, 11/25/2018 HbA1c 12/03/2023 06/04/2023, [...] 024, 10/16/2022, 08/01/2021 CKD HGB USE SMARTSET 88920 09/29/202409/29, 09/30/2023, 06/04/2023, Additional history exists Colonoscopy [...] this encounter Medical Devices Implanted Type Area Sign Out Clerk Device Identifier Shelf Expiration Date Model / Serial / Lot Lead Dbs 0.5mm 42cm Marker - [id number] Implanted:Qty: 1 on 04/05/[place]23 [place] [facility] [place] Head MEDTR[employer] : NEUROLOGIC PAIN 02/11/2025 [id number] / / [id number] Lead Dbs 0.5mm 42cm - [id number] Implanted:Qty: 1 on 04/05/2023 by Neal [place]oon [place] [facility] [place]: Head [employer] : NEUROLOGIC PAIN 02/11/2025 [id number] / / [id number] Cement Hydroset Injectable 5cc - [id number] Implanted:Qty: 1 on 04/05/2023 by Neal Yoon MD [place] [facility]A: Head CATRINA 12/11/2024 [id number] / / [id number] Plate 12mm Str 2 Hole Un3 - [id number] Implanted:Qty: 1 on 04/05/2023 by Neal Yoon MD [place] [facility] [place]: Head CATRINA : CRANIOMAXILLOFACIAL [id number] / / Plate 12mm Str 2 Hole Un3 - [id number] Implanted:Qty: 1 on 04/05/2023 by Neal [place]oon [place] [facility] [place]: Head CATRINA : CRANIOMAXILLOFACIAL [id number] / / Neurostimulator Percept Pc - [id number] - [id number] Implanted:Qty: 1 on 04/09/2023 by Neal Yoon [place] [facility] [place]: Chest [employer] : NEUROLOGIC PAIN 02/06/2025 [id number] / [id number] / Ext Dbs 40cm Marker - [id number] Implanted:Qty: 1 on 04/09/2023 by Neal [place] [facility] [place]: Chest [employer] : NEUROLOGIC PAIN 10/21/2024 [id number] / / Ext Dbs 40cm - [id number] - [id number] Implanted:Qty: 1 on 04/09/2023 by Neal [place] [facility] [place]: Chest [employer] : NEUROLOGIC PAIN 12/04/2024 [id number] / [id number] / Envelope Tyrx Lg Antibacterial - [id number] Implanted:Qty: 1 on 04/09/2023 by Neal Yoon MD [place] [facility] [place]: Chest [employer] 12/17/2023 [id number] / / [id number] documented as of this encounter Visit Diagnoses [...] Documents on File Type Date Recorded Patient At Risk Specialist Expl anation Power of Credit Collections Analyst 10/30/2014 POWER OF A TTORNEY * Full [...] Discussed due to patient's condition Care Teams Beet End Supervisor Relationship Specialty Start Date End Date August, Benjamin De Jesus MD [address] [facility] [place] [address] PCP - General Family Medicine 02/04/22 documented as of this encounter
--- OUTSIDE RECORDS SUMMARY | 2024-05-26 13:50 | External Medical Summary | Summary of Care ---
Author Name Unknown Organization [facility] Address [address] [facility] [address] Phone [phone] Care Team Providers Care Concrete Mixing Plant Superintendent Name Role Phone Benjamin Connor MD Primary Care Provider [phone] Reason for Visit * Reason Onset Date Comments Medication Refill 01/26/2024 Encounter Details Date Type Department Care Team (Late st Contact Info) Description 01/26/2024 Refill Psychiatry, [facility] [address] [place] [address] Arlene Nieves CRNP [address] [place] [address] Allergies No known active allergiesdocumented as of [...] (cough, SOB). 18 g 5 4 Active Namzaric 28-10 MG Oral Capsule Extended Release 24 Hour (Memantine HCl-Donepezil HCl) 1 TAB DAILY TAKE WITH LARGEST MEAL OF THE DAY. 90 Capsule 1 4 Active Levocetirizine Dihydrochloride 5 [...] at bedtime. 90 Tablet 1 4 Active lamoTRIgine 200 MG Oral Tablet (LaMICtal) Take 1 Tablet by mouth in the morning. 90 Tablet 1 4 01/26/20 24 Discontinu ed(Refill) QUEtiapine Fumarate 300 MG Oral Tablet (SEROquel) Take 1 Tablet by mouth every night at bedtime. 90 Tablet 1 4 01/26/20 24 Discontinu ed(Refill) DULoxetine HCl 60 MG Oral Capsule Delayed Release Particles (Cymbalta) Take 1 Capsule by mouth 2 times a day in the morning and at noon. 180 Capsule 1 4 01/26/20 24 Discontinu ed(Refill) Hospital, Clinic, or Other [...] sugars. Continue with psychiatry. Dr. Villalta at [facility] Psych. documented as of this encounter [...] Overview: Per CKD protocol Elevated hemoglobin 11/04/2018 09/01/20 21 Parkinson's disease 01/06/2016 04/06/20 23 Obesity, [...] Telephone Encounter - Arlene Nieves CRNP - 01/27/2024 9:43 AM EDTSigned Prescriptions: Disp Refills DULoxetine HCl 60 MG Oral Capsule Delayed *180 Ca*1 Sig: Take 1 Capsule by mouth 2 times a day in the morning and at noon. Authorizing Provider: ARLENE NIEVES lamoTRIgine 200 MG Oral Tablet (LaMICtal) 90 Tab*1 Sig: Take 1 Tablet by mouth in the morning. Authorizing Provider: ARLENE NIEVES QUEtiapine Fumarate 300 MG Oral Ta blet (SE*90 Tab*1 Sig: Take 1 Tablet by mouth every night at bedtime. Authorizing Provider: ARLENE NIEVES * Telephone Encounter - Julia Calixto LPN - 01/26/2024 11:30 AM EDT Pharmacy requesting refill on Seroquel. Medication was last filled on 07/30/23 with 1 refills. Patient last seen on 01/07/24 with return appointment scheduled for 06/09/24. Patient had 0 cancelled appointments and 0 NO SHOW appointments. documented in this encounter Plan of Treatment Upcoming Encounters Date Type Department Care Team (Late st Contact Info) Description 02/25/2024 11:15 AM EDT Hem/Onc Treatment Hematology/Oncology [facility], [place] [facility] [address] Christina, Chair 2 Hem Onc [address] [address] 03/09/2024 10:40 AM EST Telemedicine Rheumatology, [place] [address] [place] [address] Adwoa Baker, [address] [place] [address] 03/31/2024 11:00 AM EST Imaging Radiology [facility] [address] [facility] [place] [address] 04/06/2024 12:00 PM EST Office Visit Pulmonary Medicine, [facility] 132 [place] [address] Jose Angel Wheatley MD [address] [facility] [address] 06/09/2024 8:30 AM EST Telemedicine Psychiatry, [facility] [address] [place] [address] Arlene Nieves CRNP [address] [place] [address] 06/16/2024 10:40 AM EST Office Visit [facility] [address] [place] [phone] AugustBenjamin MD [address] [place] [address] Scheduled Procedures Name Priority Associated Diagnoses Date/Ti me COLONOSCOPY FLEXIBLE PROXIMAL DIAGNOSTIC Recall History of colon polyps Health Maintenance Due Date Last Done Comments Alpha-1 Antitrypsin 1963 Adult Wellness Visit 2013 COVID-19 Vaccine (3 - Pfizer risk series) 08/31/2020 08/03/2020, 07/13/2020 CKD PHOS USE SMARTSET 17425 10/17/2023 06/06/2022, 08/01/2021, 11/25/2018 HbA1c 12/03/2023 06/04/2023, [...] 024, 10/16/2022, 08/01/2021 CKD HGB USE SMARTSET 66291 09/29/202409/29, 09/30/2023, 06/04/2023, Additional history exists Colonoscopy [...] this encounter Medical Devices Implanted Type Area Electrical Prospecting Engineer Device Identifier Shelf Expiration Date Model / Serial / Lot Lead Dbs 0.5mm 42cm Marker - [id number] Implanted:Qty: 1 on 04/05/2023 by Neal Yoon MD at [place] [facility] [place] Left: Head [employer] : NEUROLOGIC PAIN 02/11/2025 [id number] / / [id number] Lead Dbs 0.5mm 42cm - [id number] Implanted:Qty: 1 on 04/05/2023 by Neal Yoon MD at [place] [facility] [place] Right: Head [employer] : NEUROLOGIC PAIN 02/11/2025 [id number] / / [id number] 1 Cement Hydroset Injectable 5cc - [id number] Implanted:Qty: 1 on 04/05/2023 by Neal Yoon MD at [place] [facility] [place] N/A: Head CATRINA 12/11/2024 [id number] / / [id number] Plate 12mm Str 2 Hole Un3 - [id number] Implanted:Qty: 1 on 04/05/2023 by Neal Yoon MD at [place] [facility] [place] Right: Head CATRINA : CRANIOMAXILLOFACIAL 53-48322 / / Plate 12mm Str 2 Hole Un3 - [id number] Implanted:Qty: 1 on 04/05/2023 by Neal Yoon MD at [place] [facility] [place] Left: Head CATRINA : CRANIOMAXILLOFACIAL 53-86274 / / Neurostimulator Percept Pc - [id number] - [id number] Implanted:Qty: 1 on 04/09/2023 by Neal Yoon MD at [place] [facility] [place] Left: Chest [employer] : NEUROLOGIC PAIN 02/06/2025 [id number] / [id number] / Ext Dbs 40cm Marker - [id number] Implanted:Qty: 1 on 04/09/2023 by Neal Yoon MD at [place] [facility] [place] Left: Chest [employer] : NEUROLOGIC PAIN 10/21/2024 [id number] / / Ext Dbs 40cm - [id number] - [id number] Implanted:Qty: 1 on 04/09/2023 by Neal Yoon MD at [place] [facility] [place] Left: Chest [employer] : NEUROLOGIC PAIN 12/04/2024 [id number] / [id number] / Envelope Tyrx Lg Antibacterial - [id number] Implanted:Qty: 1 on 04/09/2023 by Neal Yoon MD at [place] [facility] [place] Left: Chest [employer] 12/17/2023 [id number] / / [id number] documented as of this encounter Advance Directives Documents on File Type Date Recorded Patient Coloring Room Man Expl anation Power of Replacer 10/30/2014 POWER OF A TTORNEY * Full [...] Discussed due to patient's condition Care Teams Concrete Mixing Plant Superintendent Relationship Specialty Start Date End Date August, Benjamin De Jesus MD [address] [facility] [place] [address] PCP - General Family Medicine 02/04/22 documented as of this encounter
--- OUTSIDE RECORDS SUMMARY | 2024-05-26 13:50 | External Medical Summary | Summary of Care ---
Author Name Unknown Organization [facility] Address [address] [place] [address] Phone [phone] Care Team Providers Care Process Mechanic Name Role Phone Benjamin Connor MD Primary Care Provider [phone] Reason for Visit * Reason Comments IV Therapy Infliximab * Episode Based Medications (Routine) - Authorized Specialty Diagnoses / Procedures Referred By Krupa t Referred To Contact Diagnoses Psoriatic arthropathy (HCC) Procedures [place] [address] [facility] [facility] [address] [place] [address] Anc Hem/Onc Karen Vasquez DEPT CLOSED - 03/09/[address] [facility] [place] [address] Referral ID Status Reason Start Date Expiration Date V isits Requested Visits Authorized [id number] Authorized 02/08/2023 02/09/2024 99 99 Encounter Details Date Type Department Care Team (Latest Contact Info) Description 01/14/2024 11:15 AM EDT Hem/Onc Treatment Hematology/Oncology Treatment, [place] [address] [place] [address] Christina, Chair 8 Hem Onc [address] [place] [address] Psoriatic arthropathy (HCC)* Allergies No known active allergiesdocumented as of this encounter (statuses as of 01/17/2024) Medications Medication Sig Dispensed Refills Start Date [...] as of this encounter (statuses as of 01/17/2024) Active Problems Problem Noted Date Diagnosed Date [...] sugars. Continue with psychiatry. Dr. [facility]alta at [facility] Psych. documented as of this encounter (statuses as of 01/17/2024) Resolved Problems Problem Noted Date Diagnosed Date [...] as of this encounter (statuses as of 01/17/2024) Immunizations Name Administration Dates Next Due COVID-19 [...] Does the household have a [facility] source of income? (Household - for [...] 11:15 AM EDT Hem/Onc Treatment Hematology/Oncology Treatment, [place] [address] [place] [address] Christina, Chair 2 Hem Onc Scenery [address] [place], [place] [address] 03/09/2024 10:40 AM EST Telemedicine Rheumatology, [place] [address] [place] [address] Adwoa Baker, [address] [place] [address] 03/31/2024 11:00 AM EST Imaging Radiology [facility] 1st [facility] [address] 04/06/2024 12:00 PM EST Office Visit Pulmonary Medicine, [facility] [address] [facility] [address] Jose Angel Wheatley MD [address] [facility] [address] 06/09/2024 8:30 AM EST Telemedicine Psychiatry, [facility] 132 [employer] [place] [address] Ej Nieves CRNP 132 [facility] [place] [address] 06/16/2024 10:40 AM EST Office Visit [address] [phone] Benjamin Connor MD [address] [place], [place] [address] Scheduled Procedures Name Priority Associated Diagnoses Date/Ti me COLONOSCOPY FLEXIBLE PROXIMAL DIAGNOSTIC Recall History of colon polyps Health Maintenance Due Date Last Done Comments Alpha-1 Antitrypsin 1963 Adult Wellness Visit 2013 COVID-19 Vaccine (3 - Pfizer risk series) 08/31/2020 08/03/2020, 07/13/2020 CKD PHOS USE SMARTSET 98810 10/17/2023 0606/2022, 08/01/2021, 11/25/2018 HbA1c 12/03/2023 06/04/2023, 12/25, 10/16/2022, Additional history exists Influenza Vaccine (FLU shot) (#1) 2023 01/08/2023, 02/06/2022, 01/24/2021, Additional history exists GFR 03/31/2024 09/30/2023, 02/0 12/2023, 03/10/2023, Additional history exists O2 ASSESSMENT COMPLETED IN PAST YEAR FOR COPD 04/09/2024 04/09/2023 Depression Monitoring 04/12/2024 04/12/2023 Diabetic Foot Exam 06/04/2024 06/04/2023, 05/15/2022 Diabetic Eye Exam 07/15/2024 07/16/2023 Albumin/Creatinine Ratio 07/29/20242 024, 10/16/2022, 08/01/2021 CKD HGB USE SMARTSET 40835 09/29/202409/29, 09/30/2023, 06/04/2023, Additional history exists Colonoscopy [...] this encounter Medical Devices Implanted Type Area Talent Management Specialist Device Identifier Shelf Expiration Date Model / Serial / Lot Lead Dbs 0.5mm 42cm Marker - [id number] Implanted:Qty: 1 on 04/05/2023 by Neal Yoon MD [place] [facility] [place] Left: Head [employer] : NEUROLOGIC PAIN 02/11/2025 [id number] / / [id number] Lead Dbs 0.5mm 42cm - [id number] Implanted:Qty: 1 on 04/05/2023 by Neal Yoon MD at [place] [facility] [place] Right: Head [employer] : NEUROLOGIC PAIN 02/11/2025 [id number] / / [id number] 1 Cement Hydroset Injectable 5cc - [id number] Implanted:Qty: 1 on 04/05/2023 by Neal Yoon MD at [place] [facility] [place] N/A: Head CATRINA 12/11/2024 [id number] / / [id number] Plate 12mm Str 2 Hole Un3 - [id number] Implanted:Qty: 1 on 04/05/2023 by Neal Yoon MD at [place] [facility] [place] Right: Head CATRINA : CRANIOMAXILLOFACIAL 53-90348 / / Plate 12mm Str 2 Hole Un3 - [id number] Implanted:Qty: 1 on 04/05/2023 by Neal Yoon MD at [place] [facility] [place] Left: Head CATRINA : CRANIOMAXILLOFACIAL 53-19801 / / Neurostimulator Percept Pc - [id number] - [id number] Implanted:Qty: 1 on 04/09/2023 by Neal Yoon MD at [place] [facility] [place] Left: Chest [employer] : NEUROLOGIC PAIN 02/06/2025 [id number] / [id number] / Ext Dbs 40cm Marker - [id number] Implanted:Qty: 1 on 04/09/2023 by Neal Yoon MD at [place] [facility] [place] Left: Chest [employer] : NEUROLOGIC PAIN 10/21/2024 [id number] / / Ext Dbs 40cm - [id number] - [id number] Implanted:Qty: 1 on 04/09/2023 by Neal Yoon MD at [place] [facility] [place] Left: Chest [employer] : NEUROLOGIC PAIN 12/04/2024 [id number] / [id number] / Envelope Tyrx Lg Antibacterial - [id number] Implanted:Qty: 1 on 04/09/2023 by Neal Yoon MD at [place] [facility] [place] Left: Chest [employer] 12/17/2023 [id number] / / [id number] documented as of this encounter Visit Diagnoses [...] Documents on File Type Date Recorded Patient Developer Programmer Expl anation Power of Cadastral Engineer 10/30/2014 POWER OF A TTORNEY * [...] Discussed due to patient's condition Care Teams Process Mechanic Relationship Specialty Start Date End Date August, Benjamin De Jesus MD [address] [place] [address] PCP - General Family Medicine 02/04/22 documented as of this encounter
--- OUTSIDE RECORDS SUMMARY | 2024-05-26 13:51 | External Medical Summary | Summary of Care ---
Author Name Unknown Organization [facility] Address [address] [place] [address] Phone [phone] Care Team Providers Care Chemical Radiation Technician Name Role Phone Benjamin Connor MD Primary Care Provider [phone] Reason for Visit * Reason Comments Infusion Infiximab * Episode Based Medications (Routine) - Authorized Specialty Diagnoses / Procedures Referred By Krupa t Referred To Contact Diagnoses Psoriatic arthropathy (HCC) Procedures [place] [address] [facility] [address] [place] [address] Anc Hem/Onc Karen Vasquez DEPT CLOSED - 03/09/23 [address] [facility] [place] [address] Referral ID Status Reason Start Date Expiration Date V isits Requested Visits Authorized [id number] Authorized 02/08/2023 02/09/2024 99 99 Encounter Details Date Type Department Care Team (Latest Contact Info) Description 12/03/2023 11:30 AM EDT Hem/Onc Treatment Hematology/Oncology Treatment, [place] [address] [place] [address] Christina, Chair 8 Hem Onc [address] [place] [address] Psoriatic arthropathy (HCC)* Allergies No known active [...] Continue with psychiatry. Dr. Villalta at [facility] Psych. documented as of this encounter (statuses [...] No 08/06/2023 Does the household have a [facility] source of income? (Household - for [...] Description 01/07/2024 8:30 AM EDT Telemedicine Psychiatry, [facility] 132 [facility] [place] [address] Ej Nieves CRNP 132 [facility] [place] [address] 01/14/2024 11:15 AM EDT Hem/Onc Treatment Hematology/Oncology Treatment, [place] [address] [place] [address] Christina, Chair 8 Hem Onc Scenery [address] [place] [address] 03/09/2024 10:40 AM EST Telemedicine Rheumatology, [place] [address] [place] [address] Adwoa Baker DO [address] [place] [address] 03/31/2024 11:00 AM EST Imaging Radiology [facility] 1st [facility] 132 [place] [address] 04/06/2024 12:00 PM EST Office Visit Pulmonary Medicine, [address] [place] [address] Jose Angel Wheatley MD [address] [facility] [address] 06/16/2024 10:40 AM EST Office Visit Family [facility] [address] [place] [address] AugustBenjamin MD [address] [place], [place] [address] Scheduled Procedures Name Priority Associated Diagnoses Date/Ti me COLONOSCOPY FLEXIBLE PROXIMAL DIAGNOSTIC Recall History of colon polyps Health Maintenance Due Date Last Done Comments Alpha-1 Antitrypsin 1963 Adult Wellness Visit 2013 COVID-19 Vaccine (3 - Pfizer risk series) 08/31/2020 08/03/2020, 07/13/2020 CKD PHOS USE SMARTSET 71535 10/17/2023 0606/2022, 08/01/2021, 11/25/2018 HbA1c 12/03/2023 06/04/2023, [...] 024, 10/16/2022, 08/01/2021 CKD HGB USE SMARTSET 17812 09/29/202409/29, 09/30/2023, 06/04/2023, Additional history exists Colonoscopy [...] this encounter Medical Devices Implanted Type Area Crutcher Helper Device Identifier Shelf Expiration Date Model / Serial / Lot Lead Dbs 0.5mm 42cm Marker - [id number] Implanted:Qty: 1 on 04/05/2023 by Neal oYon MD at [place] [facility] Left: Head [employer] : NEUROLOGIC PAIN 02/11/2025 [id number] / / [id number] Lead Dbs 0.5mm 42cm - [id number] Implanted:Qty: 1 on 04/05/2023 by Neal Yoon MD at [place] [facility] Right: Head [employer] : NEUROLOGIC PAIN 02/11/2025 [id number] / / [id number] 1 Cement Hydroset Injectable 5cc - [id number] Implanted:Qty: 1 on 04/05/2023 by Neal Yoon MD at [place] [facility] N/A: Head CATRINA 12/11/2024 [id number] / / [id number] Plate 12mm Str 2 Hole Un3 - [id number] Implanted:Qty: 1 on 04/05/2023 by Neal Yoon MD at [place] [facility] Right: Head CATRINA : CRANIOMAXILLOFACIAL 53-21005 / / Plate 12mm Str 2 Hole Un3 - [id number] Implanted:Qty: 1 on 04/05/2023 by Neal Yoon MD at [place] [facility] [place] Left: Head CATRINA : CRANIOMAXILLOFACIAL 53-67535 / / Neurostimulator Percept Pc - [id number] - [id number] Implanted:Qty: 1 on 04/09/2023 by Neal Yoon MD at [place] [facility] Left: Chest [employer] : NEUROLOGIC PAIN 02/06/2025 [id number] / [id number] / Ext Dbs 40cm Marker - [id number] Implanted:Qty: 1 on 04/09/2023 by Neal Yoon MD at [place] [facility] Left: Chest [employer] : NEUROLOGIC PAIN 10/21/2024 [id number] / / Ext Dbs 40cm - [id number] - [id number] Implanted:Qty: 1 on 04/09/2023 by Neal Yoon MD at [place] [facility] Left: Chest [employer] : NEUROLOGIC PAIN 12/04/2024 [id number] / [id number] / Envelope Tyrx Lg Antibacterial - [id number] Implanted:Qty: 1 on 04/09/2023 by Neal Yoon MD at [place] [facility] Left: Chest [employer] 12/17/2023 [id number] / / [id number] documented as of this encounter Visit Diagnoses [...] Documents on File Type Date Recorded Patient Hide Salter Expl anation Power of Extension Service Advisor 10/30/2014 POWER OF A TTORNEY * Full [...] Discussed due to patient's condition Care Teams Chemical Radiation Technician Relationship Specialty Start Date End Date August, Bejnamin De Jesus MD [address] [facility] [place] [address] PCP - General Family Medicine 02/04/22 documented as of this encounter
--- OUTSIDE RECORDS SUMMARY | 2024-05-26 13:51 | External Medical Summary | Summary of Care ---
Author Name Unknown Organization [facility] Address [address] [place] [address] Phone [phone] Care Team Providers Care Welding Machine Operator Helper Arc Name Role Phone Benjamin Connor MD Primary Care Provider [phone] Reason for Visit * Reason Comments Infusion Infiximab * Episode Based Medications (Routine) - Authorized Specialty Diagnoses / Procedures Referred By Krupa t Referred To Contact Diagnoses Psoriatic arthropathy (HCC) Procedures [place] [address] [facility] [address] [place] [address] Anc Hem/Onc Karen Vasquez DEPT CLOSED - 03/09/23 [address] [facility] [place] [address] Referral ID Status Reason Start Date Expiration Date V isits Requested Visits Authorized [id number] Authorized 02/08/2023 02/09/2024 99 99 Encounter Details Date Type Department Care Team (Latest Contact Info) Description 12/03/2023 11:30 AM EDT Hem/Onc Treatment Hematology/Oncology Treatment, [place] [address] [place] [address] Christina, Chair 8 Hem Onc [address] [place] [address] Psoriatic arthropathy (HCC)* Allergies No known active [...] Continue with psychiatry. Dr. [facility]alta at [facility] Psych. documented as of this encounter [...] No 08/06/2023 Does the household have a [facility] source of income? (Household - for [...] Description 01/07/2024 8:30 AM EDT Telemedicine Psychiatry, [facility] [address] [facility] [place] [address] Ej Nieves CRNP 132 [facility] [place] [address] 01/14/2024 11:15 AM EDT Hem/Onc Treatment Hematology/Oncology Treatment, [place] [address] [place] [address] Christina, Chair 8 Hem Onc [address] [address] [place] [address] 03/09/2024 10:40 AM EST Telemedicine Rheumatology, [place] [address] [place] [address] Adwoa Baker DO [address] [place] [address] 03/31/2024 11:00 AM EST Imaging Radiology [facility] 1st [facility] 132 [place] [address] 04/06/2024 12:00 PM EST Office Visit Pulmonary Medicine, [address] [place] [address] Jose Angel Wheatley MD [address] [facility] [address] 06/16/2024 10:40 AM EST Office Visit Family [facility] [address] [place] [address] AugustBenjamin MD [address] [place], [place] [id number] Scheduled Procedures Name Priority Associated Diagnoses Date/Ti me COLONOSCOPY FLEXIBLE PROXIMAL DIAGNOSTIC Recall History of colon polyps Health Maintenance Due Date Last Done Comments Alpha-1 Antitrypsin 1963 Adult Wellness Visit 2013 COVID-19 Vaccine (3 - Pfizer risk series) 08/31/2020 08/03/2020, 07/13/2020 CKD PHOS USE SMARTSET 82651 10/17/2023 0606/2022, 08/01/2021, 11/25/2018 HbA1c 12/03/2023 06/04/2023, [...] 024, 10/16/2022, 08/01/2021 CKD HGB USE SMARTSET 98823 09/29/202409/29, 09/30/2023, 06/04/2023, Additional history exists Colonoscopy [...] this encounter Medical Devices Implanted Type Area Steep Tender Device Identifier Shelf Expiration Date Model / Serial / Lot Lead Dbs 0.5mm 42cm Marker - [id number] Implanted:Qty: 1 on 04/05/2023 by Neal Yoon MD at OR [facility] [place] Left: Head [employer] : NEUROLOGIC PAIN 02/11/2025 [id number] / / [id number] Lead Dbs 0.5mm 42cm - [id number] Implanted:Qty: 1 on 04/05/2023 by Neal Yoon MD at OR [facility] Right: Head [employer] : NEUROLOGIC PAIN 02/11/2025 [id number] / / [id number] Cement Hydroset Injectable 5cc - [id number] Implanted:Qty: 1 on 04/05/2023 by Neal Yoon MD at OR [facility] N/A: Head CATRINA 12/11/2024 [id number] / / [id number] Plate 12mm Str 2 Hole Un3 - [id number] Implanted:Qty: 1 on 04/05/2023 by Neal Yoon MD at OR [facility] Right: Head CATRINA : CRANIOMAXILLOFACIAL [id number] / / Plate 12mm Str 2 Hole Un3 - [id number] Implanted:Qty: 1 on 04/05/2023 by Neal Yoon MD at OR [facility] Left: Head CATRINA : CRANIOMAXILLOFACIAL [id number] / / Neurostimulator Percept Pc - [id number] - [id number] Implanted:Qty: 1 on 04/09/2023 by Neal Yoon MD at OR [facility] Left: Chest [employer] : NEUROLOGIC PAIN 02/06/2025 [id number] / [id number] / Ext Dbs 40cm Marker - [id number] Implanted:Qty: 1 on 04/09/2023 by Neal Yoon MD at OR [facility] Left: Chest [employer] : NEUROLOGIC PAIN 10/21/2024 [id number] / / Ext Dbs 40cm - [id number] - [id number] Implanted:Qty: 1 on 04/09/2023 by Neal Yoon MD at OR [facility] Left: Chest [employer] : NEUROLOGIC PAIN 12/04/2024 [id number] / [id number] / Envelope Tyrx Lg Antibacterial - [id number] Implanted:Qty: 1 on 04/09/2023 by Neal Yoon MD at OR [facility] Left: Chest [employer] 12/17/2023 [id number] / / [id number] documented as of this encounter Visit Diagnoses [...] Documents on File Type Date Recorded 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
--- OUTSIDE RECORDS SUMMARY | 2024-05-26 13:51 | External Medical Summary | Summary of Care ---
Author Name Unknown Organization [facility] Address [address] [place] [address] Phone [phone] Care Team Providers Care Pairer Inspector Name Role Phone Benjamin Connor MD Primary Care Provider [phone] Reason for Visit * Reason Onset Date Comments Appointment 12/07/2023 Encounter Details Date Type Department Care Team (Late st Contact Info) Description 12/07/2023 Telephone Access Center, [place] [address] [facility] *DO NOT REMOVE THIS DEPARTMENT* [place] [address] Services, Scheduling [address] [place] [address] Appointment Allergies No known active allergiesdocumented as of this encounter (statuses as of 12/08/2023) Medications Medication Sig Dispensed Refills Start Date [...] 3 pound in one week). 08/10/2023 Active Azithromycin 250 MG Oral Tablet (Zithromax Z-Sukumar) Please take 500 mg by mouth on day one, followed by 250 mg by mouth for four days. 6 Tablet 09/02/2023 Active Famotidine 20 MG Oral Tablet (Pepcid) Take 1 Tablet by mouth in the morning and 1 Tablet before bedtime. 180 Tablet 09/30/2023 4 Active Fluticasone Propionate 50 MCG/ACT Nasal [...] the morning. 360 Tablet 12/02/2023 5 Active Hospital, Clinic, or Other Facility Administered Medication Ordered Dose Route Frequency Start Date End Date Status Albuterol Sulfate (Proventil) (5 MG/ML) 0.5% *conc* inhalation solution 2.5 mgIndications:Chronic cough 2.5 mg NEBULIZER PRN 09/02/2023 09/01/2024 Active Albuterol Sulfate (Proventil) (2.5 MG/3ML) 0.083% inhalation solution 2.5 mgIndications:Chronic cough 2.5 mg NEBULIZER PRN 09/02/2023 09/01/2024 Active documented as of this encounter (statuses as of 12/08/2023) Active Problems Problem Noted Date Diagnosed Date [...] sugars. Continue with psychiatry. Dr. Villalta at [facility] Psych. documented as of this encounter (statuses as of 12/08/2023) Resolved Problems Problem Noted Date Diagnosed Date [...] as of this encounter (statuses as of 12/08/2023) Immunizations Name Administration Dates Next Due COVID-19 mRNA, LNP-s, No Pre serve, 2-Dose Series (Isotera) 08/03/2020,07/13/2020 Pneumococcal Conjugate Vacc, 13 Valent (Prevnar) [...] encounter Miscellaneous Notes * Telephone Encounter - Cici Rivas OSA - 12/08/2023 10:02 AM EDT Apt rescheduled for 01/13 Per note and pt is aware * Telephone Encounter - Shereen Castro RN - 12/08/2023 7:40 AM EDT Patient is due for next infusion 01/14/24. * Telephone Encounter - Dalia Basurto OSA - 12/07/2023 4:09 PM EDT Patient would like to reschedule the infusion appointment on 01/28/24. Patient states that he is supposed to have the infusions every 6 weeks and the date he was given is for 8 weeks time between infusions. Patient can be contacted at [phone]. documented in this encounter Plan of Treatment Upcoming Encounters Date Type Department Care Team (Late st Contact Info) Description 12/10/2023 11:00 AM EDT Office Visit [facility] [address] [place] [phone] Benjamin Connor MD [address] [place] [address] 01/07/2024 8:30 AM EDT Telemedicine Psychiatry, [facility] [address] [place] [address] Ej Nieves CRNP [address] [facility] [address] 01/14/2024 11:15 AM EDT Hem/Onc Treatment Hematology/Oncology Treatment, [place] [address] [place] [address] Christina, Chair 8 Hem Onc [place] [address] [place] [address] 03/09/2024 10:40 AM EST [facility] [address] [place] [address] Adwoa Baker, [address] [place] [address] 03/31/2024 11:00 AM EST Imaging Radiology [facility] 1st [facility] 132 [facility] [place] [address] 04/06/2024 12:00 PM EST Office Visit Pulmonary Medicine, [facility] [address] [facility] [place] [address] Jose Angel Wheatley MD [address] [place] [address] Scheduled Procedures Name Priority Associated Diagnoses Date/Ti me COLONOSCOPY FLEXIBLE PROXIMAL DIAGNOSTIC Recall History of colon polyps Health Maintenance Due Date Last Done Comments Alpha-1 Antitrypsin 1963 Adult Wellness Visit 2013 COVID-19 Vaccine (3 - Pfizer risk series) 08/31/2020 08/03/2020, 07/13/2020 CKD PHOS USE SMARTSET 23779 10/17/202309/25, 08/01/2021, 11/25/2018 HbA1c 12/03/2023 06/04/2023, 12/25, [...] 024, 10/16/2022, 08/01/2021 CKD HGB USE SMARTSET 15942 09/29/202409/29, 09/30/2023, 06/04/2023, Additional history exists Colonoscopy 06/27/2026 06/27/2021, 06/27/2021 DTaP,Tdap,and Td Vaccines (2 [...] this encounter Medical Devices Implanted Type Area Refuse Collector Device Identifier Shelf Expiration Date Model / Serial / Lot Lead Dbs 0.5mm 42cm Marker - [id number] Implanted:Qty: 1 on 04/05/2023 [place] [facility] [place] [employer] : NEUROLOGIC PAIN 02/11/2025 [id number] / / [id number] Lead Dbs 0.5mm 42cm - [id number] Implanted:Qty: 1 on 04/05/2023 by Neal [place] [facility] [place]: Head [employer] : NEUROLOGIC PAIN 02/11/2025 [id number] / / [id number] 1 Cement Hydroset Injectable 5cc - [id number] Implanted:Qty: 1 on 04/05/2023 by Neal Y[place] [facility] [place]A: Head CATRINA 12/11/2024 [id number] / / [id number] Plate 12mm Str 2 Hole Un3 - [id number] Implanted:Qty: 1 on 04/05/2023 by Neal Y[place] [facility] [place]: Head CATRINA : CRANIOMAXILLOFACIAL [id number] / / Plate 12mm Str 2 Hole Un3 - [id number] Implanted:Qty: 1 on 04/05/2023 by Neal Y[place] [facility] [place]: Head CATRINA : CRANIOMAXILLOFACIAL 53-89512 / / Neurostimulator Percept Pc - [id number] - [id number] Implanted:Qty: 1 on 04/09/2023 by Neal Y[place] [facility] [place]: Chest [employer] : NEUROLOGIC PAIN 02/06/2025 [id number] / [id number] / Ext Dbs 40cm Marker - [id number] Implanted:Qty: 1 on 04/09/2023 by Neal Yoon [place] [facility] [place]: Chest [employer] : NEUROLOGIC PAIN 10/21/2024 [id number] / / Ext Dbs 40cm - [id number] - [id number] Implanted:Qty: 1 on 04/09/2023 by Neal Yoon MD [place] [facility]: Chest [employer] : NEUROLOGIC PAIN 12/04/2024 [id number] / [id number] / Envelope Tyrx Lg Antibacterial - [id number] Implanted:Qty: 1 on 04/09/2023 by Neal Yoon MD [place] [facility] [place]: Chest [employer] 12/17/2023 [id number] / / [id number] documented as of this encounter Advance Directives Documents on File Type Date Recorded 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
--- OUTSIDE RECORDS SUMMARY | 2024-05-26 13:51 | External Medical Summary | Summary of Care ---
Author Name Unknown Organization [facility] Address [address] [facility] [place] [address] Phone [phone] Care Team Providers Care Service Porter Name Role Phone Benjamin Connor MD Primary Care Provider [phone] Reason for Visit * Reason Onset Date Comments Medication Refill 12/30/2023 Encounter Details Date Type Department Care Team (Late st Contact Info) Description 12/30/2023 Refill Pulmonary Medicine Elva Cartagena [address] [place] [phone] Jose Angel Cooper MD [address] [place] [address] Allergies No known active allergiesdocumented as of this encounter (statuses as of 12/30/2023) Medications Medication Sig Dispensed Refills Start Date [...] or Pain, Mild. 30 Tablet 3 Active Atorvastatin Calcium 20 MG Oral Tablet (Lipitor)Indications :Dyslipidemia TAKE 1 TABLET BY MOUTH IN THE MORNING 90 Tablet 2 4 Active Montelukast Sodium 10 MG Oral Tablet [...] Tablet before bedtime. 180 Tablet 4 Active Famotidine 20 MG Oral Tablet (Pepcid) Take 1 Tablet by mouth in the morning and 1 Tablet before bedtime. 180 Tablet 4 12/30/19 24 Discontinu ed(Refill) Hospital, Clinic, or [...] as of this encounter (statuses as of 12/30/2023) Active Problems Problem Noted Date Diagnosed Date [...] sugars. Continue with psychiatry. [facility]. Villalta at [facility] Psych. documented as of this encounter (statuses as of 12/30/2023) Resolved Problems Problem Noted Date Diagnosed Date [...] as of this encounter (statuses as of 12/30/2023) Immunizations Name Administration Dates Next Due COVID-19 mRNA, LNP-s, No Pre serve, 2-Dose Series (Tendr) 08/03/2020,07/13/2020 Pneumococcal Conjugate Vacc, 13 Valent (Prevnar) [...] Encounter - Jose Angel Cooper MD - 12/30/2023 5:23 PM EDT Signed Prescriptions: Disp Refills Famotidine 20 MG Oral Tablet (Pepcid) 180 Ta*0 Sig: Take 1 Tablet by mouth in the morning and 1 Tablet before bedtime. Authorizing Provider: JOSE ANGEL COOPER * Telephone Encounter - Aminah Longoria LPN - 12/30/2023 3:27 PM EDTPending Prescriptions: Disp Refills Famotidine 20 MG Oral Tablet (Pepcid) 180 Ta*0 Sig: Take 1 Tablet by mouth in the morning and 1 Tablet before bedtime. documented in this encounter Plan of Treatment Upcoming Encounters Date Type Department Care Team (Late st Contact Info) Description 01/07/2024 8:30 AM EDT Telemedicine Psychiatry, [facility] 132 [facility] [place] [address] Ej Nieves CRNP [address] [place] [address] 01/14/2024 11:15 AM EDT Hem/Onc Treatment Hematology/Oncology Treatment, [place] 200 [facility] [place] [address] Christina, Chair 8 Hem Onc [facility] [address] 03/09/2024 10:40 AM EST Telemedicine Rheumatology, [place] [address] [facility] [place] [address] Adwoa Baker DO [address] [place] [address] 03/31/2024 11:00 AM EST Imaging Radiology [facility] 1st [facility] 132 [facility] [place] [address] 04/06/2024 12:00 PM EST Office Visit Pulmonary Medicine, [facility] [address] [facility] [place] [address] Jose Angel Cooper MD [address] [place] [address] 06/16/2024 10:40 AM EST Office Visit [facility] [address] [place] [address] August, Benjamin De Jesus MD [address] [place] [address] Scheduled Procedures Name Priority Associated Diagnoses Date/Ti me COLONOSCOPY FLEXIBLE PROXIMAL DIAGNOSTIC Recall History of colon polyps Health Maintenance Due Date Last Done Comments Alpha-1 Antitrypsin 1963 Adult Wellness Visit 2013 COVID-19 Vaccine (3 - Pfizer risk series) 08/31/2020 08/03/2020, 07/13/2020 CKD PHOS USE SMARTSET 04540 10/17/202309/25, 08/01/2021, 11/25/2018 HbA1c 12/03/2023 06/04/2023, 12/25, 10/16/2022, Additional history exists Influenza Vaccine (FLU shot) (#1) 2023 01/08/2023, 02/06/2022, 01/24/2021, Additional history exists GFR 03/31/2024 09/30/2023, 02/0 12/2023, 03/10/2023, Additional history exists O2 ASSESSMENT COMPLETED IN PAST YEAR FOR COPD 04/09/2024 04/09/2023 Depression Monitoring 04/12/2024 04/12/2023 Diabetic Foot Exam 06/04/2024 06/04/2023, 05/15/2022 Diabetic Eye Exam 07/15/2024 07/16/2023 Albumin/Creatinine Ratio 07/29/2024 04/ 024, 10/16/2022, 08/01/2021 CKD HGB USE SMARTSET 29390 09/29/202409/29, 09/30/2023, 06/04/2023, Additional history exists Colonoscopy [...] this encounter Medical Devices Implanted Type Area Photoresist Contact Printer Device Identifier Shelf Expiration Date Model / Serial / Lot Lead Dbs 0.5mm 42cm Marker - [id number] Implanted:Qty: 1 on 04/05/2023 by Neal Yoon MD [place] [facility] [place]: Head [employer] : NEUROLOGIC PAIN 02/11/2025 [id number] / / [id number] Lead Dbs 0.5mm 42cm - [id number] Implanted:Qty: 1 on 04/05/2023 by Neal Yoon MD [place] [facility] [place] Right: Head [employer] : NEUROLOGIC PAIN 02/11/2025 [id number] / / [id number] Cement Hydroset Injectable 5cc - [id number] Implanted:Qty: 1 on 04/05/2023 by Neal Yoon MD [place] [facility] [place]/A: Head CATRINA 12/11/2024 [id number] / / [id number] Plate 12mm Str 2 Hole Un3 - [id number] Implanted:Qty: 1 on 04/05/2023 by Neal Yoon MD [place] [facility] [place]: Head CATRINA : CRANIOMAXILLOFACIAL [id number] / / Plate 12mm Str 2 Hole Un3 - [id number] Implanted:Qty: 1 on 04/05/2023 by Neal Yoon MD at [place] [facility] [place]: Head CATRINA : CRANIOMAXILLOFACIAL 53-82424 / / Neurostimulator Percept Pc - [id number] - [id number] Implanted:Qty: 1 on 04/09/2023 by Neal Yoon MD [place] [facility] [place]: Chest [employer] : NEUROLOGIC PAIN 02/06/2025 [id number] / [id number] / Ext Dbs 40cm Marker - [id number] Implanted:Qty: 1 on 04/09/2023 by Neal Yoon MD [place] [facility] [place]: Chest [employer] : NEUROLOGIC PAIN 10/21/2024 [id number] / / Ext Dbs 40cm - [id number] - [id number] Implanted:Qty: 1 on 04/09/2023 by Neal Yoon MD [place] [facility] [place]: Chest [employer] : NEUROLOGIC PAIN 12/04/2024 [id number] / [id number] / Envelope Tyrx Lg Antibacterial - [id number] Implanted:Qty: 1 on 04/09/2023 by Neal Yoon MD [place] [facility] [place]: Chest [employer] 12/17/2023 [id number] / / [id number] documented as of this encounter Advance Directives Documents on File Type Date Recorded 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
--- OUTSIDE RECORDS SUMMARY | 2024-05-26 13:51 | External Medical Summary | Summary of Care ---
Author Name Unknown Organization [facility] Address [address] [place] [address] Phone [phone] Care Team Providers Care [employer] Superintendent Name Role Phone AugustBenjamin MD Primary Care Provider [phone] Reason for Visit * Reason Onset Date Comments Health Maintenance 12/08/2023 Encounter Details Date Type Department Care Team (Late st Contact Info) Description 12/08/2023 Telephone [facility] [address] [place] [address] AugustBenjamin MD [address] [place] [address] Health Maintenance Allergies No known active allergiesdocumented as of [...] sugars. Continue with psychiatry. Dr. Villalta at [facility] Psych. documented as of this [...] mRNA, LNP-s, No Pre serve, 2-Dose Series ([employer]) 08/03/2020,07/13/2020 Pneumococcal Conjugate Vacc, 13 Valent (Prevnar) [...] encounter Miscellaneous Notes * Telephone Encounter - Marie Sears LPN - 12/08/2023 8:13 AM EDT Care Gaps Comprehensive Care Outreach Last Office/Telemedicine Visit: 08/20/2023 (in office), Visit date not found (telemedicine) Next Office Visit: 12/10/2023 Hemoglobin AIC Results: Lab Results Component Value Date/Time HEMOGLOBIN A1C - [facility] 6.5 (H) 06/04/2023 11:51 AM HEMOGLOBIN A1C - [facility] 7.5 (H) 01/08/2023 12:22 PM HEMOGLOBIN A1C - [facility] 6.9 (H) 10/16/2022 09:05 AM HEMOGLOBIN A1C - [facility] 5.5 11/25/2018 10:58 AM HEMOGLOBIN A1C - [facility] 5.5 10/26/2018 01:57 PM BP Readings from Last 1 Encounters: 12/03/23 158/84 Reviewed Health Maintenance below: Health Maintenance Topic Date Due Alpha-1 Antitrypsin Never done Adult Wellness Visit Never done COVID-19 Vaccine (3 - Pfizer risk series) 08/31/2020 CKD PHOS USE SMARTSET 53087 10/17/2023 HbA1c 12/03/2023 Influenza Vaccine (FLU shot) (1) 12/26/2023 GFR 03/31/2024 O2 ASSESSMENT COMPLETED IN PAST YEAR FOR COPD 04/09/2024 Patient is seeing pcp this week Care Gap Outreach Action Taken: Outreach not indicated documented in this encounter Plan of Treatment Upcoming Encounters Date Type Department Care Team (Late st Contact Info) Description 12/10/2023 11:00 AM EDT Office Visit [facility] [address] [place] [address] Benjamin Connor MD [address] [place] [address] 01/07/2024 8:30 AM EDT Telemedicine Psychiatry, [facility] [address] [place] [address] Ej Nieves CRNP [address] [place] [address] 01/28/2024 11:30 AM EDT Hem/Onc Treatment Hematology/On[facility], [place] [address] [phone] Christina, Chair [address] [place] [address] 03/09/2024 10:40 AM EST Telemedicine Rheumatology, [place] [address] [place] [address] Samuel AdwoaDO [address] [place] [address] 03/31/2024 11:00 AM EST [facility] [address] [facility] [address] 04/06/2024 12:00 PM EST Office Visit Pulmonary Medicine, [facility] [address] [facility] [place] [address] Jose Angel Wheatley [facility] [address] [facility] [address] Scheduled Procedures Name Priority Associated Diagnoses Date/Ti me COLONOSCOPY FLEXIBLE PROXIMAL DIAGNOSTIC Recall History of colon polyps Health Maintenance Due Date Last Done Comments Alpha-1 Antitrypsin 1963 Adult Wellness Visit 2013 COVID-19 Vaccine (3 - Pfizer risk series) 08/31/2020 08/03/2020, 07/13/2020 CKD PHOS USE SMARTSET 03050 10/17/202309/25, 08/01/2021, 11/25/2018 HbA1c 12/03/2023 06/04/2023, 12/25, 10/16/2022, Additional history exists Influenza Vaccine (FLU shot) (#1) 2023 01/08/2023, 02/06/2022, 01/24/2021, Additional history exists GFR 03/31/2024 09/30/2023, 0212/2023, 03/10/2023, Additional history exists O2 ASSESSMENT COMPLETED IN PAST YEAR FOR COPD 04/09/2024 04/09/2023 Depression Monitoring 04/12/2024 04/12/2023 Diabetic Foot Exam 06/04/2024 06/04/2023, 05/15/2022 Diabetic Eye Exam 07/15/2024 07/16/2023 Albumin/Creatinine Ratio 07/29/2024 024, 10/16/2022, 08/01/2021 CKD HGB USE SMARTSET 94511 09/29/202409/29, 09/30/2023, 06/04/2023, Additional history exists Colonoscopy [...] this encounter Medical Devices Implanted Type Area Reacher Device Identifier Shelf Expiration Date Model / Serial / Lot Lead Dbs 0.5mm 42cm Marker - [id number] Implanted:Qty: 1 on 04/05/2023 by Neal Yoon MD [place] [facility] [place]: Head [employer] : NEUROLOGIC PAIN 02/11/2025 [id number] / / [id number] Lead Dbs 0.5mm 42cm - [id number] Implanted:Qty: 1 on 04/05/2023 by Neal Yoon MD [place] [facility] [place] Right: Head [employer] : NEUROLOGIC PAIN 02/11/2025 [id number] / / [id number] Cement Hydroset Injectable 5cc - [id number] Implanted:Qty: 1 on 04/05/2023 by Neal Yoon MD [place] [facility] [place] N/A: Head [employer] 12/11/2024 [id number] / / [id number] Plate 12mm Str 2 Hole Un3 - [id number] Implanted:Qty: 1 on 04/05/2023 by Neal Yoon MD [place] [facility] [place] Right: Head [employer] : CRANIOMAXILLOFACIAL [id number] / / Plate 12mm Str 2 Hole Un3 - [id number] Implanted:Qty: 1 on 04/05/2023 by Neal Yoon MD at [place] [facility] [place] Left: Head [employer]INA : CRANIOMAXILLOFACIAL [id number] / / Neurostimulator Percept Pc - [id number] - [id number] Implanted:Qty: 1 on 04/09/2023 by Neal Yoon MD at [place] [facility] [place] Left: Chest [employer] : NEUROLOGIC PAIN 02/06/2025 [id number] / [id number] / Ext Dbs 40cm Marker - [id number] Implanted:Qty: 1 on 04/09/2023 by Neal Yoon MD at [place] [facility] [place] Left: Chest [employer] : NEUROLOGIC PAIN 10/21/2024 [id number] / / Ext Dbs 40cm - [id number] - [id number] Implanted:Qty: 1 on 04/09/2023 by Neal Yoon MD at [place] [facility] [place] Left: Chest [employer] : NEUROLOGIC PAIN 12/04/2024 [id number] / [id number] / Envelope Tyrx Lg Antibacterial - [id number] Implanted:Qty: 1 on 04/09/2023 by Neal Yoon MD at [place] [facility] [place] Left: Chest [employer] 12/17/2023 [id number] / / [id number] documented as of this encounter Advance Directives Documents on File Type Date Recorded Patient Strike Planning Applications Expl anation Power of Contracting Support Specialist 10/30/2014 POWER OF A TTORNEY * [...] Discussed due to patient's condition Care Teams [employer] Superintendent Relationship Specialty Start Date End Date August, Benjamin De Jesus MD [address] [facility] [place] [address] PCP - General Family Medicine 02/04/22 documented as of this encounter
--- OUTSIDE RECORDS SUMMARY | 2024-05-26 13:51 | External Medical Summary | Summary of Care ---
Author Name Unknown Organization [facility] Address [address] [place] [address] Phone [phone] Care Team Providers Care Canvas Goods Supervisor Name Role Phone Benjamin Connor MD Primary Care Provider [phone] Reason for Visit * Reason Comments Follow Up Return in 6 months Encounter Details Date Type Department Care Team (Latest Contact Info) Description 12/10/2023 11:00 AM EDT Office Visit [facility] [address] [place] [address] AugustBenjamin MD [address] [place] [address] Risk and functional assessment*; Type 2 diabetes mellitus with hemoglobin A1c goal of less than 7.0% ([facility]); COPD, group B, by GOLD 2017 classification ([facility]); Mixed dyslipidemia; Stage 3a chronic kidney disease; Psoriatic arthropathy ([facility]); Rheumatoid arthritis, involving unspecified site, unspecified whether rheumatoid factor present ([facility]); Chronic schizophrenia ([facility]) Allergies No known active allergiesdocumented as of this encounter (statuses as of 12/10/2023) Medications Medication Sig Dispensed Refills Start Date [...] 3 pound in one week). 4 Active Famotidine 20 MG Oral Tablet (Pepcid) Take 1 Tablet by mouth in the morning and 1 Tablet before bedtime. 180 Tablet 4 12/29/19 24 Active Fluticasone Propionate 50 MCG/ACT Nasal [...] morning. 360 Tablet 4 11/27/19 25 Active Azithromycin 250 MG Oral Tablet (Zithromax Z-Sukumar) Please take 500 mg by mouth on day one, followed by 250 mg by mouth for four days. 6 Tablet 4 12/10/19 24 Discontinu ed(Medicat ion List Clean Up) Hospital, Clinic, or Other Facility Administered Medication Ordered Dose Route Frequency Start Date End Date Status Albuterol Sulfate (Proventil) (5 MG/ML) 0.5% *conc* inhalation solution 2.5 mgIndications:Chronic cough 2.5 mg NEBULIZER PRN 09/02/2023 09/01/2024 Active Albuterol Sulfate (Proventil) (2.5 MG/3ML) 0.083% inhalation solution 2.5 mgIndications:Chronic cough 2.5 mg NEBULIZER PRN 09/02/2023 09/01/2024 Active documented as of this encounter (statuses as of 12/10/2023) Active Problems Problem Noted Date Diagnosed Date [...] as of this encounter (statuses as of 12/10/2023) Resolved Problems Problem Noted Date Diagnosed Date [...] as of this encounter (statuses as of 12/10/2023) Immunizations Name Administration Dates Next Due COVID-19 [...] Passive Smoke Exposure: Never Smokeless Tobacco: Never Tobacco Cessation:Counseling Given: Not Answered Comments:quit in 1999 Alcohol Use Standard Drinks/Week [...] No 08/06/2023 Does the household have a [facility] [place] source of income? (Household - for ages [...] Sign Reading Time Taken Comments Blood Pressure 148/70 12/10/2023 11:13 AM EDT Pulse 79 12/10/2023 11:13 AM EDT Temperature 36.2 C (97.1 F) 12/10/2023 11:13 AM E DT Respiratory Rate 18 12/10/2023 11:13 AM EDT Oxygen Saturation 94% 12/10/2023 11:13 AM EDT Inhaled Oxygen Concentration - - Weight 93.4 kg (206 lb) 12/10/2023 11:13 AM EDT Height 176.8 cm (5' 9.61") 12/10/2023 11:13 AM E DT Body Mass Index 29.89 12/10/2023 11:13 AM EDT documented in this [...] this encounter Patient Instructions * Patient Instructions* Lavern Burger LPN - 12/10/2023 11:11 AM EDT Patient Instructions - Fall Prevention (This education is for all patients over 65 regardless of symptoms) Remember to take your current medications as prescribed. In order to prevent falls, you are encouraged to: Exercise Utilize assistive/adaptive devices Avoid multifocal lenses when walking Avoid hazards in home Maintain a regular toileting schedule Any questions please contact our office. Preventing Falls in the Home (This education is for all patients over 65 regardless of symptoms) As you get older, falls are more likely. Thats because your reaction time slows. Your muscles and joints may also get stiffer, making them less flexible. Illness, medications, and vision changes can also affect your balance. A fall could leave you unable to live on your own. To make your home safer, follow these tips: Floors Put nonskid pads under area rugs Remove throw rugs Replace worn floor coverings Tack carpets firmly to each step on carpeted stairs. Put nonskid strips on the edges of uncarpeted stairs Keep floors and stairs free of clutter and cords Arrange furniture so there are clear pathways Clean up any spills right away Bathrooms Install grab bars in the tub or shower Apply nonskid strips or put a nonskid rubber mat in the tub or shower Sit on a bath chair to bathe Use bathmats with nonskid backing Lighting Keep a flashlight in each room Put a nightlight along the pathway between the bedroom and the bathroom [employer] Patient Education Copyright 2008 - 2010 Aline except where otherwise noted Preventing Falls: Exercises to Improve Balance, Flexibility, Strength, and Staying Power (This education is for all patients over 65 regardless of symptoms) Certain types of exercises may help make you less likely to fall. Try the ones below. Or do other exercises that your healthcare provider suggests. Depending on your health, you may need to start slowly. Dont let that stop you. Even small amounts of exercise can help you. Be sure to talk to yourhealthcare provider before starting any exercise program. Improve Balance Many types of exercise can help improve balance. Angel chi and yoga are good examples. Heres another one to try. You can do it anytime and almost anywhere. Stand next to a counter or solid support. Push yourself up onto your tiptoes. Hold for 5 seconds. If you start to lose your balance, hold on to the counter. Rest and repeat 5 times. Work up to holding for 20 to 30 seconds, if you can. Increase Flexibility Being more flexible makes it easier for you to move around safely. Try exercises like the seated hamstring stretch. Sit in a chair and put one foot on a stool. Straighten your leg and reach with both hands down either side of your leg. Reach as far down your leg as you can. Hold for about 20 seconds. Go back to the starting position. Then repeat 5 times. Switch legs. Build Strength Resistance exercises help build strength. You can do them without equipment. Or you can use weights, elastic bands, or special machines. One such exercise is called the biceps curl. You can hold a 1 pound weight or even a can of soup. Do this exercise at least 3 times a week. Strive for everyday. Sit up straight in a chair. Keep your elbow close to your body and your wrist straight. Bend your arm, moving your hand up to your shoulder. Then slowly lower your arm. Repeat 5 times. Switch to the other arm. Build Your Staying Power Aerobic exercises make your heart and lungs stronger so you can keep moving longer. Walking and swimming are two of the best types of exercises you can do. Using a stationary bike is great, too. Find an aerobic exercise that you enjoy. Start slowly and build up. Even 5 minutes is helpful. Aimfor a goal of 30 minutes, at least 3 times a week. You dont have to do 30 minutes in one session. Break it up and walk a little throughout the day. More Helpful Tips Start easy. Slowly work up to doing more. Talk with your healthcare provider about the best exercises for you. Call senior centers or health clubs about exercise programs. If needed, have a family member watch you walk every so often to check your stability. Exercise with a friend. Choose an activity you both enjoy. Try exercises that you can do anytime, anywhere. Here are two examples. Have someone with you when you first try these: Practice walking by placing one foot right in front of the other. Stand up and sit down 10 times. Repeat this throughout the day. [employer] Patient Education Copyright 2009 - 2010 Aline except where otherwise noted. Preventing Falls: Moving Safely Using a Cane or Walker (This education is for all patients over 65 regardless of symptoms) Keep the cane away from your feet so you dont trip. A walking aid, such as a cane or walker, can help you stay more independent and avoid falls. Remember to keep your walking aid within easy reach when youre in a chair or in bed. And learn how to use it safely so you dont injure yourself. Using a Cane If you have a stronger side, hold the cane on that side. Get your balance. Move the cane and your weaker leg forward. Support your weight on both the cane and your weaker side. Step with your stronger leg. Start again from step 1. If youre using a folding walker, be sure you know how to lock it open. Check that its locked open before each use. Using a Walker Roll the walker (or lift it, if youre using one without wheels) forward about 12 inches. Step forward with your weaker leg first. Use the walker to help keep your balance. Bring your other foot forward to the center of the walker. Start again from step 1. Helpful Tips Check with your healthcare provider about the right walking aid to use. Ask about a walker with a seat attached. Check the tips of your cane or walker to make sure they have nonskid covers. Move slowly from room to room. Dont hauser. Sit down to get dressed. Use a dolores pack or backpack to keep your hands free. Get help for jobs that mean climbing, even on a stepstool. [employer] Patient Education Copyright 2008 - 2010 Aline except where otherwise noted. Treating Urinary Incontinence in Men (This education is for all patients over 65 regardless of symptoms) You can't always control the release of urine. You may leak urine. Or you may not be able to hold your urine until you can get to a bathroom. This is called urinary incontinence. The problem can be managed. Talk to your doctor about your treatment options. Taking Medications Prescription medications may help you. They may: Help the sphincter to work better. (This is the muscle that closes to keep urine from leaking out of the bladder.) Help stop the bladder from marielena too often to push urine out. Help the bladder muscles contract with more force. Help relax the sphincter muscle and allow urine to flow more freely. Making Changes to Your Routine Certain changes in your daily routine may help. These include: Avoiding caffeine and alcohol. Using timed voiding. This is following a schedule for drinking fluids and urinating. Doing Kegel exercises daily. These exercises involve tightening the muscles in your sphincter and around your bladder to help strengthen them. Your doctor can explain how to do them. Using a Catheter A catheter is a narrow tube that is inserted through the urethra into the bladder. It drains urine.A condom catheter covers the penis. It channels urine into a collection bag. It is worn most of thetime. Intermittent catheterization means inserting a catheter to drain the bladder, then removing it. This is done on a regular schedule. Having Surgery If other options don't work, surgery may be recommended. If surgery is an option, your healthcare provider can discuss it with you and explain its risks and benefits. Healing After Prostate Surgery Surgery on the prostate gland can cause incontinence. Most often, the incontinence is only for a short time. It clears up when healing is complete. Very rarely, prostate surgery can result in permanent incontinence. documented in this encounter Progress Notes * Benjamin Connor MD - 12/10/2023 11:49 AM EDT Images from the original note were not included. Assessment and Plan 1. Type 2 diabetes mellitus with hemoglobin A1c goal of less than 7.0% ([facility]) Diet controlled with A1C 6.5. - HEMOGLOBIN A1C; Future 2. COPD, group B, by GOLD 2017 classification ([facility]) Stable respiratory status. No changes to trelegy, montelukast, prn albuterol. - [id number], QN; Future 3. Mixed dyslipidemia Continue statin. Repeat lipid panel. - LIPID PANEL WITH DIRECT LDL IF TG IS HIGH; Future 4. Stage 3a chronic kidney disease Stable with Cr 1.4 on recent checks. Avoid nephrotoxic medications. Repeat CMP prior to next appointment. - PHOSPHORUS; Future - COMPREHENSIVE METABOLIC PANEL; Future - CBC; Future 5. Psoriatic arthropathy ([facility]) On methotrexate and remicaid. Continue to follow with rheumatology. 6. Rheumatoid arthritis, involving unspecified site, unspecified whether rheumatoid factor present ([facility]) 7. Chronic schizophrenia ([facility]) Stable. Continue seroquel, duloxetine, lamictal. 8. Risk and functional assessment Wrap-Up Follow up in 6 months. History of Present Illness The patient is a 78 year old male with past medical history of type 2 diabetes, dyslipidemia, COPD,CKD 3a, psoriatic arthropathy, rheumatoid arthritis, schizophrenia who presents for 6 month follow up. 78-year-old male presents for routine six-month follow up. He feels well and has no specific concerns at the visit today. Vital signs were notable for borderline high blood pressure at 140 8/70. Since last visit patient has been seen by Pulmonology and Rheumatology. No significant changes to his plan of care. He denies chest pain or shortness of breath. Stable from a mood perspective. He was due for repeat lab work prior to next appointment in his agreeable. Up-to-date on other health maintenance. Physical Exam Vitals: 12/10/23 1113 Temp: 36.2 C (97.1 F) Pulse: 79 Resp: 18 SpO2: 94% BP: 148/70 BMI: 29.89 Physical Exam Physical Exam Vitals reviewed. Constitutional: General: He is not in acute distress. Cardiovascular: Rate and Rhythm: Normal rate and regular rhythm. Heart sounds: No murmur heard. Pulmonary: Effort: Pulmonary effort is normal. No respiratory distress. Breath sounds: Normal breath sounds. Musculoskeletal: Cervical back: Neck supple. Right lower leg: No edema. Left lower leg: No edema. Lymphadenopathy: Cervical: No cervical adenopathy. Neurological: General: No focal deficit present. Mental Status: He is alert. Psychiatric: Mood and Affect: Mood normal. Behavior: Behavior normal. This note has been completed in part utilizing [employer] Speech Voice Recognition Software. Due to technical limitations of the software, grammatical errors, random word insertions, prounoun errors, and incomplete sentences may occur. Any formal questions or concerns about the content, text, or information contained within the body of this dictation should be directly addressed to the provider for clarification. documented in this encounter Nursing Notes * Lavern Burger LPN - 12/10/2023 11:12 AM EDT The patient has been properly identified by confirmation of name and date of . Chief Complaint Patient presents with Follow Up Return in 6 months Patient states he has no concerns today documented in this encounter Plan of Treatment Upcoming Encounters Date Type Department Care Team (Late st Contact Info) Description 01/07/2024 8:30 AM EDT [facility] [address] [facility] [place] [address] Ej Nieves CRNP [address] [facility] [place] [address] 01/14/2024 11:15 AM EDT Hem/Onc Treatment Hematology/Oncology Treatment, [place] [address] [place] [id number] Christina Chair [address] [place] [address] 03/09/2024 10:40 AM EST [facility] [address] [place] [address] Adwoa Baker DO [address] [place] [address] 03/31/2024 11:00 AM EST Imaging Radiology [facility] [address] [facility] [place] [address] 04/06/2024 12:00 PM EST Office Visit Pulmonary Medicine, [facility] [address] [place] [address] Jose Angel Wheatley MD [address] [facility] [address] 06/16/2024 10:40 AM EST Office Visit [facility] [address] [place] [address] AugustBenjamin MD [address], [place] [id number] Scheduled Orders Name Type Priority Associated Diagnoses Orde r Schedule HEMOGLOBIN A1C Lab Routine Type 2 diabetes mellitus with hemoglobin A1c goal of less than 7.0% ([facility]) Expected: 12/10/2023 (Approximate), Expires: 01/09/2025 [id number], QN Lab Routine COPD, group B, by GOLD 2017 classification ([facility]) Expected: 12/10/2023 (Approximate), Expires: 12/09/2024 PHOSPHORUS Lab Routine Stage 3a chronic kidney disease Expected: 12/10/2023 (Approximate), Expires: 12/09/2024 COMPREHENSIVE METABOLIC PANEL Lab Routine Stage 3a chronic kidney disease Expected: 12/10/2023 (Approximate), Expires: 12/09/2024 CBC Lab Routine Stage 3a chronic kidney disease Expected: 12/10/2023 (Approximate), Expires: 12/09/2024 LIPID PANEL WITH DIRECT LDL IF TG IS HIGH Lab Routine Mixed dyslipidemia Expected: 12/10/2023, Expires: 12/09/2024 Scheduled Procedures Name Priority Associated Diagnoses Date/Ti me COLONOSCOPY FLEXIBLE PROXIMAL DIAGNOSTIC Recall History of colon polyps Health Maintenance Due Date Last Done Comments Alpha-1 Antitrypsin 1963 Adult Wellness Visit 2013 CKD PHOS USE SMARTSET 46607 10/17/202309/25, 08/01/2021, 11/25/2018 HbA1c 12/03/2023 06/04/2023, 12/25, 10/16/2022, Additional history exists COVID-19 Vaccine (3 - Pfizer risk series) 12/11/2023 08/03/2020, 07/13/2020 Postponed from 08/31/2020 (Unavailable) Influenza Vaccine (FLU shot) (#1) 2023 01/08/2023, 02/06/2022, 01/24/2021, Additional history exists GFR 03/31/2024 09/30/2023, 02/0 12/2023, 03/10/2023, Additional history exists O2 ASSESSMENT COMPLETED IN PAST YEAR FOR COPD 04/09/2024 04/09/2023 Depression Monitoring 04/12/2024 04/12/2023 Diabetic Foot Exam 06/04/2024 06/04/2023, 05/15/2022 Diabetic Eye Exam 07/15/2024 07/16/2023 Albumin/Creatinine Ratio 07/29/2024 024, 10/16/2022, 08/01/2021 CKD HGB USE SMARTSET 53475 09/29/202409/29, 09/30/2023, 06/04/2023, Additional history exists Colonoscopy [...] this encounter Medical Devices Implanted Type Area Adult Services Librarian Device Identifier Shelf Expiration Date Model / Serial / Lot Lead Dbs 0.5mm 42cm Marker - [id number] Implanted:Qty: 1 on 04/05/2023 by Neal Yoon MD at [facility] Left: Head [employer] : NEUROLOGIC PAIN 02/11/2025 [id number] / / [id number] Lead Dbs 0.5mm 42cm - [id number] Implanted:Qty: 1 on 04/05/2023 by Neal Yoon MD at [facility] Right: Head [employer] : NEUROLOGIC PAIN 02/11/2025 [id number] / / [id number] Cement Hydroset Injectable 5cc - [id number] Implanted:Qty: 1 on 04/05/2023 by Neal Yoon MD at [facility] N/A: Head [employer] 12/11/2024 [id number] / / [id number] Plate 12mm Str 2 Hole Un3 - [id number] Implanted:Qty: 1 on 04/05/2023 by Neal Yoon MD at [facility] Right: Head [employer] : CRANIOMAXILLOFACIAL [id number] / / Plate 12mm Str 2 Hole Un3 - [id number] Implanted:Qty: 1 on 04/05/2023 by Neal Yoon MD at [facility] Left: Head [employer] : CRANIOMAXILLOFACIAL [id number] / / Neurostimulator Percept Pc - [id number] - [id number] Implanted:Qty: 1 on 04/09/2023 by Neal Yoon MD at [facility] Left: Chest [employer] : NEUROLOGIC PAIN 02/06/2025 [id number] / [id number] / Ext Dbs 40cm Marker - [id number] Implanted:Qty: 1 on 04/09/2023 by Neal Yoon MD at [facility] Left: Chest [employer] : NEUROLOGIC PAIN 10/21/2024 [id number] / / Ext Dbs 40cm - [id number] - [id number] Implanted:Qty: 1 on 04/09/2023 by Neal Yoon MD at [facility] Left: Chest [employer] : NEUROLOGIC PAIN 12/04/2024 [id number] / [id number] / Envelope Tyrx Lg Antibacterial - [id number] Implanted:Qty: 1 on 04/09/2023 by Neal Yoon MD at [facility] Left: Chest [employer] 12/17/2023 [id number] / / [id number] documented as of this encounter Visit Diagnoses Diagnosis Risk and functional assessment- Primary Screening for unspecified condition Type 2 diabetes mellitus with hemoglobin A1c goal of less than 7.0% ([facility]) COPD, group B, by GOLD 2017 classification ([facility]) Mixed dyslipidemia Mixed hyperlipidemia Stage 3a chronic kidney disease Psoriatic arthropathy ([facility]) Psoriatic arthropathy Rheumatoid arthritis, involving unspecified site, unspecified whether rheumatoid factor present ([facility]) Chronic schizophrenia ([facility]) Residual type schizophrenic disorder, chronic condition documented in this encounter Advance Directives Documents on File Type Date Recorded Patient Design Center Consultant Expl anation Power of Early Childhood Associate Teacher 10/30/2014 POWER OF A TTORNEY * Full Code (Latest Code Status on File) Date Activated Date Inactivated Comments 04/09/2023 6:59 AM 04/09/2023 4:25 PM This order reflects the patients wishes and were consensually agreed upon. Question Answer Comments Discussion of Advance Direct jaun manuel occurred with: Not Discussed due to [...] Discussed due to patient's condition Care Teams Can[employer] Goods Supervisor Relationship Specialty Start Date End Date August, Benjamin De Jesus MD [address] [place] [address] PCP - General Family Medicine 02/04/22 documented as of this encounter
--- OUTSIDE RECORDS SUMMARY | 2024-05-26 13:52 | External Medical Summary | Summary of Care ---
Author Name Unknown Organization [facility] Address [address] [place] [address] Phone [phone] Care Team Providers Care Car Stower Name Role Phone Benjamin Connor MD Primary Care Provider [phone] Reason for Visit * Reason Comments Rheum Follow Up Encounter Details Date Type Department Care Team (Late st Contact Info) Description 12/02/2023 12:00 PM EDT Telemedicine Rheumatology, [place] [address] [place] [address] Adwoa Baker, [address] [place] [address] Psoriatic arthropathy (HCC)*; Psoriasis; Encounter for long-term (current) use of high-risk medication Allergies No known active allergiesdocumented as of this encounter (statuses as of 12/02/2023) Medications Medication Sig Dispensed Refills Start Date [...] 1 Tablet before bedtime. 180 Tablet 09/30/2023 12/29/19 24 Active Fluticasone Propionate 50 MCG/ACT [...] morning. 360 Tablet 12/02/2023 11/27/19 25 Active Folic Acid 1 MG Oral TabletIndications:Ps oriatic arthropathy (HCC) Take 1 Tablet by mouth in the morning. 90 Tablet 3 02/25/2023 12/02/19 24 Discontinu ed(Refill) Methotrexate 2.5 MG Oral TabletIndications:Ps oriatic arthropathy (HCC) Take 8 Tablets by mouth once a week. 40 Tablet 3 09/02/2023 12/02/19 24 Discontinu ed(Refill) Hospital, Clinic, or Other [...] as of this encounter (statuses as of 12/02/2023) Active Problems Problem Noted Date Diagnosed Date [...] sugars. Continue with psychiatry. Dr. Villalta at [facility] Psych. documented as of this encounter (statuses as of 12/02/2023) Resolved Problems Problem Noted Date Diagnosed Date [...] as of this encounter (statuses as of 12/02/2023) Immunizations Name Administration Dates Next Due COVID-19 [...] as of this encounter Progress Notes * AshishjefferyananyaAdwoa, - 12/02/2023 12:08 PM EDT Patient location: HOME. I was not in a hospital or clinic location. After connecting through Guestyo, patient was verified with two unique identifiers. 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 Pt is doing well without any issues. 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 Zoster Vac Recomb Adjuvanted 50 MCG/0.5ML Intramuscular Suspension Reconstituted (Shingrix) Inject 0.5 mL into a large muscle now and repeat dose in 60 to 180 days 1 Each 1 Allopurinol 100 MG Oral [...] Pain,Moderate or Pain, Mild. 30 Tablet 0 Atorvastatin Calcium 20 MG Oral Tablet (Lipitor) TAKE 1 TABLET BY MOUTH IN THE MORNING 90 Tablet 2 Montelukast Sodium 10 MG Oral Tablet (Singulair) [...] Ellipta 100-62.5-25 MCG/ACT Aerosol Powder Breath Activated (Ubjnehxuirb-Tznnkmsgqppz-Zlylbwhczb) Inhale 1 Puff by mouth in the morning. 60 Blister Dosing Unit 11 Furosemide 20 MG Oral Tablet (Lasix) Take 1 Tablet by mouth daily as needed (weight gain more than 3 pound in one week). Methotrexate 2.5 MG Oral Tablet Take 8 Tablets by mouth once a week. 40 Tablet 3 Azithromycin 250 MG Oral Tablet (Zithromax Z-Sukumar) Please take 500 mg by mouth on day one, followed by 250 mg by mouth for four days. 6 Tablet 0 Famotidine 20 MG Oral Tablet (Pepcid) Take 1 Tablet by mouth in the morning and 1 Tablet before bedtime. 180 Tablet 0 Fluticasone Propionate 50 MCG/ACT Nasal Suspension (Flonase) Administer 2 Sprays into each nostril in the morning. 16 g 3 Current Facility-Administered Medications Medication Dose Route Frequency Provider Last Rate Last Admin Albuterol Sulfate (Proventil) (5 MG/ML) 0.5% *conc* inhalation solution 2.5 mg 2.5 mg Nebulizer Jose Angel Camacho MD Albuterol Sulfate (Proventil) (2.5 MG/3ML) 0.083% inhalation solution 2.5 mg 2.5 mg Nebulizer PRJose Angel Peng MD 2.5 mg at 09/30/23 1355 Social [...] on remicade every 6 weeks and mtx. -- Continue mtx 20 mg weekly, folic acid daily -- Continue remicade --labs ordered Thank you for involving me in this patient's care. Adwoa Baker DO Department of Rheumatology [facility] documented in this encounter Plan of Treatment Upcoming Encounters Date Type Department Care Team (Late st Contact Info) Description 12/03/2023 10:00 AM EDT Telemedicine Psychiatry, [facility] [address] [facility] [place] [address] Ej Nieves CRNP [address] [facility] [place] [address] 12/03/2023 11:30 AM EDT Hem/Onc Treatment Hematology/Oncology Treatment, [place] [address] [place] [phone] Christina, Chair 8 Hem Onc Scenery [address] [place] [address] 12/10/2023 11:00 AM EDT Office Visit [facility] [address] [facility] [place] [phone] Benjamin Connor MD [address] [place] [address] 03/31/2024 11:00 AM EST Imaging Radiology [facility] [address] [facility] [place] [address] 04/06/2024 12:00 PM EST Office Visit Pulmonary Medicine, [facility] [address] [facility] [place] [address] Jose Angel Wheatley MD [address] [place] [address] Scheduled Orders Name Type Priority Associated Diagnoses Orde r Schedule CBC WITH WBC DIFFERENTIAL Lab Routine Encounter for long-term (current) use of high-risk medication Expected: 12/02/2023, Expires: 12/01/2024 COMPREHENSIVE METABOLIC PANEL Lab Routine Encounter for long-term (current) use of high-risk medication Expected: 12/02/2023, Expires: 12/01/2024 Scheduled Procedures Name Priority Associated Diagnoses Date/Ti me COLONOSCOPY FLEXIBLE PROXIMAL DIAGNOSTIC Recall History of colon polyps Health Maintenance Due Date Last Done Comments Alpha-1 Antitrypsin 1963 Adult Wellness Visit 2013 COVID-19 Vaccine (3 - Pfizer risk series) 08/31/2020 08/03/2020, 07/13/2020 CKD PHOS USE SMARTSET 35613 10/17/202309/25, 08/01/2021, 11/25/2018 HbA1c 12/03/2023 06/04/2023, 12/25, [...] 024, 10/16/2022, 08/01/2021 CKD HGB USE SMARTSET 89427 09/29/202409/29, 09/30/2023, 06/04/2023, Additional history exists Colonoscopy [...] this encounter Medical Devices Implanted Type Area Pick Up Attendant Device Identifier Shelf Expiration Date Model / Serial / Lot Lead Dbs 0.5mm 42cm Marker - [id number] Implanted:Qty: 1 on 04/05/2023 [place] [facility] [place] [employer] : NEUROLOGIC PAIN 02/11/2025 [id number] / / [id number] Lead Dbs 0.5mm 42cm - [id number] Implanted:Qty: 1 on 04/05/2023 by Neal Y[place] [facility] [place] Head [employer] : NEUROLOGIC PAIN 02/11/2025 [id number] / / [id number] Cement Hydroset Injectable 5cc - [id number] Implanted:Qty: 1 on 04/05/2023 by Neal Yoon MD [place] [facility] [place]A: Head CATRINA 12/11/2024 [id number] / / [id number] Plate 12mm Str 2 Hole Un3 - [id number] Implanted:Qty: 1 on 04/05/2023 by Neal Yoon MD [place] [facility] [place] Head CATRINA : CRANIOMAXILLOFACIAL [id number] / / Plate 12mm Str 2 Hole Un3 - [id number] Implanted:Qty: 1 on 04/05/2023 by Neal Y[place] [facility] [place] Head CATRINA : CRANIOMAXILLOFACIAL [id number] / / Neurostimulator Percept Pc - [id number] - [id number] Implanted:Qty: 1 on 04/09/2023 by Neal Yoon MD [place] [facility] [place] Chest [employer] : NEUROLOGIC PAIN 02/06/2025 [id number] / [id number] / Ext Dbs 40cm Marker - [id number] Implanted:Qty: 1 on 04/09/2023 by Neal Y[place] MD [place] [facility] [place] Chest [employer] : NEUROLOGIC PAIN 10/21/2024 [id number] / / Ext Dbs 40cm - [id number] - [id number] Implanted:Qty: 1 on 04/09/2023 by Neal Yoon MD [place] [facility] [place]: Chest [employer] : NEUROLOGIC PAIN 12/04/2024 [id number] / [id number] / Envelope Tyrx Lg Antibacterial - [id number] Implanted:Qty: 1 on 04/09/2023 by Neal Yoon MD [place] [facility] [place] Chest [employer] 12/17/2023 [id number] / / [id number] documented as of this encounter Visit Diagnoses Diagnosis Psoriatic arthropathy (HCC)- Primary Psoriatic arthropathy Psoriasis Other psoriasis Encounter for long-term (current) use of high-risk medication Encounter for long-term (current) use of other medications documented in this encounter Advance Directives Documents on File Type Date Recorded Patient Buck Swamper Expl anation Power of Oil Tanker Captain 10/30/2014 POWER OF A TTORNEY * Full [...] Discussed due to patient's condition Care Teams Car Stower Relationship Specialty Start Date End Date August, Benjamin De Jesus MD [address] [place] [address] PCP - General Family Medicine 02/04/22 documented as of this encounter
--- OUTSIDE RECORDS SUMMARY | 2024-05-26 13:52 | External Medical Summary | Summary of Care ---
Author Name Unknown Organization [facility] Address [address] [place] [address] Phone [phone] Care Team Providers Care Relay Record Clerk Name Role Phone Benjamin Connor MD Primary Care Provider [phone] Reason for Visit * Reason Comments Rheum Follow Up Encounter Details Date Type Department Care Team (Late st Contact Info) Description 12/02/2023 12:00 PM EDT Telemedicine Rheumatology, [place] [address] [place] [address] Adwoa Baker, [address] [place] [address] Psoriatic arthropathy (HCC)*; Psoriasis; Encounter for long-term (current) use of high-risk medication Allergies No known active allergiesdocumented as of this encounter (statuses as of 12/03/2023) Medications Medication Sig Dispensed Refills Start Date [...] as of this encounter (statuses as of 12/03/2023) Active Problems Problem Noted Date Diagnosed Date [...] sugars. Continue with psychiatry. Dr. Villalta at [facility] Psych. documented as of this encounter (statuses as of 12/03/2023) Resolved Problems Problem Noted Date Diagnosed Date [...] as of this encounter (statuses as of 12/03/2023) Immunizations Name Administration Dates Next Due COVID-19 [...] as of this encounter Progress Notes * Lisa Denise OSA - 12/03/2023 1:38 PM EDT Appt is made * Adwoa Baker DO - 12/02/2023 12:08 PM EDT Patient location: HOME. I was not in a hospital or clinic location. After connecting through [employer], patient was verified with two unique identifiers. Patient (or authorized legal assistance representative)was then informed that this was a Telemedicine visit and being conducted confidentially over securelines. Methods to assure confidentiality were taken. Patient acknowledged consent and understandingof privacy and security of the Telemedicine visit. [...] shortness of breath, dyspnea on exertion or wh eezing. No hemotpysis. No abdominal pain, GERD symptoms, [...] (HCC) Major depressive disorder, recurrent episode, moderate (HCC) Type 2 diabetes mellitus with hemoglobin A1c goal of less than 7.0% (HCC) Chronic rhinitis Rheumatoid arthritis (HCC) COPD, group B, by GOLD 2017 classification ([facility]) Current Outpatient Medications Medication Sig Dispense [...] Ellipta 100-62.5-25 MCG/ACT Aerosol Powder Breath Activated (Weaymyjmsvj-Xxgkyfczbpcl-Cpkidhxvqe) Inhale 1 Puff by mouth in the [...] 12/10/2023 11:00 AM EDT Office Visit [facility] [address] [place] [facility] [place] [phone] AugustBenjamin MD [address] [place] [address] 01/07/2024 8:30 AM EDT Telemedicine Psychiatry, [facility] [address] [facility] [place] [address] Ej Nieves CRNP [address] [facility] [place] [address] 01/28/2024 11:30 AM EDT Hem/Onc Treatment Hematology/Oncology Treatment, [place] [address] [place] [phone] Christina, Chair 10 Hem Onc Scenery [address] [place] [place] [address] 03/09/2024 10:40 AM EST Telemedicine Rheumatology, [place] [address] [place] [address] Adwoa Baker DO [address] [place] [address] 03/31/2024 11:00 AM EST Imaging Radiology [facility] 1st Floor, [place] [address] [facility] [place] [address] 04/06/2024 12:00 PM EST Office Visit Pulmonary Medicine, [facility] [address] [facility] [place] [address] Jose Angel Wheatley MD [address] [facility] [place] [address] Scheduled Orders Name Type Priority Associated Diagnoses [...] 08/31/2020 08/03/2020, 07/13/2020 CKD PHOS USE SMARTSET 83622 10/17/202309/25, 08/01/2021, 11/25/2018 HbA1c 12/03/2023 06/04/2023, 12/25, [...] 024, 10/16/2022, 08/01/2021 CKD HGB USE SMARTSET 98882 09/29/202409/29, 09/30/2023, 06/04/2023, Additional history exists Colonoscopy [...] this encounter Medical Devices Implanted Type Area Operative Supervisor Device Identifier Shelf Expiration Date Model / Serial / Lot Lead Dbs 0.5mm 42cm Marker - [id number] Implanted:Qty: 1 on 04/05/2023 by Neal Yoon MD at [place] [facility] [place] Left: Head [employer] : NEUROLOGIC PAIN 02/11/2025 [id number] / / [id number] Lead Dbs 0.5mm 42cm - [id number] Implanted:Qty: 1 on 04/05/2023 by Neal Yoon MD at OR [facility] [place] Right: Head [employer] : NEUROLOGIC PAIN 02/11/2025 [id number] / / [id number] Cement Hydroset Injectable 5cc - [id number] Implanted:Qty: 1 on 04/05/2023 by Neal Yoon MD at OR [facility] [place] N/A: Head CATRINA 12/11/2024 [id number] / / [id number] Plate 12mm Str 2 Hole Un3 - [id number] Implanted:Qty: 1 on 04/05/2023 by Neal Yoon MD at OR [facility] [place] Right: Head CATRINA : CRANIOMAXILLOFACIAL 53-81167 / / Plate 12mm Str 2 Hole Un3 - [id number] Implanted:Qty: 1 on 04/05/2023 by Neal Yoon MD at OR [facility] [place] Left: Head CATRINA : CRANIOMAXILLOFACIAL 53-91748 / / Neurostimulator Percept Pc - [id number] - [id number] Implanted:Qty: 1 on 04/09/2023 by Neal Yoon MD at OR [facility] [place] Left: Chest [employer] : NEUROLOGIC PAIN 02/06/2025 [id number] / [id number] / Ext Dbs 40cm Marker - [id number] Implanted:Qty: 1 on 04/09/2023 by Neal Yoon MD at OR [facility] [place] Left: Chest [employer] : NEUROLOGIC PAIN 10/21/2024 [id number] / / Ext Dbs 40cm - [id number] - [id number] Implanted:Qty: 1 on 04/09/2023 by Neal Yoon MD at OR [facility] [place] Left: Chest [employer] : NEUROLOGIC PAIN 12/04/2024 [id number] / [id number] / Envelope Tyrx Lg Antibacterial - [id number] Implanted:Qty: 1 on 04/09/2023 by Neal Yoon MD at [place] [facility] [place] Left: Chest [employer] 12/17/2023 [id number] / / [id number] documented as of this encounter Visit Diagnoses Diagnosis Psoriatic arthropathy (HCC)- Primary Psoriatic arthropathy Psoriasis Other psoriasis Encounter for long-term (current) use of high-risk medication Encounter for long-term (current) use of other medications documented in this encounter Advance Directives Documents on File Type Date Recorded 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
--- OUTSIDE RECORDS SUMMARY | 2024-05-26 13:52 | External Medical Summary | Summary of Care ---
Author Name Unknown Organization [facility] Address [address] [place] [address] Phone [phone] Care Team Providers Care System Safety Manager Name Role Phone Benjamin Connor MD Primary Care Provider Reason for Visit * Reason Comments Infusion Infiximab * Episode Based Medications (Routine) - Authorized Specialty Diagnoses / Procedures Referred By Krupa t Referred To Contact Diagnoses Psoriatic arthropathy (HCC) Procedures [place] [address] [place] [address] Anc Hem/Onc Karen Vasquez DEPT CLOSED - 03/09/23 [address] [facility] [place] [address] Referral ID Status Reason Start Date Expiration Date V isits Requested Visits Authorized [id number] Authorized 02/08/2023 02/09/2024 99 99 Encounter Details Date Type Department Care Team (Latest Contact Info) Description 12/03/2023 11:30 AM EDT Hem/Onc Treatment Hematology/Oncology Treatment, [place] [address] [place] [address] Christina, Chair 8 Hem Onc [address] [place] [address] Psoriatic arthropathy (HCC)* Allergies No known active [...] Description 12/10/2023 11:00 AM EDT Office Visit [address] [place] [phone] Benjamin Connor MD [address] [place] [address] 01/07/2024 8:30 AM EDT Telemedicine Psychiatry, [facility] [address] [place] [address] Ej Nieves CRNP [address] [facility] [place] [address] 01/28/2024 11:30 AM EDT Hem/Onc Treatment Hematology/Oncology Treatment, [place] [address] [place] [phone] Christina, Chair 10 Hem Onc Scenery [address] [place] [address] 03/09/2024 10:40 AM EST Telemedicine Rheumatology, [place] [address] [place] [address] Adwoa Baker, [address] [place] [address] 03/31/2024 11:00 AM EST Imaging Radiology [facility] [address] [place] [address] 04/06/2024 12:00 PM EST Office Visit Pulmonary Medicine, [facility] [address] [place] [address] Jose Angel Wheatley MD [address] [place] [address] Scheduled Procedures Name Priority Associated Diagnoses Date/Ti me COLONOSCOPY FLEXIBLE PROXIMAL DIAGNOSTIC Recall History of colon polyps Health Maintenance Due Date Last Done Comments Alpha-1 Antitrypsin 1963 Adult Wellness Visit 2013 COVID-19 Vaccine (3 - Pfizer risk series) 08/31/2020 08/03/2020, 07/13/2020 CKD PHOS USE SMARTSET 58517 10/17/2023 06/2 06/2022, 08/01/2021, 11/25/2018 HbA1c 12/03/2023 [...] 024, 10/16/2022, 08/01/2021 CKD HGB USE SMARTSET 52312 09/29/202409/29, 09/30/2023, 06/04/2023, Additional history exists Colonoscopy [...] this encounter Medical Devices Implanted Type Area Service Line Layer Device Identifier Shelf Expiration Date Model / Serial / Lot Lead Dbs 0.5mm 42cm Marker - [id number] Implanted:Qty: 1 on 04/05/2023 by Neal Yoon MD at [place] [facility] [place] Left: Head [employer] : NEUROLOGIC PAIN 02/11/2025 [id number] / / [id number] Lead Dbs 0.5mm 42cm - [id number] Implanted:Qty: 1 on 04/05/2023 by Neal Yoon MD at [place] [facility] [place] Right: Head [employer] : NEUROLOGIC PAIN 02/11/2025 [id number] / / [id number] Cement Hydroset Injectable 5cc - [id number] Implanted:Qty: 1 on 04/05/2023 by Neal Yoon MD at [place] [facility] [place] N/A: Head CATRINA 12/11/2024 [id number] / / [id number] Plate 12mm Str 2 Hole Un3 - [id number] Implanted:Qty: 1 on 04/05/2023 by Neal Yoon MD at [place] [facility] [place] Right: Head CATRINA : CRANIOMAXILLOFACIAL [id number] / / Plate 12mm Str 2 Hole Un3 - [id number] Implanted:Qty: 1 on 04/05/2023 by Neal Yoon MD at [place] [facility] [place] Left: Head CATRINA : CRANIOMAXILLOFACIAL 53-39400 / / Neurostimulator Percept Pc - [id number] - [id number] Implanted:Qty: 1 on 04/09/2023 by Neal Yoon MD at [place] [facility] [place] Left: Chest [employer] : NEUROLOGIC PAIN 02/06/2025 [id number] / [id number] / Ext Dbs 40cm Marker - [id number] Implanted:Qty: 1 on 04/09/2023 by Neal Yoon MD at [place] [facility] [place] Left: Chest [employer] : NEUROLOGIC PAIN 10/21/2024 [id number] / / Ext Dbs 40cm - [id number] - [id number] Implanted:Qty: 1 on 04/09/2023 by Neal Yoon MD at [place] [facility] [place] Left: Chest [employer] : NEUROLOGIC PAIN 12/04/2024 [id number] / [id number] / Envelope Tyrx Lg Antibacterial - [id number] Implanted:Qty: 1 on 04/09/2023 by Neal Yoon MD at [place] [facility] [place] Left: Chest [employer] 12/17/2023 [id number] / / [id number] documented as of this encounter Visit Diagnoses Diagnosis Psoriatic arthropathy (HCC)- Primary Psoriatic arthropathy documented in this encounter Administered Medications Active Administered Medications - up to 3 most recent administrations Medication Order MAR Action Action Date Dose Rate Site diphenhydrAMINE (Benadryl) inj 50 mg 50 mg, IV Push, ONCE PRN Other, Hypersensitivity Reaction, Starting on Wed12/03/23 at 1129, Until 12/04/23 at 1128, For 24 hours EPINEPHrine 1 MG/ML inj 0.3 mg 0.3 mg, Intramuscular, ONCE PRN Other, Hypersensitivity Reaction or Anaphylaxis, Starting on Wed12/03/23 at 1129, Until 12/04/23 at 1128, For 24 hours hEParin 100 UNIT/ML Lock Flush inj 500 Units 500 Units (5 mL), IV Lock, PRN Other, IV Flush, Starting on Wed12/03/23 at 1129, Until 12/04/23 at 1128, For 24 hours, Do not flush if lock, PICC, or central line not in place; IV infusing or unable to flush. Hydrocortisone Sod Suc (PF) (Solu-Cortef) inj 100 mg 100 mg, IV Push, ONCE PRN Other, Hypersensitivity Reaction, Starting on Wed12/03/23 at 1129, Until 12/04/23 at 1128, For 24 hours NSS infusion 500 mL, Intravenous, at 50 mL/hr, CONTINUOUS, Starting on Wed12/03/23 at 1230, Until Wed12/03/23 at 2229 Start Infusion 12/03/2023 11:35 AM EDT 500 mL 50 mL/hr sodium chloride 0.9 % flush central line 10 mL 10 mL, IV Push, PRN Other, IV Flush, Starting on Wed12/03/23 at 1129, Until 12/04/23 at 1128, For 24 hours, Do not flush if [...] Change 12/03/2023 12:28 PM EDT 80 mL/hr documented in this encounter Advance Directives Documents on File Type Date Recorded Patient 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
--- OUTSIDE RECORDS SUMMARY | 2024-05-26 13:52 | External Medical Summary | Summary of Care ---
Author Name Unknown Organization [facility] Address [address] [place] [address] Phone [phone] Care Team Providers Care Hand Filer Balance Wheel Name Role Phone Benjamin Connor MD Primary Care Provider [phone] Reason for Visit * Reason Comments Infusion Infiximab * Episode Based Medications (Routine) - Authorized Specialty Diagnoses / Procedures Referred By Krupa t Referred To Contact Diagnoses Psoriatic arthropathy (HCC) Procedures [place] [address] [facility] [address] [address] MD [place] [id number] Anc Hem/Onc Karen Vasquez DEPT CLOSED - 03/09/23 [address] [place] [address] Referral ID Status Reason Start Date Expiration Date V isits Requested Visits Authorized [id number] Authorized 02/08/2023 02/09/2024 99 99 Encounter Details Date Type Department Care Team (Latest Contact Info) Description 12/03/2023 11:30 AM EDT Hem/Onc Treatment Hematology/Oncology Treatment, [place] [address] [place] [address] Christina, Chair 8 Hem Onc [address] [place] [address] Psoriatic arthropathy (HCC)* Allergies No known active allergiesdocumented as of this encounter (statuses as of 12/06/2023) Medications Medication Sig Dispensed Refills Start Date [...] as of this encounter (statuses as of 12/06/2023) Active Problems Problem Noted Date Diagnosed Date [...] as of this encounter (statuses as of 12/06/2023) Resolved Problems Problem Noted Date Diagnosed Date [...] as of this encounter (statuses as of 12/06/2023) Immunizations Name Administration Dates Next Due COVID-19 [...] Description 12/10/2023 11:00 AM EDT Office Visit [address] [place] [id number] Benjamin Connor MD [address] [place] [address] 01/07/2024 8:30 AM EDT Telemedicine Psychiatry, [facility] [address] [place] [address] Ej Nieves CRNP [address] [facility] [place] [address] 01/28/2024 11:30 AM EDT Hem/Onc Treatment Hematology/Oncology Treatment, [place] [address] [place] [id number] Christina, Chair 10 Hem Onc [address] [place] [address] 03/09/2024 10:40 AM EST Telemedicine Rheumatology, [place] [address] [place] [address] Adwoa Baker, [address] [place] [address] 03/31/2024 11:00 AM EST Imaging Radiology [facility] [address] [facility] [address] [place] [address] 04/06/2024 12:00 PM EST Office Visit Pulmonary Medicine, [facility] [address] [place] [address] Jose Angel Wheatley MD [address] [place] [phone] Scheduled Procedures Name Priority Associated Diagnoses Date/Ti me COLONOSCOPY FLEXIBLE PROXIMAL DIAGNOSTIC Recall History of colon polyps Health Maintenance Due Date Last Done Comments Alpha-1 Antitrypsin 1963 Adult Wellness Visit 2013 COVID-19 Vaccine (3 - Pfizer risk series) 08/31/2020 08/03/2020, 07/13/2020 CKD PHOS USE SMARTSET 46206 10/17/2023 06/2 06/2022, 08/01/2021, 11/25/2018 HbA1c 12/03/2023 [...] 024, 10/16/2022, 08/01/2021 CKD HGB USE SMARTSET 71784 09/29/202409/29, 09/30/2023, 06/04/2023, Additional history exists Colonoscopy [...] this encounter Medical Devices Implanted Type Area Damage Inside Adjuster Device Identifier Shelf Expiration Date Model / Serial / Lot Lead Dbs 0.5mm 42cm Marker - [id number] Implanted:Qty: 1 on 04/05/2023 by Neal Yoon MD at OR [facility] Left: Head [employer] : NEUROLOGIC PAIN 02/11/2025 [id number] / / [id number] Lead Dbs 0.5mm 42cm - [id number] Implanted:Qty: 1 on 04/05/2023 by Neal Yoon MD at OR [facility] Right: Head [employer] : NEUROLOGIC PAIN 02/11/2025 [id number] / / [id number] Cement Hydroset Injectable 5cc - [id number] Implanted:Qty: 1 on 04/05/2023 by Neal Yoon MD at OR [facility] N/A: Head CATRINA 12/11/2024 [id number] / / [id number] Plate 12mm Str 2 Hole Un3 - [id number] Implanted:Qty: 1 on 04/05/2023 by Neal Yoon MD at OR [facility] Right: Head CATRINA : CRANIOMAXILLOFACIAL [id number] / / Plate 12mm Str 2 Hole Un3 - [id number] Implanted:Qty: 1 on 04/05/2023 by Neal Yoon MD at OR [facility] Left: Head CATRINA : CRANIOMAXILLOFACIAL [id number] / / Neurostimulator Percept Pc - [id number] - [id number] Implanted:Qty: 1 on 04/09/2023 by Neal Yoon MD at OR [facility] Left: Chest [employer] : NEUROLOGIC PAIN 02/06/2025 [id number] / [id number] / Ext Dbs 40cm Marker - [id number] Implanted:Qty: 1 on 04/09/2023 by Neal Yoon MD at OR [facility] Left: Chest [employer] : NEUROLOGIC PAIN 10/21/2024 [id number] / / Ext Dbs 40cm - [id number] - [id number] Implanted:Qty: 1 on 04/09/2023 by Neal Yoon MD at OR [facility] Left: Chest [employer] : NEUROLOGIC PAIN 12/04/2024 [id number] / [id number] / Envelope Tyrx Lg Antibacterial - [id number] Implanted:Qty: 1 on 04/09/2023 by Neal Yoon MD at OR [facility] Left: Chest [employer] 12/17/2023 [id number] / / [id number] documented as of this encounter Visit Diagnoses [...] Documents on File Type Date Recorded Patient [employer] Expl anation Power of Rn Labor And Delivery 10/30/2014 POWER OF A TTORNEY * Full [...] Discussed due to patient's condition Care Teams Hand Filer Balance Wheel Relationship Specialty Start Date End Date August, Benjamin De Jesus MD [address] [place] [address] PCP - General Family Medicine 02/04/22 documented as of this encounter
--- NOTE | 2024-05-26 14:42 | Electrocardiogram Report ---
Test Reason : Blood Pressure : */* mmHG Vent. Rate : 124 BPM Atrial Rate : 124 BPM P-R Int : 130 ms QRS Dur : 64 ms QT Int : 288 ms P-R-T Axes : 112 25 118 degrees QTcB Int : 413 ms Sinus tachycardia Nonspecific ST and T wave abnormality Abnormal ECG When compared with ECG of 07-Aug-2023 06:14, No significant change was found Confirmed by Christoph Hurtado ([id number]) on 05/26/2024 2:42:07 PM Referred By: Confirmed By: Christoph Hurtado
--- NOTE | 2024-05-26 14:48 | Emergency Department Note ---
Impression & Plan AMS (altered mental status), Schizophrenia, Bipolar disorder, COVID ED Provider Note CHIEF COMPLAINT: Altered mental status HISTORY OF PRESENT ILLNESS: This 79-year-old male patient with past medical history of schizophrenia, bipolar disorder, psoriatic arthritis, pulmonary edema, chronic kidney disease, dyslipidemia, diabetes mellitus type 2, COPD, essential tremor with brain stimulator, presents to the emergency department with his son who complains of altered mental status, weakness and inability to care for himself. Patient has been on recliner over the last 4 years, but over the last week has had significant change including bowel incontinence. He did not take his medications all day yesterday. Son states he is fallen several times, he came home from work and noticed the patient just lying on the floor. REVIEW OF SYSTEMS: A review of systems was performed with positives and pertinent negatives listed in the history of present illness. 10 systems were reviewed and are otherwise negative. ALLERGIES: see below MEDICATIONS: see below PMH: see below SOCIAL HISTORY: see below DDx: Metabolic abnormality, psychiatric exacerbation, medication omission, infectious etiology such as UTI, pneumonia, renal failure among others. PHYSICAL EXAM: Vital signs reviewed. General: Chronically ill appearing 79 yo male, in no significant distress. HEENT: No scleral icterus, PERRLA, neck supple. MMM Cardiovascular: Regular rate and rhythm, no extra sounds. Pulmonary: Clear to auscultation bilaterally, normal work of breathing. Abdomen: Soft, nontender, nondistended, positive bowel sounds. Musculoskeletal: Atraumatic, no peripheral edema. Neurologic: Patient awake but somnolent, shaky. Answers some questions appropriately, speech is difficult to comprehend. Cranial nerves II through XII are grossly intact. Skin: Warm, dry, no rash EMERGENCY DEPARTMENT COURSE/MDM: This pt was evaluated and appeared to be in no distress. IV access was obtained and laboratory work was drawn. Patient's laboratory work is fairly reassuring he has tested positive for COVID-19. Chest x-ray was performed and reveals no evidence of focal lung consolidation or failure. EKG reveals a sinus tachycardia. IV fluids were initiated. Patient was repleted with 2 g of IV magnesium for a serum magnesium level of 1.5. UA is negative for infection. Head CT was performed and reveals no evidence of acute intracranial process. Patient was discussed with the hospitalist service who will evaluate the patient for admission and further management. MONITORING: An order for cardiac monitoring was placed and the patient is noted to be in a sinus tachycardia at 104 beats per minute. RADIOLOGY: Chest x-ray to my interpretation reveals no evidence of focal lung consolidation or failure. Head CT per radiology reveals no evidence of acute intracranial process. EKG: to my interpretation reveals a sinus tachycardia at [address] segments, QTc 413, no PVC, no PAC DISPOSITION: Admission Past Med/Surg History Problem List (Updated 05/27/24 @ 14:35 by Colleen Dale MD) AMS (altered mental status) (Acute) HUONG (acute kidney injury) COVID (Acute) Pulmonary congestion Essential tremor Bipolar disorder (Acute) Psoriatic arthritis COPD (chronic obstructive pulmonary disease) Diabetes mellitus, type II Dyslipidemia CKD (chronic kidney disease), stage III CKD (chronic kidney disease) (Acute) Cough (Acute) Pulmonary edema (Acute) Depression Schizophrenia (Acute) Surgical History History of colonoscopy History of prostate surgery Family History Other Cancer Social History Smoking Status: Former smoker Second Hand Exposure: No; Do You Dip or Chew Tobacco: No; Tobacco Cessation Education Requested by Patient: No Hx Alcohol Use: No Hx Substance Use: No Preferred Language: Panamanian Communication Ability: Effective 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: No Beliefs That Will Affect Care: None Current Living Situation: Family Current Living Situation Comment: lives at home with son Other Information That Helps Us Care for You: No Feels Safe at Home: Yes Safety Concerns: Feels Safe At This Time Assistive Devices: Oxygen - Continuous and Walker Allergies Allergies Allergy/AdvReac Type Severity Reaction Status Date / Time No Known Allergies Allergy Verified 08/06/23 16:12 Home Meds Home Medications Medication Instructions Recorded Confirmed memantine ER 28 mg-donepezil 10 mg 1 cap PO HS 11/27/18 05/26/24 capsule sprinkle,ext.release 24 hr (Namzaric) quetiapine 300 mg tablet 300 mg PO HS 11/27/18 05/26/24 albuterol sulfate 90 mcg/actuation 2 puff inhalation DIRECTED PRN 08/06/23 05/26/24 aerosol inhaler Shortness Of Breath Or Wheezing allopurinol 100 mg tablet 100 mg PO DAILY 08/06/23 05/26/24 atorvastatin 20 mg tablet 20 mg PO DAILY 08/06/23 05/26/24 duloxetine 60 mg capsule,delayed 60 mg PO BID 08/06/23 05/26/24 release fluticasone fur. 100 mcg-umeclid 1 ea inhalation DAILY 08/06/23 05/26/24 62.5 mcg-vilant 25 mcg inhalat.powder (Trelegy Ellipta) fluticasone propionate 50 2 spray intranasal DAILY 08/06/23 05/26/24 mcg/actuation nasal spray,suspension folic acid 1 mg tablet 1 mg PO QAM 08/06/23 05/26/24 lamotrigine 200 mg tablet 200 mg PO DAILY 08/06/23 05/26/24 levocetirizine 5 mg tablet 5 mg PO PM 08/06/23 05/26/24 methotrexate sodium 2.5 mg tablet 20 mg PO .QWEEK 08/06/23 05/26/24 montelukast 10 mg tablet 10 mg PO DAILY 08/06/23 05/26/24 Previous Rx's Medication Instructions Recorded furosemide 20 mg tablet 20 mg PO UD #30 tabs 08/10/23 Results & Data (ED) Vital Signs Vital Signs - 24 hr 05/26/24 14:36 05/26/24 14:48 05/26/24 15:13 Pulse Rate 104 H 104 H 100 H Pulse Rate from SpO2 Sensor 104 H 105 H Respiratory Rate 19 Pulse Oximetry 91 91 Home Medications Current Medication List: was personally reviewed by me Laboratory Data Attestation: I reviewed the patient's lab results. 05/27/24 06:42 05/27/24 06:42 Lab Results 05/26/24 05/26/24 05/26/24 Range/Units 10:10 11:15 12:15 WBC 4.71 L (4.8-10.8) K/ul RBC 4.45 L (4.70-6.10) M/uL Hgb 14.4 (14.0-18.0) g/dl Hct 41.5 L (42.0-52.0) % MCV 93.3 (80.0-100.0) fL MCH 32.4 (25.0-34.0) pg MCHC 34.7 (32.0-36.0) g/dL RDW Std Deviation 43.1 (36.4-46.3) fL RDW Coeff of Claritza 12.7 (11.5-14.5) % Plt Count 67 L (130-400) K/uL MPV 11.0 (9.4-12.4) fL Immature Gran % (Auto) 0.8 % Neut % (Auto) 66.8 % Lymph % (Auto) 17.8 % Evans % (Auto) 14.6 % Eos % (Auto) 0.0 % Baso % (Auto) 0.0 % Neut # (Auto) 3.14 (1.40-6.50) K/uL Lymph # (Auto) 0.84 L (1.20-3.40) K/uL Evans # (Auto) 0.69 H (0.11-0.59) K/uL Eos # (Auto) 0.00 (0.00-0.50) K/uL Baso # (Auto) 0.00 (0.00-0.20) K/uL Immature Gran # (Auto) 0.04 (0.01-0.20) K/uL Platelet Estimate Decreased L (Normal) Sodium 139 (136-145) mmol/L Potassium 4.2 (3.5-5.1) mmol/L Chloride 102 (98-107) mmol/L Carbon Dioxide 25 (21-32) mmol/L Anion Gap 12 H (3-11) BUN 38 H (6-23) mg/dl Creatinine 1.99 H (0.6-1.4) mg/dl Est Cr Clr Drug Dosing 35.6 ml/min eGFR 33.94 BUN/Creatinine Ratio 19.1 (10-20) Glucose 183 H (70-99(Fasting)) mg/dl Calcium 9.2 (8.6-10.3) mg/dl Magnesium 1.5 L (1.7-2.4) mg/dl Total Bilirubin 1.7 H (0.2-1.0) mg/dl AST 39 (13-39) U/L ALT 45 (7-52) U/L Alkaline Phosphatase 76 (34-104) U/L Troponin I High Sens 15.4 (0-20) pg/ml Total Protein 7.8 (6.0-8.3) gm/dl Albumin 4.1 (3.4-5.0) gm/dl Globulin 3.7 (2.5-4.0) gm/dl Albumin/Globulin Ratio 1.1 (0.9-2) TSH 1.045 (0.300-4.500) uIu/ml Urine Color Dark Yellow Urine Appearance Clear (Clear) Urine pH 5.0 (4.5-7.5) Ur Specific [place] 1.030 (1.000-1.030) Urine Protein 1+ H (Negative) Urine Glucose (UA) Negative (Negative) Urine Ketones 1+ H (Negative) Urine Blood Trace H (Negative) Urine Nitrite Negative (Negative) Urine Bilirubin 1+ H (Negative) Urine Urobilinogen Negative (Negative) Ur Leukocyte Esterase Negative (Negative) Urine WBC (Auto) 0-5 (0-5) /hpf Urine RBC (Auto) 0-2 (0-2) /hpf U Hyaline Cast (Auto) 3-5 H (0-2) /lpf U Epithel Cells (Auto) 3-5 H (0-2) /hpf Urine Bacteria (Auto) None Seen (None Seen) Granular Casts Present A (None Prsent) /lpf Urine Mucus Present A (None Prsent) SARS-CoV-2 (PCR) POSITIVE A (Negative) Administered Medications Allopurinol (Allopurinol 100 Mg Tab) 100 mg PO DAILY [facility] Stop: 06/26/24 08:59 Last Admin: 05/27/24 10:07 Dose: 100 mg Documented By: NMS Atorvastatin Calcium (Atorvastatin 20 Mg Tab) 20 mg PO DAILY [facility] Stop: 06/26/24 08:59 Last Admin: 05/27/24 10:08 Dose: 20 mg Documented By: NMS Benzonatate (Benzonatate 100 Mg Capsule) 100 mg PO TID [facility] Stop: 06/26/24 13:59 Last Admin: 05/27/24 12:46 Dose: 100 mg Documented By: NMS Cetirizine HCl (Cetirizine Hcl 10 Mg Tablet) 10 mg PO PM [facility] Stop: 06/25/24 20:59 Last Admin: 05/26/24 21:51 Dose: 10 mg Documented By: ANS Dexamethasone (Dexamethasone 4 Mg Tab) 6 mg PO DAILY [facility] Stop: 06/25/24 19:44 Last Admin: 05/27/24 10:08 Dose: 6 mg Documented By: Admin: 05/26/24 21:52 Dose: 6 mg Documented By: KEYSHAWN Donepezil HCl (Donepezil Hcl 10 Mg Tab) 10 mg PO HS [facility] Stop: 06/25/24 20:59 Last Admin: 05/26/24 21:51 Dose: 10 mg Documented By: KEYSHAWN Duloxetine HCl (Duloxetine Hcl 60 Mg Cap) 60 mg PO BID [facility] Stop: 06/25/24 20:59 Last Admin: 05/27/24 10:08 Dose: 60 mg Documented By: Admin: 05/26/24 21:51 Dose: 60 mg Documented By: KEYSHAWN Fluticasone Furoate (Fluticasone Furoate 100mcg 14 Puffs/Inhaler) 1 puffs INH DAILY [facility] Stop: 06/26/24 08:59 Last Admin: 05/27/24 10:09 Dose: 1 puffs Documented By: BIRD Folic Acid (Folic Acid 1 Mg Tab) 1 mg PO QAM [facility] Stop: 06/26/24 08:59 Last Admin: 05/27/24 10:09 Dose: 1 mg Documented By: BIRD Magnesium Sulfate/Dextrose (Magnesium Sulfate / D5w) 1 gm in 100 mls @ 50 mls/hr IV Q2H [facility] Stop: 05/27/24 14:44 Last Admin: 05/27/24 13:48 Dose: 50 mls/hr Documented By: Infusion: 05/27/24 13:48 Dose: Infused Documented By: Admin: 05/27/24 11:56 Dose: 50 mls/hr Documented By: Infusion: 05/27/24 11:40 Dose: Infused Documented By: Admin: 05/27/24 10:04 Dose: 50 mls/hr Documented By: BIRD Insulin Aspart (Insulin Aspart Per Unit Charge) 0 units SC ACHS [facility] Stop: 06/26/24 11:29 Last Admin: 05/27/24 12:46 Dose: 4 units Documented By: BIRD Co-signed By: COREY Lamotrigine (Lamotrigine 100 Mg Tab) 200 mg PO DAILY [facility]; Protocol Stop: 06/26/24 08:59 Last Admin: 05/27/24 10:09 Dose: 200 mg Documented By: BIRD Memantine (Memantine Hcl 10 Mg Tab) 10 mg PO BID [facility] Stop: 06/25/24 20:59 Last Admin: 05/27/24 10:10 Dose: 10 mg Documented By: Admin: 05/26/24 21:51 Dose: 10 mg Documented By: KEYSHAWN Montelukast Sodium (Montelukast Sodium 10 Mg Tablet) 10 mg PO DAILY [facility] Stop: 06/26/24 08:59 Last Admin: 05/27/24 10:10 Dose: 10 mg Documented By: BIRD Quetiapine Fumarate (Quetiapine Fumarate 300 Mg Tablet) 300 mg PO HS [facility] Stop: 06/25/24 20:59 Last Admin: 05/26/24 21:52 Dose: 300 mg Documented By: KEYSHAWN Discontinued Medications Sodium Chloride (Nss) 500 mls @ 999 mls/hr IV .Q31M ONE Stop: 05/26/24 10:48 Last Infusion: 05/26/24 11:53 Dose: Infused Documented By: Admin: 05/26/24 10:54 Dose: 999 mls/hr Documented By: CASSIE Sodium Chloride (Nss) 1,000 mls @ 100 mls/hr IV .Q10H [facility] Stop: 05/26/24 13:30 Last Infusion: 05/26/24 19:06 Dose: Infused Documented By: Admin: 05/26/24 10:54 Dose: 125 mls/hr Documented By: CASSIE Magnesium Sulfate/Dextrose (Magnesium Sulfate / D5w) 1 gm in 100 mls @ 200 mls/hr IV Q30M [facility] Stop: 05/26/24 12:10 Last Infusion: 05/26/24 12:48 Dose: Infused Documented By: Admin: 05/26/24 11:52 Dose: 200 mls/hr Documented By: Infusion: 05/26/24 11:52 Dose: Infused Documented By: Admin: 05/26/24 11:22 Dose: 200 mls/hr Documented By: CASSIE Remdesivir 200 mg/ Sodium (Chloride) 250 mls @ 125 mls/hr IV NOW [facility] Stop: 05/27/24 10:52 Last Infusion: 05/27/24 12:20 Dose: Infused Documented By: Admin: 05/27/24 10:16 Dose: 125 mls/hr Documented By: BIRD Imaging Data Radiologist's Impression: Chest X-Ray 05/26/24 10:16 XR chest 1V portable CLINICAL HISTORY: weakness COMPARISON STUDY: 08/06/2023 FINDINGS: Single view portable chest demonstrates no acute cardiopulmonary process. No airspace opacity or pleural effusion. Heart size and pulmonary vascularity are unremarkable. There is no pneumothorax. Left axillary battery pack with leads extending into the left neck is redemonstrated. IMPRESSION: No acute process ACT 112: Negative or not required by law. Electronically signed by: Maria Antonia Hernandez M.D. 05/26/2024 11:[address] 05/26/24 10:16 CT head/brain wo con CLINICAL HISTORY: 79 years-old Male with AMS, weakness. Acute weakness TECHNIQUE: Multiple axial CT images of the head were obtained without contrast. A dose lowering technique was utilized adhering to the principles of ALARA. CT DOSE: 1406.31 mGy.cm COMPARISON: 11/27/2018 FINDINGS: No acute intracranial hemorrhage, midline shift, intracranial mass, hydrocephalus, territorial ischemia or abnormal extra-axial collection. Involutional changes with white matter hypodensities suggestive of chronic microvascular ischemic disease. Bilateral neurostimulator leads are present with distal tips overlying the thalami. The visualized components of the leads appear intact. The calvarium is intact. Mild mucosal thickening of the ethmoid air cells. Left frontal osteoma measures 11 mm. Mastoid air cells are clear. IMPRESSION: No acute intracranial abnormality. ACT 112: Negative or not required by law. The above report was generated using voice recognition software. It may contain grammatical, syntax or spelling errors. Electronically signed by: Julian Ramirez M.D. 05/26/2024 11:17 AM Discharge Plan Visit Data Chief Complaint: Confusion Stated Complaint: BLOOD WORK, ABN LABS ED Provider: Colleen Dale Discharge Problem: AMS (altered mental status), Schizophrenia, Bipolar disorder, COVID Patient Disposition: Admitted As Inpatient Discharge Instructions Interventions: ED Discharge Assessment Last Done: 05/26/24 20:05 Discharge Problem: AMS (altered mental status) Qualifiers: Altered mental status type: delirium Qualified Code(s): R41.0 - Disorientation, unspecified Schizophrenia Qualifiers: Schizophrenia type: unspecified Qualified Code(s): F20.9 - Schizophrenia, unspecified Bipolar disorder Qualifiers: Active/Remission status: remission status unspecified Qualified Code(s): F31.9 - Bipolar disorder, unspecified
--- NOTE | 2024-05-26 15:06 | History & Physical Report ---
Date of Service May 26, 2024 Assessment & Plan (1) COVID: (2) HUONG (acute kidney injury): Plan Patient is a 79-year-old male with past medical history of type 2 diabetes mellitus, COPD, psoriasis, CKD stage IIIa, rheumatoid arthritis, chronic schizophrenia, depression atypical dementia presents to the hospital with sore throat, cough, generalized weakness and intermittent confusion. COVID-19 infection Acute kidney injury Patient presents from home(lives with son) with/sore throat, cough, generalized weakness and confusion COVID-19 positive Creatinine elevated to 1.9; baseline of 1.6 Saturating well in room air Chest x-ray does not reveal any infiltrates CT head without contrast did not show any acute findings HUONG likely due to decreased oral intake. Patient received IV fluids in the ED. Obtain BMP tomorrow a.m. obtain bladder scan. Hold Lasix Monitor oxygen saturation; supplemental oxygen if SpO2 is less than 90% PT OT ordered; may need placement if PT OT recommend rehab Chronic conditions; Schizophreniacontinue on Seroquel; QTc within normal limits Mood disordercontinue on duloxetine, lamotrigine Rheumatoid arthritis/psoriasiscontinue methotrexate Hyperlipidemiacontinue on Lipitor COPD continue on home inhalers Time spent evaluating patient, direct bedside care, chart review, placing orders, interpretation of diagnostic studies, discussion with consultants, patient, and family members, as well as other required patient management activities is 75 minutes Please note the above document was generated using voice recognition software. It may contain grammatical, syntax or spelling errors. Any formal questions or concerns about the content, text or information contained within the body of this dictation should be directly addressed to the provider for clarification History of Present Illness Chief Complaint: Generalized weakness for 3 days Primary Care Provider: Benjamin Connor MD History obtained from interview with the patient, patient's son at bedside and chart review Patient is a 79-year-old male with past medical history of type 2 diabetes mellitus, COPD, psoriasis, CKD stage IIIa, rheumatoid arthritis, chronic schizophrenia, depression was seen by his primary care doctor earlier today. Over the past week, patient is experiencing acute confusion and weakness with significant decrease in appetite leading to decreased food intake. Patient also reported cough and sore throat. Son was concerned about his safety at home due to recent fall; PCP referred him to ED for further evaluation and possible placement. Patient was seen at bedside. He is awake, oriented to place, time and month. He reports some sore throat and dry cough. He denies any chest pain, shortness of breath, fever, chills, abdominal pain or urinary symptoms. No complaints of weakness/numbness of any body parts. Allergies Allergy/AdvReac Type Severity Reaction Status Date / Time No Known Allergies Allergy Verified 08/06/23 16:12 Home Medications Medication Instructions Recorded Confirmed Type memantine ER 28 mg-donepezil 10 mg 1 cap PO HS 11/27/18 05/26/24 History capsule sprinkle,ext.release 24 hr (Namzaric) quetiapine 300 mg tablet 300 mg PO HS 11/27/18 05/26/24 History albuterol sulfate 90 mcg/actuation 2 puff inhalation DIRECTED PRN 08/06/23 History aerosol inhaler Shortness Of Breath Or Wheezing allopurinol 100 mg tablet 100 mg PO DAILY 08/06/23 05/26/24 History atorvastatin 20 mg tablet 20 mg PO DAILY 08/06/23 05/26/24 History duloxetine 60 mg capsule,delayed 60 mg PO BID 08/06/23 05/26/24 History release fluticasone fur. 100 mcg-umeclid 1 ea inhalation DAILY 08/06/23 05/26/24 History 62.5 mcg-vilant 25 mcg inhalat.powder (Trelegy Ellipta) fluticasone propionate 50 2 spray intranasal DAILY 08/06/23 05/26/24 History mcg/actuation nasal spray,suspension folic acid 1 mg tablet 1 mg PO QAM 08/06/23 05/26/24 History lamotrigine 200 mg tablet 200 mg PO DAILY 08/06/23 05/26/24 History levocetirizine 5 mg tablet 5 mg PO PM 08/06/23 05/26/24 History methotrexate sodium 2.5 mg tablet 20 mg PO .QWEEK 08/06/23 05/26/24 History montelukast 10 mg tablet 10 mg PO DAILY 08/06/23 05/26/24 History furosemide 20 mg tablet 20 mg PO UD #30 tabs 08/10/23 05/26/24 Rx Past Med/Surg History Problem List (Updated 05/26/24 @ 15:35 by Jerry Garcia MD) HUONG (acute kidney injury) COVID Pulmonary congestion Essential tremor Bipolar disorder Psoriatic arthritis COPD (chronic obstructive pulmonary disease) Diabetes mellitus, type II Dyslipidemia CKD (chronic kidney disease), stage III CKD (chronic kidney disease) (Acute) Cough (Acute) Pulmonary edema (Acute) Depression Schizophrenia Medical History Essential tremor Bipolar disorder Psoriatic arthritis COPD (chronic obstructive pulmonary disease) Diabetes mellitus, type II Dyslipidemia CKD (chronic kidney disease), stage III Depression Schizophrenia Surgical History History of colonoscopy History of prostate surgery Family History Other Cancer Social History Smoking Status: Former smoker Hx Alcohol Use: No Hx Substance Use: No Preferred Language: Serbian Communication Ability: Effective Chipper Operator Required: No Beliefs That Will Affect Care: None Current Living Situation: Family Feels Safe at Home: Yes Assistive Devices: Denture - Lower and Nebulizer Review of Systems Review of Systems: All systems reviewed & are unremarkable except as noted in Subjective Physical Exam Physical Exam: Constitutional: WD/WN, vitals as above, NAD, sitting up in bed, pleasant, conversing easily Respiratory: Bilateral vesicular breath sound. Cardiovascular: RRR, no murmur, no edema Vessels: no JVD or carotid bruit Chest: normal inspection of chest Abdomen: normal bowel sounds, soft, nontender, no hepatosplenomegaly Musculoskeletal: no cyanosis or clubbing, extremities motor strength 5/5 Skin: no rashes, warm and dry normal turgor Neurologic: PERRL, EOMI, accommodation nl, no face palsy, no dysarthria CN's II- XI intact bilaterally and moves all extremities Results & Data Results & Data Vital Signs (Past 12 Hours) Vital Signs Temp Pulse Resp BP Pulse Ox O2 Del Method 05/26/24 14:48 104 H 19 91 05/26/24 14:36 104 H 91 05/26/24 14:21 107 H 90 05/26/24 14:18 105 H 23 90 05/26/24 14:03 102 H 91 05/26/24 14:00 136/87 05/26/24 14:00 136/87 05/26/24 14:00 136/87 05/26/24 14:00 Room Air 05/26/24 13:51 109 H 19 93 05/26/24 13:45 107 H 18 93 05/26/24 13:31 149/89 H 05/26/24 13:31 149/89 H 05/26/24 13:30 105 H 23 92 05/26/24 13:24 103 H 92 05/26/24 13:18 107 H 24 92 05/26/24 13:00 154/98 H 05/26/24 12:57 90 05/26/24 12:48 91 05/26/24 12:45 147/84 H 05/26/24 12:45 147/84 H 05/26/24 12:30 110 H 18 90 05/26/24 12:03 113 H 19 05/26/24 12:00 135/84 05/26/24 12:00 135/84 05/26/24 12:00 135/84 05/26/24 11:57 111 H 92 05/26/24 11:54 114 H 05/26/24 11:42 115 H 19 92 05/26/24 11:36 114 H 92 05/26/24 11:27 111 H 91 05/26/24 11:03 117 H 91 05/26/24 11:00 140/103 H 05/26/24 11:00 140/103 H 05/26/24 10:51 120 H 93 05/26/24 10:30 119 H 91 05/26/24 10:30 160/85 H 05/26/24 10:30 160/85 H 05/26/24 10:30 160/85 H 05/26/24 10:30 90 Room Air 05/26/24 10:27 124 H 21 05/26/24 10:22 122 H 05/26/24 10:16 135/103 H 05/26/24 10:11 Room Air 05/26/24 09:38 36.9 C 130 H 20 123/70 94 Room Air Code Status & VTE Plan VTE Prophylaxis Plan VTE Prophylaxis will be ordered: Yes
[2024-05-26] MEDS ORDERED: ALBUTEROL HFA 8 GM INHALER INH PRN (15:50)
[2024-05-26] MEDS: DULoxetine HCL 60 MG CAP PO SCH (21:51)
[2024-05-26] MEDS: CETIRIZINE HCL 10 MG TABLET PO SCH (21:51)
[2024-05-26] MEDS: MEMANTINE HCL 10 MG TAB PO SCH (21:51)
[2024-05-26] MEDS: DONEPEZIL HCL 10 MG TAB PO SCH (21:51)
[2024-05-26] MEDS: QUEtiapine FUMARATE 300 MG TABLET PO SCH (21:52)
[2024-05-26] MEDS: dexAMETHasone 4 MG TAB PO SCH (21:52)
--- OUTSIDE RECORDS SUMMARY | 2024-05-27 03:35 | External Medical Summary | Summary of Care ---
Author Name Unknown Organization [facility] Address [address] [place] [address] Phone [phone] Care Team Providers Care Production Weigher Name Role Phone Benjamin Connor MD Primary Care Provider [phone] Reason for Visit * Reason Comments Acute Cough, body aches, n ot eating well the last couple of days, he is drinking fluids. Weakness-symptoms started 6 days ago Encounter Details Date Type Department Care Team (Late st Contact Info) Description 05/26/2024 9:00 AM EST [facility] [address] [phone] Benjamin Connor MD [address] [phone] Encephalopathy, unspecified type*; Psoriatic arthropathy (HCC); Chronic schizophrenia ([facility]); Major depressive disorder, single episode, severe, with psychotic behavior ([facility]); COPD, group B, by GOLD 2017 classification ([facility]); Alcohol dependence in remission ([facility]); Type 2 diabetes mellitus with hemoglobin A1c goal of less than 7.0% ([facility]); Stage 3a chronic kidney disease ([facility]) Allergies No known active allergiesdocumented as of this encounter (statuses as of 05/26/2024) Medications inFLIXimab (REMICADE) 100 MG injection Administer [...] as of this encounter (statuses as of 05/26/2024) Active Problems Problem Noted Date Diagnosed Date Alcohol dependence in remission 05/26/2024 COPD, group B, by GOLD 2017 classification [...] sugars. Continue with psychiatry. Dr. Villalta at [facility] Psych. documented as of this encounter (statuses as of 05/26/2024) Resolved Problems Problem Noted Date Diagnosed Date [...] as of this encounter (statuses as of 05/26/2024) Immunizations Name Administration Dates Next Due COVID-19 [...] No 08/06/2023 Does the household have a [facility] source of income? (Household - for ages [...] Sign Reading Time Taken Comments Blood Pressure 110/74 05/26/2024 8:54 AM EST Pulse 122 05/26/2024 8:54 AM EST Temperature 37.6 C (99.6 F) 05/26/2024 8:54 AM ES T Respiratory Rate 18 05/26/2024 8:54 AM EST Oxygen Saturation 92% 05/26/2024 8:54 AM EST Inhaled Oxygen Concentration - - Weight - - Height - - Body Mass Index - - documented in this encounter Functional Status * [...] Progress Notes * Benjamin Connor MD - 05/26/2024 8:54 AM EST Images from the original note were not included. Subjective Shiva Lea is a 79 year old male that presents for Acute (Cough, body aches, not eating well the last couple of days, he is drinking fluids. Weakness- symptoms started 6 days ago ) History of Present Illness Shiva Lea is a 79 year old male with COPD who presents with acute confusion and weakness. He is accompanied by his son. He was advised by the department of aging to seek medical evaluation for acute changes in his condition. Over the past week, he has experienced acute confusion and weakness, with a significant decrease inappetite, leading to minimal food intake. He is disoriented, forgetting to take his medications, and struggles with basic mobility, including getting in and out of bed. His son found him on the ground after he was unable to get up while trying to change his diaper. He reports chest tightness and throat pain. During a recent attempt to walk, he experienced burningsensations in his feet. His oxygen saturation is borderline at 90-92%, which is concerning given his history of COPD. No ear pain, significant abdominal pain, vomiting, fever, or other systemic symptoms. Nutritionally, he has not had a substantial meal in four to five days. His son noted that he only took one bite of an egg sandwich this morning, raising concerns about his nutritional intake and hydration status. His son is concerned about his safety at home, especially when left alone, due to a recent fall. The son mentioned that he has no significant assets other than social security, complicating the search for a suitable living arrangement. Objective Vitals: 05/26/24 0854 Temp: 99.6 F (37.6 C) Pulse: 122 Resp: 18 SpO2: 92% BP: 110/74 Physical Exam VITALS: SaO2- 90-92% HEENT: Oral mucosa without abnormalities. No palpable lymphadenopathy in the neck. NECK: No palpable lymphadenopathy. CHEST: Lungs clear to auscultation. CARDIOVASCULAR: Heart rate steady. ABDOMEN: Soft, non-tender. Physical Exam Cardiovascular: Comments: Hoarse voice. Dry cough. I have reviewed the following results: Results Assessment and Plan Assessment & Plan Acute Change in Mental Status Rapid onset of confusion, decreased appetite, and weakness. No recent trauma reported. Possible causes include infection, metabolic derangement, or neurological event. Immunosuppressed status increases risk. -Refer to the emergency department for expedited workup including labs, urine sample, chest x-ray, and possibly a respiratory panel. COPD Borderline oxygen saturation in the office. No acute respiratory distress reported. -Continue current management. General Health Maintenance / Followup Plans -If admitted, discuss with inpatient case management team regarding possible transition to a rehab facility or long-term care. -Follow-up visit after hospital discharge or ED visit to reassess condition. Encephalopathy, unspecified type (Primary) Psoriatic arthropathy ([facility]) - Continue methotrexate. Chronic schizophrenia ([facility]) Major depressive disorder, single episode, severe, with psychotic behavior ([facility]) - Following with psychiatry for schizophrenia and depression. No changes to lamictal, duloxetine, seroquel. COPD, group B, by GOLD 2017 classification ([facility]) - Continue trelegy and prn albuterol. Increased work of breathing since acute change in health status a week ago. Alcohol dependence in remission ([facility]) - noted Type 2 diabetes mellitus with hemoglobin A1c goal of less than 7.0% ([facility]) - A1c 7.2. Diet controlled. Appropriately on statin. Stage 3a chronic kidney disease ([facility]) - Creatinine 1.6 with GFR of 44 on most recent lab work. Wrap-Up Follow Up: Return if symptoms worsen or fail to improve. Text in this note was generated using an [employer] documentation service. I discussed the use of a device to record and summarize our discussion today. All persons present during the encounter consented to its use. documented in this encounter Nursing Notes * Dalia Orozco LPN - 05/26/2024 8:54 AM EST The patient has been properly identified by confirmation of name and date of . Chief Complaint Patient presents with Acute Cough, body aches, not eating well the last couple of days, he is drinking fluids. Weakness-symptoms started 6 days ago documented in this encounter Plan of Treatment Upcoming Encounters Date Type Department Care Team (Late st Contact Info) Description 06/09/2024 8:30 AM EST Telemedicine Psychiatry, [facility] [address] [phone] Ej Nieves CRNP [address] [place] [id number] 06/16/2024 10:40 AM EST Office Visit [facility] [place] [address] [facility] [place] [phone] Benjamin Connor MD [address] [facility] [address] [place] [address] 06/22/2024 11:00 AM EST Telemedicine Rheumatology, [place] [address] [place] [address] Adwoa Baker DO [address] [place] [address] 06/30/2024 11:00 AM EST Hem/Onc Treatment Hematology/Oncology Treatment, [place] [address] [place] [address] Christina, Chair 6 Hem [facility] [address] [place] [address] 10/17/2024 12:30 PM EDT Office Visit Pulmonary Medicine, [facility] [address] [facility] [address] [place] [id number] Jose Angel Wheatley MD [address] [address] Scheduled Procedures Name Priority Associated Diagnoses Date/Ti me COLONOSCOPY FLEXIBLE PROXIMAL DIAGNOSTIC Recall History of colon polyps Health Maintenance Due Date Last Done Comments Adult Wellness Visit 2013 COVID-19 Vaccine (3 [...] Additional history exists CKD HGB USE SMARTSET 58083 05/19/202505/19, 03/21/2024, 03/21/2024, Additional history exists CKD PHOS USE SMARTSET 65884 05/19/202504/27, 10/16/2022, 08/01/2021, Additional history exists O2 ASSESSMENT COMPLETED IN PAST YEAR FOR COPD 05/26/2025 05/26/2024 Colonoscopy 06/27/2026 06/27/2021, 06/27/2021 DTap/Tdap Vaccines (2 - Td or Tdap) 12/04/2032 12/04/2022 RETIRED - COLONOSCOPY-EVERY 5 YRS AGES 18-100 Discontinued 06/27/2021, 06/27/2021 Zoster Vaccines Completed 10/09/2022, 05/15/2022 Pneumococcal Vaccine: 50+ Years Completed 08/10/2023, 01/06/2019, 01/01/2017, Additional history exists Alpha-1 Antitrypsin Completed 05/19/2024 HPV (Gardasil) Vaccine Aged Out No lo nger eligible based on patient's age to complete this topic Hepatitis B Vaccine Aged Out No longe r eligible based on patient's age to complete this topic Hepatitis C Screening Discontinued MENINGOCOCCAL (MENACTRA/MENVEO) Aged Out No longer eligible based on patient's age to complete this topic documented as of this encounter Medical Devices Implanted Type Area [employer] Device Identifier Shelf Expiration Date Model / Serial / Lot Lead Dbs 0.5mm 42cm Marker - [id number] Implanted:Qty: 1 on 04/05/2023 by Neal Yoon MD at OR [facility] Left: Head [employer] : NEUROLOGIC PAIN 02/11/2025 [id number] / / [id number] Lead Dbs 0.5mm 42cm - [id number] Implanted:Qty: 1 on 04/05/2023 by Neal Yoon MD at OR [facility] Right: Head [employer] : NEUROLOGIC PAIN 02/11/2025 [id number] / / [id number] Cement Hydroset Injectable 5cc - [id number] Implanted:Qty: 1 on 04/05/2023 by Neal Yoon MD at OR [facility] N/A: Head [employer]INA 12/11/2024 [id number] / / [id number] Plate 12mm Str 2 Hole Un3 - [id number] Implanted:Qty: 1 on 04/05/2023 by Neal Yoon MD at OR [facility] Right: Head [employer] : CRANIOMAXILLOFACIAL [id number] / / Plate 12mm Str 2 Hole Un3 - [id number] Implanted:Qty: 1 on 04/05/2023 by Neal Yoon MD at OR [facility] Left: Head CATRINA : CRANIOMAXILLOFACIAL [id number] / / Neurostimulator Percept Pc - [id number] - [id number] Implanted:Qty: 1 on 04/09/2023 by Neal Yoon MD at OR [facility] Left: Chest [employer] : NEUROLOGIC PAIN 02/06/2025 [id number] / [id number] / Ext Dbs 40cm Marker - [id number] Implanted:Qty: 1 on 04/09/2023 by Neal Yoon MD at OR [facility] Left: Chest [employer] : NEUROLOGIC PAIN 10/21/2024 [id number] / / Ext Dbs 40cm - [id number] - [id number] Implanted:Qty: 1 on 04/09/2023 by Neal Yoon MD at OR [facility] Left: Chest [employer] : NEUROLOGIC PAIN 12/04/2024 [id number] / [id number] / Envelope Tyrx Lg Antibacterial - [id number] Implanted:Qty: 1 on 04/09/2023 by Neal Yoon MD at OR [facility] Left: Chest [employer] 12/17/2023 [id number] / / [id number] documented as of this encounter Visit Diagnoses Diagnosis Encephalopathy, unspecified type- Primary Psoriatic arthropathy (HCC) Psoriatic arthropathy Chronic schizophrenia (HCC) Residual type schizophrenic disorder, chronic condition Major depressive disorder, single episode, severe, with psychotic behavior (HCC) Major depressive disorder, single episode, severe, specified as with psychotic behavior COPD, group B, by GOLD 2017 classification (HCC) Alcohol dependence in remission (HCC) Other and unspecified alcohol dependence, in remission Type 2 diabetes mellitus with hemoglobin A1c goal of less than 7.0% (HCC) Stage 3a chronic kidney disease (HCC) documented in this encounter Advance Directives Documents on File Type Date Recorded Patient Heel Blacker Expl anation Power of Pbx Wire Chief 10/30/2014 POWER OF A TTORNEY * Full [...] due to patient's condition Care Teams Production Weigher Relationship Specialty Start Date End Date August, Benjamin De Jesus MD PCP - General Family Medicine 02/04/22 documented as of this encounter
[2024-05-27 07:22] LABS: Hematocrit (blood only) 33.7 % (42.0-52.0); Hemoglobin 11.9 g/dl (14.0-18.0); Mean Corpuscular Hgb Conc 35.3 g/dL (32.0-36.0); Mean Corpuscular Volume 93.4 fL (80.0-100.0); Mean Platelet Volume 10.1 fL (9.4-12.4); Platelet Count 51 K/uL (130-400); RDW Coefficient of Variation 12.7 % (11.5-14.5); RDW Standard Deviation 42.8 fL (36.4-46.3); Red Blood Count 3.61 M/uL (4.70-6.10); White Blood Count 2.42 K/ul (4.8-10.8)
[2024-05-27] MEDS ORDERED: GLUCOSE 40% GEL 15 GM TUBE PO PRN (07:33)
[2024-05-27] MEDS ORDERED: DEXTROSE 50% 50 ML SYRINGE IV PRN (07:33)
[2024-05-27] MEDS ORDERED: CARBOHYDRATES FOR HYPOGLYCEMIA PO PRN (07:33)
[2024-05-27] MEDS ORDERED: GLUCAGON FOR INJ 1 MG VIAL SQ PRN (07:33)
[2024-05-27] MEDS ORDERED: GLUCOSE 10 TAB/TUBE PO PRN (07:33)
[2024-05-27 07:38] LABS: Albumin Globulin Ratio 1.1 (0.9-2); Albumin Level 3.3 gm/dl (3.4-5.0); BUN Creatinine Ratio 26.9 (10-20); Bilirubin,Total 1.2 mg/dl (0.2-1.0); Creatinine Clr Calc Pharmacy 58.1 ml/min; Globulin 3.1 gm/dl (2.5-4.0); Potassium 4.1 mmol/L (3.5-5.1); Total Protein 6.4 gm/dl (6.0-8.3)
[2024-05-27] MEDS: MAGNESIUM SULFATE / D5W 1 GM/100 ML BAG IV SCH (10:04)
[2024-05-27] MEDS: allopurinoL 100 MG TAB PO SCH (10:07)
[2024-05-27] MEDS: ATORVASTATIN 20 MG TAB PO SCH (10:08)
[2024-05-27] MEDS: FLUTICASONE FUROATE 100MCG 14 PUFFS/INHALER INH SCH (10:09)
[2024-05-27] MEDS: lamoTRIgine 100 MG TAB PO SCH (10:09)
[2024-05-27] MEDS: FOLIC ACID 1 MG TAB PO SCH (10:09)
[2024-05-27] MEDS: MONTELUKAST SODIUM 10 MG TABLET PO SCH (10:10)
[2024-05-27] MEDS: REMDESIVIR 200 MG in SODIUM CHLORIDE 0.9% 210 ML IV STA (10:16)
[2024-05-27 10:23] LABS: Immature Granulocytes # (auto) 0.02 K/uL (0.01-0.20); Immature Granulocytes % (auto) 0.8 %; Lymphocytes # (auto) 0.48 K/uL (1.20-3.40); Lymphocytes % (auto) 19.8 %; Monocytes # (auto) 0.25 K/uL (0.11-0.59); Monocytes % (auto) 10.3 %; Neutrophils # (auto) 1.67 K/uL (1.40-6.50); Neutrophils % (auto) 69.1 %
[2024-05-27] MEDS: BENZONATATE 100 MG CAPSULE PO SCH (12:46)
[2024-05-27] MEDS: INSULIN ASPART PER UNIT CHARGE SC SCH (12:46)
--- NOTE | 2024-05-27 14:33 | Hospitalist Progress Note ---
Date of Service May 27, 2024 Assessment & Plan (1) COVID: (2) HUONG (acute kidney injury): Plan Patient is a 79-year-old male with past medical history of type 2 diabetes mellitus, COPD, psoriasis, CKD stage IIIa, rheumatoid arthritis, chronic schizophrenia, depression atypical dementia presents to the hospital with sore throat, cough, generalized weakness and intermittent confusion. COVID-19 infection Acute kidney injury -Patient presents from home(lives with son) with/sore throat, cough, generalized weakness and confusion -COVID-19 positive -Creatinine elevated to 1.9; baseline of 1.6 -Saturating well in room air -Chest x-ray does not reveal any infiltrates -CT head without contrast did not show any acute findings Plan: -Monitor oxygen saturation; supplemental oxygen if SpO2 is less than 90% -PT OT ordered, recommending rehab -start IS, tessalon perles, flutter valve given significant congestion Chronic conditions; Schizophreniacontinue on Seroquel; QTc within normal limits Mood disordercontinue on duloxetine, lamotrigine Rheumatoid arthritis/psoriasiscontinue methotrexate Hyperlipidemiacontinue on Lipitor COPD continue on home inhalers I spent a total of 40 minutes in direct patient care, including [id number] time with the patient and/or family, reviewing medical records, ordering and reviewing diagnostic tests, and coordinating care with other healthcare providers. This time includes: history taking, physical examination, medical decision making, counseling, ECG interpretation, imaging interpretation, lab interpretation, orders, and education, excluding time spent in the performance of separately billed services. Admission and Anticipated Discharge Date Admission Date: May 26, 2024 Subjective 79-year-old female with past medical history of COPD, diabetes type 2, CKD, schizophrenia, depression who presents for shortness of breath from home and cough. States has been going on for about a week. In the ED, noted to have COVID. Admitted to medicine due to high risk nature of COVID infection. Patient seen and examined at bedside. Patient is doing well today. He states he feels he is breathing fine and his cough is getting a little better. Feels very weak. Review of Systems Review of Systems: CONSTITUTIONAL: Patient denies fevers, chills, sweats and weight changes. EYES: Patient denies any visual symptoms. EARS, NOSE, AND THROAT: No difficulties with hearing. No symptoms of rhinitis or sore throat. CARDIOVASCULAR: Patient denies chest pains, palpitations, orthopnea and paroxysmal nocturnal dyspnea. RESPIRATORY: shortness of breath, cough GI: No nausea, vomiting, diarrhea, constipation, abdominal pain, hematochezia or melena. : No urinary hesitancy or dribbling. No nocturia or urinary frequency. No abnormal urethral discharge. MUSCULOSKELETAL: No myalgias or arthralgias. NEUROLOGIC: No chronic headaches, no seizures. Patient denies numbness, tingling or weakness. PSYCHIATRIC: Patient denies problems with mood disturbance. No problems with anxiety. ENDOCRINE: No excessive urination or excessive thirst. DERMATOLOGIC: Patient denies any rashes or skin changes. Physical Exam Physical Exam: Gen: A&O 3 NAD HEENT: NCAT, EOMI, not icteric. External ears normal. No rhinorrhea. Moist mucous membranes. Neck: Supple, full range of motion, no observable masses, No meningeal sign. Lungs: rhonchi in right lower lobe, left relatively clear CV: RRR, no edema. Abdomen: Soft, nondistended, No rebound tenderness. MSK: No joint swelling, no redness. Skin: No rashes, petechiae, lesions. Normal color per patient. Neuro: Normal Gait, Grossly intact. Psych: Appropriate for situation. Results & Data Results & Data Vital Signs (Past 12 Hours) Vital Signs Temp Pulse Resp BP Pulse Ox O2 Del Method O2 Flow Rate 05/27/24 08:00 36.5 C 87 20 145/72 H 93 Room Air 05/27/24 08:00 Room Air 05/27/24 04:50 36.7 C 89 18 120/75 95 Nasal Cannula 2 Laboratory Results Personally interpreted, patient has platelet 51 in setting of acute COVID infection, low white blood cell count in the setting of methotrexate use, mag of 1.5 Medications Administered Allopurinol (Allopurinol 100 Mg Tab) 100 mg PO DAILY [facility] Stop: 06/26/24 08:59 Last Admin: 05/27/24 10:07 Dose: 100 mg Documented By: NMS Atorvastatin Calcium (Atorvastatin 20 Mg Tab) 20 mg PO DAILY [facility] Stop: 06/26/24 08:59 Last Admin: 05/27/24 10:08 Dose: 20 mg Documented By: BIRD Benzonatate (Benzonatate 100 Mg Capsule) 100 mg PO TID [facility] Stop: 06/26/24 13:59 Last Admin: 05/27/24 12:46 Dose: 100 mg Documented By: BIRD Cetirizine HCl (Cetirizine Hcl 10 Mg Tablet) 10 mg PO PM [facility] Stop: 06/25/24 20:59 Last Admin: 05/26/24 21:51 Dose: 10 mg Documented By: KEYSHAWN Dexamethasone (Dexamethasone 4 Mg Tab) 6 mg PO DAILY [facility] Stop: 06/25/24 19:44 Last Admin: 05/27/24 10:08 Dose: 6 mg Documented By: Admin: 05/26/24 21:52 Dose: 6 mg Documented By: KEYSHAWN Donepezil HCl (Donepezil Hcl 10 Mg Tab) 10 mg PO HS [facility] Stop: 06/25/24 20:59 Last Admin: 05/26/24 21:51 Dose: 10 mg Documented By: KEYSHAWN Duloxetine HCl (Duloxetine Hcl 60 Mg Cap) 60 mg PO BID [facility] Stop: 06/25/24 20:59 Last Admin: 05/27/24 10:08 Dose: 60 mg Documented By: Admin: 05/26/24 21:51 Dose: 60 mg Documented By: KEYSHAWN Fluticasone Furoate (Fluticasone Furoate 100mcg 14 Puffs/Inhaler) 1 puffs INH DAILY [facility] Stop: 06/26/24 08:59 Last Admin: 05/27/24 10:09 Dose: 1 puffs Documented By: BIRD Folic Acid (Folic Acid 1 Mg Tab) 1 mg PO QAM [facility] Stop: 06/26/24 08:59 Last Admin: 05/27/24 10:09 Dose: 1 mg Documented By: BIRD Magnesium Sulfate/Dextrose (Magnesium Sulfate / D5w) 1 gm in 100 mls @ 50 mls/hr IV Q2H [facility] Stop: 05/27/24 14:44 Last Admin: 05/27/24 13:48 Dose: 50 mls/hr Documented By: Infusion: 05/27/24 13:48 Dose: Infused Documented By: Admin: 05/27/24 11:56 Dose: 50 mls/hr Documented By: Infusion: 05/27/24 11:40 Dose: Infused Documented By: Admin: 05/27/24 10:04 Dose: 50 mls/hr Documented By: BIRD Insulin Aspart (Insulin Aspart Per Unit Charge) 0 units SC ACHS [facility] Stop: 06/26/24 11:29 Last Admin: 05/27/24 12:46 Dose: 4 units Documented By: BIRD Co-signed By: COREY Lamotrigine (Lamotrigine 100 Mg Tab) 200 mg PO DAILY [facility]; Protocol Stop: 06/26/24 08:59 Last Admin: 05/27/24 10:09 Dose: 200 mg Documented By: BIRD Memantine (Memantine Hcl 10 Mg Tab) 10 mg PO BID [facility] Stop: 06/25/24 20:59 Last Admin: 05/27/24 10:10 Dose: 10 mg Documented By: Admin: 05/26/24 21:51 Dose: 10 mg Documented By: KEYSHAWN Montelukast Sodium (Montelukast Sodium 10 Mg Tablet) 10 mg PO DAILY [facility] Stop: 06/26/24 08:59 Last Admin: 05/27/24 10:10 Dose: 10 mg Documented By: BIRD Quetiapine Fumarate (Quetiapine Fumarate 300 Mg Tablet) 300 mg PO HS [facility] Stop: 06/25/24 20:59 Last Admin: 05/26/24 21:52 Dose: 300 mg Documented By: KEYSHAWN
[2024-05-27] MEDS: ACETAMINOPHEN 325 MG TAB PO PRN (20:56)
[2024-05-28 07:33] LABS: Hematocrit (blood only) 36.3 % (42.0-52.0); Hemoglobin 12.8 g/dl (14.0-18.0); Mean Corpuscular Hemoglobin 32.7 pg (25.0-34.0); Mean Corpuscular Hgb Conc 35.3 g/dL (32.0-36.0); Mean Corpuscular Volume 92.8 fL (80.0-100.0); Mean Platelet Volume 11.1 fL (9.4-12.4); Platelet Count 79 K/uL (130-400); RDW Coefficient of Variation 12.4 % (11.5-14.5); RDW Standard Deviation 41.6 fL (36.4-46.3); Red Blood Count 3.91 M/uL (4.70-6.10); White Blood Count 5.21 K/ul (4.8-10.8)
[2024-05-28 07:44] LABS: BUN Creatinine Ratio 31.1 (10-20); Calcium 8.6 mg/dl (8.6-10.3); Creatinine Clr Calc Pharmacy 67.1 ml/min; Potassium 4.1 mmol/L (3.5-5.1)
--- NOTE | 2024-05-28 13:30 | Hospitalist Progress Note ---
Date of Service May 28, 2024 Assessment & Plan (1) COVID: (2) HUONG (acute kidney injury): Plan Patient is a 79-year-old male with past medical history of type 2 diabetes mellitus, COPD, psoriasis, CKD stage IIIa, rheumatoid arthritis, chronic schizophrenia, depression atypical dementia presents to the hospital with sore throat, cough, generalized weakness and intermittent confusion. COVID-19 infection Acute kidney injury -Patient presents from home(lives with son) with/sore throat, cough, generalized weakness and confusion -COVID-19 positive -Creatinine elevated to 1.9; baseline of 1.6 -Saturating well in room air -Chest x-ray does not reveal any infiltrates -CT head without contrast did not show any acute findings Plan: -Monitor oxygen saturation; supplemental oxygen if SpO2 is less than 90% -PT OT ordered, recommending rehab -continue IS, tessalon perles, flutter valve given significant congestion -continue remdesevir -awaiting placement Chronic conditions; Schizophreniacontinue on Seroquel; QTc within normal limits Mood disordercontinue on duloxetine, lamotrigine Rheumatoid arthritis/psoriasiscontinue methotrexate Hyperlipidemiacontinue on Lipitor COPD continue on home inhalers I spent a total of 40 minutes in direct patient care, including [id number] time with the patient and/or family, reviewing medical records, ordering and reviewing diagnostic tests, and coordinating care with other healthcare providers. This time includes: history taking, physical examination, medical decision making, counseling, ECG interpretation, imaging interpretation, lab interpretation, orders, and education, excluding time spent in the performance of separately billed services. Admission and Anticipated Discharge Date Admission Date: May 26, 2024 Subjective Patient seen and examined at bedside. Mr. Lea is doing well today. He feels ready to go to rehab. No acute events overnight. Review of Systems Review of Systems: CONSTITUTIONAL: Patient denies fevers, chills, sweats and weight changes. EYES: Patient denies any visual symptoms. EARS, NOSE, AND THROAT: No difficulties with hearing. No symptoms of rhinitis or sore throat. CARDIOVASCULAR: Patient denies chest pains, palpitations, orthopnea and paroxysmal nocturnal dyspnea. RESPIRATORY: shortness of breath, cough, improved from prior GI: No nausea, vomiting, diarrhea, constipation, abdominal pain, hematochezia or melena. : No urinary hesitancy or dribbling. No nocturia or urinary frequency. No abnormal urethral discharge. MUSCULOSKELETAL: No myalgias or arthralgias. NEUROLOGIC: No chronic headaches, no seizures. Patient denies numbness, tingling or weakness. PSYCHIATRIC: Patient denies problems with mood disturbance. No problems with anxiety. ENDOCRINE: No excessive urination or excessive thirst. DERMATOLOGIC: Patient denies any rashes or skin changes. Physical Exam Physical Exam: Gen: A&O 3 NAD HEENT: NCAT, EOMI, not icteric. External ears normal. No rhinorrhea. Moist mucous membranes. Neck: Supple, full range of motion, no observable masses, No meningeal sign. Lungs: rhonchi in right lower lobe, left relatively clear, improved from yesterday CV: RRR, no edema. Abdomen: Soft, nondistended, No rebound tenderness. MSK: No joint swelling, no redness. Skin: No rashes, petechiae, lesions. Normal color per patient. Neuro: Normal Gait, Grossly intact. Psych: Appropriate for situation. Results & Data Results & Data Vital Signs (Past 12 Hours) Vital Signs Temp Pulse Resp BP Pulse Ox O2 Del Method 05/28/24 07:57 36.7 C 81 16 125/69 95 Room Air 05/28/24 07:30 Room Air Laboratory Results -personally reviewed, platelet count continues to improve Medications Administered Acetaminophen (Acetaminophen 325 Mg Tab) 650 mg PO Q4H PRN PRN Reason: pain/fever Stop: 06/25/24 13:28 Last Admin: 05/27/24 20:56 Dose: 650 mg Documented By: ANS Allopurinol (Allopurinol 100 Mg Tab) 100 mg PO DAILY [facility] Stop: 06/26/24 08:59 Last Admin: 05/28/24 09:40 Dose: 100 mg Documented By: Admin: 05/27/24 10:07 Dose: 100 mg Documented By: BIRD Atorvastatin Calcium (Atorvastatin 20 Mg Tab) 20 mg PO DAILY [facility] Stop: 06/26/24 08:59 Last Admin: 05/28/24 09:40 Dose: 20 mg Documented By: Admin: 05/27/24 10:08 Dose: 20 mg Documented By: BIRD Benzonatate (Benzonatate 100 Mg Capsule) 100 mg PO TID [facility] Stop: 06/26/24 13:59 Last Admin: 05/28/24 09:41 Dose: 100 mg Documented By: Admin: 05/27/24 20:56 Dose: 100 mg Documented By: Admin: 05/27/24 12:46 Dose: 100 mg Documented By: BIRD Cetirizine HCl (Cetirizine Hcl 10 Mg Tablet) 10 mg PO PM [facility] Stop: 06/25/24 20:59 Last Admin: 05/27/24 20:56 Dose: 10 mg Documented By: Admin: 05/26/24 21:51 Dose: 10 mg Documented By: KEYSHAWN Dexamethasone (Dexamethasone 4 Mg Tab) 6 mg PO DAILY [facility] Stop: 06/25/24 19:44 Last Admin: 05/28/24 09:41 Dose: 6 mg Documented By: Admin: 05/27/24 10:08 Dose: 6 mg Documented By: Admin: 05/26/24 21:52 Dose: 6 mg Documented By: KEYSHAWN Donepezil HCl (Donepezil Hcl 10 Mg Tab) 10 mg PO HS [facility] Stop: 06/25/24 20:59 Last Admin: 05/27/24 20:56 Dose: 10 mg Documented By: Admin: 05/26/24 21:51 Dose: 10 mg Documented By: KEYSHAWN Duloxetine HCl (Duloxetine Hcl 60 Mg Cap) 60 mg PO BID [facility] Stop: 06/25/24 20:59 Last Admin: 05/28/24 09:41 Dose: 60 mg Documented By: Admin: 05/27/24 20:56 Dose: 60 mg Documented By: Admin: 05/27/24 10:08 Dose: 60 mg Documented By: Admin: 05/26/24 21:51 Dose: 60 mg Documented By: KEYSHAWN Fluticasone Furoate (Fluticasone Furoate 100mcg 14 Puffs/Inhaler) 1 puffs INH DAILY [facility] Stop: 06/26/24 08:59 Last Admin: 05/28/24 09:41 Dose: 1 puffs Documented By: Admin: 05/27/24 10:09 Dose: 1 puffs Documented By: BIRD Folic Acid (Folic Acid 1 Mg Tab) 1 mg PO QAM [facility] Stop: 06/26/24 08:59 Last Admin: 05/28/24 09:42 Dose: 1 mg Documented By: Admin: 05/27/24 10:09 Dose: 1 mg Documented By: BIRD Insulin Aspart (Insulin Aspart Per Unit Charge) 0 units SC ACHS [facility] Stop: 06/26/24 11:29 Last Admin: 05/28/24 13:08 Dose: Not Given Documented By: Admin: 05/28/24 09:39 Dose: 4 units Documented By: BIRD Co-signed By: ABUNDIO Admin: 05/27/24 20:14 Dose: Not Given Documented By: KEYSHAWN Co-signed By: JAYLEN Admin: 05/27/24 17:14 Dose: 5 units Documented By: COREY Co-signed By: ABUNDIO Admin: 05/27/24 12:46 Dose: 4 units Documented By: BIRD Co-signed By: COREY Lamotrigine (Lamotrigine 100 Mg Tab) 200 mg PO DAILY [facility]; Protocol Stop: 06/26/24 08:59 Last Admin: 05/28/24 09:42 Dose: 200 mg Documented By: Admin: 05/27/24 10:09 Dose: 200 mg Documented By: BIRD Memantine (Memantine Hcl 10 Mg Tab) 10 mg PO BID [facility] Stop: 06/25/24 20:59 Last Admin: 05/28/24 09:42 Dose: 10 mg Documented By: Admin: 05/27/24 20:56 Dose: 10 mg Documented By: Admin: 05/27/24 10:10 Dose: 10 mg Documented By: Admin: 05/26/24 21:51 Dose: 10 mg Documented By: KEYSHAWN Montelukast Sodium (Montelukast Sodium 10 Mg Tablet) 10 mg PO DAILY [facility] Stop: 06/26/24 08:59 Last Admin: 05/28/24 09:42 Dose: 10 mg Documented By: Admin: 05/27/24 10:10 Dose: 10 mg Documented By: BIRD Quetiapine Fumarate (Quetiapine Fumarate 300 Mg Tablet) 300 mg PO HS [facility] Stop: 06/25/24 20:59 Last Admin: 05/27/24 20:56 Dose: 300 mg Documented By: Admin: 05/26/24 21:52 Dose: 300 mg Documented By: KEYSHAWN
[2024-05-28] MEDS: REMDESIVIR 100 MG in SODIUM CHLORIDE 0.9% 230 ML IV SCH (14:42)
[2024-05-29 06:56] LABS: Hemoglobin 12.4 g/dl (14.0-18.0); Mean Corpuscular Hemoglobin 33.5 pg (25.0-34.0); Mean Corpuscular Hgb Conc 35.4 g/dL (32.0-36.0); Mean Corpuscular Volume 94.6 fL (80.0-100.0); Mean Platelet Volume 10.5 fL (9.4-12.4); Platelet Count 98 K/uL (130-400); RDW Coefficient of Variation 12.7 % (11.5-14.5); RDW Standard Deviation 42.4 fL (36.4-46.3)
[2024-05-29 07:14] LABS: BUN Creatinine Ratio 28.4 (10-20); Calcium 8.6 mg/dl (8.6-10.3); Creatinine Clr Calc Pharmacy 67.8 ml/min; Potassium 4.3 mmol/L (3.5-5.1)
--- NOTE | 2024-05-29 13:55 | Hospitalist Progress Note ---
Date of Service May 29, 2024 Assessment & Plan (1) COVID: (2) HUONG (acute kidney injury): Plan Patient is a 79-year-old male with past medical history of type 2 diabetes mellitus, COPD, psoriasis, CKD stage IIIa, rheumatoid arthritis, chronic schizophrenia, depression atypical dementia presents to the hospital with sore throat, cough, generalized weakness and intermittent confusion. COVID-19 infection Acute kidney injury -Patient presents from home(lives with son) with/sore throat, cough, generalized weakness and confusion -COVID-19 positive -Creatinine elevated to 1.9; baseline of 1.6 -Saturating well in room air -Chest x-ray does not reveal any infiltrates -CT head without contrast did not show any acute findings Plan: -Monitor oxygen saturation; supplemental oxygen if SpO2 is less than 90% -PT OT ordered, recommending rehab, awaiting placement -continue IS, tessalon perles, flutter valve given significant congestion -continue remdesevir -awaiting placement Chronic conditions; Schizophreniacontinue on Seroquel; QTc within normal limits Mood disordercontinue on duloxetine, lamotrigine Rheumatoid arthritis/psoriasiscontinue methotrexate Hyperlipidemiacontinue on Lipitor COPD continue on home inhalers I spent a total of 40 minutes in direct patient care, including [id number] time with the patient and/or family, reviewing medical records, ordering and reviewing diagnostic tests, and coordinating care with other healthcare providers. This time includes: history taking, physical examination, medical decision making, counseling, ECG interpretation, imaging interpretation, lab interpretation, orders, and education, excluding time spent in the performance of separately billed services. Admission and Anticipated Discharge Date Admission Date: May 26, 2024 Subjective Patient seen and examined at bedside. Patient feels he is doing well today, no concerns at this time. Awaiting rehab. Review of Systems Review of Systems: CONSTITUTIONAL: Patient denies fevers, chills, sweats and weight changes. EYES: Patient denies any visual symptoms. EARS, NOSE, AND THROAT: No difficulties with hearing. No symptoms of rhinitis or sore throat. CARDIOVASCULAR: Patient denies chest pains, palpitations, orthopnea and paroxysmal nocturnal dyspnea. RESPIRATORY: shortness of breath, cough, improved from prior GI: No nausea, vomiting, diarrhea, constipation, abdominal pain, hematochezia or melena. : No urinary hesitancy or dribbling. No nocturia or urinary frequency. No abnormal urethral discharge. MUSCULOSKELETAL: No myalgias or arthralgias. NEUROLOGIC: No chronic headaches, no seizures. Patient denies numbness, tingling or weakness. PSYCHIATRIC: Patient denies problems with mood disturbance. No problems with anxiety. ENDOCRINE: No excessive urination or excessive thirst. DERMATOLOGIC: Patient denies any rashes or skin changes. Physical Exam Physical Exam: Gen: A&O 3 NAD HEENT: NCAT, EOMI, not icteric. External ears normal. No rhinorrhea. Moist mucous membranes. Neck: Supple, full range of motion, no observable masses, No meningeal sign. Lungs: rhonchi in right lower lobe, left relatively clear, continues to improve CV: RRR, no edema. Abdomen: Soft, nondistended, No rebound tenderness. MSK: No joint swelling, no redness. Skin: No rashes, petechiae, lesions. Normal color per patient. Neuro: Normal Gait, Grossly intact. Psych: Appropriate for situation. Results & Data Results & Data Vital Signs (Past 12 Hours) Vital Signs Temp Pulse Resp BP Pulse Ox O2 Del Method 05/29/24 08:30 Room Air 05/29/24 07:55 36.4 C L 81 16 134/72 94 Room Air Laboratory Results - personally reviewed, patient hemodynamically stable on room air, creatinine at baseline, no leukocytosis Medications Administered Acetaminophen (Acetaminophen 325 Mg Tab) 650 mg PO Q4H PRN PRN Reason: pain/fever Stop: 06/25/24 13:28 Last Admin: 05/27/24 20:56 Dose: 650 mg Documented By: KEYSHAWN Allopurinol (Allopurinol 100 Mg Tab) 100 mg PO DAILY [facility] Stop: 06/26/24 08:59 Last Admin: 05/29/24 08:17 Dose: 100 mg Documented By: Admin: 05/28/24 09:40 Dose: 100 mg Documented By: Admin: 05/27/24 10:07 Dose: 100 mg Documented By: BIRD Atorvastatin Calcium (Atorvastatin 20 Mg Tab) 20 mg PO DAILY [facility] Stop: 06/26/24 08:59 Last Admin: 05/29/24 08:18 Dose: 20 mg Documented By: Admin: 05/28/24 09:40 Dose: 20 mg Documented By: Admin: 05/27/24 10:08 Dose: 20 mg Documented By: BIRD Benzonatate (Benzonatate 100 Mg Capsule) 100 mg PO TID [facility] Stop: 06/26/24 13:59 Last Admin: 05/29/24 13:30 Dose: 100 mg Documented By: Admin: 05/29/24 08:18 Dose: 100 mg Documented By: Admin: 05/28/24 20:52 Dose: 100 mg Documented By: Admin: 05/28/24 14:41 Dose: 100 mg Documented By: Admin: 05/28/24 09:41 Dose: 100 mg Documented By: Admin: 05/27/24 20:56 Dose: 100 mg Documented By: Admin: 05/27/24 12:46 Dose: 100 mg Documented By: BIRD Cetirizine HCl (Cetirizine Hcl 10 Mg Tablet) 10 mg PO PM [facility] Stop: 06/25/24 20:59 Last Admin: 05/28/24 20:52 Dose: 10 mg Documented By: Admin: 05/27/24 20:56 Dose: 10 mg Documented By: Admin: 05/26/24 21:51 Dose: 10 mg Documented By: KEYSHAWN Dexamethasone (Dexamethasone 4 Mg Tab) 6 mg PO DAILY [facility] Stop: 06/25/24 19:44 Last Admin: 05/29/24 08:18 Dose: 6 mg Documented By: Admin: 05/28/24 09:41 Dose: 6 mg Documented By: Admin: 05/27/24 10:08 Dose: 6 mg Documented By: Admin: 05/26/24 21:52 Dose: 6 mg Documented By: KEYSHAWN Donepezil HCl (Donepezil Hcl 10 Mg Tab) 10 mg PO HS [facility] Stop: 06/25/24 20:59 Last Admin: 05/28/24 20:52 Dose: 10 mg Documented By: Admin: 05/27/24 20:56 Dose: 10 mg Documented By: Admin: 05/26/24 21:51 Dose: 10 mg Documented By: KEYSHAWN Duloxetine HCl (Duloxetine Hcl 60 Mg Cap) 60 mg PO BID [facility] Stop: 06/25/24 20:59 Last Admin: 05/29/24 08:19 Dose: 60 mg Documented By: Admin: 05/28/24 20:52 Dose: 60 mg Documented By: Admin: 05/28/24 09:41 Dose: 60 mg Documented By: Admin: 05/27/24 20:56 Dose: 60 mg Documented By: Admin: 05/27/24 10:08 Dose: 60 mg Documented By: Admin: 05/26/24 21:51 Dose: 60 mg Documented By: KEYSHAWN Fluticasone Furoate (Fluticasone Furoate 100mcg 14 Puffs/Inhaler) 1 puffs INH DAILY [facility] Stop: 06/26/24 08:59 Last Admin: 05/29/24 08:20 Dose: 1 puffs Documented By: Admin: 05/28/24 09:41 Dose: 1 puffs Documented By: Admin: 05/27/24 10:09 Dose: 1 puffs Documented By: BIRD Folic Acid (Folic Acid 1 Mg Tab) 1 mg PO QAM [facility] Stop: 06/26/24 08:59 Last Admin: 05/29/24 08:19 Dose: 1 mg Documented By: Admin: 05/28/24 09:42 Dose: 1 mg Documented By: Admin: 05/27/24 10:09 Dose: 1 mg Documented By: BIRD Insulin Aspart (Insulin Aspart Per Unit Charge) 0 units SC ACHS [facility] Stop: 06/26/24 11:29 Last Admin: 05/29/24 12:08 Dose: 3 units Documented By: RUBEN Co-signed By: HALEIGH Admin: 05/29/24 08:29 Dose: 3 units Documented By: RUBEN Co-signed By: JG Admin: 05/28/24 20:40 Dose: Not Given Documented By: Admin: 05/28/24 17:50 Dose: 5 units Documented By: BIRD Co-signed By: ABUNDIO Admin: 05/28/24 13:08 Dose: Not Given Documented By: Admin: 05/28/24 09:39 Dose: 4 units Documented By: BIRD Co-signed By: ABUNDIO Admin: 05/27/24 20:14 Dose: Not Given Documented By: KEYSHAWN Co-signed By: JAYLEN Admin: 05/27/24 17:14 Dose: 5 units Documented By: COREY Co-signed By: ABUNDIO Admin: 05/27/24 12:46 Dose: 4 units Documented By: BIRD Co-signed By: COREY Lamotrigine (Lamotrigine 100 Mg Tab) 200 mg PO DAILY [facility]; Protocol Stop: 06/26/24 08:59 Last Admin: 05/29/24 08:19 Dose: 200 mg Documented By: Admin: 05/28/24 09:42 Dose: 200 mg Documented By: Admin: 05/27/24 10:09 Dose: 200 mg Documented By: BIRD Memantine (Memantine Hcl 10 Mg Tab) 10 mg PO BID [facility] Stop: 06/25/24 20:59 Last Admin: 05/29/24 08:19 Dose: 10 mg Documented By: Admin: 05/28/24 20:52 Dose: 10 mg Documented By: Admin: 05/28/24 09:42 Dose: 10 mg Documented By: Admin: 05/27/24 20:56 Dose: 10 mg Documented By: Admin: 05/27/24 10:10 Dose: 10 mg Documented By: Admin: 05/26/24 21:51 Dose: 10 mg Documented By: KEYSHAWN Montelukast Sodium (Montelukast Sodium 10 Mg Tablet) 10 mg PO DAILY [facility] Stop: 06/26/24 08:59 Last Admin: 05/29/24 08:19 Dose: 10 mg Documented By: Admin: 05/28/24 09:42 Dose: 10 mg Documented By: Admin: 05/27/24 10:10 Dose: 10 mg Documented By: BIRD Quetiapine Fumarate (Quetiapine Fumarate 300 Mg Tablet) 300 mg PO HS [facility] Stop: 06/25/24 20:59 Last Admin: 05/28/24 20:51 Dose: 300 mg Documented By: Admin: 05/27/24 20:56 Dose: 300 mg Documented By: Admin: 05/26/24 21:52 Dose: 300 mg Documented By: KEYSHAWN
[2024-05-29 19:10] VITALS: RESP 18
[2024-05-30 08:48] VITALS: BP 151/81; PULSE 76; TEMP 97.7; O2SAT 93
[2024-05-30 08:52] LABS: BUN Creatinine Ratio 25.9 (10-20); Calcium 8.8 mg/dl (8.6-10.3); Potassium 3.8 mmol/L (3.5-5.1)
[2024-05-30] MEDS: metHOTREXate sodium 2.5 MG TAB PO SCH (09:12)
[2024-05-30 09:13] LABS: Hematocrit (blood only) 37.4 % (42.0-52.0); Hemoglobin 13.3 g/dl (14.0-18.0); Mean Corpuscular Hemoglobin 32.7 pg (25.0-34.0); Mean Corpuscular Hgb Conc 35.6 g/dL (32.0-36.0); Mean Corpuscular Volume 91.9 fL (80.0-100.0); Mean Platelet Volume 10.4 fL (9.4-12.4); Platelet Count 127 K/uL (130-400); RDW Coefficient of Variation 12.4 % (11.5-14.5); RDW Standard Deviation 40.8 fL (36.4-46.3); Red Blood Count 4.07 M/uL (4.70-6.10); White Blood Count 5.16 K/ul (4.8-10.8)
--- NOTE | 2024-05-30 15:39 | Discharge Summary ---
Discharge Summary Date of Service May 30, 2024 Principal Dx & Hospital Course #1 = Principal Diagnosis (1) COVID: (2) HUONG (acute kidney injury): Plan Patient is a 79-year-old male with past medical history of type 2 diabetes mellitus, COPD, psoriasis, CKD stage IIIa, rheumatoid arthritis, chronic schizophrenia, depression atypical dementia presents to the hospital with sore throat, cough, generalized weakness and intermittent confusion. COVID-19 infection Acute kidney injury -Patient presents from home(lives with son) with/sore throat, cough, generalized weakness and confusion -COVID-19 positive -Creatinine elevated to 1.9; baseline of 1.6 -Saturating well in room air -Chest x-ray does not reveal any infiltrates -CT head without contrast did not show any acute findings Plan: -Monitor oxygen saturation, on room air -PT OT ordered, recommending rehab, awaiting placement -continue IS, tessalon perles, flutter valve given significant congestion -discharge today Chronic conditions; Schizophreniacontinue on Seroquel; QTc within normal limits Mood disordercontinue on duloxetine, lamotrigine Rheumatoid arthritis/psoriasiscontinue methotrexate Hyperlipidemiacontinue on Lipitor COPD continue on home inhalers Notes For Next Care Provider 79-year-old immunocompromise male who presented for shortness of breath and slight confusion. In the ED noted to be COVID-positive, admitted to medicine for further workup. On medicine, was on oxygen, ordered incentive spirometry and started remdesivir with improvement in oxygenation. PT OT recommending rehab. Patient is medically stable for rehab at this time. Titrated off oxygen before discharge. Medication Changes From Visit -none Admission HPI Per Admitting Provider History obtained from interview with the patient, patient's son at bedside and chart review Patient is a 79-year-old male with past medical history of type 2 diabetes mellitus, COPD, psoriasis, CKD stage IIIa, rheumatoid arthritis, chronic schizophrenia, depression was seen by his primary care doctor earlier today. Over the past week, patient is experiencing acute confusion and weakness with significant decrease in appetite leading to decreased food intake. Patient also reported cough and sore throat. Son was concerned about his safety at home due to recent fall; PCP referred him to ED for further evaluation and possible placement. Patient was seen at bedside. He is awake, oriented to place, time and month. He reports some sore throat and dry cough. He denies any chest pain, shortness of breath, fever, chills, abdominal pain or urinary symptoms. No complaints of weakness/numbness of any body parts. Discharge Exam Gen: A&O 3 NAD HEENT: NCAT, EOMI, not icteric. External ears normal. No rhinorrhea. Moist mucous membranes. Neck: Supple, full range of motion, no observable masses, No meningeal sign. Lungs: rhonchi in right lower lobe, left relatively clear, continues to improve CV: RRR, no edema. Abdomen: Soft, nondistended, No rebound tenderness. MSK: No joint swelling, no redness. Skin: No rashes, petechiae, lesions. Normal color per patient. Neuro: Normal Gait, Grossly intact. Psych: Appropriate for situation. Updated Medication List Medication Instructions Recorded Confirmed Type memantine ER 28 mg-donepezil 10 mg 1 cap PO HS 11/27/18 05/26/24 History capsule sprinkle,ext.release 24 hr (Namzaric) quetiapine 300 mg tablet 300 mg PO HS 11/27/18 05/26/24 History albuterol sulfate 90 mcg/actuation 2 puff inhalation DIRECTED PRN 08/06/23 05/26/24 History aerosol inhaler Shortness Of Breath Or Wheezing allopurinol 100 mg tablet 100 mg PO DAILY 08/06/23 05/26/24 History atorvastatin 20 mg tablet 20 mg PO DAILY 08/06/23 05/26/24 History duloxetine 60 mg capsule,delayed 60 mg PO BID 08/06/23 05/26/24 History release fluticasone fur. 100 mcg-umeclid 1 ea inhalation DAILY 08/06/23 05/26/24 History 62.5 mcg-vilant 25 mcg inhalat.powder (Trelegy Ellipta) fluticasone propionate 50 2 spray intranasal DAILY 08/06/23 05/26/24 History mcg/actuation nasal spray,suspension folic acid 1 mg tablet 1 mg PO QAM 08/06/23 05/26/24 History lamotrigine 200 mg tablet 200 mg PO DAILY 08/06/23 05/26/24 History levocetirizine 5 mg tablet 5 mg PO PM 08/06/23 05/26/24 History methotrexate sodium 2.5 mg tablet 20 mg PO .QWEEK 08/06/23 05/26/24 History montelukast 10 mg tablet 10 mg PO DAILY 08/06/23 05/26/24 History furosemide 20 mg tablet 20 mg PO UD #30 tabs 08/10/23 05/26/24 Rx benzonatate 100 mg capsule 100 mg PO TID #30 caps 05/30/24 Rx memantine 10 mg tablet 10 mg PO BID #30 tabs 05/30/24 Rx Hospital Stay Data Consultations 05/26/24 12:37 ED Decision to Admit Stat Diagnostic Imagining Performed 05/26/24 10:16 CT head/brain wo con Stat Pending Results Patient Have Any Pending Studies at Discharge: No Discharge Instructions Given to Patient (Per Discharging Provider) 1. Continue to work hard with physical therapy. 2. Please drink plenty of fluids Total Time Total Time Spent Total Time Spent (In Minutes): I spent a total of 35 minutes in direct patient care, including [id number] time with the patient and/or family, reviewing medical records, ordering and reviewing diagnostic tests, and coordinating care with other healthcare pro viders. This time includes: history taking, physical examination, medical decision making, counseling, ECG interpretation, imaging interpretation, lab interpretation, orders, and education, excluding time spent in the performance of separately billed services.
== END 2024-05-30 10:20 | DRG 178 ==
LOC: ED 09:35 → SUATTDRO 15:29 → EDINP 15:29 → 3N 20:05

== ENCOUNTER 2025-04-01 10:48 | Inpatient (IN) ==
[2025-04-01 12:32] LABS: Alanine Aminotransferase 18 U/L (7-52); Albumin Globulin Ratio 1.2 (0.9-2); Albumin Level 4.2 gm/dl (3.4-5.0); Alkaline Phosphatase 88 U/L (34-104); Anion Gap 9 (3-11); Bilirubin,Total 1.4 mg/dl (0.2-1.0); Blood Urea Nitrogen 14 mg/dl (6-23); Calcium 9.3 mg/dl (8.6-10.3); Carbon Dioxide 29 mmol/L (21-32); Chloride 100 mmol/L (98-107); Globulin 3.4 gm/dl (2.5-4.0); Glucose 131 mg/dl (70-99(Fasting)); Magnesium 1.6 mg/dl (1.7-2.4); Potassium 4.2 mmol/L (3.5-5.1); Sodium 138 mmol/L (136-145); Total Protein 7.6 gm/dl (6.0-8.3)
[2025-04-01 12:46] LABS: INR 1.1 (0.9-1.1); Partial Thromboplastin Time 28 Seconds (21-31); Prothrombin Time 12.0 Seconds (9.0-12.0)
[2025-04-01 12:48] LABS: Thyroid Stimulating Hormone 1.511 uIu/ml (0.300-4.500)
--- NOTE | 2025-04-01 12:57 | XRay Report ---
XR chest 1V not portable HISTORY: 79 years-old Male Weakness acutely weakness COMPARISON: Chest radiograph 05/26/2024 TECHNIQUE: PA view of the chest FINDINGS: Cardiomediastinal and hilar silhouettes are unchanged. Left chest wall battery pack. No pneumothorax, pleural effusion or overt pulmonary edema. Mild left basilar opacities favor atelectasis/scarring. B ones appear grossly intact. IMPRESSION: No acute process of the chest. ACT 112: Negative or not required by law. The above report was generated using voice recognition software. It may contain grammatical, syntax o r spelling errors. Electronically signed by: Julian Ramirez M.D. 04/01/2025 12:56 PM
[2025-04-01 13:19] LABS: Base Excess VBG 4.3 mEq/L; HCO3 VBG 30 mmol/L; Oxygen Saturation VBG < 60.0 %; PCO2 VBG 47 mmHg (38-50); PO2 VBG < 20 mmHg; pH VBG 7.41 (7.36-7.41)
[2025-04-01 13:24] LABS: Hematocrit (blood only) 38.7 % (42.0-52.0); Hemoglobin 13.1 g/dL (14.0-18.0); Immature Granulocytes # (auto) 0.05 K/uL (0.01-0.20); Immature Granulocytes % (auto) 0.6 %; Mean Corpuscular Hemoglobin 32.6 pg (25.0-34.0); Mean Corpuscular Volume 96.3 fL (80.0-100.0); Platelet Count 208 K/uL (130-400); RDW Standard Deviation 53.4 fL (36.4-46.3); Red Blood Count 4.02 M/uL (4.70-6.10); White Blood Count 8.76 K/ul (4.8-10.8)
--- NOTE | 2025-04-01 14:30 | CT Scan Report ---
CT head without contrast History: Altered mental status Comparison: None Technique: Using multidetector thin collimation helical acquisition technique, axial, coronal and sagittal CT images from the skull base to the vertex were obtained without intravenous contrast. Dose reduction techniques were achieved by using automatic exposure control and/or adjustment of mA and/or kV according to patient size and/or use of iterative reconstruction technique. Findings: No intracranial hemorrhage, mass-effect, or midline shift. The ventricles are proportionate to the cerebral sulci. The verdugo to white matter differentiation of the cerebral hemispheres is preserved. The basal cisterns are patent. There is moderate cerebral atrophy. Moderate, patchy low-attenuation changes in the white matter, most suggestive of sequelae of chronic small vessel ischemic disease. Bilateral deep stimulator devices, terminating near the subthalamic nuclei. The visualized paranasal sinuses are clear. Mastoid air cells are clear. Impression: No acute intracranial pathology. Electronically signed by Mart Kate 04-01-2025 2:30 PM
--- NOTE | 2025-04-01 14:30 | CT Scan Report ---
CT cervical spine without IV contrast History: Trauma Comparison: None Technique: Using multidetector thin collimation helical acquisition technique, axial, coronal and sagittal CT images through the cervical spine were obtained without intravenous contrast. Dose reduction techniques were achieved by using automatic exposure control and/or adjustment of mA and/or kV according to patient size and/or use of iterative reconstruction technique. Findings: The cervical vertebrae are normally aligned. Straightened cervical lordosis. No acute fracture or subluxation. No prevertebral edema. Multilevel scattered degenerative change, with advanced discogenic degenerative changes at C5-6 and C6-7. Hypertrophic multilevel degenerative facet changes, right greater than left. No abnormality of the paraspinous soft tissues. Impression: No acute fracture or traumatic subluxation. Electronically signed by Mart Kate 04-01-2025 2:30 PM
--- NOTE | 2025-04-01 15:44 | History & Physical Report ---
Date of Service April 01, 2025 Assessment & Plan (1) Psoriatic arthritis: (2) COPD (chronic obstructive pulmonary disease): (3) Schizophrenia: (4) AMS (altered mental status): (5) Diabetes mellitus, type II: Plan 79 yo male with pmhx of DM Type 2, moderate dementia, COPD (Group B), psoriasis, CKD stage IIIa, rheumatoid arthritis, chronic schizophrenia, depression, hx of alcohol use in past, transient arterial occlusion of retina who presents for confusion and weakness for past few days. #Failure to Thrive #Metabolic Encephalopathy #Chronic Schizophrenia #Moderate Dementia -patient has deteriorated at home both mentally and physically over past few months -more rapid physical deterioration over past few days -unclear etiology, likely multifactorial including progression of dementia, delirium, schizophrenia, polypharmacy, perhaps UTI although recently treated for it Plan: -decrease duloxetine to 60mg daily -continue Seroquel at 300mg daily -continue lamotrigine -start LR maintenance fluids -start melatonin at bedtime for sleep wake cycle -hold memantine, donepezil, other anticholinergics -check vitamin D, TSH, B12, CK, start folic acid, thiamine -will get MR brain to r/o stroke or vascular dementia -PT/OT -pending above workup may need psychiatric evaluation #DM Type 2 -SSI #Gout -continue allopurinol #HLD -continue atorvastatin #COPD -continue trelegy and albuterol #Psoriasis #RA -hold methotrexate #CKD Stage 3a -monitor BMP I spent a total of 80 minutes in direct patient care, including [id number] time with the patient and/or family, reviewing medical records, ordering and reviewing diagnostic tests, and coordinating care with other healthcare provi ders. This time includes: history taking, physical examination, medical decision making, counseling, ECG interpretation, imaging interpretation, lab interpretation, orders, and education, excluding time spent in the performance of separately billed services. History of Present Illness Chief Complaint: -confusion, weakness Primary Care Provider: Benjamin Connor MD 79 yo male with pmhx of DM Type 2, moderate dementia, COPD (Group B), psoriasis, CKD stage IIIa, rheumatoid arthritis, chronic schizophrenia, depression, hx of alcohol use in past, transient arterial occlusion of retina who presents for confusion and weakness for past few days. Had admission in 04/2024 for SOB, found to have COVID. In the ED, had blood work that was unremarkable, admitted to medicine. Patient seen and examined at bedside. Son present as well. Patient poor historian, did not add much to conversation. Son states that for the past few weeks he has been falling frequently and hallucinating at home. Hallucinations are auditory and occasionally visual. States that over the past 3 days he is no longer able to walk to the bathroom. States he is not able to do most activities at this point, struggling to use coffee pot, not able to use remote for TV. Has been having outbursts of agitation as well. No tobacco use, no current alcohol use, no drug use, DNRDNI. Allergies Allergy/AdvReac Type Severity Reaction Status Date / Time No Known Allergies Allergy Verified 04/01/25 16:10 Home Medications Medication Instructions Recorded Confirmed Type memantine ER 28 mg-donepezil 10 mg 1 cap PO HS 11/27/18 05/26/24 History capsule sprinkle,ext.release 24 hr (Namzaric) quetiapine 300 mg tablet 300 mg PO HS 11/27/18 05/26/24 History albuterol sulfate 90 mcg/actuation 2 puff inhalation DIRECTED PRN 08/06/23 05/26/24 History aerosol inhaler Shortness Of Breath Or Wheezing allopurinol 100 mg tablet 100 mg PO DAILY 08/06/23 05/26/24 History atorvastatin 20 mg tablet 20 mg PO DAILY 08/06/23 05/26/24 History duloxetine 60 mg capsule,delayed 60 mg PO BID 08/06/23 05/26/24 History release fluticasone fur. 100 mcg-umeclid 1 ea inhalation DAILY 08/06/23 05/26/24 History 62.5 mcg-vilant 25 mcg inhalat.powder (Trelegy Ellipta) fluticasone propionate 50 2 spray intranasal DAILY 08/06/23 05/26/24 History mcg/actuation nasal spray,suspension folic acid 1 mg tablet 1 mg PO QAM 08/06/23 05/26/24 History lamotrigine 200 mg tablet 200 mg PO DAILY 08/06/23 05/26/24 History levocetirizine 5 mg tablet 5 mg PO PM 08/06/23 05/26/24 History methotrexate sodium 2.5 mg tablet 20 mg PO .QWEEK 08/06/23 05/26/24 History montelukast 10 mg tablet 10 mg PO DAILY 08/06/23 05/26/24 History furosemide 20 mg tablet 20 mg PO UD #30 tabs 08/10/23 05/26/24 Rx benzonatate 100 mg capsule 100 mg PO TID #30 caps 05/30/24 Rx memantine 10 mg tablet 10 mg PO BID #30 tabs 05/30/24 Rx Past Med/Surg History Problem List (Updated 03/23/25 @ 00:07 by Celena Davis) HUONG (acute kidney injury) COVID (Acute) Pulmonary congestion Essential tremor Bipolar disorder (Acute) Psoriatic arthritis COPD (chronic obstructive pulmonary disease) Diabetes mellitus, type II Dyslipidemia CKD (chronic kidney disease), stage III CKD (chronic kidney disease) (Acute) Cough (Acute) Pulmonary edema (Acute) Depression Schizophrenia (Acute) Medical History AMS (altered mental status) Surgical History History of colonoscopy History of prostate surgery Family History Other Cancer Social History Smoking Status: Former smoker Second Hand Exposure: No; Do You Dip or Chew Tobacco: No; Hx Alcohol Use: No Hx Substance Use: No Preferred Language: Grenadian Communication Ability: Impaired 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 External ears normal. No rhinorrhea. Moist mucous membranes. Neck: Supple, full range of motion, no observable masses, No meningeal sign. Lungs: No Respiratory distress. CV: RRR, no edema. Abdomen: Soft, nondistended, No rebound tenderness. MSK: No joint swelling, no redness. Skin: No rashes, petechiae, lesions. Normal color per patient. Neuro: Normal Gait, Grossly intact. Psych: flight of thoughts, mumbles Results & Data Results & Data Vital Signs (Past 12 Hours) Vital Signs Temp Pulse Resp BP Pulse Ox O2 Del Method 04/01/25 13:39 106 H 14 96 Room Air 04/01/25 13:37 106 H 18 149/88 H 98 Room Air 04/01/25 13:07 105 H 04/01/25 13:00 103 H 19 131/100 95 Room Air 04/01/25 11:05 36.9 C 108 H 18 129/82 96 Room Air Laboratory Results -personally reviewed, creatinine at prior baseline, Mg of 1.6 replenished, no leukocytosis (3) Schizophrenia Schizophrenia type: unspecified Qualified Code(s): F20.9 - Schizophrenia, unspecified (4) AMS (altered mental status) Altered mental status type: delirium Qualified Code(s): R41.0 - Disorientation, unspecified
[2025-04-01] MEDS ORDERED: GLUCAGON FOR INJ 1 MG VIAL SQ PRN (15:59)
[2025-04-01] MEDS ORDERED: GLUCOSE 10 TAB/TUBE PO PRN (15:59)
[2025-04-01] MEDS ORDERED: CARBOHYDRATES FOR HYPOGLYCEMIA PO PRN (15:59)
[2025-04-01] MEDS ORDERED: DEXTROSE 50% 50 ML SYRINGE IV PRN (15:59)
[2025-04-01] MEDS ORDERED: GLUCOSE 40% GEL 15 GM TUBE PO PRN (15:59)
[2025-04-01] MEDS: MAGNESIUM SULFATE 1GM / D5W BAG IV ONE (16:16)
[2025-04-01] MEDS: MAGNESIUM SULFATE / D5W 1 GM/100 ML BAG IV SCH (16:16)
[2025-04-01] MEDS: THIAMINE HCL 500 MG in SODIUM CHLORIDE 0.9% 50 ML IV ONE (16:16)
[2025-04-01 16:20] LABS: Creatine Kinase 44.0 U/L (30-223)
--- NOTE | 2025-04-01 16:27 | Emergency Department Note ---
History of Present Illness General Chief complaint: Altered Mental Status Stated complaint: CANNOT STAND UP VERY CONFUSED/PHYS DECLINE Time Seen by Provider: 04/01/25 12:57 Source: family (Son at bedside) History of Present Illness Provider complaint: Altered mental status Maximum Pain Intensity: 7 79-year-old male presents emergency department for altered mental status. Son reports that patient was recently diagnosed with UTI. Son reports that the patient is on his last day of antibiotics for his UTI but the patient has not gotten any better. Patient states he is continually getting more confused. Son reports that the patient has been having increased falls. Recent fall yesterday. Son reports that the patient is so confused he cannot figure out how to use the remote control for the television. Son reports that the patient is having visual hallucinations. Home Medications Medication Instructions Recorded Confirmed Type quetiapine 300 mg tablet 300 mg PO HS 11/27/18 04/01/25 History albuterol sulfate 90 mcg/actuation 2 puff inhalation Q6H PRN 08/06/23 04/01/25 History aerosol inhaler Shortness Of Breath Or Wheezing allopurinol 100 mg tablet 100 mg PO DAILY 08/06/23 04/01/25 History atorvastatin 20 mg tablet 20 mg PO DAILY 08/06/23 04/01/25 History duloxetine 60 mg capsule,delayed 60 mg PO BID 08/06/23 04/01/25 History release fluticasone fur. 100 mcg-umeclid 1 ea inhalation DAILY 08/06/23 04/01/25 History 62.5 mcg-vilant 25 mcg inhalat.powder (Trelegy Ellipta) folic acid 1 mg tablet 1 mg PO QAM 08/06/23 04/01/25 History lamotrigine 200 mg tablet 200 mg PO DAILY 08/06/23 04/01/25 History methotrexate sodium 2.5 mg tablet 20 mg PO WK 08/06/23 04/01/25 History montelukast 10 mg tablet 10 mg PO DAILY 08/06/23 04/01/25 History famotidine 20 mg tablet 20 mg PO BID 04/01/25 04/01/25 History memantine ER 28 mg-donepezil 10 mg 1 cap PO DAILY 04/01/25 04/01/25 History capsule sprinkle,ext.release 24 hr (Namzaric) Allergies Allergy/AdvReac Type Severity Reaction Status Date / Time No Known Allergies Allergy Verified 04/01/25 16:10 Past Med/Surg History Problem List (Updated 04/01/25 @ 16:32 by Sven De Jesus MD) Recurrent falls (Acute) Altered mental status (Acute) HUONG (acute kidney injury) COVID (Acute) Pulmonary congestion Essential tremor Bipolar disorder (Acute) Psoriatic arthritis COPD (chronic obstructive pulmonary disease) Diabetes mellitus, type II Dyslipidemia CKD (chronic kidney disease), stage III CKD (chronic kidney disease) (Acute) Cough (Acute) Pulmonary edema (Acute) Depression Schizophrenia (Acute) Medical History AMS (altered mental status) Surgical History History of colonoscopy History of prostate surgery Family History Other Cancer Social History Smoking Status: Former smoker Second Hand Exposure: No; Do You Dip or Chew Tobacco: No; Hx Alcohol Use: No Hx Substance Use: No Preferred Language: Maltese Communication Ability: Impaired 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 Beliefs That Will Affect Care: None Current Living Situation: Family Current Living Situation Comment: lives at home with son Feels Safe at Home: Yes Assistive Devices: Walker Physical Exam Vital Signs Vital Signs - 24 hr 04/01/25 11:05 04/01/25 13:00 04/01/25 13:07 Temperature 36.9 C Temperature Source Oral Pulse Rate 108 H 103 H 105 H Respiratory Rate 18 19 Respiratory Effort / Characteristics Non-Labored Spontaneous Respiratory Depth Normal Respiratory Pattern Regular Blood Pressure 129/82 131/100 Blood Pressure Mean 97 109 Pulse Oximetry 96 95 Oxygen Delivery Method Room Air Room Air Sepsis Recent Fever Within 48 Hours No Sepsis New/Unexplained Change in Mental Status N/A Sepsis Action Taken by Nursing No Action Required 04/01/25 13:37 04/01/25 13:39 Temperature Temperature Source Pulse Rate 106 H 106 H Respiratory Rate 18 14 Respiratory Effort / Characteristics Respiratory Depth Respiratory Pattern Blood Pressure 149/88 H Blood Pressure Mean 94 Pulse Oximetry 98 96 Oxygen Delivery Method Room Air Room Air Sepsis Recent Fever Within 48 Hours Sepsis New/Unexplained Change in Mental Status Sepsis Action Taken by Nursing Physical Exam HENT: Exam performed. - Head: Normocephalic and atraumatic. EYES: Conjunctivae and EOM are normal. Pupils are equal, round, and reactive to light. Right eye exhibits no discharge. Left eye exhibits no discharge. No scleral icterus. NECK: Normal range of motion. Neck supple. No JVD present. No spinous process tenderness present. CV: Normal rate, regular rhythm, normal heart sounds and intact distal pulses. There is no peripheral edema. Palpable radial pulses bue. PULM/CHEST: Effort normal and breath sounds normal. No respiratory distress. No stridor. He has no wheezes. He has no rales. ABD: The abdomen is soft. There is no tenderness. There is no rebound, no guarding. MUSC/SKEL: Normal range of motion. There is no peripheral edema, tenderness or deformity. NEURO: Motor and sensation grossly intact. Course Course 1257: The patient was evaluated in room B8. A complete history and physical exam was performed Cardiac monitoring: An order was placed for continuous cardiac monitoring. The monitor shows a rate of 100 with sinus rhythm interpreted by me 1451: Vital signs stable. Labs and imaging are unremarkable. Patient states he cannot give urine sample and family and patient are refusing to allow for straight cath. Son reports that the patient is too confused and the cannot take him home. Son reports that he has been trying to get his father into a fdc but has been denied and is requesting assistance in placing the patient in a fdc. Patient will be admitted to the [facility] team for placement. Administered Medications Thiamine HCl 500 mg/ Sodium (Chloride) 55 mls @ 210 mls/hr IV 1615 ONE Stop: 04/01/25 16:30 Last Admin: 04/01/25 16:16 Dose: 210 mls/hr Documented By: ANA CRISTINA Magnesium Sulfate/Dextrose (Magnesium Sulfate / D5w) 1 gm in 100 mls @ 50 mls/hr IV Q2H MAYCO Stop: 04/01/25 20:14 Last Admin: 04/01/25 16:16 Dose: 50 mls/hr Documented By: ANA CRISTINA Discontinued Medications Magnesium Sulfate/Dextrose (Magnesium Sulfate 1gm / D5w Bag) Confirm Administered Dose 1 gm IV .STK-MED ONE Stop: 04/01/25 16:15 Last Admin: 04/01/25 16:16 Dose: Not Given Documented By: MNE Medical Decision Making Laboratory Data Attestation: I reviewed the patient's lab results. 04/01/25 13:07 04/01/25 11:47 Lab Results 04/01/25 04/01/25 04/01/25 Range/Units 11:47 13:07 13:09 WBC Cancelled 8.76 RBC Cancelled 4.02 L Hgb Cancelled 13.1 L Hct Cancelled 38.7 L MCV Cancelled 96.3 MCH Cancelled 32.6 MCHC Cancelled 33.9 RDW Std Deviation Cancelled 53.4 H RDW Coeff of Claritza Cancelled 15.5 H Plt Count Cancelled 208 MPV Cancelled 9.5 Immature Gran % (Auto) Cancelled 0.6 Neut % (Auto) Cancelled 66.8 Lymph % (Auto) Cancelled 20.9 [place] % (Auto) Cancelled 10.6 Eos % (Auto) Cancelled 0.6 Baso % (Auto) Cancelled 0.5 Neut # (Auto) Cancelled 5.86 Lymph # (Auto) Cancelled 1.83 [place] # (Auto) Cancelled 0.93 H Eos # (Auto) Cancelled 0.05 Baso # (Auto) Cancelled 0.04 Immature Gran # (Auto) Cancelled 0.05 Absolute Nucleated RBC Cancelled Nucleated RBC % (auto) Cancelled Neutrophils % (Manual) Cancelled Band Neutrophils % Cancelled Lymphocytes % (Manual) Cancelled Prolymphocyte % Cancelled Reactive Lymphs % (Man) Cancelled Monocytes % (Manual) Cancelled Eosinophils % (Manual) Cancelled Basophils % (Manual) Cancelled Metamyelocytes % (Man) Cancelled Myelocytes % (Man) Cancelled Promyelocytes % (Man) Cancelled Blast Cells % (Manual) Cancelled Plasma Cell % (Manual) Cancelled Other Cells % Cancelled Nucleated RBC % Cancelled Neutrophils # (Manual) Cancelled Band Neutrophils # Cancelled Total Absolute Neuts Cancelled Lymphocytes # (Manual) Cancelled Prolymphocyte # Cancelled Reactive Lymphs # Cancelled Total Abs Lymphocytes Cancelled Monocytes # (Manual) Cancelled Eosinophils # (Manual) Cancelled Basophils # (Manual) Cancelled Metamyelocytes # (Man) Cancelled Myelocytes # (Manual) Cancelled Promyelocytes # (Man) Cancelled Blast Cells # (Man) Cancelled Plasma Cell # (Manual) Cancelled Other Cells # Cancelled Nucleated RBCs # (Man) Cancelled Hypersegmented Neuts Cancelled Hyposegmented Neuts Cancelled Hypogranular Neuts Cancelled Large Granular Lymphs Cancelled # Lrg Granular Lymphs Cancelled Hairy Cells Cancelled Smudge Cells Cancelled Toxic Granulation Cancelled Toxic Vacuolation Cancelled Dohle Bodies Cancelled Yanna Rods Cancelled Platelet Estimate Cancelled Hypogranular Platelets Cancelled Giant Platelets Cancelled Platelet Satelliting Cancelled RBC Morphology Cancelled Polychromasia Cancelled Hypochromasia Cancelled Poikilocytosis Cancelled Basophilic Stippling Cancelled Anisocytosis Cancelled Microcytosis Cancelled Macrocytosis Cancelled Spherocytes Cancelled Pappenheimer Bodies Cancelled Sickle Cells Cancelled Target Cells Cancelled Tear Drop Cells Cancelled Ovalocytes Cancelled Stomatocytes Cancelled [place] Bodies Cancelled Echinocytes Cancelled Acanthocytes (Spur) Cancelled Rouleaux Cancelled RBC Agglutinates Cancelled Schistocytes Cancelled Sezary Cell Cancelled PT 12.0 (9.0-12.0) Seconds INR 1.1 (0.9-1.1) APTT 28 (21-31) Seconds PTT Ratio 1.0 VBG pH 7.41 (7.36-7.41) VBG pCO2 47 (38-50) mmHg VBG pO2 < 20 mmHg VBG HCO3 30 mmol/L VBG O2 Saturation < 60.0 % VBG Base Excess 4.3 mEq/L Sodium 138 (136-145) mmol/L Potassium 4.2 (3.5-5.1) mmol/L Chloride 100 (98-107) mmol/L Carbon Dioxide 29 (21-32) mmol/L Anion Gap 9 (3-11) BUN 14 (6-23) mg/dl Creatinine 1.30 (0.6-1.4) mg/dl Est Cr Clr Drug Dosing Not Reportable eGFR 56.58 BUN/Creatinine Ratio 10.8 (10-20) Glucose 131 H (70-99(Fasting)) mg/dl Lactate (0.4-2.0) mmol/L Calcium 9.3 (8.6-10.3) mg/dl Magnesium 1.6 L (1.7-2.4) mg/dl Total Bilirubin 1.4 H (0.2-1.0) mg/dl AST 21 (13-39) U/L ALT 18 (7-52) U/L Alkaline Phosphatase 88 (34-104) U/L Ammonia 22.0 (18-72) umol/L Total Creatine Kinase 44 (30-223) U/L Troponin I High Sens 4.2 (0-20) pg/ml Total Protein 7.6 (6.0-8.3) gm/dl Albumin 4.2 (3.4-5.0) gm/dl Globulin 3.4 (2.5-4.0) gm/dl Albumin/Globulin Ratio 1.2 (0.9-2) TSH 1.511 (0.300-4.500) uIu/ml Blood Parasites ID Cancelled 04/01/25 Range/Units 13:12 WBC RBC Hgb Hct MCV MCH MCHC RDW Std Deviation RDW Coeff of Claritza Plt Count MPV Immature Gran % (Auto) Neut % (Auto) Lymph % (Auto) [place] % (Auto) Eos % (Auto) Baso % (Auto) Neut # (Auto) Lymph # (Auto) [place] # (Auto) Eos # (Auto) Baso # (Auto) Immature Gran # (Auto) Absolute Nucleated RBC Nucleated RBC % (auto) Neutrophils % (Manual) Band Neutrophils % Lymphocytes % (Manual) Prolymphocyte % Reactive Lymphs % (Man) Monocytes % (Manual) Eosinophils % (Manual) Basophils % (Manual) Metamyelocytes % (Man) Myelocytes % (Man) Promyelocytes % (Man) Blast Cells % (Manual) Plasma Cell % (Manual) Other Cells % Nucleated RBC % Neutrophils # (Manual) Band Neutrophils # Total Absolute Neuts Lymphocytes # (Manual) Prolymphocyte # Reactive Lymphs # Total Abs Lymphocytes Monocytes # (Manual) Eosinophils # (Manual) Basophils # (Manual) Metamyelocytes # (Man) Myelocytes # (Manual) Promyelocytes # (Man) Blast Cells # (Man) Plasma Cell # (Manual) Other Cells # Nucleated RBCs # (Man) Hypersegmented Neuts Hyposegmented Neuts Hypogranular Neuts Large Granular Lymphs # Lrg Granular Lymphs Hairy Cells Smudge Cells Toxic Granulation Toxic Vacuolation Dohle Bodies Yanna Rods Platelet Estimate Hypogranular Platelets Giant Platelets Platelet Satelliting RBC Morphology Polychromasia Hypochromasia Poikilocytosis Basophilic Stippling Anisocytosis Microcytosis Macrocytosis Spherocytes Pappenheimer Bodies Sickle Cells Target Cells Tear Drop Cells Ovalocytes Stomatocytes [place] Bodies Echinocytes Acanthocytes (Spur) Rouleaux RBC Agglutinates Schistocytes Sezary Cell PT (9.0-12.0) Seconds INR (0.9-1.1) APTT (21-31) Seconds PTT Ratio VBG pH (7.36-7.41) VBG pCO2 (38-50) mmHg VBG pO2 mmHg VBG HCO3 mmol/L VBG O2 Saturation % VBG Base Excess mEq/L Sodium (136-145) mmol/L Potassium (3.5-5.1) mmol/L Chloride (98-107) mmol/L Carbon Dioxide (21-32) mmol/L Anion Gap (3-11) BUN (6-23) mg/dl Creatinine (0.6-1.4) mg/dl Est Cr Clr Drug Dosing eGFR BUN/Creatinine Ratio (10-20) Glucose (70-99(Fasting)) mg/dl Lactate 1.5 (0.4-2.0) mmol/L Calcium (8.6-10.3) mg/dl Magnesium (1.7-2.4) mg/dl Total Bilirubin (0.2-1.0) mg/dl AST (13-39) U/L ALT (7-52) U/L Alkaline Phosphatase (34-104) U/L Ammonia (18-72) umol/L Total Creatine Kinase (30-223) U/L Troponin I High Sens (0-20) pg/ml Total Protein (6.0-8.3) gm/dl Albumin (3.4-5.0) gm/dl Globulin (2.5-4.0) gm/dl Albumin/Globulin Ratio (0.9-2) TSH (0.300-4.500) uIu/ml Blood Parasites ID Imaging Data Attestation: I personally reviewed and interpreted this imaging study as follows: My Impression: Chest x-ray negative. Airway clear. No pneumothorax. No consolidation. No cardiomegaly or cephalization.. No free air under the diaphragm. No fractures of the skeletal structures. Radiologist's Impression: Chest X-Ray 04/01/25 11:12 XR chest 1V not portable HISTORY: 79 years-old Male Weakness acutely weakness COMPARISON: Chest radiograph 05/26/2024 TECHNIQUE: PA view of the chest FINDINGS: Cardiomediastinal and hilar silhouettes are unchanged. Left chest wall battery pack. No pneumothorax, pleural effusion or overt pulmonary edema. Mild left basilar opacities favor atelectasis/scarring. Bones appear grossly intact. IMPRESSION: No acute process of the chest. ACT 112: Negative or not required by law. The above report was generated using voice recognition software. It may contain grammatical, syntax or spelling errors. Electronically signed by: Julian Ramirez M.D. 04/01/2025 12:[address] 04/01/25 12:57 CT head without contrast History: Altered mental status Comparison: None Technique: Using multidetector thin collimation helical acquisition technique, axial, coronal and sagittal CT images from the skull base to the vertex were obtained without intravenous contrast. Dose reduction techniques were achieved by using automatic exposure control and/or adjustment of mA and/or kV according to patient size and/or use of iterative reconstruction technique. Findings: No intracranial hemorrhage, mass-effect, or midline shift. The ventricles are proportionate to the cerebral sulci. The verdugo to white matter differentiation of the cerebral hemispheres is preserved. The basal cisterns are patent. There is moderate cerebral atrophy. Moderate, patchy low-attenuation changes in the white matter, most suggestive of sequelae of chronic small vessel ischemic disease. Bilateral deep stimulator devices, terminating near the subthalamic nuclei. The visualized paranasal sinuses are clear. Mastoid air cells are clear. Impression: No acute intracranial pathology. Electronically signed by Mart Kate 04-01-2025 2:[address] 04/01/25 13:10 CT cervical spine without IV contrast History: Trauma Comparison: None Technique: Using multidetector thin collimation helical acquisition technique, axial, coronal and sagittal CT images through the cervical spine were obtained without intravenous contrast. Dose reduction techniques were achieved by using automatic exposure control and/or adjustment of mA and/or kV according to patient size and/or use of iterative reconstruction technique. Findings: The cervical vertebrae are normally aligned. Straightened cervical lordosis. No acute fracture or subluxation. No prevertebral edema. Multilevel scattered degenerative change, with advanced discogenic degenerative changes at C5-6 and C6-7. Hypertrophic multilevel degenerative facet changes, right greater than left. No abnormality of the paraspinous soft tissues. Impression: No acute fracture or traumatic subluxation. Electronically signed by Humble Dipeshjose 04-01-2025 2:30 PM ECG Data Attestation: I personally reviewed and interpreted this ECG as follows: Rate (beats per minute): 107 Rhythm: + sinus tachycardia ECG Intervals/blocks: + Normal AK and + Normal QT-c ECG ST segments: + Normal ST segments Additional Comments: QRS 70 MDM Narrative 1257: The patient was evaluated in room B8. A complete history and physical exam was performed Cardiac monitoring: An order was placed for continuous cardiac monitoring. The monitor shows a rate of 100 with sinus rhythm interpreted by me 1451: Vital signs stable. Labs and imaging are unremarkable. Patient states he cannot give urine sample and family and patient are refusing to allow for straight cath. Son reports that the patient is too confused and the cannot take him home. Son reports that he has been trying to get his father into a fdc but has been denied and is requesting assistance in placing the patient in a fdc. Patient will be admitted to the [facility] team for placement. Impression & Plan Altered mental status, Recurrent falls Discharge Plan Visit Data Chief Complaint: Altered Mental Status Stated Complaint: CANNOT STAND UP VERY CONFUSED/PHYS DECLINE ED Provider: Sven De Jesus Discharge Problem: Altered mental status, Recurrent falls Patient Disposition: Admitted As Inpatient Condition: Fair Forms Stand Alone Forms: My [facility] Prescriptions Prescriptions: No Action quetiapine 300 mg tablet 300 mg PO HS atorvastatin 20 mg tablet 20 mg PO DAILY lamotrigine 200 mg tablet 200 mg PO DAILY allopurinol 100 mg tablet 100 mg PO DAILY methotrexate sodium 2.5 mg tablet 20 mg PO WK Rx Instructions: Tues folic acid 1 mg tablet 1 mg PO QAM montelukast 10 mg tablet 10 mg PO DAILY albuterol sulfate 90 mcg/actuation HFA aerosol inhaler 2 puff INHALATION Q6H PRN (Reason: Shortness Of Breath Or Wheezing) duloxetine 60 mg capsule,delayed release(DR/EC) 60 mg PO BID Rx Instructions: QAM & NOON Trelegy Ellipta 100-62.5-25 mcg blister with device 1 ea INHALATION DAILY famotidine 20 mg Tablet 20 mg PO BID memantine-donepezil [Namzaric] 28-10 mg cap,sprinkle,ER 24hr dose pack 1 cap PO DAILY Referrals Referrals: Benjamin Connor MD [Primary Care Provider] -
[2025-04-01 16:31] LABS: Thyroid Stimulating Hormone 1.508 uIu/ml (0.300-4.500)
[2025-04-01 16:55] LABS: Appearance Urine Clear (Clear); Bacteria Urine Automated 4+ (None Seen); Cast Urine Automated 0-2 /lpf (0-2); Epithelial Cell Urine Auto 0-2 /hpf (0-2); Glucose Urine UA Negative (Negative); RBC Urine Automated 0-2 /hpf (0-2); WBC Urine Automated 21-50 /hpf (0-5)
[2025-04-01] MEDS ORDERED: ONDANSETRON INJ 2 MG/ML 2 ML VIAL IV PRN (17:30)
[2025-04-01] MEDS ORDERED: POLYETHYLENE (MIRALAX) 17 GM PACK PO PRN (17:30)
[2025-04-01] MEDS ORDERED: ALBUTEROL HFA 8 GM INHALER INH PRN (17:30)
[2025-04-01] MEDS: FOLIC ACID 1 MG TAB PO SCH (17:33)
[2025-04-01] MEDS: CYANOCOBALAMIN (B-12) 500 MCG TABLET PO SCH (18:09)
[2025-04-01] MEDS: INSULIN ASPART PER UNIT CHARGE SC SCH (18:47)
[2025-04-01] MEDS: MELATONIN 3 MG TAB PO SCH (22:28)
[2025-04-02 06:11] LABS: Hematocrit (blood only) 35.8 % (42.0-52.0); Hemoglobin 12.1 g/dL (14.0-18.0); Mean Corpuscular Hemoglobin 32.7 pg (25.0-34.0); Mean Corpuscular Volume 96.8 fL (80.0-100.0); Platelet Count 169 K/uL (130-400); RDW Standard Deviation 53.1 fL (36.4-46.3); Red Blood Count 3.70 M/uL (4.70-6.10); White Blood Count 6.81 K/ul (4.8-10.8)
[2025-04-02 06:28] LABS: Anion Gap 9.0 (3-11); Blood Urea Nitrogen 18.0 mg/dl (6-23); Calcium 9.0 mg/dl (8.6-10.3); Carbon Dioxide 29.0 mmol/L (21-32); Chloride 102.0 mmol/L (98-107); Creatinine Clr Calc Pharmacy 47.7 ml/min; Glucose 111.0 mg/dl (70-99(Fasting)); Magnesium 2.0 mg/dl (1.7-2.4); Potassium 4.4 mmol/L (3.5-5.1); Sodium 140.0 mmol/L (136-145)
[2025-04-02] MEDS: ATORVASTATIN 20 MG TAB PO SCH (08:11)
[2025-04-02] MEDS: lamoTRIgine 100 MG TAB PO SCH (08:11)
[2025-04-02] MEDS: THIAMINE HCL 100 MG TAB PO SCH (08:12)
[2025-04-02] MEDS: FLUTICASONE FUROATE 100MCG 14 PUFFS/INHALER INH SCH (08:13)
[2025-04-02] MEDS: UMECLIDINIUM/VILANTEROL 62.5/25MCG 7 PUFFS/INHALER INH SCH (08:13)
--- NOTE | 2025-04-02 08:35 | Electrocardiogram Report ---
Test Reason : Blood Pressure : */* mmHG Vent. Rate : 107 BPM Atrial Rate : 107 BPM P-R Int : 136 ms QRS Dur : 70 ms QT Int : 322 ms P-R-T Axes : 58 -10 70 degrees QTcB Int : 429 ms Sinus tachycardia Otherwise normal ECG When compared with ECG of 08-Mar-2025 16:56, No significant change was found baseline artifact Confirmed by Jillian Solis (Sarita) on 04/02/2025 8:35:28 AM Referred By: Confirmed By: Jillian Solis
[2025-04-02] MEDS ORDERED: NON-FORMULARY MEDICATION (Fluticasone-Umeclidin-Vilanter [Trelegy Ellipta] 100-62.5-25 mcg INH SCH (09:00)
[2025-04-02] MEDS: cefTRIAXone SODIUM 2,000 MG/50 ML BAG IV SCH (09:15)
--- NOTE | 2025-04-02 16:17 | Hospitalist Progress Note ---
Date of Service April 02, 2025 Assessment & Plan (1) Psoriatic arthritis: (2) COPD (chronic obstructive pulmonary disease): (3) Schizophrenia: (4) AMS (altered mental status): (5) Diabetes mellitus, type II: Plan 79 yo male with pmhx of DM Type 2, moderate dementia, COPD (Group B), psoriasis, CKD stage IIIa, rheumatoid arthritis, chronic schizophrenia, depression, hx of alcohol use in past, transient arterial occlusion of retina who presents for confusion and weakness for past few days. #Failure to Thrive #Complicated UTI #Metabolic Encephalopathy #Chronic Schizophrenia #Moderate Dementia -patient has deteriorated at home both mentally and physically over past few months -more rapid physical deterioration over past few days -unclear etiology, likely multifactorial including progression of dementia, delirium, schizophrenia, polypharmacy, UTI Plan: -decrease duloxetine to 60mg daily -continue Seroquel at 300mg daily -continue lamotrigine -continue melatonin at bedtime for sleep wake cycle -hold memantine, donepezil, other anticholinergics -continue folic acid, thiamine -will get MR brain to r/o stroke or vascular dementia -difficult due to deep brain stimulator -PT/OT, will need placement -start ceftriaxone x7 days #DM Type 2 -SSI #Gout -continue allopurinol #HLD -continue atorvastatin #COPD -continue trelegy and albuterol #Psoriasis #RA -hold methotrexate #CKD Stage 3a -monitor BMP I spent a total of 55 minutes in direct patient care, including [id number] time with the patient and/or family, reviewing medical records, ordering and reviewing diagnostic tests, and coordinating care with other healthcare providers. This time includes: history taking, physical examination, medical decision making, counseling, ECG interpretation, imaging interpretation, lab interpretation, orders, and education, excluding time spent in the performance of separately billed services. Admission and Anticipated Discharge Date Admission Date: April 01, 2025 Subjective Patient seen and examined at bedside. Patient appears slightly more alert today, still very confused. Review of Systems Review of Systems: -negative unless listed above Physical Exam Physical Exam: Gen: A&O 2 NAD HEENT: NCAT, EOMI, not icteric. External ears normal. No rhinorrhea. Moist mucous membranes. Neck: Supple, full range of motion, no observable masses, No meningeal sign. Lungs: No Respiratory distress. CV: RRR, no edema. Abdomen: Soft, nondistended, No rebound tenderness. MSK: No joint swelling, no redness. Skin: No rashes, petechiae, lesions. Normal color per patient. Neuro: Normal Gait, Grossly intact. Psych: flight of thoughts, mumbles, slightly improved from prior Results & Data Results & Data Vital Signs (Past 12 Hours) Vital Signs Temp Pulse Pulse Resp BP Pulse Ox O2 Del Method 04/02/25 15:50 103 H 17 96 Room Air 04/02/25 13:36 36.6 C 101 H 18 110/70 92 Room Air 04/02/25 12:45 37.2 C 100 H 20 95 Room Air 04/02/25 08:27 36.8 C 72 15 130/72 95 Room Air Laboratory Results -personally reviewed, creatinine at baseline, no leukocytosis Medications Administered Allopurinol (Allopurinol 100 Mg Tab) 100 mg PO DAILY [facility] Stop: 05/02/25 08:59 Last Admin: 04/02/25 08:11 Dose: 100 mg Documented By: CS Atorvastatin Calcium (Atorvastatin 20 Mg Tab) 20 mg PO DAILY [facility] Stop: 05/02/25 08:59 Last Admin: 04/02/25 08:11 Dose: 20 mg Documented By: CS Cyanocobalamin (Cyanocobalamin (B-12) 500 Mcg Tablet) 1,000 mcg PO QAM [facility] Stop: 05/01/25 17:59 Last Admin: 04/02/25 08:12 Dose: 1,000 mcg Documented By: Admin: 04/01/25 18:09 Dose: 1,000 mcg Documented By: [facility] [place] Duloxetine HCl (Duloxetine Hcl 60 Mg Cap) 60 mg PO DAILY [facility] Stop: 05/02/25 08:59 Last Admin: 04/02/25 08:11 Dose: 60 mg Documented By: CS Fluticasone Furoate (Fluticasone Furoate 100mcg 14 Puffs/Inhaler) 1 puffs INH DAILY [facility] Stop: 05/02/25 08:59 Last Admin: 04/02/25 08:13 Dose: 1 puffs Documented By: CS Folic Acid (Folic Acid 1 Mg Tab) 1 mg PO QAM [facility] Stop: 05/01/25 15:44 Last Admin: 04/02/25 08:12 Dose: 1 mg Documented By: Admin: 04/01/25 17:33 Dose: 1 mg Documented By: RIYAC Ceftriaxone Sodium (Rocephin) 2,000 mg in 50 mls @ 100 mls/hr IV Q24H [facility] Stop: 04/07/25 08:59 Last Infusion: 04/02/25 09:50 Dose: Infused Documented By: Admin: 04/02/25 09:15 Dose: 100 mls/hr Documented By: INGRID Insulin Aspart (Insulin Aspart Per Unit Charge) 0 units SC ACHS [facility] Stop: 05/01/25 16:29 Last Admin: 04/02/25 12:06 Dose: 3 units Documented By: INGRID Co-signed By: darya Admin: 04/02/25 08:07 Dose: 2 units Documented By: INGRID Co-signed By: GAVIOTA Admin: 04/01/25 21:51 Dose: Not Given Documented By: JAYLEN Co-signed By: MARILUZ Admin: 04/01/25 18:47 Dose: Not Given Documented By: RIYAC Lamotrigine (Lamotrigine 100 Mg Tab) 200 mg PO DAILY [facility]; Protocol Stop: 05/02/25 08:59 Last Admin: 04/02/25 08:11 Dose: 200 mg Documented By: INGRID Melatonin (Melatonin 3 Mg Tab) 3 mg PO [facility] Stop: 05/01/25 20:59 Last Admin: 04/01/25 22:28 Dose: 3 mg Documented By: JAYLEN Quetiapine Fumarate (Quetiapine Fumarate 300 Mg Tablet) 300 mg PO [facility] Stop: 05/01/25 20:59 Last Admin: 04/01/25 22:10 Dose: 300 mg Documented By: JAYLEN Thiamine HCl (Thiamine Hcl 100 Mg Tab) 100 mg PO [facility] Stop: 05/02/25 08:59 Last Admin: 04/02/25 08:12 Dose: 100 mg Documented By: INGRID Umeclidinium/Vilanterol (Umeclidinium/Vilanterol 62.5/25mcg 7 Puffs/Inhaler) 1 puffs INH DAILY [facility] Stop: 05/02/25 08:59 Last Admin: 04/02/25 08:13 Dose: 1 puffs Documented By: INGRID (3) Schizophrenia Schizophrenia type: unspecified Qualified Code(s): F20.9 - Schizophrenia, unspecified (4) AMS (altered mental status) Altered mental status type: delirium Qualified Code(s): R41.0 - Disorientation, unspecified
[2025-04-03 06:51] LABS: Hematocrit (blood only) 34.4 % (42.0-52.0); Hemoglobin 12.0 g/dL (14.0-18.0); Mean Corpuscular Hemoglobin 33.3 pg (25.0-34.0); Mean Corpuscular Volume 95.6 fL (80.0-100.0); Platelet Count 172 K/uL (130-400); RDW Standard Deviation 52.7 fL (36.4-46.3); Red Blood Count 3.60 M/uL (4.70-6.10); White Blood Count 7.62 K/ul (4.8-10.8)
[2025-04-03 07:43] LABS: Anion Gap 9.0 (3-11); Blood Urea Nitrogen 21.0 mg/dl (6-23); Calcium 8.8 mg/dl (8.6-10.3); Carbon Dioxide 27.0 mmol/L (21-32); Chloride 103.0 mmol/L (98-107); Creatinine Clr Calc Pharmacy 50.7 ml/min; Glucose 111.0 mg/dl (70-99(Fasting)); Magnesium 1.9 mg/dl (1.7-2.4); Potassium 3.6 mmol/L (3.5-5.1); Sodium 139.0 mmol/L (136-145)
--- NOTE | 2025-04-03 12:11 | Hospitalist Progress Note ---
Date of Service April 03, 2025 Assessment & Plan (1) Psoriatic arthritis: (2) COPD (chronic obstructive pulmonary disease): (3) Schizophrenia: (4) AMS (altered mental status): (5) Diabetes mellitus, type II: Plan 79 yo male with pmhx of DM Type 2, moderate dementia, COPD (Group B), psoriasis, CKD stage IIIa, rheumatoid arthritis, chronic schizophrenia, depression, hx of alcohol use in past, transient arterial occlusion of retina who presents for confusion and weakness for past few days. #Failure to Thrive #Complicated UTI #Metabolic Encephalopathy #Chronic Schizophrenia #Moderate Dementia -patient has deteriorated at home both mentally and physically over past few months -more rapid physical deterioration over past few days -unclear etiology, likely multifactorial including progression of dementia, delirium, schizophrenia, polypharmacy, UTI Plan: -continue duloxetine to 60mg daily -continue Seroquel at 300mg daily -continue lamotrigine -continue melatonin at bedtime for sleep wake cycle -hold memantine, donepezil, other anticholinergics -continue folic acid, thiamine -stop ceftriaxone, start ciprofloxacin, day 06/02 -medically ready for SNF #DM Type 2 -SSI #Gout -continue allopurinol #HLD -continue atorvastatin #COPD -continue trelegy and albuterol #Psoriasis #RA -hold methotrexate #CKD Stage 3a -monitor BMP I spent a total of 50 minutes in direct patient care, including [id number] time with the patient and/or family, reviewing medical records, ordering and reviewing diagnostic tests, and coordinating care with other healthcare providers. This time includes: history taking, physical examination, medical decision making, counseling, ECG interpretation, imaging interpretation, lab interpretation, orders, and education, excluding time spent in the performance of separately billed services. Admission and Anticipated Discharge Date Admission Date: April 01, 2025 Subjective Patient seen and examined at bedside. Patient doing well today, no concerns. More alert than prior. Review of Systems Review of Systems: -negative unless listed above Physical Exam Physical Exam: Gen: A&O 3 NAD HEENT: NCAT, EOMI, not icteric. External ears normal. No rhinorrhea. Moist mucous membranes. Neck: Supple, full range of motion, no observable masses, No meningeal sign. Lungs: No Respiratory distress. CV: RRR, no edema. Abdomen: Soft, nondistended, No rebound tenderness. MSK: No joint swelling, no redness. Skin: No rashes, petechiae, lesions. Normal color per patient. Neuro: Normal Gait, Grossly intact. Psych: flight of thoughts, mumbles, improving Results & Data Results & Data Vital Signs (Past 12 Hours) Vital Signs Temp Pulse Resp BP Pulse Ox O2 Del Method 04/03/25 08:09 36.6 C 104 H 18 119/76 92 Room Air 04/03/25 07:42 Nasal Cannula Laboratory Results -personally reviewed, no leukocytosis, creatinine at baseline Medications Administered Allopurinol (Allopurinol 100 Mg Tab) 100 mg PO DAILY [facility] Stop: 05/02/25 08:59 Last Admin: 04/03/25 08:18 Dose: 100 mg Documented By: Admin: 04/02/25 08:11 Dose: 100 mg Documented By: CS Atorvastatin Calcium (Atorvastatin 20 Mg Tab) 20 mg PO DAILY [facility] Stop: 05/02/25 08:59 Last Admin: 04/03/25 08:18 Dose: 20 mg Documented By: Admin: 04/02/25 08:11 Dose: 20 mg Documented By: CS Cyanocobalamin (Cyanocobalamin (B-12) 500 Mcg Tablet) 1,000 mcg PO QAM [facility] Stop: 05/01/25 17:59 Last Admin: 04/03/25 08:19 Dose: 1,000 mcg Documented By: Admin: 04/02/25 08:12 Dose: 1,000 mcg Documented By: Admin: 04/01/25 18:09 Dose: 1,000 mcg Documented By: [facility] [place]oxetine HCl (Duloxetine Hcl 60 Mg Cap) 60 mg PO DAILY [facility] Stop: 05/02/25 08:59 Last Admin: 04/03/25 08:17 Dose: 60 mg Documented By: Admin: 04/02/25 08:11 Dose: 60 mg Documented By: CS Fluticasone Furoate (Fluticasone Furoate 100mcg 14 Puffs/Inhaler) 1 puffs INH DAILY [facility] Stop: 05/02/25 08:59 Last Admin: 04/03/25 08:19 Dose: 1 puffs Documented By: Admin: 04/02/25 08:13 Dose: 1 puffs Documented By: CS Folic Acid (Folic Acid 1 Mg Tab) 1 mg PO QAM [facility] Stop: 05/01/25 15:44 Last Admin: 04/03/25 08:19 Dose: 1 mg Documented By: Admin: 04/02/25 08:12 Dose: 1 mg Documented By: Admin: 04/01/25 17:33 Dose: 1 mg Documented By: [facility] Ceftriaxone Sodium (Rocephin) 2,000 mg in 50 mls @ 100 mls/hr IV Q24H [facility] Stop: 04/07/25 08:59 Last Infusion: 04/03/25 09:00 Dose: Infused Documented By: Admin: 04/03/25 08:25 Dose: 100 mls/hr Documented By: Infusion: 04/02/25 09:50 Dose: Infused Documented By: Admin: 04/02/25 09:15 Dose: 100 mls/hr Documented By: INGRID Insulin Aspart (Insulin Aspart Per Unit Charge) 0 units SC ACHS [facility] Stop: 05/01/25 16:29 Last Admin: 04/03/25 12:03 Dose: 2 units Documented By: INGRID Co-signed By: PAULINO Admin: 04/03/25 08:11 Dose: 2 units Documented By: INGRID Co-signed By: PAULINO Admin: 04/02/25 21:23 Dose: Not Given Documented By: JAYLEN Co-signed By: ANTHONY Admin: 04/02/25 16:57 Dose: 1 units Documented By: INGRID Co-signed By: GAVIOTA Admin: 04/02/25 12:06 Dose: 3 units Documented By: INGRID Co-signed By: darya Admin: 04/02/25 08:07 Dose: 2 units Documented By: INGRID Co-signed By: GAVIOTA Admin: 04/01/25 21:51 Dose: Not Given Documented By: RES Co-signed By: MARILUZ Admin: 04/01/25 18:47 Dose: Not Given Documented By: SARAH Lamotrigine (Lamotrigine 100 Mg Tab) 200 mg PO DAILY [facility]; Protocol Stop: 05/02/25 08:59 Last Admin: 04/03/25 08:18 Dose: 200 mg Documented By: Admin: 04/02/25 08:11 Dose: 200 mg Documented By: INGRID Melatonin (Melatonin 3 Mg Tab) 3 mg PO HS [facility] Stop: 05/01/25 20:59 Last Admin: 04/02/25 21:23 Dose: 3 mg Documented By: Admin: 04/01/25 22:28 Dose: 3 mg Documented By: JAYLEN Quetiapine Fumarate (Quetiapine Fumarate 300 Mg Tablet) 300 mg PO HS [facility] Stop: 05/01/25 20:59 Last Admin: 04/02/25 21:24 Dose: 300 mg Documented By: Admin: 04/01/25 22:10 Dose: 300 mg Documented By: JAYLEN Thiamine HCl (Thiamine Hcl 100 Mg Tab) 100 mg PO QAM [facility] Stop: 05/02/25 08:59 Last Admin: 04/03/25 08:19 Dose: 100 mg Documented By: Admin: 04/02/25 08:12 Dose: 100 mg Documented By: INGRID Umeclidinium/Vilanterol (Umeclidinium/Vilanterol 62.5/25mcg 7 Puffs/Inhaler) 1 puffs INH DAILY [facility] Stop: 05/02/25 08:59 Last Admin: 04/03/25 08:19 Dose: 1 puffs Documented By: Admin: 04/02/25 08:13 Dose: 1 puffs Documented By: INGRID (3) Schizophrenia Schizophrenia type: unspecified Qualified Code(s): F20.9 - Schizophrenia, unspecified (4) AMS (altered mental status) Altered mental status type: delirium Qualified Code(s): R41.0 - Disorientation, unspecified
[2025-04-03] MEDS: CIPROFLOXACIN 500 MG TAB PO SCH (12:56)
[2025-04-03] MEDS: SENNA 8.6 MG TAB PO SCH (17:04)
[2025-04-03] MEDS: SIMETHICONE 80 MG CHEW PO PRN (17:04)
[2025-04-04 07:56] LABS: Anion Gap 8.0 (3-11); Blood Urea Nitrogen 22.0 mg/dl (6-23); Calcium 8.8 mg/dl (8.6-10.3); Carbon Dioxide 28.0 mmol/L (21-32); Chloride 103.0 mmol/L (98-107); Creatinine Clr Calc Pharmacy 50.7 ml/min; Glucose 114.0 mg/dl (70-99(Fasting)); Potassium 4.0 mmol/L (3.5-5.1); Sodium 139.0 mmol/L (136-145)
--- NOTE | 2025-04-04 11:38 | Hospitalist Progress Note ---
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 Reviewed urine sensitivities, continue Cipro Continue other current medications Continue therapies Case management continue to pursue placement options Admission and Anticipated Discharge Date Admission Date: April 01, 2025 Subjective No acute issues overnight. Patient offers no complaints. Overall doing well. Has been cooperative with staff. Physical Exam Physical Exam: Constitutional: Alert HEENT: Mucous membranes moist. Lungs: Clear to auscultation, decreased, no wheezes rales or rhonchi CV: S1-S2, regular Abdomen: Soft, nontender, nondistended Extremities: No significant edema Neuro: No focal deficits, impaired memory Psych: Cooperative, normal mood Results & Data Results & Data Vital Signs (Past 12 Hours) Vital Signs Temp Pulse Resp BP Pulse Ox O2 Del Method 04/04/25 08:09 36.6 C 60 14 110/64 93 Room Air (1) Schizophrenia Schizophrenia type: unspecified Qualified Code(s): F20.9 - Schizophrenia, unspecified
[2025-04-05] MEDS: POLYETHYLENE (MIRALAX) 17 GM PACK PO SCH (11:58)
--- NOTE | 2025-04-05 12:34 | Hospitalist Progress Note ---
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 He cannot remember the last time he had a bowel movement. Nurse reports has been several days since his last bowel movement. Physical Exam Physical Exam: Constitutional: Alert, nontoxic HEENT: Mucous membranes moist. Lungs: Clear to auscultation, decreased, no wheezes rales or rhonchi CV: S1-S2, regular Abdomen: Soft, nontender, nondistended Extremities: No significant edema Neuro: No focal deficits Psych: Cooperative, normal mood Results & Data Results & Data Vital Signs (Past 12 Hours) Vital Signs Temp Pulse Resp BP Pulse Ox O2 Del Method 04/05/25 07:26 36.6 C 85 16 122/76 95 Room Air 04/05/25 07:02 Room Air Diagnostic Findings Reviewed imaging, laboratory and diagnostic studies. Pertinent findings as below. Reviewed glucose, fair control (1) Schizophrenia Schizophrenia type: unspecified Qualified Code(s): F20.9 - Schizophrenia, unspecified
[2025-04-05] MEDS: SENNA 8.6 MG TAB PO SCH (21:19)
--- NOTE | 2025-04-06 13:25 | Hospitalist Progress Note ---
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 Completed treatment for Klebsiella UTI here in hospital. Unable to return to his independent living. Case management continuing to pursue placement options. Continue other current medications Encouraged activity Discharge when bed available Admission and Anticipated Discharge Date Admission Date: April 01, 2025 Subjective No acute issues overnight. Patient states his penis is sore. Condom cath placed within the last 24 hours due to some incontinence. Physical Exam Physical Exam: Constitutional: Alert nontoxic HEENT: Mucous membranes moist. Lungs: No respiratory distress CV: S1-S2, regular Abdomen: Soft, nontender, nondistended Extremities: No significant edema Neuro: No focal deficits, impaired memory, impaired cognition, impaired judgment Psych: Cooperative, normal mood Results & Data Results & Data Vital Signs (Past 12 Hours) Vital Signs Temp Pulse Resp BP Pulse Ox O2 Del Method 04/06/25 07:23 36.8 C 102 H 16 118/73 98 Room Air Diagnostic Findings Reviewed imaging, laboratory and diagnostic studies. Pertinent findings as below. (1) Schizophrenia Schizophrenia type: unspecified Qualified Code(s): F20.9 - Schizophrenia, unspecified
[2025-04-06] MEDS: ACETAMINOPHEN 325 MG TAB PO PRN (20:59)
--- NOTE | 2025-04-07 14:15 | Hospitalist Progress Note ---
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 Patient completed course of abx and pending placement at this time. #Failure to Thrive #Complicated UTI #Metabolic Encephalopathy #Chronic Schizophrenia #Moderate Dementia Review of record reveals patient has deteriorated at home both mentally and physically over past few months thought to possibly be multifactorial including progression of dementia, delirium, schizophrenia, polypharmacy, UTI -continue duloxetine to 60mg daily -continue Seroquel at 300mg daily -continue lamotrigine -continue melatonin at bedtime for sleep wake cycle continue folic acid, thiamine completed course of abx -medically ready for SNF #DM Type 2 -SSI #Gout -continue allopurinol #HLD -continue atorvastatin #COPD -continue trelegy and albuterol #Psoriasis #RA -hold methotrexate #CKD Stage 3a -monitor BMP I spent a total of 45minutes in direct patient care, including [id number] time with the patient and/or family, reviewing medical records, ordering and reviewing diagnostic tests, and coordinating care with other healthcare providers. This time includes: history taking, physical examination, medical decision making, counseling, ECG interpretation, imaging interpretation, lab interpretation, orders, and education, excluding time spent in the performance o f separately billed services. Admission and Anticipated Discharge Date Admission Date: April 01, 2025 Subjective Evaluated at bedside ROBER denies any symptoms on exam reports he is "fine" and "thanks for stopping in" before promptly looking back at tv Physical Exam Constitutional: AO self and location, no distress Respiratory: normal respiratory effort, lungs clear to auscultation Cardiovascular: RRR, no murmur, no edema Gastrointestinal (Abdomen): normal bowel sounds, soft, nontender, no hepatosplenomegaly Results & Data Results & Data Vital Signs (Past 12 Hours) Vital Signs Temp Pulse Resp BP Pulse Ox O2 Del Method 04/07/25 07:51 36.4 C L 95 H 18 131/80 93 Room Air Medications Administered Home Medications Medication Instructions Recorded Confirmed Last Taken quetiapine 300 mg tablet 300 mg PO HS 11/27/18 04/01/25 01/10/19 19:30 albuterol sulfate 90 mcg/actuation 2 puff inhalation Q6H PRN 08/06/23 04/01/25 Unknown aerosol inhaler Shortness Of Breath Or Wheezing allopurinol 100 mg tablet 100 mg PO DAILY 08/06/23 04/01/25 Unknown atorvastatin 20 mg tablet 20 mg PO DAILY 08/06/23 04/01/25 Unknown duloxetine 60 mg capsule,delayed 60 mg PO BID 08/06/23 04/01/25 Unknown release fluticasone fur. 100 mcg-umeclid 1 ea inhalation DAILY 08/06/23 04/01/25 Unknown 62.5 mcg-vilant 25 mcg inhalat.powder (Trelegy Ellipta) folic acid 1 mg tablet 1 mg PO QAM 08/06/23 04/01/25 Unknown lamotrigine 200 mg tablet 200 mg PO DAILY 08/06/23 04/01/25 Unknown methotrexate sodium 2.5 mg tablet 20 mg PO WK 08/06/23 04/01/25 Unknown montelukast 10 mg tablet 10 mg PO DAILY 08/06/23 04/01/25 Unknown famotidine 20 mg tablet 20 mg PO BID 04/01/25 04/01/25 Unknown memantine ER 28 mg-donepezil 10 mg 1 cap PO DAILY 04/01/25 04/01/25 Unknown capsule sprinkle,ext.release 24 hr (Namzaric) Active Medications Generic Name Dose Route Start Last Admin Trade Name Freq PRN Reason Stop Dose Admin Acetaminophen 650 mg 04/01/25 17:30 04/06/25 20:59 Acetaminophen 325 Mg Tab PO 05/01/25 17:29 650 mg Q4H PRN Administration pain/fever Allopurinol 100 mg 04/02/25 09:00 04/07/25 08:36 Allopurinol 100 Mg Tab PO 05/02/25 08:59 100 mg DAILY [facility] Administration Atorvastatin Calcium 20 mg 04/02/25 09:00 04/07/25 08:36 Atorvastatin 20 Mg Tab PO 05/02/25 08:59 20 mg DAILY [facility] Administration Cyanocobalamin 1,000 mcg 04/01/25 18:00 04/07/25 08:36 Cyanocobalamin (B-12) 500 Mcg Tablet PO 05/01/25 17:59 1,000 mcg QAM [facility] Administration Duloxetine HCl 60 mg 04/02/25 09:00 04/07/25 08:36 Duloxetine Hcl 60 Mg Cap PO 05/02/25 08:59 60 mg DAILY [facility] Administration Fluticasone Furoate 1 puffs 04/02/25 09:00 04/07/25 08:37 Fluticasone Furoate 100mcg 14 Puffs/Inhaler INH 05/02/25 08:59 1 puffs DAILY [facility] Administration Folic Acid 1 mg 04/01/25 15:45 04/07/25 10:03 Folic Acid 1 Mg Tab PO 05/01/25 15:44 1 mg QAM [facility] Administration Insulin Aspart 0 units 04/01/25 16:30 04/07/25 12:13 Insulin Aspart Per Unit Charge SC 05/01/25 16:29 2 units ACHS [facility] Administration Lamotrigine 200 mg 04/02/25 09:00 04/07/25 08:36 Lamotrigine 100 Mg Tab PO 05/02/25 08:59 200 mg DAILY [facility] Administration Protocol Melatonin 3 mg 04/01/25 21:00 04/06/25 20:59 Melatonin 3 Mg Tab PO 05/01/25 20:59 3 mg HS [facility] Administration Polyethylene Glycol 17 gm 04/05/25 10:45 04/07/25 08:40 Polyethylene (Miralax) 17 Gm Pack PO 05/05/25 10:44 17 gm DAILY [facility] Administration Quetiapine Fumarate 300 mg 04/01/25 21:00 04/06/25 20:59 Quetiapine Fumarate 300 Mg Tablet PO 05/01/25 20:59 300 mg HS [facility] Administration Sennosides 8.6 mg 04/05/25 21:00 04/07/25 08:37 Senna 8.6 Mg Tab PO 05/05/25 20:59 8.6 mg BID [facility] Administration Simethicone 80 mg 04/03/25 15:21 04/03/25 17:04 Simethicone 80 Mg Chew PO 05/03/25 15:20 80 mg Q6H PRN Administration Flatulence Thiamine HCl 100 mg 04/02/25 09:00 04/07/25 08:36 Thiamine Hcl 100 Mg Tab PO 05/02/25 08:59 100 mg QAM [facility] Administration Umeclidinium/Vilanterol 1 puffs 04/02/25 09:00 04/07/25 08:37 Umeclidinium/Vilanterol 62.5/25mcg 7 Puffs/Inhaler INH 05/02/25 08:59 1 puffs DAILY [facility] Administration (1) Schizophrenia Schizophrenia type: unspecified Qualified Code(s): F20.9 - Schizophrenia, unspecified
--- NOTE | 2025-04-08 11:51 | Hospitalist Progress Note ---
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 Patient completed course of abx and pending placement at this time. No acuet changes to management at this time #Failure to Thrive #Complicated UTI #Metabolic Encephalopathy #Chronic Schizophrenia #Moderate Dementia Review of record reveals patient has deteriorated at home both mentally and physically over past few months thought to possibly be multifactorial including progression of dementia, delirium, schizophrenia, polypharmacy, UTI -continue duloxetine to 60mg daily -continue Seroquel at 300mg daily -continue lamotrigine -continue melatonin at bedtime for sleep wake cycle continue folic acid, thiamine completed course of abx -medically ready for SNF #DM Type 2 -SSI #Gout -continue allopurinol #HLD -continue atorvastatin #COPD -continue trelegy and albuterol #Psoriasis #RA -hold methotrexate #CKD Stage 3a -monitor BMP I spent a total of 35minutes in direct patient care, including [id number] time with the patient and/or family, reviewing medical records, ordering and reviewing diagnostic tests, and coordinating care with other healthcare providers. This time includes: history taking, physical examination, medical decision making, counseling, ECG interpretation, imaging interpretation, lab interpretation, orders, and education, excluding time spent in the performance of separately billed services. Admission and Anticipated Discharge Date Admission Date: April 01, 2025 Subjective Evalauted at bedside, reports that he feels sore in the bed; offered to move him to the chair, but states he will do it later denies any acute concerns at this time, denies pain, nausea, or other acute concerns Physical Exam Constitutional: WD/WN, vitals as above Respiratory: normal respiratory effort, lungs clear to auscultation Cardiovascular: tachycardic, regular Gastrointestinal (Abdomen): normal bowel sounds, soft, nontender, no hepatosplenomegaly Results & Data Results & Data Vital Signs (Past 12 Hours) Vital Signs Temp Pulse Resp BP Pulse Ox O2 Del Method 04/08/25 07:50 Room Air 04/08/25 07:41 36.6 C 92 H 16 113/71 97 Room Air Medications Administered Home Medications Medication Instructions Recorded Confirmed Last Taken quetiapine 300 mg tablet 300 mg PO HS 11/27/18 04/01/25 01/10/19 19:30 albuterol sulfate 90 mcg/actuation 2 puff inhalation Q6H PRN 08/06/23 04/01/25 Unknown aerosol inhaler Shortness Of Breath Or Wheezing allopurinol 100 mg tablet 100 mg PO DAILY 08/06/23 04/01/25 Unknown atorvastatin 20 mg tablet 20 mg PO DAILY 08/06/23 04/01/25 Unknown duloxetine 60 mg capsule,delayed 60 mg PO BID 08/06/23 04/01/25 Unknown release fluticasone fur. 100 mcg-umeclid 1 ea inhalation DAILY 08/06/23 04/01/25 Unknown 62.5 mcg-vilant 25 mcg inhalat.powder (Trelegy Ellipta) folic acid 1 mg tablet 1 mg PO QAM 08/06/23 04/01/25 Unknown lamotrigine 200 mg tablet 200 mg PO DAILY 08/06/23 04/01/25 Unknown methotrexate sodium 2.5 mg tablet 20 mg PO WK 08/06/23 04/01/25 Unknown montelukast 10 mg tablet 10 mg PO DAILY 08/06/23 04/01/25 Unknown famotidine 20 mg tablet 20 mg PO BID 04/01/25 04/01/25 Unknown memantine ER 28 mg-donepezil 10 mg 1 cap PO DAILY 04/01/25 04/01/25 Unknown capsule sprinkle,ext.release 24 hr (Namzaric) Active Medications Generic Name Dose Route Start Last Admin Trade Name Freq PRN Reason Stop Dose Admin Acetaminophen 650 mg 04/01/25 17:30 04/08/25 07:50 Acetaminophen 325 Mg Tab PO 05/01/25 17:29 650 mg Q4H PRN Administration pain/fever Allopurinol 100 mg 04/02/25 09:00 04/08/25 07:46 Allopurinol 100 Mg Tab PO 05/02/25 08:59 100 mg DAILY MAYCO Administration Atorvastatin Calcium 20 mg 04/02/25 09:00 04/08/25 07:45 Atorvastatin 20 Mg Tab PO 05/02/25 08:59 20 mg DAILY MAYCO Administration Cyanocobalamin 1,000 mcg 04/01/25 18:00 04/08/25 07:45 Cyanocobalamin (B-12) 500 Mcg Tablet PO 05/01/25 17:59 1,000 mcg QAM MAYCO Administration Duloxetine HCl 60 mg 04/02/25 09:00 04/08/25 07:45 Duloxetine Hcl 60 Mg Cap PO 05/02/25 08:59 60 mg DAILY MAYCO Administration Fluticasone Furoate 1 puffs 04/02/25 09:00 04/08/25 07:46 Fluticasone Furoate 100mcg 14 Puffs/Inhaler INH 05/02/25 08:59 1 puffs DAILY MAYCO Administration Folic Acid 1 mg 04/01/25 15:45 04/08/25 07:45 Folic Acid 1 Mg Tab PO 05/01/25 15:44 1 mg QAM MAYCO Administration Insulin Aspart 0 units 04/01/25 16:30 04/08/25 08:02 Insulin Aspart Per Unit Charge SC 05/01/25 16:29 Not Given ACHS MAYCO Lamotrigine 200 mg 04/02/25 09:00 04/08/25 07:46 Lamotrigine 100 Mg Tab PO 05/02/25 08:59 200 mg DAILY MAYCO Administration Protocol Melatonin 3 mg 04/01/25 21:00 04/07/25 21:07 Melatonin 3 Mg Tab PO 05/01/25 20:59 3 mg HS MAYCO Administration Polyethylene Glycol 17 gm 04/05/25 10:45 04/08/25 07:50 Polyethylene (Miralax) 17 Gm Pack PO 05/05/25 10:44 17 gm DAILY MAYCO Administration Quetiapine Fumarate 300 mg 04/01/25 21:00 04/07/25 21:09 Quetiapine Fumarate 300 Mg Tablet PO 05/01/25 20:59 300 mg HS MAYCO Administration Sennosides 8.6 mg 04/05/25 21:00 04/08/25 07:50 Senna 8.6 Mg Tab PO 01/10/26 20:59 8.6 mg BID MAYCO Administration Simethicone 80 mg 04/03/25 15:21 04/03/25 17:04 Simethicone 80 Mg Chew PO 05/03/25 15:20 80 mg Q6H PRN Administration Flatulence Thiamine HCl 100 mg 04/02/25 09:00 04/08/25 07:45 Thiamine Hcl 100 Mg Tab PO 05/02/25 08:59 100 mg QAM MAYCO Administration Umeclidinium/Vilanterol 1 puffs 04/02/25 09:00 04/08/25 07:46 Umeclidinium/Vilanterol 62.5/25mcg 7 Puffs/Inhaler INH 05/02/25 08:59 1 puffs DAILY MAYCO Administration (1) Schizophrenia Schizophrenia type: unspecified Qualified Code(s): F20.9 - Schizophrenia, unspecified
[2025-04-09 07:10] VITALS: PULSE 103; RESP 16; TEMP 97.9; O2SAT 94
--- NOTE | 2025-04-09 11:05 | Hospitalist Progress Note ---
Date of Service April 09, 2025 Assessment & Plan (1) Schizophrenia: (2) UTI due to Klebsiella species: Plan: Completed course of antibiotics (3) Acute metabolic encephalopathy: Plan: Resolved, at baseline dementia (4) Dementia in Alzheimer's disease: (5) Diabetes mellitus, type II: (6) CKD (chronic kidney disease), stage III: (7) COPD (chronic obstructive pulmonary disease): (8) Psoriatic arthritis: Plan Patient overall doing well. Unable to return to independent living. Case management pursuing placement options, center care has excepted and waiting for a bed to open Check routine labs in a.m. Admission and Anticipated Discharge Date Admission Date: April 01, 2025 Subjective No acute issues overnight. Patient bored hanging out here in the hospital. Understands pursuing placement options Physical Exam Physical Exam: Constitutional: Alert, comfortable in bed, nontoxic Lungs: No respiratory distress CV: S1-S2, regular Abdomen: Soft, nontender, nondistended Extremities: No significant edema Neuro: No focal deficits Psych: Cooperative, normal mood Results & Data Results & Data Vital Signs (Past 12 Hours) Vital Signs Temp Pulse Resp BP BP Pulse Ox O2 Del Method 04/09/25 07:08 36.6 C 103 H 16 153/82 H 94 Room Air 04/08/25 23:55 36.5 C 105 H 18 119/70 95 Room Air Diagnostic Findings Reviewed imaging, laboratory and diagnostic studies. Pertinent findings as below. Last labs 04/03/2025 (1) Schizophrenia Schizophrenia type: unspecified Qualified Code(s): F20.9 - Schizophrenia, unspecified
--- NOTE | 2025-04-09 12:25 | Discharge Summary ---
Discharge Summary Date of Service April 09, 2025 Principal Dx & Hospital Course #1 = Principal Diagnosis (1) Schizophrenia: (2) UTI due to Klebsiella species: Completed course of antibiotics (3) Acute metabolic encephalopathy: Resolved, at baseline dementia (4) Dementia in Alzheimer's disease: (5) Diabetes mellitus, type II: (6) CKD (chronic kidney disease), stage III: (7) COPD (chronic obstructive pulmonary disease): (8) Psoriatic arthritis: Plan Patient 79-year-old gentleman with known moderate Alzheimer's dementia, chronic schizophrenia, depression presented to the emergency room with increasing confusion and weakness for a few days. Initial evaluation in the emergency room was unremarkable for acute findings but due to his symptoms was referred for further evaluation. Patient was admitted to the hospital. Additional history is obtained from the son. Son reported that over the past several weeks the patient had been falling frequently at home, having some hallucinations, decreasing physical condition to the point where he is no longer able to care for himself and get to the bathroom. Son reported that he is not using any alcohol currently. Patient was continued on his medications. Urinalysis and culture did reveal Klebsiella UTI. He was treated for this and completed the course of antibiotics in the hospital. Patient was seen by therapies during his time here as well as case management. Ultimately it was determined the patient would not be able to return to independent living. Patient was well-behaved here during the hospital. There is no significant hallucinations that were problematic. He was continued on his oral medications. Case management was able to coordinate his ongoing care at [facility]. Will discharge they are to ontinue his ongoing care needs. Notes For Next Care Provider Medication Changes From Visit Ivan discontinue duloxetine daily Namenda discontinued Admission HPI Per Admitting Provider 79 yo male with pmhx of DM Type 2, moderate dementia, COPD (Group B), psoriasis, CKD stage IIIa, rheumatoid arthritis, chronic schizophrenia, depression, hx of alcohol use in past, transient arterial occlusion of retina who presents for confusion and weakness for past few days. Had admission in 04/2024 for SOB, found to have COVID. In the ED, had blood work that was unremarkable, admitted to medicine. Patient seen and examined at bedside. Son present as well. Patient poor historian, did not add much to conversation. Son states that for the past few weeks he has been falling frequently and hallucinating at home. Hallucinations are auditory and occasionally visual. States that over the past 3 days he is no longer able to walk to the bathroom. States he is not able to do most activities at this point, struggling to use coffee pot, not able to use remote for TV. Has been having outbursts of agitation as well. No tobacco use, no current alcohol use, no drug use, DNRDNI. Admission Exam Per Admitting Provider See H&P Discharge Exam Constitutional: Alert, comfortable in bed, nontoxic Lungs: No respiratory distress CV: S1-S2, regular Abdomen: Soft, nontender, nondistended Extremities: No significant edema Neuro: No focal deficits, impaired memory, impaired judgment Psych: Cooperative, flat affect Updated Medication List Medication Instructions Recorded Confirmed Type quetiapine 300 mg tablet 300 mg PO HS 11/27/18 04/01/25 History albuterol sulfate 90 mcg/actuation 2 puff inhalation Q6H PRN 08/06/23 04/01/25 History aerosol inhaler Shortness Of Breath Or Wheezing allopurinol 100 mg tablet 100 mg PO DAILY 08/06/23 04/01/25 History atorvastatin 20 mg tablet 20 mg PO DAILY 08/06/23 04/01/25 History duloxetine 60 mg capsule,delayed 60 mg PO BID 08/06/23 04/01/25 History release fluticasone fur. 100 mcg-umeclid 1 ea inhalation DAILY 08/06/23 04/01/25 History 62.5 mcg-vilant 25 mcg inhalat.powder (Trelegy Ellipta) folic acid 1 mg tablet 1 mg PO QAM 08/06/23 04/01/25 History lamotrigine 200 mg tablet 200 mg PO DAILY 08/06/23 04/01/25 History methotrexate sodium 2.5 mg tablet 20 mg PO WK 08/06/23 04/01/25 History montelukast 10 mg tablet 10 mg PO DAILY 08/06/23 04/01/25 History famotidine 20 mg tablet 20 mg PO BID 04/01/25 04/01/25 History memantine ER 28 mg-donepezil 10 mg 1 cap PO DAILY 04/01/25 04/01/25 History capsule sprinkle,ext.release 24 hr (Namzaric) acetaminophen 325 mg tablet 650 mg (2 x 325 mg) PO Q4H PRN 04/09/25 Rx fever or pain #1 tab cyanocobalamin (vitamin B-12) 500 1,000 mcg (2 x 500 mcg) PO QAM #30 04/09/25 Rx mcg tablet tabs folic acid 1 mg tablet 1 mg PO QAM #30 tabs 04/09/25 Rx melatonin 3 mg tablet 3 mg PO HS #30 tabs 04/09/25 Rx polyethylene glycol 3350 17 gram 17 g PO DAILY #14 ea 04/09/25 Rx oral powder packet (Miralax) sennosides 8.6 mg tablet (Senna 8.6 mg PO BID #60 tabs 04/09/25 Rx Lax) thiamine HCl (vitamin B1) 100 mg 100 mg PO QAM #30 tabs 04/09/25 Rx tablet Hospital Stay Data Consultations 04/01/25 14:51 ED Decision to Admit Stat Diagnostic Imagining Performed 04/01/25 12:57 CT head/brain wo con Stat 04/01/25 13:10 CT cervical spine wo con Stat Reviewed imaging, laboratory and diagnostic studies. Pertinent findings as below. WBC 7.6 Hemoglobin 12.0 Platelets of 172 Electrolytes within normal range Creatinine 1.26 Vitamin B12 357 TSH 1.5 Ammonia level 22.0 Urine culture grew out Klebsiella Blood cultures no growth Pending Results Patient Have Any Pending Studies at Discharge: No Discharge Instructions Given to Patient (Per Discharging Provider) Continue with routine care of chronic medical issues Total Time Total Time Spent Total Time Spent (In Minutes): 33
[2025-04-09 12:48] VITALS: BP 119/70
== END 2025-04-09 16:25 | DRG 689 ==
LOC: ED 10:48 → SUATTDRO 15:20 → 3E 15:20